=== PATIENT | male | born 1970 | race American Indian/Alaskan Native ===

== ENCOUNTER 2016-07-30 09:31 | Inpatient (IN) | payer MEDICARE ==
--- NOTE | 2016-07-30 10:05 | Emergency Department Report ---
Chief Complaint: Chest Pain Stated Complaint: CHEST PAIN Time Seen by Provider: 07/30/16 09:55 - HPI History of Present Illness: Patient is a 46-year-old male who presents to ED complaining of midsternal nonradiating radiating chest pain times this morning. Patient complains of vomiting bright red blood this morning. Patient states chest pain starts prior to the vomiting bright red blood. 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 Patient states he is on blood pressure medication. Patient describes the pain as sharp in nature, 8 out of 10 intensity. Patient states he is concerned about all he is vomiting bright red blood. Patient states last episode of vomiting blood was earlier this morning. Patient denies shortness of breath fever/chills/nausea/diarrhea/constipation - ROS Review of Systems: As noted in HPI - Exam Vital Signs: Vital Signs 07/30/16 09:36 Temperature 97.6 F Pulse Rate 104 H Respiratory 19 Rate Blood Pressure 169/102 O2 Sat by Pulse 97 Oximetry Physical Exam: GENERAL: Alert and oriented x3, no apparent distress, Normal Gait, atraumatic. HEAD: Head is normocephalic and a-traumatic. EYES: Extra ocular muscles are intact. Pupils are equal, round, and reactive to light and accommodation. LUNGS: Symetrical with respiration, No wheezing, no rales or crackles, CTAB. HEART: S1, S2 present, regular rate and rhythm without murmur, no rubs, no gallops. ABDOMEN: No organomegaly was noted,Positive bowel sounds, soft, and non- distended. . Nontender to palpation on all Quadrants, NO CVA tenderness. SKIN: Warm and dry, No lesions, No ulceration or induration present. MSE screening note: Focused history and physical exam performed. Due to findings the following was ordered: ED Medical Decision Making - Medical Decision Making 46-year-old male presents with complaints of bright red blood vomiting and chest pain. Chest pain protocol ordered. GI labs ordered. Patient awaiting to see ER physician. Patient was very adamant about being admitted to get her scoped down his throat. Discussed with patient based on labs and symptoms if admission criteria is met. ED Disposition for MSE Condition: Stable
[2016-07-30 10:23] LABS: Basophils % (Auto) 0.4 % (0.0-1.8); Eosinophils % (Auto) 2.9 % (0.0-4.3); Hematocrit 40.4 % (35.5-45.6); Hemoglobin 13.4 gm/dl (11.8-15.2); Mean Corpuscular HGB Conc 33 % (32-34); Mean Corpuscular Hemoglobin 30 pg (28-32); Mean Corpuscular Volume 91 fl (84-94); Platelet Count 288 K/mm3 (140-440); Red Blood Count 4.44 M/mm3 (3.65-5.03); Red Cell Distribution Width 13.9 % (13.2-15.2)
[2016-07-30 10:42] LABS: Alanine Aminotransferase 15 units/L (7-56); Albumin 4.3 g/dL (3.9-5); Albumin/Globulin Ratio 1.5 %; Alkaline Phosphatase 87 units/L (35-129); Amylase 117 units/L (27-131); Anion Gap 17 mmol/L; Bilirubin,Total 0.3 mg/dL (0.1-1.2); Blood Urea Nitrogen 6 mg/dL (9-20); Calcium 8.6 mg/dL (8.4-10.2); Carbon Dioxide 23 mmol/L (22-30); Chloride 100.9 mmol/L (98-107); Glucose 254 mg/dL (75-100); Lipase 186 units/L (13-60); Potassium 3.8 mmol/L (3.6-5.0); Sodium 137 mmol/L (137-145); Total Protein 7.2 g/dL (6.3-8.2)
[2016-07-30] MEDS ORDERED: DILAUDID IV ONE (16:05)
[2016-07-30] MEDS ORDERED: NACL 0.9% 1000 ML 1,000 ML IV ONE (16:05)
[2016-07-30] MEDS ORDERED: ZOFRAN IV ONE (16:05)
--- NOTE | 2016-07-30 16:20 | Emergency Department Report ---
ED Chest Pain HPI - General Chief Complaint: Chest Pain Stated Complaint: CHEST PAIN Time Seen by Provider: 07/30/16 15:56 Source: patient Mode of arrival: Ambulatory Limitations: No Limitations - History of Present Illness Initial Comments: This is a 46-year-old Afro-N[place]alese male presents the emergency department with complaint of midsternal chest pain that started just prior to presentation. It has been associated with nausea and about 4-5 episodes of vomiting. One time the patient says that there was some blood-tinged emesis. He denies any shortness of breath, fever, diaphoresis. He has a past medical history of hypertension and some psychiatric history but denies any history of OH, CVA, PE/ DVT. He is an occasional tobacco smoker. He does not have a primary care doctor. The chest pain is constant and sharp. He took 2 bare aspirin for his discomfort without any relief. No recent travel or sick contacts at home. He denies any alcohol or illicit drug use or abuse. Patient says he had a negative stress test many years ago. Severity scale (0 -10): 9 - Related Data Home Medications Medication Instructions Recorded Confirmed Last Taken Lisinopril [Zestril TAB] 40 mg PO DAILY 07/15/14 12/21/15 12/21/15 Previous Rx's Medication Instructions Recorded Last Taken Type QUEtiapine [SEROquel] 400 mg PO QHS tablet 12/23/15 Unknown Rx buPROPion [Wellbutrin] 200 mg PO DAILY tablet 12/23/15 Unknown Rx ALBUTEROL Inhaler [ProAir HFA 2 puff IH QID PRN #1 inhalation 02/04/16 Unknown Rx Inhaler] Azithromycin [Zithromax TAB] 500 mg PO QDAY #5 tablet 02/04/16 Unknown Rx Pantoprazole [Protonix] 40 mg PO QDAY #30 tablet 02/04/16 Unknown Rx glipiZIDE XL [Glucotrol Xl] 5 mg PO QAM #30 tab.er.24 02/04/16 Unknown Rx HYDROcodone/APAP 7.5-325 [Oakley 1 each PO Q8HR PRN #10 tablet 04/20/16 Unknown Rx 7.5-325 mg TAB] Omeprazole Magnesium [PriLOSEC Otc] 20 mg PO QDAY #14 04/20/16 Unknown Rx Ondansetron [Zofran TAB] 4 mg PO Q8HR PRN #14 tablet 04/20/16 Unknown Rx Allergies Allergy/AdvReac Type Severity Reaction Status Date / Time No Known Allergies Allergy Verified 07/30/16 09:42 YANIQUE score - Yanique Score Age > 65: (0) No Aspirin use within the Past 7 Days: (0) No 3 or more CAD Risk Factors: (0) No 2 or more Angina events in past 24 hrs: (1) Yes Known CAD with more than 50% Stenosis: (0) No Elevated Cardiac Markers: (0) No ST Deviation Greater than 0.5mm: (0) No YANIQUE Score: 1 ED Review of Systems ROS: Stated complaint: CHEST PAIN Other details as noted in HPI Comment: All other systems reviewed and negative Constitutional: denies: chills, fever Eyes: denies: eye pain, eye discharge, vision change ENT: denies: ear pain, throat pain Respiratory: denies: cough, shortness of breath, wheezing Cardiovascular: chest pain. denies: palpitations Gastrointestinal: nausea, vomiting, hematemesis Genitourinary: denies: urgency, dysuria Musculoskeletal: denies: back pain, joint swelling, arthralgia Skin: denies: rash, lesions Neurological: denies: headache, weakness, paresthesias ED Past Medical Hx - Past Medical History Hx Hypertension: Yes Hx Congestive Heart Failure: No Hx Diabetes: No Hx Psychiatric Treatment: Yes (depression, schizophrenia, BIPOLAR) Hx Asthma: No Hx COPD: No Hx HIV: No - Surgical History Hx Cholecystectomy: Yes (2013) - Social History Smoking Status: Current Every Day Smoker Substance Use Type: Alcohol, Marijuana - Medications Home Medications: Home Medications Medication Instructions Recorded Confirmed Last Taken Type Lisinopril [Zestril TAB] 40 mg PO DAILY 07/15/14 12/21/15 12/21/15 History QUEtiapine [SEROquel] 400 mg PO QHS tablet 12/23/15 Unknown Rx buPROPion [Wellbutrin] 200 mg PO DAILY tablet 12/23/15 Unknown Rx ALBUTEROL Inhaler [ProAir HFA 2 puff IH QID PRN #1 inhalation 02/04/16 Unknown Rx Inhaler] Azithromycin [Zithromax TAB] 500 mg PO QDAY #5 tablet 02/04/16 Unknown Rx Pantoprazole [Protonix] 40 mg PO QDAY #30 tablet 02/04/16 Unknown Rx glipiZIDE XL [Glucotrol Xl] 5 mg PO QAM #30 tab.er.24 02/04/16 Unknown Rx HYDROcodone/APAP 7.5-325 [Oakley 1 each PO Q8HR PRN #10 tablet 04/20/16 Unknown Rx 7.5-325 mg TAB] Omeprazole Magnesium [PriLOSEC Otc] 20 mg PO QDAY #14 tablet. 04/20/16 Unknown Rx Ondansetron [Zofran TAB] 4 mg PO Q8HR PRN #14 tablet 04/20/16 Unknown Rx ED Physical Exam - General Limitations: No Limitations - Other Other exam information: GENERAL: The patient is well-developed well-nourished. HEENT: Normocephalic. Atraumatic. Extraocular motions are intact. Patient has moist mucous membranes. Pupils equal reactive to light bilaterally. NECK: Supple. Trachea is midline. CHEST/LUNGS: Clear to auscultation. There is no respiratory distress noted. Chest pain is not reproducible to palpation of chest wall. HEART/CARDIOVASCULAR: Regular. There is mild tachycardia. There is no gallop rub or murmur. ABDOMEN: Abdomen is soft. Patient has some tenderness to palpation to the epigastrium. No guarding rebound tenderness. Patient has normal bowel sounds. There is no abdominal distention. SKIN: There is no rash. There is no edema. There is no diaphoresis. NEURO: The patient is awake, alert, and oriented. The patient is cooperative. The patient has no focal neurologic deficits. The patient has normal speech. MUSCULOSKELETAL: There is no tenderness or deformity. There is no limitation range of motion. There is no evidence of acute injury. ED Course Vital Signs 07/30/16 07/30/16 07/30/16 09:36 13:22 16:10 Temperature 97.6 F 98.1 F Pulse Rate 104 H 52 L 96 H Respiratory 19 20 15 Rate Blood Pressure 169/102 Blood Pressure 148/91 [Left] O2 Sat by Pulse 97 99 Oximetry 07/30/16 07/30/16 07/30/16 16:11 16:12 16:14 Temperature Pulse Rate 97 H 92 H 94 H Respiratory 14 18 25 H Rate Blood Pressure 161/104 161/104 Blood Pressure [Left] O2 Sat by Pulse 99 99 Oximetry 07/30/16 07/30/16 07/30/16 16:16 16:18 16:20 Temperature Pulse Rate 112 H 102 H 97 H Respiratory 23 21 16 Rate Blood Pressure 161/104 161/104 161/104 Blood Pressure [Left] O2 Sat by Pulse 98 81 L 99 Oximetry 07/30/16 07/30/16 07/30/16 16:54 16:56 16:58 Temperature Pulse Rate 100 H 94 H 105 H Respiratory 22 17 22 Rate Blood Pressure Blood Pressure [Left] O2 Sat by Pulse 99 99 97 Oximetry 07/30/16 07/30/16 07/30/16 16:59 17:00 17:02 Temperature Pulse Rate 101 H 93 H Respiratory 19 19 19 Rate Blood Pressure 160/107 Blood Pressure [Left] O2 Sat by Pulse 99 97 Oximetry 07/30/16 07/30/16 07/30/16 17:04 17:06 17:08 Temperature Pulse Rate 100 H 96 H 110 H Respiratory 21 24 17 Rate Blood Pressure 160/107 160/107 160/107 Blood Pressure [Left] O2 Sat by Pulse 89 100 89 Oximetry 07/30/16 07/30/16 07/30/16 17:10 17:12 17:14 Temperature Pulse Rate 108 H 131 H 117 H Respiratory 19 33 H 26 H Rate Blood Pressure 160/107 160/107 160/107 Blood Pressure [Left] O2 Sat by Pulse 100 99 100 Oximetry 07/30/16 07/30/16 07/30/16 17:16 17:18 17:20 Temperature Pulse Rate Respiratory 22 22 29 H Rate Blood Pressure 160/107 160/107 160/107 Blood Pressure [Left] O2 Sat by Pulse 100 94 100 Oximetry 07/30/16 07/30/16 07/30/16 17:22 17:24 17:26 Temperature Pulse Rate Respiratory 19 15 19 Rate Blood Pressure 160/107 160/107 160/107 Blood Pressure [Left] O2 Sat by Pulse 100 100 100 Oximetry 07/30/16 07/30/16 07/30/16 17:28 17:30 17:32 Temperature Pulse Rate Respiratory 15 18 25 H Rate Blood Pressure 160/107 162/107 162/107 Blood Pressure [Left] O2 Sat by Pulse 100 100 100 Oximetry 07/30/16 07/30/16 07/30/16 17:34 17:36 17:38 Temperature Pulse Rate Respiratory 13 17 20 Rate Blood Pressure 162/107 162/107 162/107 Blood Pressure [Left] O2 Sat by Pulse 100 100 100 Oximetry 07/30/16 07/30/16 07/30/16 17:40 17:42 17:44 Temperature Pulse Rate Respiratory 17 16 16 Rate Blood Pressure 162/107 162/107 162/107 Blood Pressure [Left] O2 Sat by Pulse 100 100 99 Oximetry 07/30/16 07/30/16 07/30/16 17:46 17:48 17:50 Temperature Pulse Rate 113 H Respiratory 22 18 Rate Blood Pressure 162/107 162/107 162/107 Blood Pressure [Left] O2 Sat by Pulse 100 100 99 Oximetry 07/30/16 07/30/16 07/30/16 17:52 17:54 17:56 Temperature Pulse Rate 100 H 111 H Respiratory 12 30 H Rate Blood Pressure 162/107 162/107 162/107 Blood Pressure [Left] O2 Sat by Pulse 99 99 99 Oximetry 07/30/16 07/30/16 07/30/16 17:58 18:00 18:02 Temperature Pulse Rate 96 H 96 H 97 H Respiratory 15 22 14 Rate Blood Pressure 162/107 159/107 159/107 Blood Pressure [Left] O2 Sat by Pulse 99 100 100 Oximetry 07/30/16 07/30/16 07/30/16 18:04 18:06 18:08 Temperature Pulse Rate 99 H 99 H 102 H Respiratory 19 18 12 Rate Blood Pressure 159/107 159/107 159/107 Blood Pressure [Left] O2 Sat by Pulse 100 100 99 Oximetry 07/30/16 07/30/16 07/30/16 18:10 18:12 18:14 Temperature Pulse Rate 95 H 94 H 90 Respiratory 17 14 19 Rate Blood Pressure 159/107 159/107 159/107 Blood Pressure [Left] O2 Sat by Pulse 100 100 100 Oximetry 07/30/16 18:58 Temperature Pulse Rate Respiratory 19 Rate Blood Pressure Blood Pressure [Left] O2 Sat by Pulse Oximetry ED Medical Decision Making - Lab Data Result diagrams: 07/30/16 10:07 07/30/16 10:14 - EKG Data -: EKG Interpreted by Tx EKG shows normal: sinus rhythm (PVCs), axis, intervals, QRS complexes, ST-T waves (flat T waves) Rate: tachycardia (110 bpm) - EKG Data When compared to previous EKG there are: previous EKG unavailable Interpretation: other (sinus rhythm with PVCs, flattened T waves, tachycardia at 110 bpm) - Radiology Data Radiology results: report reviewed, image reviewed interpreted by me: Chest x-ray did not show any acute process. Heart is normal shape and size. No effusions. No pneumothorax. No signs of pneumonia seen. CT of the abdomen and pelvis with IV contrast shows no free fluid or inflammatory changes. Normal-appearing appendix. Diverticulosis. Subcentimeter exophytic lesion is seen arising from the inferior pole of the left kidney. Fatty infiltration of liver. - Medical Decision Making 46-year-old male presents to the emergency department with complaint of some midsternal and left-sided chest pain. He also complains of some nausea and vomiting with hematemesis. Patient's EKG does not show any signs of ST elevation OH. Chest x-ray does not show any acute process. So far the patient has had negative troponins 2. A physical exam, even though the patient did not complain of abdominal pain at first, he has some tenderness to palpation of the epigastrium. With an elevated lipase level a CT of the abdomen and pelvis with IV contrast was done. No signs of pancreatitis or appendicitis. The patient has some diverticulosis and an exophytic lesion of the kidney. Patient continues to have discomfort despite 2 different doses of narcotic pain medication. He also presents with hyperglycemia but does not appear to be in DKA or HHNK. Since the patient has not had a stress test in many years and continues to have some chest discomfort he will be admitted to the hospital for further evaluation and treatment and has been accepted for admission by the hospitalist, Dr. Cody. - Differential Diagnosis OH, PE, costochondritis, pneumonia Critical Care Time: No Critical care attestation.: If time is entered above; I have spent that time in minutes in the direct care of this critically ill patient, excluding procedure time. ED Disposition Clinical Impression: Hyperglycemia Chest pain Qualifiers: Chest pain type: unspecified Qualified Code(s): R07.9 - Chest pain, unspecified Hematemesis Qualifiers: Nausea presence: with nausea Qualified Code(s): K92.0 - Hematemesis; R11.0 - Nausea Hypertension Qualifiers: Hypertension type: essential hypertension Qualified Code(s): I10 - Essential ( primary) hypertension Disposition: OP ADMITTED IP TO THIS HOSP Is pt being admited?: Yes Condition: Stable Instructions: Chest Pain (ED), Hypertension (ED) Time of Disposition: 19:53
--- NOTE | 2016-07-30 17:43 | Cat Scan Report ---
FINAL REPORT EXAM: CT ABDOMEN PELVIS W CON HISTORY: Abd pain TECHNIQUE: Serial axial images through the abdomen and pelvis during intravenous administration of contrast with coronal and sagittal reconstruction. PRIORS: CT abdomen pelvis from 12/21/2015 FINDINGS: There is atelectasis in the dependent portion of the lung bases. No pleural effusion is seen. There is fatty infiltration of the liver. No focal hepatic lesion is identified. The gallbladder is surgically absent. The pancreas, spleen and adrenal glands appear within normal limits. There is a stable exophytic lesion arising from the inferior pole of left kidney that measures approximately 9 millimeters in diameter. Hounsfield units measure 24. In the prior examination, Hounsfield units measure 42. Aorta is normal in caliber. Bladder appears normal. No free fluid. Appendix appears normal. Scattered diverticula are seen arising from the distal colon. Degenerative changes are seen in the spine. No acute osseous abnormality is identified. IMPRESSION: 1. No free fluid or inflammatory changes are seen in the abdomen or pelvis. 2. Normal-appearing appendix. 3. Diverticulosis. 4. Subcentimeter exophytic lesion is seen arising from the inferior pole of left kidney. This could represent proteinaceous cyst. Other etiology is not excluded. This can be further characterized with MRI. Alternatively, a limited follow-up study can be performed in 6 months to assure stability. 5. Fatty infiltration of the liver.
[2016-07-30] MEDS ORDERED: MORPHINE IV ONE (18:35)
--- NOTE | 2016-07-30 19:02 | Admit Criteria Form ---
Admission Criteria Documentation: CARDIOLOGY GRG Clinical Indications for Admission to Inpatient Care ( Place 'X' for any and all applicable criteria): Hospital admission is needed for appropriate care of the patient because of ANY ONE of the following (1): [ ] I. Hemodynamic instability as indicated by ALL of the following (1)(2)(3) (4)(5) [ ]a) Vital signs or other findings not as expected for chronic patient condition or baseline [ ]b) Instability indicated by ANY ONE of the following: [ ]i) Hypotension [ ]ii) Symptomatic Tachycardia unresponsive to treatment ( e.g., analgesia, fluids, sedation as indicated) [ ]iii) Inadequate perfusion indicated by ANY ONE of the following: [ ] 1) Lactic acidosis (> 2 mmol/L) [ ] 2) New abnormal capillary refill (> 3 seconds) [ ] 3) Reduced urine output [ ] 4) New altered mental status [ ]iv) Orthostatic vital sign changes unresponsive to treatment (e.g., fluids) [ ]v) IV inotropic or vasopressor medication required to maintain adequate blood pressure or perfusion [ ] II. Severe heart failure as indicated by ANY ONE of the following(17)(18) [ ]a) Respiratory distress [ ]b) Hypotension [ ]c) Anasarca (refractory to outpatient therapy) [ ]d) Cardiac arrhythmias of immediate concern [ ]e) Myocardial ischemia [ ] III. Cardiac arrhythmias or findings of immediate concern indicated by ANY ONE of the following (19)(20): [ ] a) Heart rhythms that are inherently dangerous or unstable indicated by ANY ONE of the following (21)(22)(23): [ ] i) Resuscitated ventricular fibrillation or cardiac arrest [ ] ii) Ventricular escape rhythm [ ] iii) Sustained ventricular tachycardia (30 seconds or more of ventricular rhythm at greater than 100 beats per minute) [ ] iv) Nonsustained ventricular tachycardia and ANY ONE of the following: [ ] 1) Suspected cardiac ischemia as cause or consequence of ventricular tachycardia [ ] 2) In setting of acute myocarditis [ ] b) Unstable cardiac conduction defects indicated by ANY ONE of the following(23)(24)(25) [ ] i) Type II second-degree atrioventricular block [ ]ii) Third-degree atrioventricular block [ ]iii) New-onset left bundle branch block with suspected myocardial ischemia [ ]c) Any heart rhythm and ANY ONE of the following (21)(22)(26)(27) (28) [ ] i) Continuous long-term ECG monitoring needed (e.g., initiation of drug requiring monitoring for more than 24 hours) [ ] ii) Patient has automatic implanted cardioverter defibrillator that is repeatedly firing, malfunctioning, or in need of immediate adjustment of settings beyond the scope of ambulatory or observation care [ ]d) Heart rhythms of concern due to ANY ONE of the following: [ ] i) Hypotension [ ] ii) Respiratory distress [ ] iii) Association with other significant symptoms (e.g., bradycardia with syncope or ongoing dizziness, supraventricular tachycardia with chest pain (14)(15)(17) [ ] IV. Monitoring for cardiac contusion beyond the scope of observation care needed [A](30)(31)(32) [ ] V. Surgical or device complication (e.g., valve replacement complication , pacemaker dysfunction) (35)(41)(44)(45)(46) [ ] . Inpatient palliative care needed. [B](49) Also use Inpatient Palliative Care Criteria [ ] VII. Nonbacterial thrombotic (marantic) endocarditis (36)(43)(47)(48) [X ] VIII. Cardiology condition, symptom, or finding for which emergency and observation care has failed or are not considered appropriate. [ ] IX. Acute valvular disease requiring inpatient as indicated by ANY ONE of the following (41) [ ]a) Acute valvular regurgitation (42) [ ]b) Noninfectious valvulitis (43) [ ]c) Obstructive valve thrombosis [ ]d) Paravalvular leak [ ]e) Other significant valvular disorder remaining after emergency or observation level of care (as appropriate) [ ]X. Pericardial disease requiring inpatient treatment as indicated by ANY ONE of the following (33)(34)(35)(36)(37) [ ]a) Suspected tamponade (38)(39)(40) [ ]b) Hemopericardium [ ]c) Other significant pericardial disorder remaining after emergency or observation level of care (as appropriate) [ ] XI. Cardiac ischemia beyond scope of emergency and observation care. [ ] XII. Hypertension requiring inpatient treatment as indicated by ANY ONE of the following (6)(7)(8) [ ]a) SBP greater than 220 mm Hg or DBP greater than 120 mmHg despite treatment [ ]b) SBP greater than 140 mm Hg or DBP greater than 100 mm Hg with evidence of acute end organ damage as indicated by ANY ONE of the following [ ] i) Altered mental status [ ] ii) Acute renal failure as indicated by new onset of ANY ONE of the following (9)(10)(11)(12)(13) [ ]1) 3-fold rise in serum creatinine from baseline [ ]2) Serum creatinine greater than 4 mg/dL ( 354 micromoles/L) with acute rise greater than 0.5 mg/dL (44.2 micromoles/L) [ ]3) Reduction of more than 75% in estimated glomerular filtration rate from baseline [ ]4) Estimated glomerular filtration rate less than 35 mL/min/1.73m2 (0.59 mL/sec/1.73m2) in child up to 18 years of age [ ]5) Cessation of urine output indicated by ALL of the following [ ]A. Adequate volume status [ ]B. Inadequate urine output as indicated by ANY ONE of the following [ ]a. Urine output less than 0.3 mL/kg/hr for 24 hours [ ]b. Anuria (urine output less than 0.1 mL/kg/hr) for 12 hours [ ] iii) Aortic dissection [ ] iv) Myocardial Ischemia [ ] v) Left ventricular heart failure [ ]vi) Retinal Hemorrhage [ ]vii) Other significant finding [ ]c) Hypertension in child requiring inpatient treatment as indicated by ALL of the following(14)(15)(16) [ ] i) Outpatient treatment not effective, not available, or not appropriate [ ]ii) SBP or DBP greater than 95th percentile for age [ ]iii) Evidence of acute end organ damage as indicated by ANY ONE of the following [ ]1) Altered mental status [ ]2) Acute renal failure as indicated by new onset of ANY ONE of the following(9)(10)(11)(12)(13) [ ]A. 3-fold rise in serum creatinine from baseline [ ]B. Serum creatinine greater than 4 mg/dL (354 micromoles/L) with acute rise greater than 0.5 mg/dL (44.2 micromoles/L) [ ]C. Reduction of more than 75% in estimated glomerular filtration rate from baseline [ ]D. Estimated glomerular filtration rate less than 35 mL/min/1.73m2 (0.59 mL/sec/1.73m2) in child up to 18 years of age [ ]E. Cessation of urine output indicated by ALL of the following [ ]a. Adequate volume status [ ]b. Inadequate urine output as indicated by ANY ONE of the following [ ]i) Urine output less than 0.3 mL/kg/hr for 24 hours [ ]ii) Anuria ( urine output less than 0.1 mL/kg/hr) for 12 hours [ ]3) Severe headache [ ]4) Visual disturbance [ ]5) Retinal hemorrhage [ ]6) Other significant finding [ ]XIII. Complications of transplanted heart indicated by ANY ONE of the following(61): [ ]a) Acute graft rejection requiring inpatient management (eg, intravenous immunosuppression)(62)(63) [ ]b) Acute graft heart failure indicated by ANY ONE of the following(64): [ ]i) Hemodynamic instability [ ]ii) Cardiac arrhythmias of immediate concern [ ]iii) Pulmonary edema that is very severe (eg, mechanical ventilation needed, imminent or likely, need for 100% oxygen to keep oxygen saturation above 90%) [ ]iv) Pulmonary edema that is persistent as indicated by ALL of the following: [ ]1) New need for oxygen therapy to keep oxygen saturation above 90% (or increased FiO2 need from baseline) [ ]2) Has not improved sufficiently with emergency department or observation care IV diuretics or other heart failure treatments[E] [ ]v) Altered mental status that is severe or persistent [ ]vi) Increased creatinine (new on laboratory test) with reduction of more than 50% in estimated glomerular filtration rate from baseline [ ]vii) Progressively (ongoing) rising creatinine (known from past laboratory test) with reduction of more than 25% in estimated glomerular filtration rate from baseline [ ]viii) Acute renal failure [ ]ix) Acute peripheral ischemia (eg, examination shows pulseless, cool, mottled, or cyanotic extremity) [ ]x) Pulmonary artery catheter monitoring needed [ ]xi) Other sign or symptom of heart failure requiring inpatient treatment (ie, too severe or not responsive to outpatient and observation care treatment) [ ]c) Infection requiring inpatient management (eg, Hemodynamic instability, need for intravenous antimicrobial treatment)(66)(67)(68)(69)(70) [ ]d) Cardiac allograft vasculopathy requiring inpatient management ( eg evidence of cardiac ischemia)(71) [ ]e) Other complication of transplanted heart (eg, stroke, severe pulmonary hypertension, severe valvular dysfunction) requiring inpatient management(72) The original [facility] [employer] content created by [employer] has been revised. The portions of the content which have been revised are identified through the use of italic text or in bold, and [facility] has neither reviewed nor approved the modified material. All other unmodified content is copyright [facility] [employer]. Please see references footnoted in the original [facility] [email or web address] edition 2016 Admission Criteria Met: Yes
--- NOTE | 2016-07-30 21:18 | Event Note ---
Date: 07/30/16 See H/p in reports Upper Gi bleed Melena Abdominal pain Chest pain-r/o mi protocol HTN T2DM Depression
[2016-07-30] MEDS ORDERED: PROAIR IH PRN (21:20)
[2016-07-30] MEDS ORDERED: MILK OF MAGNESIA PO PRN (21:23)
[2016-07-30] MEDS ORDERED: TYLENOL PO PRN (21:23)
[2016-07-30] MEDS ORDERED: DULCOLAX PR PRN (21:23)
[2016-07-30] MEDS ORDERED: ZOFRAN IV PRN (21:23)
[2016-07-30] MEDS ORDERED: REGLAN IV PRN (21:23)
[2016-07-30] MEDS ORDERED: PROVENTIL IH PRN (21:27)
[2016-07-30] MEDS ORDERED: NOVOLOG SUB-Q PRN (21:40)
[2016-07-30] MEDS: DILAUDID IV PRN (21:57)
[2016-07-30] MEDS ORDERED: PROTONIX 80 MG in NACL 0.9% 100 ML IV SCH (22:00)
[2016-07-30] MEDS ORDERED: D5/0.45NS 1,000 ML IV SCH (22:00)
[2016-07-31] MEDS: DILAUDID IV PRN ×5 (03:29→20:00)
--- NOTE | 2016-07-31 04:05 | History and Physical Report ---
CHIEF COMPLAINT: 1. Hematemesis. 2. Chest pain. HISTORY OF PRESENT ILLNESS: A 46-year-old -[place] male who presents with midsternal chest pain. Also, nausea and 4 episodes of vomiting. Couple of times he vomited blood. The patient is very poor historian. Cannot rely on his history. The patient also says that he has dark stools. Also, right lower quadrant pain. Chest pain is about 6 on a scale of 1-10, intermittent in nature. No diaphoresis. No palpitations. Hematemesis, 2 episodes of bright red blood per vomiting. Also, melanotic stools. Right lower quadrant pain. Epigastric pain present. Denies any alcohol or drug use. CURRENT MEDICATIONS: Lisinopril 40 mg daily. Also Seroquel 400 mg p.o. at bedtime. Bupropion 200 mg daily. Lisinopril 40 mg once a day. PAST MEDICAL HISTORY: As mentioned, history significant for hypertension, depression, and psych disorder. FAMILY HISTORY: History of hypertension present. SOCIAL HISTORY: Does not smoke. No alcohol, no recreational drugs. REVIEW OF SYSTEMS: CONSTITUTIONAL: No weight loss, no weight gain. No fever, no chills. HEENT: No sore throat. No postnasal drip. NECK: No neck stiffness. CARDIOVASCULAR AND RESPIRATORY: No shortness of breath, no chest pain, no palpitations. Chest pain present. Slight diaphoresis present. GASTROINTESTINAL: Hematemesis and melanotic stools present. GENITOURINARY: No dysuria, no flank pain. MUSCULOSKELETAL: No joint pains and no muscle pains. CENTRAL NERVOUS SYSTEM: No syncope, no seizures. SKIN: No rashes. A 14-point review of systems is done and otherwise negative. PHYSICAL EXAMINATION: GENERAL: Middle aged male, cooperative during examination. VITAL SIGNS: Blood pressure is 136/90, temperature is 97.6, pulse is 93, respirations are 31. HEENT: Unremarkable. Pupils equal and reactive. NECK: Supple, no lymphadenopathy, no thyromegaly. LUNGS: Clear to auscultation and percussion. Good air entry. CARDIOVASCULAR: S1, S2 heard. No gallop, no murmur, no rub. Apical impulse in left fifth intercostal space midclavicular line. ABDOMEN: Soft. Right lower quadrant tenderness present. No guarding, no rigidity. Hernial orifices are normal. EXTREMITIES: Good pedal pulses. No pedal edema. CENTRAL NERVOUS SYSTEM: Alert and oriented x 4, nonfocal exam. LABORATORY DATA: White count is 4000, H and H is 13.4 and 40.4, platelet count is 288,000. D-dimer is less than 135. Electrolytes are normal. BUN and creatinine are 6 and 0.5, glucose is 254. Lipase is 186. CT of the abdomen did not show any pancreatitis. ASSESSMENT AND PLAN: 1. Upper gastrointestinal bleed. The patient was started on IV Protonix, IV fluids. The patient to get upper endoscopy. GI consulted. Dr. Acosta consulted. 2. Chest pain, rule out myocardial infarction, chest pain protocol. 3. Hypertension. Continue lisinopril for the time being. I will hold the lisinopril and put him on Catapres patch. 4. Insulin-dependent diabetes. Continue insulin coverage. 5. Acute gastritis. Continue Protonix 40 mg daily. We will continue Protonix drip for the time being and discharge him on Protonix. In summary, upper GI bleed, requiring GI workup and chest pain requiring cardiac workup. JOB# [id number] VSAleksandra/NTS
[2016-07-31 05:40] LABS: Hematocrit 38.2 % (35.5-45.6); Hemoglobin 12.7 gm/dl (11.8-15.2); Mean Corpuscular HGB Conc 33 % (32-34); Mean Corpuscular Hemoglobin 30 pg (28-32); Mean Corpuscular Volume 91 fl (84-94); Platelet Count 249 K/mm3 (140-440); Red Blood Count 4.18 M/mm3 (3.65-5.03); Red Cell Distribution Width 13.6 % (13.2-15.2); White Blood Count 3.6 K/mm3 (4.5-11.0)
[2016-07-31 05:54] LABS: Alanine Aminotransferase 13 units/L (7-56); Albumin 3.5 g/dL (3.9-5); Albumin/Globulin Ratio 1.3 %; Alkaline Phosphatase 80 units/L (35-129); Bilirubin,Total 0.3 mg/dL (0.1-1.2); Blood Urea Nitrogen 6 mg/dL (9-20); Carbon Dioxide 26 mmol/L (22-30); Chloride 104.2 mmol/L (98-107); Glucose 147 mg/dL (75-100); Potassium 3.8 mmol/L (3.6-5.0); Sodium 141 mmol/L (137-145); Total Protein 6.1 g/dL (6.3-8.2)
[2016-07-31 06:03] LABS: Anion Gap 15 mmol/L
[2016-07-31 07:09] LABS: Anisocytosis 1+; Basophils % (Manual) 0 % (0.0-1.8); Blastocytes % (Manual) 0 %; Diff Status Complete; Giant Platelets Rare; Hypochromasia 1+
--- NOTE | 2016-07-31 08:15 | XRay Report ---
AP chest x-ray. Findings: There is suboptimal inspiration with crowded bronchovascular markings. The heart size is normal. There is mild central vascular prominence probably related to degree of inspiration. There is no pleural fluid. Impression: No acute findings.
--- NOTE | 2016-07-31 08:50 | Gastroenterology Consultation ---
History of Present Illness - Reason for Consult Consult date: 07/31/16 hematemesis - History of Present Illness Mr Rasmussen is a 46 yo aam who presents with chest pain and epigastric pain for the past couple days. He has had a constant/sharp pain associated with episodes of n/v. Difficult to obtain much history from patient, but reports multiple episodes of hematemesis and black stools recently. Denies prior episodes of GI bleeding. Lipase elevated on admission. Denies significant alcohol use. Takes occasional NSAIDs. Past History Past Medical History: hypertension, other (shizophrenia, bipolar disorder) Past Surgical History: cholecystectomy Social history: smoking Family history: no significant family history Medications and Allergies Allergies Allergy/AdvReac Type Severity Reaction Status Date / Time No Known Allergies Allergy Verified 07/30/16 09:42 Home Medications Medication Instructions Recorded Confirmed Last Taken Type Lisinopril [Zestril TAB] 40 mg PO DAILY 07/15/14 07/30/16 12/21/15 History QUEtiapine [SEROquel] 400 mg PO QHS tablet 12/23/15 07/30/16 Unknown Rx buPROPion [Wellbutrin] 200 mg PO DAILY tablet 12/23/15 07/30/16 Unknown Rx Active Meds: Active Medications Acetaminophen (Tylenol) 650 mg PO Q4H PRN PRN Reason: Pain MILD(1-3)/Fever >100.5/DIGGS Albuterol (Proventil) 2.5 mg IH Q4HRT PRN PRN Reason: Shortness Of Breath Bisacodyl (Dulcolax) 10 mg RI QDAY PRN PRN Reason: Constipation unrelieved by MOM Bupropion HCl (Wellbutrin) 200 mg PO DAILY ALMA Hydromorphone HCl (Dilaudid) 1 mg IV Q3H PRN PRN Reason: Pain , Severe (7-10) Last Admin: 07/31/16 03:29 Dose: 1 mg Dextrose/Sodium Chloride (D5/0.45ns) 1,000 mls @ 75 mls/hr IV DIRECT ALMA Last Admin: 07/30/16 23:55 Dose: 75 mls/hr Pantoprazole Sodium 80 mg/ (Sodium Chloride) 100 mls @ 10 mls/hr IV DIRECT ALMA PRN Reason: 8 MG/HR Last Admin: 07/30/16 22:27 Dose: 10 mls/hr Insulin Aspart (Novolog) 0 units SUB-Q Q6HR PRN; Protocol PRN Reason: Hyperglycemia Magnesium Hydroxide (Milk Of Magnesia) 30 ml PO Q4H PRN PRN Reason: Constipation Metoclopramide HCl (Reglan) 10 mg IV Q6H PRN PRN Reason: Nausea And Vomiting Ondansetron HCl (Zofran) 4 mg IV Q3H PRN PRN Reason: N/V unrelieved by Reglan Quetiapine Fumarate (Seroquel) 400 mg PO QHS [facility] Last Admin: 07/30/16 22:27 Dose: 400 mg Review of Systems - Review of Systems All systems: negative (per HPI) Exam - Constitutional Vital Signs: Temp Pulse Resp BP Pulse Ox 98.2 F 99 H 18 121/68 94 07/31/16 05:38 07/31/16 06:52 07/31/16 05:38 07/31/16 05:38 07/31/16 05:38 General appearance: no acute distress - EENT Eyes: PERRL, EOM intact ENT: hearing intact, clear oral mucosa - Neck Neck: supple - Respiratory Respiratory effort: normal Respiratory: right: CTA - Cardiovascular Rhythm: regular Heart Sounds: Present: S1 & S2 Extremities: No edema - Gastrointestinal General gastrointestinal: Present: soft, other (+ epigastric ttp, no rebound/ guarding, nd, +bs) - Integumentary Integumentary: Present: clear, dry - Musculoskeletal Musculoskeletal: normal - Psychiatric Psychiatric: agitated - Labs CBC & Chem 7: 07/31/16 15:33 07/31/16 05:13 Lab Results: Laboratory Results - last 24 hr 07/31/16 07/31/16 07/31/16 05:13 05:13 05:13 WBC 3.6 L RBC 4.18 Hgb 12.7 Hct 38.2 MCV 91 MCH 30 MCHC 33 RDW 13.6 Plt Count 249 Lymph % (Auto) Janitorial Services Supervisor Add Manual Diff Complete Total Counted 100 Seg Neutrophils % Janitorial Services Supervisor Seg Neuts % (Manual) 52.0 Band Neutrophils % 0 Lymphocytes % (Manual) 37.0 H Reactive Lymphs % (Man) 0 Monocytes % (Manual) 2.0 Eosinophils % (Manual) 9.0 H Basophils % (Manual) 0 Metamyelocytes % 0 Myelocytes % 0 Promyelocytes % 0 Blast Cells % 0 Nucleated RBC % Not Reportable Seg Neutrophils # Man 1.9 Band Neutrophils # 0.0 Lymphocytes # (Manual) 1.3 Abs React Lymphs (Man) 0.0 Monocytes # (Manual) 0.1 Eosinophils # (Manual) 0.3 Basophils # (Manual) 0.0 Metamyelocytes # 0.0 Myelocytes # 0.0 Promyelocytes # 0.0 Blast Cells # 0.0 WBC Morphology Not Reportable Hypersegmented Neuts Not Reportable Hyposegmented Neuts Not Reportable Hypogranular Neuts Not Reportable Smudge Cells Not Reportable Toxic Granulation Not Reportable Toxic Vacuolation Not Reportable Dohle Bodies Not Reportable Pelger-Huet Anomaly Not Reportable Janna Rods Not Reportable Platelet Estimate Appears normal Clumped Platelets Not Reportable Plt Clumps, EDTA Not Reportable Large Platelets Not Reportable Giant Platelets Rare Platelet Satelliting Not Reportable Plt Morphology Comment Not Reportable RBC Morphology Not Reportable Dimorphic RBCs Not Reportable Polychromasia Not Reportable Hypochromasia 1+ Poikilocytosis Not Reportable Anisocytosis 1+ Microcytosis Not Reportable Macrocytosis Not Reportable Spherocytes Not Reportable Pappenheimer Bodies Not Reportable Sickle Cells Not Reportable Target Cells Not Reportable Tear Drop Cells Not Reportable Ovalocytes Not Reportable Helmet Cells Not Reportable Elder-Timpson Bodies Not Reportable Home Rings Not Reportable Charlotte Cells Not Reportable Bite Cells Not Reportable Crenated Cell Not Reportable Elliptocytes Not Reportable Acanthocytes (Spur) Not Reportable Rouleaux Not Reportable Hemoglobin C Crystals Not Reportable Schistocytes Not Reportable Malaria parasites Not Reportable Shankar Bodies Not Reportable Hem Pathologist Commnt No Sodium 141 Potassium 3.8 Chloride 104.2 Carbon Dioxide 26 Anion Gap 15 BUN 6 L Creatinine 0.5 L Estimated GFR > 60 BUN/Creatinine Ratio 12.00 Glucose 147 H Hemoglobin A1c 6.2 H Calcium 8.0 L Total Bilirubin 0.3 AST 14 ALT 13 Alkaline Phosphatase 80 Total Protein 6.1 L Albumin 3.5 L Albumin/Globulin Ratio 1.3 - Imaging X-ray: report reviewed CT Scan: report reviewed Assessment and Plan 1. hematemesis/melena - unclear etiology, HD stable, hct normal. plan for EGD today, PPI IV 2. ?acute pancreatitis - CT w/o signs of pancreatitis although he has an elevated lipase with epigastric abdominal pain (would fit criteria for pancreatitis). etiology unclear, ?alcohol, liver enzymes normal and h/o cholecystectomy.
[2016-07-31] MEDS ORDERED: WATER FOR IRRIG STERILE IR ONE (09:36)
[2016-07-31] MEDS ORDERED: NACL 0.9% 1000 ML 1,000 ML IV SCH ×2 (10:00→18:00)
[2016-07-31] MEDS ORDERED: DIPRIVAN 10 MG/ML IV ONE ×2 (10:10)
--- NOTE | 2016-07-31 10:12 | Anesthesia Consultation ---
Anesthesia Consult and Med Hx Date of service: 07/31/16 - Airway Anesthetic Teeth Evaluation: Good ROM Head & Neck: Adequate Mental/Hyoid Distance: Adequate Mallampati Class: Class II Intubation Access Assessment: Probably Good - Pulmonary Exam CTA: Yes - Cardiac Exam Cardiac Exam: RRR - Pre-Operative Health Status ASA Pre-Surgery Classification: ASA2 Proposed Anesthetic Plan: MAC - Pulmonary Hx Smoking: Yes Hx Asthma: No COPD: No Hx Pneumonia: No Hx Sleep Apnea: No - Cardiovascular System Hx Hypertension: Yes - Central Nervous System Hx Psychiatric Problems: Yes (schizophrenia, depression) - Endocrine Hx End Stage Renal Disease: No Hx Non-Insulin Dependent Diabetes: Yes - Other Systems Hx Alcohol Use: Yes Hx Substance Use: Yes (MARIJUANA) Hx Cancer: No Hx Obesity: Yes
--- NOTE | 2016-07-31 10:13 | Anesthesia Day of Surgery ---
Anesthesia Day of Surgery - Day of Surgery Patient Examined: Yes Patient H&P Reviewed: Yes Patient is NPO: Yes
[2016-07-31] MEDS ORDERED: XYLOCAINE MPF 2% ONE (10:14)
--- NOTE | 2016-07-31 10:30 | Post Operative Note ---
Pre-op diagnosis: hematemesis, melena, abdominal pain Post-op diagnosis: other (prominent ampulla of unclear etiology. otherwise unremarkable EGD.) Findings: prominent, slightly erythematous ampulla. Biopsies obtained. Otherwise unremarkable EGD, no signs/etiologies of bleeding seen. -f/u path -obtain MRCP (pt also with pancreatitis which could cause appearance as above, but to r/o distal cbd/pancreatic lesions Procedure: EGD with biopsies Anesthesia: MAC Surgeon: ISABELLA SEYMOUR Estimated blood loss: minimal Pathology: list Specimen disposition: to lab Condition: stable Disposition: floor
--- NOTE | 2016-07-31 11:48 | Post Anesthesia Evaluation ---
- Post Anesthesia Evaluation Patient Participated: Yes Airway Patent: Yes Stable Respiratory Function: Yes Nausea/Vomiting: No Temp > 96.8F: Yes Pain Manageable: Yes Adequeate Hydration: Yes Anesthesia Complications: No Block Receding Appropriately: Not Applicable Patient on Ventilator: No
[2016-07-31] MEDS ORDERED: APRESOLINE IV PRN (13:28)
[2016-07-31 15:43] LABS: Hematocrit 40.1 % (35.5-45.6); Hemoglobin 13.6 gm/dl (11.8-15.2)
--- NOTE | 2016-07-31 16:59 | Progress Note ---
Assessment and Plan Assessment and plan: Upper GI bleed Insulin-dependent diabetes mellitus type 2 Hypertension Epigastric pain noted to rule out pancreatic pathology Plan: Continue Protonix and IV fluids No definite cause was found to upper endoscopy Plan for MRCP per GI Continue insulin coverage to control blood glucose History Interval history: Patient seen and examined. Medical records and medication list reviewed. No acute event overnight noted by the RN. Patient denies any chest pain or difficulty breathing. Had EGD today , wants to eat Discussed plan of care at bedside with patient. Hospitalist Physical - Physical exam Narrative exam: GENERAL: well-developed male lying on bed appeared to be in no discomfort. HEENT: Normocephalic. Atraumatic. No conjunctival congestion or icterus. Patient has moist mucous membranes. NECK: Supple. Trachea midline. CHEST/LUNGS: Clear to auscultated bilaterally, breathing nonlabored. No wheezes crackles or rhonchi. HEART/CARDIOVASCULAR: Regular in rate and rhythm. S1 and S2 positive. ABDOMEN: Abdomen is soft, mild epigastric tenderness. Patient has normal bowel sounds. SKIN: There is no rash. Warm and dry. NEURO: No focal motor deficit. Follows command. MUSCULOSKELETAL: No joint effusion or tenderness. EXTRIMITY: No edema, no cyanosis or clubbing. PSYCH: Cooperative. - Constitutional Vitals: Temp Pulse Resp BP Pulse Ox 98.2 F 75 18 172/106 99 07/31/16 12:41 07/31/16 12:41 07/31/16 12:41 07/31/16 12:41 07/31/16 12:41 Results - Labs CBC & Chem 7: 08/01/16 06:23 07/31/16 05:13 Labs: Laboratory Last Values WBC 3.6 K/mm3 (4.5-11.0) L 07/31/16 05:13 RBC 4.18 M/mm3 (3.65-5.03) 07/31/16 05:13 Hgb 13.6 gm/dl (11.8-15.2) 07/31/16 15:33 Hct 40.1 % (35.5-45.6) 07/31/16 15:33 MCV 91 fl (84-94) 07/31/16 05:13 MCH 30 pg (28-32) 07/31/16 05:13 MCHC 33 % (32-34) 07/31/16 05:13 RDW 13.6 % (13.2-15.2) 07/31/16 05:13 Plt Count 249 K/mm3 (140-440) 07/31/16 05:13 Lymph % (Auto) Anime Artist 07/31/16 05:13 [place] % (Auto) 8.6 % (0.0-7.3) H 07/30/16 10:07 Eos % (Auto) 2.9 % (0.0-4.3) 07/30/16 10:07 Baso % (Auto) 0.4 % (0.0-1.8) 07/30/16 10:07 Lymph # 1.8 K/mm3 (1.2-5.4) 07/30/16 10:07 [place] # 0.3 K/mm3 (0.0-0.8) 07/30/16 10:07 Eos # 0.1 K/mm3 (0.0-0.4) 07/30/16 10:07 Baso # 0.0 K/mm3 (0.0-0.1) 07/30/16 10:07 Add Manual Diff Complete 07/31/16 05:13 Total Counted 100 07/31/16 05:13 Seg Neutrophils % Anime Artist 07/31/16 05:13 Seg Neuts % (Manual) 52.0 % (40.0-70.0) 07/31/16 05:13 Band Neutrophils % 0 % 07/31/16 05:13 Lymphocytes % (Manual) 37.0 % (13.4-35.0) H 07/31/16 05:13 Reactive Lymphs % (Man) 0 % 07/31/16 05:13 Monocytes % (Manual) 2.0 % (0.0-7.3) 07/31/16 05:13 Eosinophils % (Manual) 9.0 % (0.0-4.3) H 07/31/16 05:13 Basophils % (Manual) 0 % (0.0-1.8) 07/31/16 05:13 Metamyelocytes % 0 % 07/31/16 05:13 Myelocytes % 0 % 07/31/16 05:13 Promyelocytes % 0 % 07/31/16 05:13 Blast Cells % 0 % 07/31/16 05:13 Nucleated RBC % Not Reportable 07/31/16 05:13 Seg Neutrophils # 1.7 K/mm3 (1.8-7.7) L 07/30/16 10:07 Seg Neutrophils # Man 1.9 K/mm3 (1.8-7.7) 07/31/16 05:13 Band Neutrophils # 0.0 K/mm3 07/31/16 05:13 Lymphocytes # (Manual) 1.3 K/mm3 (1.2-5.4) 07/31/16 05:13 Abs React Lymphs (Man) 0.0 K/mm3 07/31/16 05:13 Monocytes # (Manual) 0.1 K/mm3 (0.0-0.8) 07/31/16 05:13 Eosinophils # (Manual) 0.3 K/mm3 (0.0-0.4) 07/31/16 05:13 Basophils # (Manual) 0.0 K/mm3 (0.0-0.1) 07/31/16 05:13 Metamyelocytes # 0.0 K/mm3 07/31/16 05:13 Myelocytes # 0.0 K/mm3 07/31/16 05:13 Promyelocytes # 0.0 K/mm3 07/31/16 05:13 Blast Cells # 0.0 K/mm3 07/31/16 05:13 WBC Morphology Not Reportable 07/31/16 05:13 Hypersegmented Neuts Not Reportable 07/31/16 05:13 Hyposegmented Neuts Not Reportable 07/31/16 05:13 Hypogranular Neuts Not Reportable 07/31/16 05:13 Smudge Cells Not Reportable 07/31/16 05:13 Toxic Granulation Not Reportable 07/31/16 05:13 Toxic Vacuolation Not Reportable 07/31/16 05:13 Dohle Bodies Not Reportable 07/31/16 05:13 Pelger-Huet Anomaly Not Reportable 07/31/16 05:13 Janna Rods Not Reportable 07/31/16 05:13 Platelet Estimate Appears normal 07/31/16 05:13 Clumped Platelets Not Reportable 07/31/16 05:13 Plt Clumps, EDTA Not Reportable 07/31/16 05:13 Large Platelets Not Reportable 07/31/16 05:13 Giant Platelets Rare 07/31/16 05:13 Platelet Satelliting Not Reportable 07/31/16 05:13 Plt Morphology Comment Not Reportable 07/31/16 05:13 RBC Morphology Not Reportable 07/31/16 05:13 Dimorphic RBCs Not Reportable 07/31/16 05:13 Polychromasia Not Reportable 07/31/16 05:13 Hypochromasia 1+ 07/31/16 05:13 Poikilocytosis Not Reportable 07/31/16 05:13 Anisocytosis 1+ 07/31/16 05:13 Microcytosis Not Reportable 07/31/16 05:13 Macrocytosis Not Reportable 07/31/16 05:13 Spherocytes Not Reportable 07/31/16 05:13 Pappenheimer Bodies Not Reportable 07/31/16 05:13 Sickle Cells Not Reportable 07/31/16 05:13 Target Cells Not Reportable 07/31/16 05:13 Tear Drop Cells Not Reportable 07/31/16 05:13 Ovalocytes Not Reportable 07/31/16 05:13 Helmet Cells Not Reportable 07/31/16 05:13 Elder-Donnellson Bodies Not Reportable 07/31/16 05:13 [place] Rings Not Reportable 07/31/16 05:13 [place] Cells Not Reportable 07/31/16 05:13 Bite Cells Not Reportable 07/31/16 05:13 Crenated Cell Not Reportable 07/31/16 05:13 Elliptocytes Not Reportable 07/31/16 05:13 Acanthocytes (Spur) Not Reportable 07/31/16 05:13 Rouleaux Not Reportable 07/31/16 05:13 Hemoglobin C Crystals Not Reportable 07/31/16 05:13 Schistocytes Not Reportable 07/31/16 05:13 Malaria parasites Not Reportable 07/31/16 05:13 Shankar Bodies Not Reportable 07/31/16 05:13 Hem Pathologist Commnt No 07/31/16 05:13 D-Dimer < 135.00 ng/mlDDU (0-234) 07/30/16 19:51 Sodium 141 mmol/L (137-145) 07/31/16 05:13 Potassium 3.8 mmol/L (3.6-5.0) 07/31/16 05:13 Chloride 104.2 mmol/L (98-107) 07/31/16 05:13 Carbon Dioxide 26 mmol/L (22-30) 07/31/16 05:13 Anion Gap 15 mmol/L 07/31/16 05:13 BUN 6 mg/dL (9-20) L 07/31/16 05:13 Creatinine 0.5 mg/dL (0.8-1.5) L 07/31/16 05:13 Estimated GFR > 60 ml/min 07/31/16 05:13 BUN/Creatinine Ratio 12.00 % 07/31/16 05:13 Glucose 147 mg/dL (75-100) H 07/31/16 05:13 Hemoglobin A1c 6.2 % (4-6) H 07/31/16 05:13 Calcium 8.0 mg/dL (8.4-10.2) L 07/31/16 05:13 Magnesium 1.9 mg/dL (1.7-2.3) 07/30/16 10:07 Total Bilirubin 0.3 mg/dL (0.1-1.2) 07/31/16 05:13 AST 14 units/L (5-40) 07/31/16 05:13 ALT 13 units/L (7-56) 07/31/16 05:13 Alkaline Phosphatase 80 units/L (35-129) 07/31/16 05:13 Troponin T < 0.010 ng/mL (0.00-0.029) 07/30/16 17:47 Total Protein 6.1 g/dL (6.3-8.2) L 07/31/16 05:13 Albumin 3.5 g/dL (3.9-5) L 07/31/16 05:13 Albumin/Globulin Ratio 1.3 % 07/31/16 05:13 Amylase 117 units/L (27-131) 07/30/16 10:14 Lipase 186 units/L (13-60) H 07/30/16 10:14
[2016-07-31] MEDS: WELLBUTRIN PO SCH (17:05)
[2016-07-31 21:31] LABS: Hematocrit 39.7 % (35.5-45.6); Hemoglobin 13.6 gm/dl (11.8-15.2)
[2016-08-01 01:00] LABS: Hemoglobin 13.3 gm/dl (11.8-15.2)
[2016-08-01] MEDS: DILAUDID IV PRN ×2 (04:00→14:00)
[2016-08-01 06:37] LABS: Hematocrit 40.5 % (35.5-45.6); Hemoglobin 13.6 gm/dl (11.8-15.2)
[2016-08-01] MEDS ORDERED: ZESTRIL PO SCH (10:00)
--- NOTE | 2016-08-01 11:27 | Gastroenterology Progress Note ---
Assessment and Plan 1. Acute pancreatitis - etiology unclear, ?alcohol (if under-estimating reported use). prominent ampulla during EGD. MRCP pending. f/u pathology from ampulla biopsies 2. ?GI bleed - hct stable/normal. no further episodes. No source identified during EGD Subjective Date of service: 08/01/16 Principal diagnosis: abdominal pain, pancreatitis Interval history: pt still c/o abdominal pain, although slightly improved. no further reported bleeding episodes. Objective - Constitutional Vitals: Temp Pulse Resp BP Pulse Ox 101 F H 83 20 121/72 95 07/31/16 21:05 08/01/16 11:10 08/01/16 11:10 08/01/16 11:10 08/01/16 11:10 General appearance: no acute distress - Respiratory Respiratory effort: normal Respiratory: right: CTA - Cardiovascular Rhythm: regular Heart Sounds: Present: S1 & S2 - Extremities Extremities: No edema - Gastrointestinal General gastrointestinal: Present: soft, non-distended, other (+ epigastric/mid abd tenderness to mild palpation) - Labs CBC & Chem 7: 08/01/16 06:23 07/31/16 05:13 Labs: Laboratory Results - last 24 hr 07/31/16 07/31/16 08/01/16 15:33 18:00 00:46 Hgb 13.6 13.6 13.3 Hct 40.1 39.7 40.0 POC Glucose 08/01/16 08/01/16 06:11 06:23 Hgb 13.6 Hct 40.5 POC Glucose 88
[2016-08-01] MEDS: PROTONIX PO SCH (14:00)
[2016-08-01] MEDS: ZESTRIL PO SCH (14:01)
[2016-08-01] MEDS: WELLBUTRIN PO SCH (14:01)
--- NOTE | 2016-08-01 14:22 | Operative Report ---
PROCEDURE: Esophagogastroduodenoscopy. PREOPERATIVE DIAGNOSES: Hematemesis, abdominal pain, melena. POSTOPERATIVE DIAGNOSES: Prominent and slightly erythematous ampulla, otherwise unremarkable EGD. No signs or obvious etiology of bleeding seen. ANESTHESIA: Monitored anesthesia care. COMPLICATIONS: No immediate complications. DESCRIPTION OF PROCEDURE: After consent was obtained, a standard [place] upper endoscope was advanced with direct vision through the mouth and advanced to the second portion of duodenum without difficulty. The views of the mucosa were good. The patient tolerated the procedure fairly well. FINDINGS: The esophagus appeared normal. The stomach appeared normal. There was a prominent and slightly erythematous appearing ampulla of unclear significance. Multiple biopsies were obtained. Otherwise the second portion of duodenum appeared normal with bile seen throughout the duodenum. IMPRESSION: Prominent, slightly erythematous ampulla, otherwise unremarkable EGD. No obvious etiology to explain the patient's bleeding. RECOMMENDATIONS: 1. Obtain MRCP given prominent ampulla and pancreatitis on admission. 2. Continue IV fluids. 3. PPI daily. [facility]# [id number] PRASHANT/CRYSTAL KEY
[2016-08-01] MEDS ORDERED: NORCO 5/325 PO PRN (15:07)
--- NOTE | 2016-08-01 17:28 | Progress Note ---
Assessment and Plan Assessment and plan: Upper GI bleed s/p EGD Insulin-dependent diabetes mellitus type 2 Hypertension Epigastric pain likley due to pancreatitis Plan: Continue Protonix and IV fluids No definite cause was found in upper endoscopy Plan for MRCP per GI which is pending Continue insulin coverage to control blood glucose advance diet as tolerated History Interval history: Patient seen and examined. Medical records and medication list reviewed. No acute event overnight noted by the RN. tolerated clear liquid diet, c/o epigastric pain, MRCP pending Discussed plan of care at bedside with patient. Hospitalist Physical - Physical exam Narrative exam: GENERAL: well-developed male lying on bed appeared to be in no discomfort. HEENT: Normocephalic. Atraumatic. No conjunctival congestion or icterus. Patient has moist mucous membranes. NECK: Supple. Trachea midline. CHEST/LUNGS: Clear to auscultated bilaterally, breathing nonlabored. No wheezes crackles or rhonchi. HEART/CARDIOVASCULAR: Regular in rate and rhythm. S1 and S2 positive. ABDOMEN: Abdomen is soft, mild epigastric tenderness. Patient has normal bowel sounds. SKIN: There is no rash. Warm and dry. NEURO: No focal motor deficit. Follows command. MUSCULOSKELETAL: No joint effusion or tenderness. EXTRIMITY: No edema, no cyanosis or clubbing. PSYCH: Cooperative. - Constitutional Vitals: Temp Pulse Resp BP Pulse Ox 101 F H 83 20 121/72 95 07/31/16 21:05 08/01/16 11:10 08/01/16 11:10 08/01/16 11:10 08/01/16 11:10 Results - Labs CBC & Chem 7: 08/01/16 06:23 07/31/16 05:13 Labs: Laboratory Last Values WBC 3.6 K/mm3 (4.5-11.0) L 07/31/16 05:13 RBC 4.18 M/mm3 (3.65-5.03) 07/31/16 05:13 Hgb 13.6 gm/dl (11.8-15.2) 08/01/16 06:23 Hct 40.5 % (35.5-45.6) 08/01/16 06:23 MCV 91 fl (84-94) 07/31/16 05:13 MCH 30 pg (28-32) 07/31/16 05:13 MCHC 33 % (32-34) 07/31/16 05:13 RDW 13.6 % (13.2-15.2) 07/31/16 05:13 Plt Count 249 K/mm3 (140-440) 07/31/16 05:13 Lymph % (Auto) Supervisor Varnish 07/31/16 05:13 [place] % (Auto) 8.6 % (0.0-7.3) H 07/30/16 10:07 Eos % (Auto) 2.9 % (0.0-4.3) 07/30/16 10:07 Baso % (Auto) 0.4 % (0.0-1.8) 07/30/16 10:07 Lymph # 1.8 K/mm3 (1.2-5.4) 07/30/16 10:07 [place] # 0.3 K/mm3 (0.0-0.8) 07/30/16 10:07 Eos # 0.1 K/mm3 (0.0-0.4) 07/30/16 10:07 Baso # 0.0 K/mm3 (0.0-0.1) 07/30/16 10:07 Add Manual Diff Complete 07/31/16 05:13 Total Counted 100 07/31/16 05:13 Seg Neutrophils % Supervisor Varnish 07/31/16 05:13 Seg Neuts % (Manual) 52.0 % (40.0-70.0) 07/31/16 05:13 Band Neutrophils % 0 % 07/31/16 05:13 Lymphocytes % (Manual) 37.0 % (13.4-35.0) H 07/31/16 05:13 Reactive Lymphs % (Man) 0 % 07/31/16 05:13 Monocytes % (Manual) 2.0 % (0.0-7.3) 07/31/16 05:13 Eosinophils % (Manual) 9.0 % (0.0-4.3) H 07/31/16 05:13 Basophils % (Manual) 0 % (0.0-1.8) 07/31/16 05:13 Metamyelocytes % 0 % 07/31/16 05:13 Myelocytes % 0 % 07/31/16 05:13 Promyelocytes % 0 % 07/31/16 05:13 Blast Cells % 0 % 07/31/16 05:13 Nucleated RBC % Not Reportable 07/31/16 05:13 Seg Neutrophils # 1.7 K/mm3 (1.8-7.7) L 07/30/16 10:07 Seg Neutrophils # Man 1.9 K/mm3 (1.8-7.7) 07/31/16 05:13 Band Neutrophils # 0.0 K/mm3 07/31/16 05:13 Lymphocytes # (Manual) 1.3 K/mm3 (1.2-5.4) 07/31/16 05:13 Abs React Lymphs (Man) 0.0 K/mm3 07/31/16 05:13 Monocytes # (Manual) 0.1 K/mm3 (0.0-0.8) 07/31/16 05:13 Eosinophils # (Manual) 0.3 K/mm3 (0.0-0.4) 07/31/16 05:13 Basophils # (Manual) 0.0 K/mm3 (0.0-0.1) 07/31/16 05:13 Metamyelocytes # 0.0 K/mm3 07/31/16 05:13 Myelocytes # 0.0 K/mm3 07/31/16 05:13 Promyelocytes # 0.0 K/mm3 07/31/16 05:13 Blast Cells # 0.0 K/mm3 07/31/16 05:13 WBC Morphology Not Reportable 07/31/16 05:13 Hypersegmented Neuts Not Reportable 07/31/16 05:13 Hyposegmented Neuts Not Reportable 07/31/16 05:13 Hypogranular Neuts Not Reportable 07/31/16 05:13 Smudge Cells Not Reportable 07/31/16 05:13 Toxic Granulation Not Reportable 07/31/16 05:13 Toxic Vacuolation Not Reportable 07/31/16 05:13 Dohle Bodies Not Reportable 07/31/16 05:13 Pelger-Huet Anomaly Not Reportable 07/31/16 05:13 Janna Rods Not Reportable 07/31/16 05:13 Platelet Estimate Appears normal 07/31/16 05:13 Clumped Platelets Not Reportable 07/31/16 05:13 Plt Clumps, EDTA Not Reportable 07/31/16 05:13 Large Platelets Not Reportable 07/31/16 05:13 Giant Platelets Rare 07/31/16 05:13 Platelet Satelliting Not Reportable 07/31/16 05:13 Plt Morphology Comment Not Reportable 07/31/16 05:13 RBC Morphology Not Reportable 07/31/16 05:13 Dimorphic RBCs Not Reportable 07/31/16 05:13 Polychromasia Not Reportable 07/31/16 05:13 Hypochromasia 1+ 07/31/16 05:13 Poikilocytosis Not Reportable 07/31/16 05:13 Anisocytosis 1+ 07/31/16 05:13 Microcytosis Not Reportable 07/31/16 05:13 Macrocytosis Not Reportable 07/31/16 05:13 Spherocytes Not Reportable 07/31/16 05:13 Pappenheimer Bodies Not Reportable 07/31/16 05:13 Sickle Cells Not Reportable 07/31/16 05:13 Target Cells Not Reportable 07/31/16 05:13 Tear Drop Cells Not Reportable 07/31/16 05:13 Ovalocytes Not Reportable 07/31/16 05:13 Helmet Cells Not Reportable 07/31/16 05:13 Elder-Marquez Bodies Not Reportable 07/31/16 05:13 Carbon Rings Not Reportable 07/31/16 05:13 [place] Cells Not Reportable 07/31/16 05:13 Bite Cells Not Reportable 07/31/16 05:13 Crenated Cell Not Reportable 07/31/16 05:13 Elliptocytes Not Reportable 07/31/16 05:13 Acanthocytes (Spur) Not Reportable 07/31/16 05:13 Rouleaux Not Reportable 07/31/16 05:13 Hemoglobin C Crystals Not Reportable 07/31/16 05:13 Schistocytes Not Reportable 07/31/16 05:13 Malaria parasites Not Reportable 07/31/16 05:13 Shankar Bodies Not Reportable 07/31/16 05:13 Hem Pathologist Commnt No 07/31/16 05:13 D-Dimer < 135.00 ng/mlDDU (0-234) 07/30/16 19:51 Sodium 141 mmol/L (137-145) 07/31/16 05:13 Potassium 3.8 mmol/L (3.6-5.0) 07/31/16 05:13 Chloride 104.2 mmol/L (98-107) 07/31/16 05:13 Carbon Dioxide 26 mmol/L (22-30) 07/31/16 05:13 Anion Gap 15 mmol/L 07/31/16 05:13 BUN 6 mg/dL (9-20) L 07/31/16 05:13 Creatinine 0.5 mg/dL (0.8-1.5) L 07/31/16 05:13 Estimated GFR > 60 ml/min 07/31/16 05:13 BUN/Creatinine Ratio 12.00 % 07/31/16 05:13 Glucose 147 mg/dL (75-100) H 07/31/16 05:13 POC Glucose 88 (70-105) 08/01/16 06:11 Hemoglobin A1c 6.2 % (4-6) H 07/31/16 05:13 Calcium 8.0 mg/dL (8.4-10.2) L 07/31/16 05:13 Magnesium 1.9 mg/dL (1.7-2.3) 07/30/16 10:07 Total Bilirubin 0.3 mg/dL (0.1-1.2) 07/31/16 05:13 AST 14 units/L (5-40) 07/31/16 05:13 ALT 13 units/L (7-56) 07/31/16 05:13 Alkaline Phosphatase 80 units/L (35-129) 07/31/16 05:13 Troponin T < 0.010 ng/mL (0.00-0.029) 07/30/16 17:47 Total Protein 6.1 g/dL (6.3-8.2) L 07/31/16 05:13 Albumin 3.5 g/dL (3.9-5) L 07/31/16 05:13 Albumin/Globulin Ratio 1.3 % 07/31/16 05:13 Amylase 117 units/L (27-131) 07/30/16 10:14 Lipase 186 units/L (13-60) H 07/30/16 10:14
[2016-08-02] MEDS: PROTONIX PO SCH (10:13)
[2016-08-02] MEDS: ZESTRIL PO SCH (10:13)
[2016-08-02] MEDS: WELLBUTRIN PO SCH (10:13)
--- NOTE | 2016-08-02 10:56 | Discharge Summary ---
Providers - Providers Date of Admission: 07/30/16 21:24 Date of discharge: 08/02/16 Attending physician: EZIO WHITE Primary care physician: DIPPER MACHINE OPERATOR Hospitalization Condition: Stable Hospital course: HPI: Mr Rasmussen is a 46 yo aam who presents with chest pain and epigastric pain for the past couple days. He has had a constant/sharp pain associated with episodes of n/v. Difficult to obtain much history from patient, but reported multiple episodes of hematemesis and black stools recently. Denied prior episodes of GI bleeding. Lipase was elevated on admission. Denied significant alcohol use. Takes occasional NSAIDs. Hemoglobin was 13.4 on admission, HbA1c 6.2. Discharge diagnosis and management per Problem: Upper GI bleed * s/p EGD by GI * No definite cause was found in upper endoscopy * Plan for MRCP per GI, which would be done out patient Insulin-dependent diabetes mellitus type 2 * Continue insulin coverage to control blood glucose * ADA diet Hypertension * Continue lisinopril Epigastric pain likley due to pancreatitis * Initially patient was nothing by mouth and IV fluid hydration * After the EGD was placed on clear liquid diet and was advanced as tolerated History of schizophrenia and bipolar disorder * Continue current psych medications (sequel and Wellbutrin) Procedure: EGD with biopsies Pre-op diagnosis: hematemesis, melena, abdominal pain Post-op diagnosis: other (prominent ampulla of unclear etiology. otherwise unremarkable EGD.) Findings: prominent, slightly erythematous ampulla. Biopsies obtained. Otherwise unremarkable EGD, no signs/etiologies of bleeding seen. -f/u path -obtain MRCP (pt also with pancreatitis which could cause appearance as above, but to r/o distal cbd/pancreatic lesions Disposition: DISCHARGED TO HOME OR SELFCARE Time spent for discharge: 32 minutes Core Measure Documentation - Palliative Care Palliative Care/ Comfort Measures: Not Applicable - Core Measures Any of the following diagnoses?: none Exam - Physical Exam Narrative exam: GENERAL: well-developed male lying on bed appeared to be in no discomfort. HEENT: Normocephalic. Atraumatic. No conjunctival congestion or icterus. Patient has moist mucous membranes. NECK: Supple. Trachea midline. CHEST/LUNGS: Clear to auscultated bilaterally, breathing nonlabored. No wheezes crackles or rhonchi. HEART/CARDIOVASCULAR: Regular in rate and rhythm. S1 and S2 positive. ABDOMEN: Abdomen is soft, mild epigastric tenderness. Patient has normal bowel sounds. SKIN: There is no rash. Warm and dry. NEURO: No focal motor deficit. Follows command. MUSCULOSKELETAL: No joint effusion or tenderness. EXTRIMITY: No edema, no cyanosis or clubbing. PSYCH: Cooperative. - Constitutional Vitals: Temp Pulse Resp BP Pulse Ox 101 F H 78 20 126/82 99 07/31/16 21:05 08/02/16 10:00 08/02/16 10:00 08/02/16 09:28 08/02/16 10:00 Plan Activity: advance as tolerated Weight Bearing Status: Weight Bear as Tolerated Diet: low cholesterol, low salt, diabetic Follow up with: PRIMARY CARE,MD [Primary Care Provider] - 3-5 Days Prescriptions: HYDROcodone/APAP 5-325 [[place] 5-325 mg TAB] 1 each PO Q6H PRN #20 tablet PRN Reason: Pain, Moderate (4-6) Pending Studies MRCP as outpatient. F/u pending biopsy report.
[2016-08-02 14:33] VITALS: BP 134/85
== END 2016-08-02 18:47 | disposition home or self-care (01) | DRG 377 ==
LOC: ED 09:31 → 4A 21:24
PROVIDERS: ADMIT Internal Medicine; ATTEND Internal Medicine
PROC: 0DB68ZX Excision of Stomach, Via Natural or Artificial Opening Endoscopic, Diagnostic (ICD-10-PCS; principal; 2016-07-31)
DX: K92.0 Hematemesis (principal); K85.90 Acute pancreatitis without necrosis or infection, unspecified; R10.13 Epigastric pain; R07.9 Chest pain, unspecified; E11.8 Type 2 diabetes mellitus with unspecified complications; I10 Essential (primary) hypertension; F17.200 Nicotine dependence, unspecified, uncomplicated; F12.90 Cannabis use, unspecified, uncomplicated; F20.9 Schizophrenia, unspecified; F31.9 Bipolar disorder, unspecified; E66.9 Obesity, unspecified; Z82.49 Family history of ischemic heart disease and other diseases of the circulatory system; Z90.49 Acquired absence of other specified parts of digestive tract; Z79.899 Other long term (current) drug therapy; Z68.35 Body mass index [BMI] 35.0-35.9, adult
CPT/HCPCS: 36415; 71010; 74177; 80053; 82150; 82962; 83036; 83690; 83735; 84484; 85007; 85014; 85018; 85025; 85379; 88305; 93005; 93010; 96361; 96365; 96375; C9113; J0360; J1170; J2270; J2405; J2704; J7030; Q9967

== ENCOUNTER 2016-08-27 05:05 | Inpatient (IN) | payer MEDICARE ==
[2016-08-27 07:34] LABS: Urine Drugs of Abuse Note Disclamer
[2016-08-27 07:42] LABS: Bilirubin,Urine NEG (Negative); Blood,Urine SM (Negative); Ketones,Urine 80 mg/dL (Negative); Leukocyte Esterase,Urine NEG (Negative); Mucus,Urine 3+ /HPF; Nitrite,Urine NEG (Negative)
[2016-08-27 08:37] LABS: Anion Gap 22 mmol/L; BUN/Creatinine Ratio 17.14; Blood Urea Nitrogen 12 mg/dL (9-20); Carbon Dioxide 21 mmol/L (22-30); Chloride 97.7 mmol/L (98-107); Glucose 122 mg/dL (75-100); Sodium 137 mmol/L (137-145)
[2016-08-27 08:40] LABS: Basophils % (Auto) 1.1 % (0.0-1.8); Eosinophils % (Auto) 1.5 % (0.0-4.3); Hematocrit 42.5 % (35.5-45.6); Hemoglobin 14.5 gm/dl (11.8-15.2); Mean Corpuscular HGB Conc 34 % (32-34); Mean Corpuscular Hemoglobin 30 pg (28-32); Mean Corpuscular Volume 88 fl (84-94); Platelet Count 232 K/mm3 (140-440); Red Blood Count 4.85 M/mm3 (3.65-5.03); White Blood Count 3.9 K/mm3 (4.5-11.0)
[2016-08-27] MEDS ORDERED: NACL 0.9% 1000 ML 1,000 ML IV ONE (21:17)
[2016-08-27] MEDS ORDERED: PROTONIX IV ONE (21:17)
[2016-08-27] MEDS ORDERED: VITAMIN B-1 100 MG in NACL 0.9% 50 ML IV ONE (21:18)
--- NOTE | 2016-08-27 21:30 | Emergency Department Report ---
HPI - General Chief Complaint: Medical Clearance Time Seen by Provider: 08/27/16 21:09 - HPI HPI: This is a 46-year-old -[place] male who presents to the emergency department with complaint of needing a medical evaluation. The patient was supposed to go to [facility] for alcohol detox and was sent here for clearance. The patient, however, says that he has been here so long that [facility] his told him that he has to "start over." While the patient is been here he has had a few episodes of vomiting and one of them was hematemesis. He also complains of some midsternal left-sided chest discomfort. He denies any shortness of breath , fever, diaphoresis. Patient is a tobacco smoker and was found to have positive cocaine on his urine drug screen. He says that his mother very recently and was buried on Saturday and he did cocaine once to "kill the pain." He last drank alcohol late Saturday night/early Saturday morning. He denies any history of delirium tremens. No recent travel or sick contacts at home. He does have a past psychiatric history of depression, schizophrenia and bipolar disorder. ED Past Medical Hx - Past Medical History Hx Hypertension: Yes Hx Congestive Heart Failure: No Hx Diabetes: No Hx Psychiatric Treatment: Yes (depression, schizophrenia, BIPOLAR) Hx Asthma: No Hx COPD: No Hx HIV: No - Surgical History Hx Cholecystectomy: Yes (2013) - Social History Smoking Status: Current Every Day Smoker Substance Use Type: Alcohol - Medications Home Medications: Home Medications Medication Instructions Recorded Confirmed Last Taken Type Lisinopril [Zestril TAB] 40 mg PO DAILY 07/15/14 08/27/16 08/25/16 History QUEtiapine [SEROquel] 400 mg PO QHS tablet 12/23/15 08/27/16 08/25/16 Rx buPROPion [Wellbutrin] 200 mg PO DAILY tablet 12/23/15 08/27/16 08/25/16 Rx ED Review of Systems ROS: Stated complaint: MEDICAL CLEARANCE Other details as noted in HPI Comment: All other systems reviewed and negative Constitutional: denies: chills, fever Eyes: denies: eye pain, eye discharge, vision change ENT: denies: ear pain, throat pain Respiratory: denies: cough, shortness of breath, wheezing Cardiovascular: chest pain. denies: palpitations Gastrointestinal: nausea, vomiting, hematemesis Genitourinary: denies: urgency, dysuria Musculoskeletal: denies: back pain, joint swelling, arthralgia Skin: denies: rash, lesions Neurological: denies: headache, weakness, paresthesias Physical Exam - Physical Exam Vital Signs: Vital Signs 08/27/16 08/27/16 07:20 21:16 Temperature 98.3 F 98.2 F Pulse Rate 90 54 L Respiratory 16 20 Rate Blood Pressure 144/102 Blood Pressure 107/70 [Right] O2 Sat by Pulse 99 99 Oximetry Physical Exam: GENERAL: The patient is well-developed well-nourished. HEENT: Normocephalic. Atraumatic. Extraocular motions are intact. Patient has moist mucous membranes. Pupils equal reactive to light bilaterally. NECK: Supple. Trachea is midline. CHEST/LUNGS: Clear to auscultation. There is no respiratory distress noted. HEART/CARDIOVASCULAR: Regular. There is no tachycardia. There is no gallop rub or murmur. ABDOMEN: Abdomen is soft. Patient has tenderness palpation to the upper quadrants of the abdomen. Patient has normal bowel sounds. There is no abdominal distention. SKIN: There is no rash. Skin is warm and dry. NEURO: The patient is awake, alert, and oriented. The patient is cooperative. The patient has no focal neurologic deficits. The patient has normal speech and gait. Cranial nerves II through XII grossly intact. MUSCULOSKELETAL: There is no tenderness or deformity. There is no limitation range of motion. There is no evidence of acute injury. Cap refill less than 2 seconds. ED Course Vital Signs 08/27/16 08/27/16 07:20 21:16 Temperature 98.3 F 98.2 F Pulse Rate 90 54 L Respiratory 16 20 Rate Blood Pressure 144/102 Blood Pressure 107/70 [Right] O2 Sat by Pulse 99 99 Oximetry ED Medical Decision Making - Lab Data Result diagrams: 08/27/16 08:25 08/27/16 07:54 - EKG Data -: EKG Interpreted by Me EKG shows normal: sinus rhythm (with PVCs), axis, intervals, QRS complexes, ST- T waves Rate: normal - EKG Data When compared to previous EKG there are: previous EKG unavailable Interpretation: other (sinus rhythm with PVCs, nonspecific T waves) - Radiology Data Radiology results: image reviewed interpreted by me: Chest x-ray did not show any acute process. Heart is normal shape and size. No effusions. No pneumothorax. No signs of pneumonia seen. X-ray of the abdomen shows some air-fluid levels but no obvious signs of obstruction. CT of the abdomen and pelvis without contrast shows no evidence of intestinal or urinary tract obstruction. no Ileus or enteritis. The appendix normal. Mild diverticulosis of the colon. Small 9 mm cystlike mass off the inferior left kidney that has not changed since prior study. - Medical Decision Making 46-year-old male originally came in to be medically cleared for detox from drugs and alcohol but patient allegedly was in the emergency department to [facility] and lost his spot at [facility]. To me, the patient complains of chest pain, abdominal pain, hematemesis. He looks uncomfortable regarding his abdomen. Patient's labs are mostly unremarkable except for the 80 ketones in his urine showed dehydration and the cocaine in the urine drug screen. Patient received pain medication, GI cocktail, Protonix and still complains of moderate amounts of abdominal discomfort. Chest x-ray does not show any acute process. The abdominal x-ray shows some air-fluid levels and with the patient's discomfort a CT of the abdomen and pelvis was done. CT did not show any significant acute process, only some diverticulosis. However the patient continues to have discomfort and with his complaint of gross blood hematemesis and a history of ulcers, he will be admitted to hospital for further evaluation and possible GI consultation. The overnight hospitalist has been told of this case/admission but will handed off to the morning hospitalist - Differential Diagnosis RI, gastric/duodenal ulcer, pancreatitis, diverticulitis Critical Care Time: No Critical care attestation.: If time is entered above; I have spent that time in minutes in the direct care of this critically ill patient, excluding procedure time. ED Disposition Clinical Impression: Cocaine abuse, Dehydration Chest pain Qualifiers: Chest pain type: unspecified Qualified Code(s): R07.9 - Chest pain, unspecified GI bleeding Qualifiers: GI bleed type/associated pathology: unspecified gastrointestinal hemorrhage type Qualified Code(s): K92.2 - Gastrointestinal hemorrhage, unspecified Abdominal pain Qualifiers: Abdominal location: upper abdomen, unspecified Qualified Code(s): R10.10 - Upper abdominal pain, unspecified Disposition: OP ADMITTED IP TO THIS HOSP Is pt being admited?: Yes Condition: Stable Instructions: Chest Pain (ED) Referrals: PRIMARY CARE, [Primary Care Provider] - 3-5 Days Time of Disposition: 05:47
[2016-08-27] MEDS ORDERED: ZOFRAN IV ONE (22:54)
[2016-08-27] MEDS ORDERED: MORPHINE IV ONE (22:54)
[2016-08-28] MEDS ORDERED: ALUM-MAG HYDROX-SIMETH 200-200-20MG/5ML PO ONE (00:07)
[2016-08-28] MEDS ORDERED: LIDOCAINE VISCOUS 2% PO ONE (00:08)
[2016-08-28 01:27] LABS: Alanine Aminotransferase 22 units/L (7-56); Albumin 4.2 g/dL (3.9-5); Albumin/Globulin Ratio 1.6 %; Alkaline Phosphatase 69 units/L (35-129); Bilirubin,Total 0.5 mg/dL (0.1-1.2); Lipase 45 units/L (13-60); Total Protein 6.8 g/dL (6.3-8.2)
[2016-08-28 01:28] LABS: Bilirubin,Direct < 0.2 mg/dL (0-0.2); Bilirubin,Indirect 0.3 mg/dL; Creatine Kinase 78 units/L (55-170)
[2016-08-28] MEDS ORDERED: NACL 0.9% 1000 ML 1,000 ML IV ONE (01:54)
--- NOTE | 2016-08-28 02:01 | XRay Report ---
FINAL REPORT PROCEDURE: XR ABDOMEN 2V TECHNIQUE: Abdominal series, including supine and upright AP views. HISTORY: Abd pain COMPARISON: No prior studies are available for comparison. FINDINGS: Bowel gas pattern:Nonobstructive . Masses or calcifications:There has been previous cholecystectomy. Bony structures:No significant abnormality . Pneumoperitoneum:None . Other:No significant findings . IMPRESSION: No acute abnormality.
[2016-08-28] MEDS ORDERED: NACL ONE (03:09)
--- NOTE | 2016-08-28 04:48 | Cat Scan Report ---
FINAL REPORT PROCEDURE: CT ABDOMEN PELVIS WO CON TECHNIQUE: Computerized axial tomography of the abdomen and pelvis was performed without intravenous contrast. This study is performed without intravascular contrast material and its sensitivity for abdominal and pelvic pathology, including neoplasms, inflammation, abscess, free fluid, thrombosis, arterial dissection and infarction, is reduced compared with a contrast enhanced study. HISTORY: abd pain COMPARISON: 07/30/2016 FINDINGS: Visualized lower thorax: No significant abnormality. Liver: Normal size and attenuation. Spleen: Normal size and attenuation. Gallbladder and biliary system: The gallbladder is absent. No dilatation of the biliary ductal system. Pancreas: Normal. Adrenals: Normal. Kidneys: Both kidneys have normal size. No hydronephrosis. Small exophytic mass off of the inferior left kidney is again noted. This could represent a complicated cyst. Followup study may be appropriate to assure stability.. GI tract: The stomach is normal. Small bowel has a normal caliber. No obstruction, ileus or enteritis. The cecum, appendix and colon are normal. There remains mild diverticulosis of the colon.. Lymph nodes and mesentery: Normal. Vasculature: Normal. Bladder: Normal. Reproductive organs: Normal. Peritoneum: No free fluid. Musculoskeletal structures: No significant abnormality. Other: None. IMPRESSION: There is no evidence of intestinal or urinary tract obstruction. No ileus or enteritis. The appendix is normal. Mild diverticulosis of the colon. Small 9 millimeter cyst-like mass off the inferior left kidney, this has not changed since prior study. Followup evaluation in approximately 6-12 lungs would be appropriate to determine stability. Previous cholecystectomy..
--- NOTE | 2016-08-28 07:27 | Admit Criteria Form ---
Admission Criteria Documentation: GASTROINTESTINAL BLEEDING, UPPER Clinical Indications for Admission to Inpatient Care ( Place 'X' for any and all applicable criteria): Admission is indicated for ANY ONE of the following(1)(2)(3)(4)(5)(6): [ ]I. Active bleeding (eg, fresh voluminous blood in emesis or nasogastric aspirate) [ ]II. Associated conditions requiring hospitalization (eg, perforation, obstruction from ulcer) [X]III. Inpatient admission required rather than observation care (Also use Gastrointestinal Bleeding, Upper: Observation Care as appropriate) because of ANY ONE of the following: [ ]a) Hemodynamic instability that is severe or persistent [ ]b) Anemia requiring inpatient admission as indicated by ALL of the following: [ ]1) Presence of significant clinical finding indicated by ANY ONE of the following: [ ]A. Tachycardia for age [ ]B. Orthostatic vital sign changes [ ]C. Cognitive impairment [ ]D. Heart failure [ ]E. Chest pain [ ]F. Exertional dyspnea [ ]G. Other findings suggesting inadequate perfusion (eg, peripheral or myocardial ischemia, end organ dysfunction) [ ]2) Initial (eg, emergency department, observation care) treatment with transfusion or volume replacement is judged inappropriate (due to severity of the finding) or has been ineffective [X]c) Severe pain requiring acute inpatient management [ ]d) High-risk low platelet count [ ]e) IV fluid to replace significant ongoing losses (greater than 3 L/m2 per day) [ ]f) Immediate inpatient surgery [ ]g) Other condition, treatment or monitoring requiring inpatient admission [ ]IV. Severe liver disease (eg, cirrhosis) [ ]V. Significant active comorbid disease [ ]. Anticoagulation therapy [ ]VII. High-risk endoscopic features (arterial bleeding, adherent clot, nonbleeding visible vessel, varices, flat red spots, ulcer size greater than 2 cm, or portal hypertensive gastropathy) [ ]VIII. Previous aortic graft placement or known aortic aneurysm [ ]IX. Coagulopathy [ ]X. Syncope Extended stay beyond goal length of stay may be needed for(1)(2): [ ]a) Emergency surgery [ ]b) Varices [ ]c) Coagulation abnormalities [ ]d) Recurrent, obscure, or persistent bleeding or continued Hemodynamic instability [ ]e) Associated conditions requiring surgery (eg, perforated gastric ulcer, gastric outlet obstruction) [ ]f) Active comorbidities (eg, renal insufficiency, heart failure, pre- existing liver disease) The original [facility] content created by [facility] has been revised. The portions of the content which have been revised are identified through the use of italic text or in bold, and [facility] has neither reviewed nor approved the modified material. All other unmodified content is copyright [facility] [employer]. Please see references footnoted in the original [facility] [employer] edition 2016 Admission Criteria Met: Yes
--- NOTE | 2016-08-28 08:14 | XRay Report ---
ROUTINE CHEST, TWO VIEWS: PA and lateral views demonstrate the heart and mediastinal contour to be of normal size and shape. The lungs are clear and fully expanded and the soft tissues and bony structures are normal. IMPRESSION: Normal study.
[2016-08-28] MEDS ORDERED: ZOFRAN IV PRN (10:20)
[2016-08-28] MEDS ORDERED: DULCOLAX PR PRN (10:20)
[2016-08-28] MEDS ORDERED: TYLENOL PO PRN (10:20)
[2016-08-28] MEDS ORDERED: MILK OF MAGNESIA PO PRN (10:20)
[2016-08-28] MEDS ORDERED: AMBIEN PO PRN (10:20)
[2016-08-28] MEDS: PERCOCET 5/325 PO PRN (10:53)
[2016-08-28] MEDS: PROTONIX IV SCH ×2 (10:54→22:02)
--- NOTE | 2016-08-28 11:32 | History and Physical Report ---
History of Present Illness Date of examination: 08/28/16 Date of admission: 08/28/16 10:20 Chief complaint: She didn't initially presented to the emergency room to get clearance to get admitted to [facility] for alcohol problem History of present illness: Mr. Rasmussen is a 46-year-old -[place] male who presents to the emergency department with complaint of needing a medical evaluation. He is alert and oriented and cooperative and not in any acute distress .The patient was supposed to go to [place] for alcohol detox and was sent here for clearance. While the patient has been here he has had a few episodes of vomiting including vomiting blood. He also complains of some midsternal left-sided chest discomfort., and abdominal pain. He denies any shortness of breath, fever, diaphoresis. Patient is a tobacco smoker and was found to have positive cocaine on his urine drug screen. He last drank alcohol late Saturday night/ early Saturday morning. He denies any history of delirium tremens. No recent travel or sick contacts at home. He does have a past psychiatric history of depression, schizophrenia and bipolar disorder. Past History Past Medical History: hypertension, other (bipolar disorder and depression and schizophrenia) Past Surgical History: cholecystectomy Social history: smoking, alcohol abuse Family history: diabetes, hypertension Medications and Allergies Allergies Allergy/AdvReac Type Severity Reaction Status Date / Time No Known Allergies Allergy Verified 07/30/16 09:42 Home Medications Medication Instructions Recorded Confirmed Last Taken Type Lisinopril [Zestril TAB] 40 mg PO DAILY 07/15/14 08/27/16 08/25/16 History QUEtiapine [SEROquel] 400 mg PO QHS tablet 12/23/15 08/27/16 08/25/16 Rx buPROPion [Wellbutrin] 200 mg PO DAILY tablet 12/23/15 08/27/16 08/25/16 Rx Active Meds: Active Medications Acetaminophen (Tylenol) 650 mg PO Q4H PRN PRN Reason: Pain MILD(1-3)/Fever >100.5/DIGGS Bisacodyl (Dulcolax) 10 mg UT QDAY PRN PRN Reason: Constipation unrelieved by MOM Haloperidol Lactate (Haldol) 5 mg IV Q1H PRN PRN Reason: Unrespon. to mult. doses BZD's Dextrose/Sodium Chloride (D5/0.45ns) 1,000 mls @ 75 mls/hr IV DIRECT ALMA Lorazepam (Ativan) 1 mg IV Q1H PRN PRN Reason: CIWA-Ar 8-15 Magnesium Hydroxide (Milk Of Magnesia) 30 ml PO Q4H PRN PRN Reason: Constipation Ondansetron HCl (Zofran) 4 mg IV Q8H PRN PRN Reason: N/V unrelieved by Reglan Oxycodone/Acetaminophen (Percocet 5/325) 1 tab PO Q6H PRN PRN Reason: Pain, Moderate (4-6) Last Admin: 08/28/16 10:53 Dose: 1 tab Pantoprazole Sodium (Protonix) 40 mg IV Q12H ALMA Last Admin: 08/28/16 10:54 Dose: 40 mg Zolpidem Tartrate (Ambien) 5 mg PO QHS PRN PRN Reason: Insomnia Review of Systems Constitutional: no weight loss, no weight gain, no fever, no chills, no anorexia Ears, nose, mouth and throat: no ear pain, no nasal congestion, no dysphagia, no sore throat, no headache Cardiovascular: chest pain (midsternal, nonexertional and sharp), high blood pressure, no orthopnea, no palpitations, no syncope, no lightheadedness Respiratory: no cough, no shortness of breath Gastrointestinal: abdominal pain, nausea, vomiting, hematemesis, no constipation , no melena Genitourinary Male: no dysuria, no hematuria, no flank pain, no urinary frequency, no urinary hesitancy, no incontinence Rectal: no pain Musculoskeletal: no low back pain Neurological: no head injury, no seizures, no syncope Psychiatric: depression, other (bipolar schizophrenic) Endocrine: no polydipsia, no polyuria, no nocturia Exam - Constitutional Vitals: Temp Pulse Resp BP Pulse Ox 98.2 F 68 20 135/88 97 08/27/16 21:16 08/28/16 07:21 08/28/16 07:21 08/28/16 07:21 08/28/16 07:21 General appearance: Present: no acute distress, well-nourished - EENT Eyes: Present: PERRL, EOM intact ENT: hearing intact, clear oral mucosa - Neck Neck: Present: supple, normal ROM. Absent: masses or JVD - Respiratory Respiratory effort: normal Respiratory: bilateral: CTA - Cardiovascular Rhythm: regular Heart Sounds: Present: S1 & S2 - Extremities Extremities: No edema - Abdominal General gastrointestinal: Present: soft, tender (mild tenderness in the epigastrium and right upper quadrant), non-distended. Absent: hepatomegaly, splenomegaly - Rectal Rectal Exam: deferred - Integumentary Integumentary: Present: clear - Musculoskeletal Musculoskeletal: strength equal bilaterally - Psychiatric Psychiatric: intact judgment & insight - Neurologic Neurologic: CNII-XII intact, no focal deficits Results - Labs CBC & Chem 7: 08/27/16 08:25 08/27/16 07:54 Assessment and Plan - Patient Problems (1) Upper GI bleed Current Visit: Yes Status: Acute Plan to address problem: Possible bleeding peptic ulcer disease We will start the patient on intravenous PPI every 12 hours GI consult on board Monitor hemoglobin and hematocrit (2) Abdominal pain Current Visit: Yes Status: Acute Qualifiers: Abdominal location: upper abdomen, unspecified Qualified Code(s): R10.10 - Upper abdominal pain, unspecified Plan to address problem: Possible alcoholic gastritis gastritis Rule out peptic ulcer disease GI consult was requested (3) Chest pain Current Visit: Yes Status: Acute Qualifiers: Chest pain type: unspecified Qualified Code(s): R07.9 - Chest pain, unspecified Plan to address problem: Appears to be atypical chest pain and nonexertional It's possible it could be from the upper GI problem including possible bleeding peptic ulcer disease as he plaints of vomiting blood couple of times while he was in the emergency room. Serial cardiac enzymes were in the normal range (4) Cocaine abuse Current Visit: Yes Status: Acute Plan to address problem: He says he does cocaine very occasionally Await psychiatric follow-up Also place the patient on CHF protocol with Ativan for potential alcohol withdrawal (5) Dehydration Current Visit: Yes Status: Acute Plan to address problem: Start on IV fluids and monitor electrolytes (6) Hypertension Current Visit: Yes Status: Chronic Qualifiers: Hypertension type: essential hypertension Qualified Code(s): I10 - Essential (primary) hypertension Plan to address problem: Blood pressure is fair Continue Home medications (7) Schizophrenia Current Visit: Yes Status: Chronic Qualifiers: Schizophrenia type: S Plan to address problem: We will request a psych follow-up and will continue home medications He does not have any acute psychosis at this time
[2016-08-28] MEDS ORDERED: ATIVAN IV PRN (12:00)
[2016-08-28] MEDS ORDERED: HALDOL IV PRN (12:00)
[2016-08-28] MEDS ORDERED: MORPHINE ONE (12:48)
[2016-08-28] MEDS: MORPHINE IV PRN ×3 (13:16→21:53)
--- NOTE | 2016-08-28 14:17 | Consultation ---
History of Present Illness Consult date: 08/28/16 Consult reason: chest pain History of present illness: This is a 46yr old male who presents to the emergency department with complaint of needing a medical evaluation prior to [facility] admission. While in the the ED the patient has had a few episodes of vomiting. He also complained of chest discomfort. He denies any shortness of breath fever and diaphoresis. Patient is a current tobacco smoker and was found to have positive cocaine on urine drug screen. Cardiac consultation requested for evaluation of chest pain. His presenting ECG shows a sinus rhythm with occasional PVCs. No acute ischemic changes. During an admission to this hospital 7 months ago he underwent a cardiac cath that reports normal coronaries, ejection fraction 50%. Past History Past Medical History: hypertension, other (bipolar disorder and depression and schizophrenia) Past Surgical History: cholecystectomy Social history: smoking, alcohol abuse Family history: diabetes, hypertension Medications and Allergies Allergies Allergy/AdvReac Type Severity Reaction Status Date / Time No Known Allergies Allergy Verified 07/30/16 09:42 Home Medications Medication Instructions Recorded Confirmed Last Taken Type Lisinopril [Zestril TAB] 40 mg PO DAILY 07/15/14 08/27/16 08/25/16 History QUEtiapine [SEROquel] 400 mg PO QHS tablet 12/23/15 08/27/16 08/25/16 Rx buPROPion [Wellbutrin] 200 mg PO DAILY tablet 12/23/15 08/27/16 08/25/16 Rx Active Meds: Active Medications Acetaminophen (Tylenol) 650 mg PO Q4H PRN PRN Reason: Pain MILD(1-3)/Fever >100.5/DIGGS Bisacodyl (Dulcolax) 10 mg VA QDAY PRN PRN Reason: Constipation unrelieved by MOM Haloperidol Lactate (Haldol) 5 mg IV Q1H PRN PRN Reason: Unrespon. to mult. doses BZD's Dextrose/Sodium Chloride (D5/0.45ns) 1,000 mls @ 75 mls/hr IV DIRECT ALMA Lorazepam (Ativan) 1 mg IV Q1H PRN PRN Reason: CIWA-Ar 8-15 Magnesium Hydroxide (Milk Of Magnesia) 30 ml PO Q4H PRN PRN Reason: Constipation Morphine Sulfate (Morphine) 2 mg IV Q4H PRN PRN Reason: Pain, Moderate (4-6) Last Admin: 08/28/16 13:16 Dose: 2 mg Ondansetron HCl (Zofran) 4 mg IV Q8H PRN PRN Reason: N/V unrelieved by Reglan Oxycodone/Acetaminophen (Percocet 5/325) 1 tab PO Q6H PRN PRN Reason: Pain, Moderate (4-6) Last Admin: 08/28/16 10:53 Dose: 1 tab Pantoprazole Sodium (Protonix) 40 mg IV Q12H ALMA Last Admin: 08/28/16 10:54 Dose: 40 mg Zolpidem Tartrate (Ambien) 5 mg PO QHS PRN PRN Reason: Insomnia Physical Examination Vital Signs Temp Pulse Resp BP Pulse Ox 98.3 F 90 16 144/102 99 08/27/16 07:20 08/27/16 07:20 08/27/16 07:20 08/27/16 07:20 08/27/16 07:20 General appearance: no acute distress HEENT: Positive: PERRL Neck: Positive: trachea midline Cardiac: Positive: Reg Rate and Rhythm Lungs: Positive: Decreased Breath Sounds Neuro: Positive: Grossly Intact Results 08/27/16 08:25 08/27/16 07:54 EKG interpretations - Telemetry EKG Rhythm: Sinus Rhythm Assessment and Plan Nausea/vomiting Chest pain, atypical normal coronaries, EF 50% on LHC 12/2015 EF 55-60% on echo 11/2015 Hypertension Depression Schizophrenia Tobacco Cocaine abuse ECG -SR with occasional PVCs No further cardiac workup needed. Advised tobacco cessation.
[2016-08-28 14:27] LABS: Hemoglobin 12.9 gm/dl (11.8-15.2)
--- NOTE | 2016-08-28 17:07 | Gastroenterology Consultation ---
History of Present Illness - Reason for Consult Consult date: 08/28/16 hematemesis - History of Present Illness Mr Rasmussen is a 46 y/o male who presented to the ED requesting "medical clearance " for [facility]. The patient reports he has been vomiting "blood"- bright red since yesterday with associated epigastric pain. He notes that he has been drinking more over the last week as his mother has recently passed. He endorses drinking daily. H/H stable on admission. He reports his last drink was yesterday. No melena. No previous GI workup or liver disease. Past History Past Medical History: hypertension, other (bipolar disorder and depression and schizophrenia) Past Surgical History: cholecystectomy Social history: smoking, alcohol abuse Family history: diabetes, hypertension Medications and Allergies Allergies Allergy/AdvReac Type Severity Reaction Status Date / Time No Known Allergies Allergy Verified 07/30/16 09:42 Home Medications Medication Instructions Recorded Confirmed Last Taken Type Lisinopril [Zestril TAB] 40 mg PO DAILY 07/15/14 08/27/16 08/25/16 History QUEtiapine [SEROquel] 400 mg PO QHS tablet 12/23/15 08/27/16 08/25/16 Rx buPROPion [Wellbutrin] 200 mg PO DAILY tablet 12/23/15 08/27/16 08/25/16 Rx Active Meds: Active Medications Acetaminophen (Tylenol) 650 mg PO Q4H PRN PRN Reason: Pain MILD(1-3)/Fever >100.5/DIGGS Bisacodyl (Dulcolax) 10 mg NM QDAY PRN PRN Reason: Constipation unrelieved by MOM Haloperidol Lactate (Haldol) 5 mg IV Q1H PRN PRN Reason: Unrespon. to mult. doses BZD's Dextrose/Sodium Chloride (D5/0.45ns) 1,000 mls @ 75 mls/hr IV DIRECT ALMA Lorazepam (Ativan) 1 mg IV Q1H PRN PRN Reason: CIWA-Ar 8-15 Magnesium Hydroxide (Milk Of Magnesia) 30 ml PO Q4H PRN PRN Reason: Constipation Morphine Sulfate (Morphine) 2 mg IV Q4H PRN PRN Reason: Pain, Moderate (4-6) Last Admin: 08/28/16 13:16 Dose: 2 mg Ondansetron HCl (Zofran) 4 mg IV Q8H PRN PRN Reason: N/V unrelieved by Reglan Oxycodone/Acetaminophen (Percocet 5/325) 1 tab PO Q6H PRN PRN Reason: Pain, Moderate (4-6) Last Admin: 08/28/16 10:53 Dose: 1 tab Pantoprazole Sodium (Protonix) 40 mg IV Q12H ALMA Last Admin: 08/28/16 10:54 Dose: 40 mg Zolpidem Tartrate (Ambien) 5 mg PO QHS PRN PRN Reason: Insomnia Review of Systems - Review of Systems All systems: negative Constitutional: weakness Gastrointestinal: abdominal pain, vomiting, hematemesis Exam - Constitutional Vital Signs: Temp Pulse Resp BP Pulse Ox 98.2 F 99 H 15 106/62 100 08/27/16 21:16 08/28/16 14:54 08/28/16 14:54 08/28/16 14:54 08/28/16 14:54 General appearance: no acute distress - EENT Eyes: EOM intact ENT: hearing intact - Neck Neck: supple - Respiratory Respiratory: bilateral: CTA - Cardiovascular Rhythm: regular Heart Sounds: Present: S1 & S2 - Gastrointestinal General gastrointestinal: Present: soft, non-tender, normal bowel sounds - Integumentary Integumentary: Present: warm, dry - Neurologic Neurological: alert and oriented x3 - Psychiatric Psychiatric: appropriate mood/affect, cooperative - Labs CBC & Chem 7: 08/28/16 14:06 08/27/16 07:54 Lab Results: Laboratory Results - last 24 hr 08/28/16 14:06 Hgb 12.9 Hct 38.0 Assessment and Plan 1. Hematemesis with abdominal pain -Trend H/H (noted drop since admission, hemodilution?) -No blood thinning meds. -PPI Q12. -NPO after MN for EGD tomorrow.
[2016-08-28] MEDS: D5/0.45NS 1,000 ML IV SCH (17:26)
[2016-08-29] MEDS: MORPHINE IV PRN ×4 (02:07→20:33)
[2016-08-29 07:47] LABS: Hematocrit 37.5 % (35.5-45.6); Hemoglobin 12.6 gm/dl (11.8-15.2); Mean Corpuscular HGB Conc 34 % (32-34); Mean Corpuscular Hemoglobin 30 pg (28-32); Mean Corpuscular Volume 89 fl (84-94); Platelet Count 174 K/mm3 (140-440); Red Blood Count 4.22 M/mm3 (3.65-5.03); Red Cell Distribution Width 13.5 % (13.2-15.2); White Blood Count 2.8 K/mm3 (4.5-11.0)
[2016-08-29 08:01] LABS: INR 0.94 (0.87-1.13)
[2016-08-29 08:08] LABS: Anion Gap 15 mmol/L; Blood Urea Nitrogen 5 mg/dL (9-20); Calcium 8.2 mg/dL (8.4-10.2); Carbon Dioxide 26 mmol/L (22-30); Chloride 102.1 mmol/L (98-107); Glucose 128 mg/dL (75-100); Potassium 3.9 mmol/L (3.6-5.0); Sodium 139 mmol/L (137-145)
[2016-08-29 08:50] LABS: Blastocytes % (Manual) 0 %; Diff Status Complete; Eosinophils % (Manual) 0 % (0.0-4.3); RBC Morphology Normal
--- NOTE | 2016-08-29 09:20 | Progress Note ---
Assessment and Plan Abdominal pain with Nausea/vomiting Chest pain, atypical normal coronaries, EF 50% on LHC 12/2015 EF 55-60% on echo 11/2015 Hypertension Depression Schizophrenia Tobacco Positive urine drug screen for cocaine ECG -SR with occasional PVCs Conservative cardiac management. Subjective Date of service: 08/29/16 Interval history: Patient denies chest pain and shortness of breath. For planned GI workup today. Objective Vital Signs Temp Pulse Pulse Resp Resp Resp BP 08/29/16 02:07 18 08/29/16 00:00 97.4 F L 77 20 126/76 08/28/16 22:00 18 18 08/28/16 21:53 18 08/28/16 14:54 99 H 15 BP Pulse Ox 08/29/16 02:07 08/29/16 00:00 98 08/28/16 22:00 98 08/28/16 21:53 08/28/16 14:54 106/62 100 - Physical Examination General: No Apparent Distress HEENT: Positive: PERRL Neck: Positive: trachea midline Cardiac: Positive: Reg Rate and Rhythm Lungs: Positive: Decreased Breath Sounds Neuro: Positive: Grossly Intact - Labs and Meds Coagulation 08/29/16 Range/Units 06:55 PT 12.5 (12.2-14.9) Sec. INR 0.94 (0.87-1.13) CBC 08/28/16 08/29/16 Range/Units 14:06 06:55 WBC 2.8 L (4.5-11.0) K/mm3 RBC 4.22 (3.65-5.03) M/mm3 Hgb 12.9 12.6 (11.8-15.2) gm/dl Hct 38.0 37.5 (35.5-45.6) % Plt Count 174 (140-440) K/mm3 Comprehensive Metabolic Panel 08/29/16 Range/Units 06:55 Sodium 139 (137-145) mmol/L Potassium 3.9 (3.6-5.0) mmol/L Chloride 102.1 (98-107) mmol/L Carbon Dioxide 26 (22-30) mmol/L BUN 5 L (9-20) mg/dL Creatinine 0.5 L (0.8-1.5) mg/dL Glucose 128 H (75-100) mg/dL Calcium 8.2 L (8.4-10.2) mg/dL
[2016-08-29] MEDS: PROTONIX IV SCH ×2 (11:05→23:24)
--- NOTE | 2016-08-29 12:34 | Progress Note ---
Assessment and Plan - Patient Problems (1) Upper GI bleed Current Visit: Yes Status: Acute Plan to address problem: Continue proton pump inhibitor GI note reviewed For EGD tomorrow (2) Abdominal pain Current Visit: Yes Status: Acute Qualifiers: Abdominal location: upper abdomen, unspecified Qualified Code(s): R10.10 - Upper abdominal pain, unspecified Plan to address problem: Improving but not resolved Management per GI recommendations (3) Chest pain Current Visit: Yes Status: Acute Qualifiers: Chest pain type: unspecified Qualified Code(s): R07.9 - Chest pain, unspecified Plan to address problem: Medical management Cardiology note reviewed (4) Cocaine abuse Current Visit: Yes Status: Acute (5) Dehydration Current Visit: Yes Status: Acute Plan to address problem: Continue IV hydration (6) Hypertension Current Visit: Yes Status: Chronic Qualifiers: Hypertension type: essential hypertension Plan to address problem: Well-controlled (7) Schizophrenia Current Visit: Yes Status: Chronic Qualifiers: Schizophrenia type: S Plan to address problem: Continue home medications Subjective Date of service: 08/29/16 Interval history: Patient is alert awake and oriented. Feels better. Denies any nausea or vomiting GI and cardiology notes reviewed and appreciated Objective - Constitutional Vitals: Vital Signs - 12hr 08/29/16 08/29/16 02:07 08:00 Temperature 98.2 F Pulse Rate [ 78 Radial] Respiratory 18 20 Rate Blood Pressure 133/84 [Left Radial Artery] O2 Sat by Pulse 97 Oximetry General appearance: Present: no acute distress, obese - EENT Eyes: PERRL, EOM intact ENT: hearing intact, clear oral mucosa - Neck Neck: supple, normal ROM, no masses or JVD - Respiratory Respiratory effort: normal Respiratory: bilateral: CTA - Cardiovascular Rhythm: regular Heart Sounds: Present: S1 & S2 Extremities: No edema - Gastrointestinal General gastrointestinal: Present: soft, tender (mild generalized tenderness). Absent: hepatomegaly, splenomegaly Rectal Exam: deferred - Musculoskeletal Musculoskeletal: strength equal bilaterally - Neurologic Neurologic: CNII-XII intact, no focal deficits - Psychiatric Psychiatric: appropriate mood/affect - Labs CBC & Chem 7: 08/29/16 06:55 08/29/16 06:55 Labs: Abnormal lab results 08/29/16 08/29/16 Range/Units 06:55 06:55 WBC 2.8 L (4.5-11.0) K/mm3 Seg Neuts % (Manual) 28.0 L (40.0-70.0) % Lymphocytes % (Manual) 60.0 H (13.4-35.0) % Monocytes % (Manual) 10.0 H (0.0-7.3) % Basophils % (Manual) 2.0 H (0.0-1.8) % Seg Neutrophils # Man 0.8 L (1.8-7.7) K/mm3 BUN 5 L (9-20) mg/dL Creatinine 0.5 L (0.8-1.5) mg/dL Glucose 128 H (75-100) mg/dL Calcium 8.2 L (8.4-10.2) mg/dL
--- NOTE | 2016-08-29 13:53 | Anesthesia Day of Surgery ---
Anesthesia Day of Surgery - Day of Surgery Patient Examined: Yes Patient H&P Reviewed: Yes Patient is NPO: Yes Beta Blockers: No Cardiac Clearance: Yes Pulmonary Clearance: No
--- NOTE | 2016-08-29 13:53 | Anesthesia Consultation ---
Anesthesia Consult and Med Hx Date of service: 08/29/16 - Airway Anesthetic Teeth Evaluation: Good ROM Head & Neck: Adequate Mental/Hyoid Distance: Adequate Mallampati Class: Class III Intubation Access Assessment: Possibly Difficult - Pulmonary Exam CTA: Yes - Cardiac Exam Cardiac Exam: RRR - Pre-Operative Health Status ASA Pre-Surgery Classification: ASA3 Proposed Anesthetic Plan: MAC - Pulmonary Hx Smoking: Yes (current everyday smoker) Hx Asthma: No COPD: No Hx Pneumonia: No Hx Sleep Apnea: No - Cardiovascular System Hx Hypertension: Yes (EF 50%) Hx Coronary Artery Disease: Yes Hx Angina: Yes - Central Nervous System Hx Psychiatric Problems: Yes (Depression, Bipolar, Schizophrenia) - Gastrointestinal Hx Gastroesophageal Reflux Disease: Yes - Endocrine Hx End Stage Renal Disease: No - Other Systems Hx Alcohol Use: Yes Hx Substance Use: Yes (MARIJUANA; +UDS cocaine) Hx Cancer: No Hx Obesity: Yes (BMI 35)
[2016-08-29] MEDS ORDERED: WATER FOR IRRIG STERILE IR ONE (14:00)
[2016-08-29] MEDS ORDERED: NACL 0.9% 1000 ML 1,000 ML IV SCH (14:00)
[2016-08-29] MEDS ORDERED: DIPRIVAN 10 MG/ML IV ONE ×2 (14:11)
[2016-08-29] MEDS ORDERED: SUBLIMAZE ONE (14:12)
[2016-08-29] MEDS ORDERED: XYLOCAINE MPF 2% ONE (14:20)
--- NOTE | 2016-08-29 14:36 | Post Operative Note ---
Pre-op diagnosis: Hematemesis Post-op diagnosis: same Findings: EGD Esophagus: Normal Stomach: Small gastric erosion in antrum; biopsied Duodenum: Dilated lacteals with some mucosal prominence in duodenal sweep; biopsied. Rec: 1) PPI once daily 2) F/U path 3) Outpatient f/u No further inpatient GI w/u needed. Please re-call with questions. Thank you! Procedure: EGD Anesthesia: MAC Surgeon: MARVEL MORRIS Estimated blood loss: minimal Pathology: list (antrum, duodenum) Specimen disposition: to lab Condition: stable Disposition: floor
--- NOTE | 2016-08-29 15:00 | Operative Report ---
PROCEDURE PERFORMED: Upper endoscopy with biopsy. PREOPERATIVE DIAGNOSIS: Hematemesis. POSTOPERATIVE DIAGNOSES: Hematemesis, gastric erosions. ANESTHESIA: Via monitored anesthesia care. DESCRIPTION OF PROCEDURE: After informed consent was obtained, the patient was placed in left lateral decubitus position. Standard Fujinon upper endoscope was inserted into the mouth and advanced to the second portion of duodenum. Scope was then carefully withdrawn and mucosa was carefully examined. FINDINGS: Esophagus appeared normal. Stomach: There was a small gastric erosion which was not bleeding in the gastric antrum. Cold forceps biopsies were taken and sent for pathology. Duodenum: There was evidence of dilated lacteals with prominence noted in the duodenal sweep. Cold forceps biopsies were taken and sent for pathology. The exam was otherwise unremarkable. COMPLICATIONS: None. ESTIMATED BLOOD LOSS: Minimal. IMPRESSION: A 46-year-old gentleman admitted with hematemesis, possibly secondary to a small gastric erosion versus questionable epistaxis. RECOMMENDATIONS: 1. Return to floor. 2. Resume regular diet. 3. Proton pump inhibitor therapy once daily. 4. Follow up pathology. 5. Outpatient followup. At this time, no further inpatient GI workup is needed, but please do not hesitate to contact me with any further questions. Thank you for allowing me to participate in the care of your patient. [facility]# [id number] [address]TI[address]
--- NOTE | 2016-08-29 15:55 | Post Anesthesia Evaluation ---
- Post Anesthesia Evaluation Patient Participated: Yes Airway Patent: Yes Stable Respiratory Function: Yes Nausea/Vomiting: No Temp > 96.8F: Yes Pain Manageable: Yes Adequeate Hydration: Yes Anesthesia Complications: No
[2016-08-29] MEDS: PERCOCET 5/325 PO PRN (20:29)
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
[2016-08-30] MEDS: MORPHINE IV PRN ×5 (00:22→19:39)
[2016-08-30] MEDS ORDERED: PROTONIX IV ONE (10:46)
--- NOTE | 2016-08-30 10:51 | Progress Note ---
Assessment and Plan - Patient Problems (1) Upper GI bleed Current Visit: Yes Status: Acute Plan to address problem: Status post EGD [place] reviewed Protonix decrease to once daily per GI recommendations Discussed with nursing staff GI may need to address his claims of rectal bleed although the hemoglobin and hematocrit are normal Empirically treat with a rectal suppository for possible hemorrhoids (2) Abdominal pain Current Visit: Yes Status: Acute Qualifiers: Abdominal location: upper abdomen, unspecified Qualified Code(s): R10.10 - Upper abdominal pain, unspecified Plan to address problem: Continue PPI (3) Chest pain Current Visit: Yes Status: Resolved Qualifiers: Chest pain type: unspecified Qualified Code(s): R07.9 - Chest pain, unspecified Plan to address problem: Medical management per cardiology (4) Cocaine abuse Current Visit: Yes Status: Acute Plan to address problem: Psychiatric note reviewed (5) Dehydration Current Visit: Yes Status: Resolved (6) Hypertension Current Visit: Yes Status: Chronic Qualifiers: Hypertension type: essential hypertension Qualified Code(s): I10 - Essential (primary) hypertension Plan to address problem: Well-controlled (7) Schizophrenia Current Visit: Yes Status: Chronic Qualifiers: Schizophrenia type: S Plan to address problem: Continue antipsychotics Subjective Date of service: 08/30/16 Interval history: Patient is alert and oriented Was talking on the phone when I entered the room, but soon after started having mild tremors of his parents( most likely intentional) States he has rectal bleed but did description is very vague. He denies any melanotic stools. He is status post EGD was cleared for discharge He was also cleared by cardiology for discharge Objective - Constitutional Vitals: Vital Signs - 12hr 08/29/16 08/30/16 23:20 07:15 Temperature 97.6 F 98.1 F Pulse Rate [ 61 70 Radial] Respiratory 20 12 Rate Blood Pressure 154/100 152/100 [Left Radial Artery] O2 Sat by Pulse 98 99 Oximetry General appearance: Present: no acute distress - EENT Eyes: PERRL, EOM intact ENT: hearing intact, clear oral mucosa - Neck Neck: supple, normal ROM, no masses or JVD - Respiratory Respiratory effort: normal Respiratory: bilateral: CTA - Cardiovascular Rhythm: regular Heart Sounds: Present: S1 & S2 Extremities: No edema - Gastrointestinal General gastrointestinal: Present: soft, tender (the tenderness is very unconvincing, he jumps up even before I press on his abdomen). Absent: rigid, hepatomegaly, splenomegaly Rectal Exam: deferred - Integumentary Integumentary: clear - Musculoskeletal Musculoskeletal: strength equal bilaterally - Neurologic Neurologic: CNII-XII intact, no focal deficits - Labs CBC & Chem 7: 08/29/16 06:55 08/29/16 06:55
[2016-08-30] MEDS: PROTONIX IV SCH (10:53)
[2016-08-30] MEDS: D5/0.45NS 1,000 ML IV SCH (10:54)
--- NOTE | 2016-08-30 10:54 | Progress Note ---
Assessment and Plan Abdominal pain with Nausea/vomiting Chest pain, atypical normal coronaries, EF 50% on LHC 12/2015 EF 55-60% on echo 11/2015 Hypertension Depression Schizophrenia Tobacco Positive urine drug screen for cocaine ECG -SR with occasional PVCs Conservative cardiac management. Subjective Date of service: 08/30/16 Interval history: Patient denies chest pain and shortness of breath. Objective Vital Signs Temp Pulse Pulse Resp BP BP Pulse Ox 08/30/16 07:15 98.1 F 70 12 152/100 99 08/29/16 23:20 97.6 F 61 20 154/100 98 08/29/16 20:00 98.6 F 73 18 158/70 08/29/16 17:00 98.3 F 60 18 150/90 97 08/29/16 15:01 66 12 143/94 98 08/29/16 14:55 73 11 L 133/99 98 08/29/16 14:46 80 15 104/68 97 08/29/16 14:33 97.5 F L 72 13 111/61 97 08/29/16 13:44 98.2 F 67 15 168/115 98 08/29/16 13:39 98.2 F 67 15 168/115 98 - Physical Examination General: No Apparent Distress HEENT: Positive: PERRL Neck: Positive: trachea midline Cardiac: Positive: Reg Rate and Rhythm Lungs: Positive: Decreased Breath Sounds Neuro: Positive: Grossly Intact
[2016-08-30] MEDS ORDERED: PROCTOSOL-HC PR PRN (10:55)
[2016-08-30] MEDS: WELLBUTRIN PO SCH (15:47)
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
[2016-08-30] MEDS ORDERED: PROTONIX PO SCH (22:00)
[2016-08-31] MEDS: MORPHINE IV PRN ×3 (00:19→20:26)
[2016-08-31 05:41] LABS: Hematocrit 39.2 % (35.5-45.6); Hemoglobin 13.3 gm/dl (11.8-15.2); Mean Corpuscular HGB Conc 34 % (32-34); Mean Corpuscular Hemoglobin 30 pg (28-32); Mean Corpuscular Volume 90 fl (84-94); Platelet Count 191 K/mm3 (140-440); Red Blood Count 4.37 M/mm3 (3.65-5.03); White Blood Count 3.1 K/mm3 (4.5-11.0)
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
[2016-08-31] MEDS: WELLBUTRIN PO SCH (09:35)
[2016-08-31] MEDS: PROTONIX PO SCH (09:35)
--- NOTE | 2016-08-31 09:42 | Gastroenterology Progress Note ---
Assessment and Plan 1. Hematemesis with abdominal pain -S/P EGD Esophagus: Normal Stomach: Small gastric erosion in antrum; biopsied...Path pending Duodenum: Dilated lacteals with some mucosal prominence in duodenal sweep; biopsied. Path pending PPI once daily F/U path in clinic Outpatient f/u in office in 2 weeks for path follow up. - H/H stable. Rectal exam at bedside with brown stool. Chaperoned by Nurse Mckeon. - Office information provided to patient and follow up plan discussed and patient verbalizes understanding. No further inpatient GI w/u needed. Please re-call with questions. Thank you! Subjective Date of service: 08/31/16 Interval history: Recalled to evaluate for rectal bleeding per patient report. Objective - Constitutional Vitals: Temp Pulse Resp BP Pulse Ox 97.8 F 65 18 121/78 97 08/31/16 08:00 08/31/16 08:00 08/31/16 08:00 08/31/16 08:00 08/30/16 20:00 General appearance: no acute distress - EENT Eyes: EOM intact ENT: clear oral mucosa - Respiratory Respiratory: bilateral: CTA - Cardiovascular Rhythm: regular Heart Sounds: Present: S1 & S2 - Gastrointestinal General gastrointestinal: Present: soft, non-tender, normal bowel sounds - Integumentary Integumentary: Present: warm, dry - Neurologic Neurological: alert and oriented x3 - Psychiatric Psychiatric: agitated - Labs CBC & Chem 7: 08/31/16 04:49 08/29/16 06:55 Labs: Laboratory Results - last 24 hr 08/31/16 04:49 WBC 3.1 L RBC 4.37 Hgb 13.3 Hct 39.2 MCV 90 MCH 30 MCHC 34 RDW 14.0 Plt Count 191
--- NOTE | 2016-08-31 10:07 | Progress Note ---
Assessment and Plan - Patient Problems (1) Alcohol abuse Current Visit: Yes Status: Acute Plan to address problem: Patient currently was being seen for alcohol detoxification. Once patient is clinically cleared to return to the inpatient alcohol detoxification program (2) Upper GI bleed Current Visit: Yes Status: Acute Plan to address problem: Hematemesis with abdominal pain. Status post EGD with small gastric erosions in the stomach. Patient was evaluated by GI and they felt that patient needed no further inpatient GI workup. Patient will follow-up in their office in 2 weeks for pathology follow-up - (3) Hypertension Current Visit: Yes Status: Chronic Qualifiers: Hypertension type: essential hypertension Qualified Code(s): I10 - Essential (primary) hypertension Plan to address problem: Blood pressure controlled at this time. (4) Chest pain Current Visit: Yes Status: Resolved Qualifiers: Chest pain type: unspecified Qualified Code(s): R07.9 - Chest pain, unspecified Plan to address problem: When I examined patient in the room patient was complaining of chest pain. Will reconsult cardiology. Cardiology described chest pain as a typical and no further cardiac workup and to be done. Patient was adamant about being evaluated again History Interval history: Patient stated he still having chest pain Hospitalist Physical - Constitutional Vitals: Temp Pulse Resp BP Pulse Ox 97.8 F 65 18 121/78 97 08/31/16 08:00 08/31/16 08:00 08/31/16 08:00 08/31/16 08:00 08/30/16 20:00 General appearance: Present: mild distress - EENT Eyes: Present: PERRL, EOM intact ENT: hearing intact, clear oral mucosa - Neck Neck: Present: supple, normal ROM - Respiratory Respiratory effort: normal Respiratory: bilateral: CTA - Cardiovascular Rhythm: regular Heart Sounds: Present: S1 & S2 - Abdominal General gastrointestinal: soft, non-tender, non-distended, normal bowel sounds - Psychiatric Psychiatric: appropriate mood/affect, intact judgment & insight - Neurologic Neurologic: CNII-XII intact, moves all extremities Results - Labs CBC & Chem 7: 08/31/16 04:49 08/29/16 06:55 Labs: Laboratory Last Values WBC 3.1 K/mm3 (4.5-11.0) L 08/31/16 04:49 RBC 4.37 M/mm3 (3.65-5.03) 08/31/16 04:49 Hgb 13.3 gm/dl (11.8-15.2) 08/31/16 04:49 Hct 39.2 % (35.5-45.6) 08/31/16 04:49 MCV 90 fl (84-94) 08/31/16 04:49 MCH 30 pg (28-32) 08/31/16 04:49 MCHC 34 % (32-34) 08/31/16 04:49 RDW 14.0 % (13.2-15.2) 08/31/16 04:49 Plt Count 191 K/mm3 (140-440) 08/31/16 04:49 Lymph % (Auto) Complaint Inspector 08/29/16 06:55 [place] % (Auto) 11.8 % (0.0-7.3) H 08/27/16 08:25 Eos % (Auto) 1.5 % (0.0-4.3) 08/27/16 08:25 Baso % (Auto) 1.1 % (0.0-1.8) 08/27/16 08:25 Lymph # 2.0 K/mm3 (1.2-5.4) 08/27/16 08:25 [place] # 0.5 K/mm3 (0.0-0.8) 08/27/16 08:25 Eos # 0.1 K/mm3 (0.0-0.4) 08/27/16 08:25 Baso # 0.0 K/mm3 (0.0-0.1) 08/27/16 08:25 Add Manual Diff Complete 08/29/16 06:55 Total Counted 50 08/29/16 06:55 Seg Neutrophils % Complaint Inspector 08/29/16 06:55 Seg Neuts % (Manual) 28.0 % (40.0-70.0) L 08/29/16 06:55 Band Neutrophils % 0 % 08/29/16 06:55 Lymphocytes % (Manual) 60.0 % (13.4-35.0) H 08/29/16 06:55 Reactive Lymphs % (Man) 0 % 08/29/16 06:55 Monocytes % (Manual) 10.0 % (0.0-7.3) H 08/29/16 06:55 Eosinophils % (Manual) 0 % (0.0-4.3) 08/29/16 06:55 Basophils % (Manual) 2.0 % (0.0-1.8) H 08/29/16 06:55 Metamyelocytes % 0 % 08/29/16 06:55 Myelocytes % 0 % 08/29/16 06:55 Promyelocytes % 0 % 08/29/16 06:55 Blast Cells % 0 % 08/29/16 06:55 Nucleated RBC % Not Reportable 08/29/16 06:55 Seg Neutrophils # 1.4 K/mm3 (1.8-7.7) L 08/27/16 08:25 Seg Neutrophils # Man 0.8 K/mm3 (1.8-7.7) L 08/29/16 06:55 Band Neutrophils # 0.0 K/mm3 08/29/16 06:55 Lymphocytes # (Manual) 1.7 K/mm3 (1.2-5.4) 08/29/16 06:55 Abs React Lymphs (Man) 0.0 K/mm3 08/29/16 06:55 Monocytes # (Manual) 0.3 K/mm3 (0.0-0.8) 08/29/16 06:55 Eosinophils # (Manual) 0.0 K/mm3 (0.0-0.4) 08/29/16 06:55 Basophils # (Manual) 0.1 K/mm3 (0.0-0.1) 08/29/16 06:55 Metamyelocytes # 0.0 K/mm3 08/29/16 06:55 Myelocytes # 0.0 K/mm3 08/29/16 06:55 Promyelocytes # 0.0 K/mm3 08/29/16 06:55 Blast Cells # 0.0 K/mm3 08/29/16 06:55 WBC Morphology Not Reportable 08/29/16 06:55 Hypersegmented Neuts Not Reportable 08/29/16 06:55 Hyposegmented Neuts Not Reportable 08/29/16 06:55 Hypogranular Neuts Not Reportable 08/29/16 06:55 Smudge Cells Not Reportable 08/29/16 06:55 Toxic Granulation Not Reportable 08/29/16 06:55 Toxic Vacuolation Not Reportable 08/29/16 06:55 Dohle Bodies Not Reportable 08/29/16 06:55 Pelger-Huet Anomaly Not Reportable 08/29/16 06:55 Janna Rods Not Reportable 08/29/16 06:55 Platelet Estimate Appears normal 08/29/16 06:55 Clumped Platelets Not Reportable 08/29/16 06:55 Plt Clumps, EDTA Not Reportable 08/29/16 06:55 Large Platelets Not Reportable 08/29/16 06:55 Giant Platelets Not Reportable 08/29/16 06:55 Platelet Satelliting Not Reportable 08/29/16 06:55 Plt Morphology Comment Not Reportable 08/29/16 06:55 RBC Morphology Normal 08/29/16 06:55 Dimorphic RBCs Not Reportable 08/29/16 06:55 Polychromasia Not Reportable 08/29/16 06:55 Hypochromasia Not Reportable 08/29/16 06:55 Poikilocytosis Not Reportable 08/29/16 06:55 Anisocytosis Not Reportable 08/29/16 06:55 Microcytosis Not Reportable 08/29/16 06:55 Macrocytosis Not Reportable 08/29/16 06:55 Spherocytes Not Reportable 08/29/16 06:55 Pappenheimer Bodies Not Reportable 08/29/16 06:55 Sickle Cells Not Reportable 08/29/16 06:55 Target Cells Not Reportable 08/29/16 06:55 Tear Drop Cells Not Reportable 08/29/16 06:55 Ovalocytes Not Reportable 08/29/16 06:55 Helmet Cells Not Reportable 08/29/16 06:55 Elder-[place] Bodies Not Reportable 08/29/16 06:55 [place] Rings Not Reportable 08/29/16 06:55 [place] Cells Not Reportable 08/29/16 06:55 Bite Cells Not Reportable 08/29/16 06:55 Crenated Cell Not Reportable 08/29/16 06:55 Elliptocytes Not Reportable 08/29/16 06:55 Acanthocytes (Spur) Not Reportable 08/29/16 06:55 Rouleaux Not Reportable 08/29/16 06:55 Hemoglobin C Crystals Not Reportable 08/29/16 06:55 Schistocytes Not Reportable 08/29/16 06:55 Malaria parasites Not Reportable 08/29/16 06:55 Shankar Bodies Not Reportable 08/29/16 06:55 Hem Pathologist Commnt No 08/29/16 06:55 PT 12.5 Sec. (12.2-14.9) 08/29/16 06:55 INR 0.94 (0.87-1.13) 08/29/16 06:55 Sodium 139 mmol/L (137-145) 08/29/16 06:55 Potassium 3.9 mmol/L (3.6-5.0) 08/29/16 06:55 Chloride 102.1 mmol/L (98-107) 08/29/16 06:55 Carbon Dioxide 26 mmol/L (22-30) 08/29/16 06:55 Anion Gap 15 mmol/L 08/29/16 06:55 BUN 5 mg/dL (9-20) L 08/29/16 06:55 Creatinine 0.5 mg/dL (0.8-1.5) L 08/29/16 06:55 Estimated GFR > 60 ml/min 08/29/16 06:55 BUN/Creatinine Ratio 10.00 % 08/29/16 06:55 Glucose 128 mg/dL (75-100) H 08/29/16 06:55 Calcium 8.2 mg/dL (8.4-10.2) L 08/29/16 06:55 Total Bilirubin 0.5 mg/dL (0.1-1.2) 08/28/16 00:48 Direct Bilirubin < 0.2 mg/dL (0-0.2) 08/28/16 00:48 Indirect Bilirubin 0.3 mg/dL 08/28/16 00:48 AST 29 units/L (5-40) 08/28/16 00:48 ALT 22 units/L (7-56) 08/28/16 00:48 Alkaline Phosphatase 69 units/L (35-129) 08/28/16 00:48 Total Creatine Kinase 78 units/L (55-170) 08/28/16 00:48 Troponin T < 0.010 ng/mL (0.00-0.029) 08/28/16 00:48 Total Protein 6.8 g/dL (6.3-8.2) 08/28/16 00:48 Albumin 4.2 g/dL (3.9-5) 08/28/16 00:48 Albumin/Globulin Ratio 1.6 % 08/28/16 00:48 Lipase 45 units/L (13-60) 08/28/16 00:48 Urine Color Jody (Yellow) 08/27/16 07:30 Urine Turbidity Clear (Clear) 08/27/16 07:30 Urine pH 5.0 (5.0-7.0) 08/27/16 07:30 Ur Specific [place] 1.032 (1.003-1.030) H 08/27/16 07:30 Urine Protein 30 mg/dl mg/dL (Negative) 08/27/16 07:30 Urine Glucose (UA) Neg mg/dL (Negative) 08/27/16 07:30 Urine Ketones 80 mg/dL (Negative) 08/27/16 07:30 Urine Blood Sm (Negative) 08/27/16 07:30 Urine Nitrite Neg (Negative) 08/27/16 07:30 Urine Bilirubin Neg (Negative) 08/27/16 07:30 Urine Urobilinogen 2.0 mg/dL (<2.0) 08/27/16 07:30 Ur Leukocyte Esterase Neg (Negative) 08/27/16 07:30 Urine WBC (Auto) 1.0 /HPF (0.0-6.0) 08/27/16 07:30 Urine RBC (Auto) 4.0 /HPF (0.0-6.0) 08/27/16 07:30 U Epithel Cells (Auto) < 1.0 /HPF (0-13.0) 08/27/16 07:30 Urine Mucus 3+ /HPF 08/27/16 07:30 Urine Opiates Screen Presumptive negative 08/27/16 07:30 Urine Methadone Screen Presumptive negative 08/27/16 07:30 Ur Barbiturates Screen Presumptive negative 08/27/16 07:30 Ur Phencyclidine Scrn Presumptive negative 08/27/16 07:30 Ur Amphetamines Screen Presumptive negative 08/27/16 07:30 U Benzodiazepines Scrn Presumptive negative 08/27/16 07:30 Urine Cocaine Screen Presumptive positive 08/27/16 07:30 U Marijuana (THC) Screen Presumptive negative 08/27/16 07:30 Drugs of Abuse Note Disclamer 08/27/16 07:30 Plasma/Serum Alcohol < 0.01 gm% (0-0.07) 08/27/16 07:54
[2016-08-31] MEDS ORDERED: NORVASC PO SCH (23:17)
[2016-09-01] MEDS: MORPHINE IV PRN ×5 (00:25→20:10)
[2016-09-01] MEDS: PROTONIX PO SCH (10:08)
[2016-09-01] MEDS: WELLBUTRIN PO SCH (10:09)
--- NOTE | 2016-09-01 10:18 | Progress Note ---
Assessment and Plan - Patient Problems (1) Alcohol abuse Current Visit: Yes Status: Acute Plan to address problem: Patient currently was being seen for alcohol detoxification. Once patient is clinically cleared to return to the inpatient alcohol detoxification program. We will continue [facility] protocol (2) Upper GI bleed Current Visit: Yes Status: Acute Plan to address problem: Hematemesis with abdominal pain. Status post EGD with small gastric erosions in the stomach. Patient was evaluated by GI and they felt that patient needed no further inpatient GI workup. Patient will follow-up in their office in 2 weeks for pathology follow-up - (3) Hypertension Current Visit: Yes Status: Chronic Qualifiers: Hypertension type: essential hypertension Qualified Code(s): I10 - Essential (primary) hypertension Plan to address problem: Blood pressure controlled at this time. (4) Chest pain Current Visit: Yes Status: Resolved Qualifiers: Chest pain type: unspecified Qualified Code(s): R07.9 - Chest pain, unspecified Plan to address problem: When I examined patient in the room patient was complaining of chest pain. Will reconsult cardiology. Cardiology described chest pain as a typical and no further cardiac workup and to be done. Patient was adamant about being evaluated again History Interval history: Patient stated he still having chest pain. Patient also admits to his hand shaking Hospitalist Physical - Constitutional Vitals: Temp Pulse Resp BP Pulse Ox 98.2 F 69 18 109/61 100 09/01/16 08:08 09/01/16 08:08 09/01/16 08:08 09/01/16 08:08 09/01/16 08:08 General appearance: Present: mild distress - EENT Eyes: Present: PERRL, EOM intact ENT: hearing intact, clear oral mucosa - Neck Neck: Present: supple, normal ROM - Respiratory Respiratory effort: normal Respiratory: bilateral: CTA - Cardiovascular Rhythm: regular Heart Sounds: Present: S1 & S2 - Extremities Extremities: no ischemia, No edema - Abdominal General gastrointestinal: soft, non-tender, non-distended, normal bowel sounds - Psychiatric Psychiatric: appropriate mood/affect, intact judgment & insight - Neurologic Neurologic: CNII-XII intact, moves all extremities Results - Labs CBC & Chem 7: 08/31/16 04:49 08/29/16 06:55 Labs: Laboratory Last Values WBC 3.1 K/mm3 (4.5-11.0) L 08/31/16 04:49 RBC 4.37 M/mm3 (3.65-5.03) 08/31/16 04:49 Hgb 13.3 gm/dl (11.8-15.2) 08/31/16 04:49 Hct 39.2 % (35.5-45.6) 08/31/16 04:49 MCV 90 fl (84-94) 08/31/16 04:49 MCH 30 pg (28-32) 08/31/16 04:49 MCHC 34 % (32-34) 08/31/16 04:49 RDW 14.0 % (13.2-15.2) 08/31/16 04:49 Plt Count 191 K/mm3 (140-440) 08/31/16 04:49 Lymph % (Auto) Hot Tar Roofer Helper 08/29/16 06:55 [place] % (Auto) 11.8 % (0.0-7.3) H 08/27/16 08:25 Eos % (Auto) 1.5 % (0.0-4.3) 08/27/16 08:25 Baso % (Auto) 1.1 % (0.0-1.8) 08/27/16 08:25 Lymph # 2.0 K/mm3 (1.2-5.4) 08/27/16 08:25 [place] # 0.5 K/mm3 (0.0-0.8) 08/27/16 08:25 Eos # 0.1 K/mm3 (0.0-0.4) 08/27/16 08:25 Baso # 0.0 K/mm3 (0.0-0.1) 08/27/16 08:25 Add Manual Diff Complete 08/29/16 06:55 Total Counted 50 08/29/16 06:55 Seg Neutrophils % Hot [place] Roofer Helper 08/29/16 06:55 Seg Neuts % (Manual) 28.0 % (40.0-70.0) L 08/29/16 06:55 Band Neutrophils % 0 % 08/29/16 06:55 Lymphocytes % (Manual) 60.0 % (13.4-35.0) H 08/29/16 06:55 Reactive Lymphs % (Man) 0 % 08/29/16 06:55 Monocytes % (Manual) 10.0 % (0.0-7.3) H 08/29/16 06:55 Eosinophils % (Manual) 0 % (0.0-4.3) 08/29/16 06:55 Basophils % (Manual) 2.0 % (0.0-1.8) H 08/29/16 06:55 Metamyelocytes % 0 % 08/29/16 06:55 Myelocytes % 0 % 08/29/16 06:55 Promyelocytes % 0 % 08/29/16 06:55 Blast Cells % 0 % 08/29/16 06:55 Nucleated RBC % Not Reportable 08/29/16 06:55 Seg Neutrophils # 1.4 K/mm3 (1.8-7.7) L 08/27/16 08:25 Seg Neutrophils # Man 0.8 K/mm3 (1.8-7.7) L 08/29/16 06:55 Band Neutrophils # 0.0 K/mm3 08/29/16 06:55 Lymphocytes # (Manual) 1.7 K/mm3 (1.2-5.4) 08/29/16 06:55 Abs React Lymphs (Man) 0.0 K/mm3 08/29/16 06:55 Monocytes # (Manual) 0.3 K/mm3 (0.0-0.8) 08/29/16 06:55 Eosinophils # (Manual) 0.0 K/mm3 (0.0-0.4) 08/29/16 06:55 Basophils # (Manual) 0.1 K/mm3 (0.0-0.1) 08/29/16 06:55 Metamyelocytes # 0.0 K/mm3 08/29/16 06:55 Myelocytes # 0.0 K/mm3 08/29/16 06:55 Promyelocytes # 0.0 K/mm3 08/29/16 06:55 Blast Cells # 0.0 K/mm3 08/29/16 06:55 WBC Morphology Not Reportable 08/29/16 06:55 Hypersegmented Neuts Not Reportable 08/29/16 06:55 Hyposegmented Neuts Not Reportable 08/29/16 06:55 Hypogranular Neuts Not Reportable 08/29/16 06:55 Smudge Cells Not Reportable 08/29/16 06:55 Toxic Granulation Not Reportable 08/29/16 06:55 Toxic Vacuolation Not Reportable 08/29/16 06:55 Dohle Bodies Not Reportable 08/29/16 06:55 Pelger-Huet Anomaly Not Reportable 08/29/16 06:55 Janna Rods Not Reportable 08/29/16 06:55 Platelet Estimate Appears normal 08/29/16 06:55 Clumped Platelets Not Reportable 08/29/16 06:55 Plt Clumps, EDTA Not Reportable 08/29/16 06:55 Large Platelets Not Reportable 08/29/16 06:55 Giant Platelets Not Reportable 08/29/16 06:55 Platelet Satelliting Not Reportable 08/29/16 06:55 Plt Morphology Comment Not Reportable 08/29/16 06:55 RBC Morphology Normal 08/29/16 06:55 Dimorphic RBCs Not Reportable 08/29/16 06:55 Polychromasia Not Reportable 08/29/16 06:55 Hypochromasia Not Reportable 08/29/16 06:55 Poikilocytosis Not Reportable 08/29/16 06:55 Anisocytosis Not Reportable 08/29/16 06:55 Microcytosis Not Reportable 08/29/16 06:55 Macrocytosis Not Reportable 08/29/16 06:55 Spherocytes Not Reportable 08/29/16 06:55 Pappenheimer Bodies Not Reportable 08/29/16 06:55 Sickle Cells Not Reportable 08/29/16 06:55 Target Cells Not Reportable 08/29/16 06:55 Tear Drop Cells Not Reportable 08/29/16 06:55 Ovalocytes Not Reportable 08/29/16 06:55 Helmet Cells Not Reportable 08/29/16 06:55 Elder-[place] Bodies Not Reportable 08/29/16 06:55 [place] Rings Not Reportable 08/29/16 06:55 [place] Cells Not Reportable 08/29/16 06:55 Bite Cells Not Reportable 08/29/16 06:55 Crenated Cell Not Reportable 08/29/16 06:55 Elliptocytes Not Reportable 08/29/16 06:55 Acanthocytes (Spur) Not Reportable 08/29/16 06:55 Rouleaux Not Reportable 08/29/16 06:55 Hemoglobin C Crystals Not Reportable 08/29/16 06:55 Schistocytes Not Reportable 08/29/16 06:55 Malaria parasites Not Reportable 08/29/16 06:55 Shankar Bodies Not Reportable 08/29/16 06:55 Hem Pathologist Commnt No 08/29/16 06:55 PT 12.5 Sec. (12.2-14.9) 08/29/16 06:55 INR 0.94 (0.87-1.13) 08/29/16 06:55 Sodium 139 mmol/L (137-145) 08/29/16 06:55 Potassium 3.9 mmol/L (3.6-5.0) 08/29/16 06:55 Chloride 102.1 mmol/L (98-107) 08/29/16 06:55 Carbon Dioxide 26 mmol/L (22-30) 08/29/16 06:55 Anion Gap 15 mmol/L 08/29/16 06:55 BUN 5 mg/dL (9-20) L 08/29/16 06:55 Creatinine 0.5 mg/dL (0.8-1.5) L 08/29/16 06:55 Estimated GFR > 60 ml/min 08/29/16 06:55 BUN/Creatinine Ratio 10.00 % 08/29/16 06:55 Glucose 128 mg/dL (75-100) H 08/29/16 06:55 Calcium 8.2 mg/dL (8.4-10.2) L 08/29/16 06:55 Total Bilirubin 0.5 mg/dL (0.1-1.2) 08/28/16 00:48 Direct Bilirubin < 0.2 mg/dL (0-0.2) 08/28/16 00:48 Indirect Bilirubin 0.3 mg/dL 08/28/16 00:48 AST 29 units/L (5-40) 08/28/16 00:48 ALT 22 units/L (7-56) 08/28/16 00:48 Alkaline Phosphatase 69 units/L (35-129) 08/28/16 00:48 Total Creatine Kinase 78 units/L (55-170) 08/28/16 00:48 Troponin T < 0.010 ng/mL (0.00-0.029) 08/28/16 00:48 Total Protein 6.8 g/dL (6.3-8.2) 08/28/16 00:48 Albumin 4.2 g/dL (3.9-5) 08/28/16 00:48 Albumin/Globulin Ratio 1.6 % 08/28/16 00:48 Lipase 45 units/L (13-60) 08/28/16 00:48 Urine Color Jody (Yellow) 08/27/16 07:30 Urine Turbidity Clear (Clear) 08/27/16 07:30 Urine pH 5.0 (5.0-7.0) 08/27/16 07:30 Ur Specific [place] 1.032 (1.003-1.030) H 08/27/16 07:30 Urine Protein 30 mg/dl mg/dL (Negative) 08/27/16 07:30 Urine Glucose (UA) Neg mg/dL (Negative) 08/27/16 07:30 Urine Ketones 80 mg/dL (Negative) 08/27/16 07:30 Urine Blood Sm (Negative) 08/27/16 07:30 Urine Nitrite Neg (Negative) 08/27/16 07:30 Urine Bilirubin Neg (Negative) 08/27/16 07:30 Urine Urobilinogen 2.0 mg/dL (<2.0) 08/27/16 07:30 Ur Leukocyte Esterase Neg (Negative) 08/27/16 07:30 Urine WBC (Auto) 1.0 /HPF (0.0-6.0) 08/27/16 07:30 Urine RBC (Auto) 4.0 /HPF (0.0-6.0) 08/27/16 07:30 U Epithel Cells (Auto) < 1.0 /HPF (0-13.0) 08/27/16 07:30 Urine Mucus 3+ /HPF 08/27/16 07:30 Urine Opiates Screen Presumptive negative 08/27/16 07:30 Urine Methadone Screen Presumptive negative 08/27/16 07:30 Ur Barbiturates Screen Presumptive negative 08/27/16 07:30 Ur Phencyclidine Scrn Presumptive negative 08/27/16 07:30 Ur Amphetamines Screen Presumptive negative 08/27/16 07:30 U Benzodiazepines Scrn Presumptive negative 08/27/16 07:30 Urine Cocaine Screen Presumptive positive 08/27/16 07:30 U Marijuana (THC) Screen Presumptive negative 08/27/16 07:30 Drugs of Abuse Note Disclamer 08/27/16 07:30 Plasma/Serum Alcohol < 0.01 gm% (0-0.07) 08/27/16 07:54
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
[2016-09-02] MEDS: MORPHINE IV PRN ×5 (00:09→22:25)
--- NOTE | 2016-09-02 07:47 | Progress Note ---
Assessment and Plan - Patient Problems (1) Alcohol abuse Current Visit: Yes Status: Acute Plan to address problem: Patient currently was being seen for alcohol detoxification. Once patient is clinically cleared he will return to the inpatient alcohol detoxification program. We will continue [facility] protocol. Patient state that he shaking continually and craving alcohol (2) Upper GI bleed Current Visit: Yes Status: Acute Plan to address problem: Hematemesis with abdominal pain. Status post EGD with small gastric erosions in the stomach. Patient was evaluated by GI and they felt that patient needed no further inpatient GI workup. Patient will follow-up in their office in 2 weeks for pathology follow-up - (3) Hypertension Current Visit: Yes Status: Chronic Qualifiers: Hypertension type: essential hypertension Qualified Code(s): I10 - Essential (primary) hypertension Plan to address problem: Blood pressure controlled at this time. (4) Chest pain Current Visit: Yes Status: Resolved Qualifiers: Chest pain type: unspecified Qualified Code(s): R07.9 - Chest pain, unspecified Plan to address problem: Patient complained of occasional chest pain. Patient has been evaluated by cardiology and they have cleared him.. They felt that chest pain was atypical and that they will employ conservative cardiac management History Interval history: Patient stated that he is continually shaking and feels like he is craving alcohol Hospitalist Physical - Constitutional Vitals: Temp Pulse Resp BP Pulse Ox 98.2 F 83 20 133/93 100 09/02/16 01:05 09/02/16 01:05 09/02/16 01:05 09/02/16 01:05 09/01/16 08:08 General appearance: Present: mild distress - EENT Eyes: Present: PERRL, EOM intact ENT: hearing intact, clear oral mucosa - Neck Neck: Present: supple, normal ROM - Respiratory Respiratory effort: normal Respiratory: bilateral: CTA - Cardiovascular Rhythm: regular Heart Sounds: Present: S1 & S2 - Extremities Extremities: no ischemia, No edema - Abdominal General gastrointestinal: soft, non-tender, non-distended, normal bowel sounds - Psychiatric Psychiatric: appropriate mood/affect - Neurologic Neurologic: CNII-XII intact, moves all extremities Results - Labs CBC & Chem 7: 08/31/16 04:49 08/29/16 06:55 Labs: Laboratory Last Values WBC 3.1 K/mm3 (4.5-11.0) L 08/31/16 04:49 RBC 4.37 M/mm3 (3.65-5.03) 08/31/16 04:49 Hgb 13.3 gm/dl (11.8-15.2) 08/31/16 04:49 Hct 39.2 % (35.5-45.6) 08/31/16 04:49 MCV 90 fl (84-94) 08/31/16 04:49 MCH 30 pg (28-32) 08/31/16 04:49 MCHC 34 % (32-34) 08/31/16 04:49 RDW 14.0 % (13.2-15.2) 08/31/16 04:49 Plt Count 191 K/mm3 (140-440) 08/31/16 04:49 Lymph % (Auto) [employer] 08/29/16 06:55 Cobb % (Auto) 11.8 % (0.0-7.3) H 08/27/16 08:25 Eos % (Auto) 1.5 % (0.0-4.3) 08/27/16 08:25 Baso % (Auto) 1.1 % (0.0-1.8) 08/27/16 08:25 Lymph # 2.0 K/mm3 (1.2-5.4) 08/27/16 08:25 Cobb # 0.5 K/mm3 (0.0-0.8) 08/27/16 08:25 Eos # 0.1 K/mm3 (0.0-0.4) 08/27/16 08:25 Baso # 0.0 K/mm3 (0.0-0.1) 08/27/16 08:25 Add Manual Diff Complete 08/29/16 06:55 Total Counted 50 08/29/16 06:55 Seg Neutrophils % [employer] 08/29/16 06:55 Seg Neuts % (Manual) 28.0 % (40.0-70.0) L 08/29/16 06:55 Band Neutrophils % 0 % 08/29/16 06:55 Lymphocytes % (Manual) 60.0 % (13.4-35.0) H 08/29/16 06:55 Reactive Lymphs % (Man) 0 % 08/29/16 06:55 Monocytes % (Manual) 10.0 % (0.0-7.3) H 08/29/16 06:55 Eosinophils % (Manual) 0 % (0.0-4.3) 08/29/16 06:55 Basophils % (Manual) 2.0 % (0.0-1.8) H 08/29/16 06:55 Metamyelocytes % 0 % 08/29/16 06:55 Myelocytes % 0 % 08/29/16 06:55 Promyelocytes % 0 % 08/29/16 06:55 Blast Cells % 0 % 08/29/16 06:55 Nucleated RBC % Not Reportable 08/29/16 06:55 Seg Neutrophils # 1.4 K/mm3 (1.8-7.7) L 08/27/16 08:25 Seg Neutrophils # Man 0.8 K/mm3 (1.8-7.7) L 08/29/16 06:55 Band Neutrophils # 0.0 K/mm3 08/29/16 06:55 Lymphocytes # (Manual) 1.7 K/mm3 (1.2-5.4) 08/29/16 06:55 Abs React Lymphs (Man) 0.0 K/mm3 08/29/16 06:55 Monocytes # (Manual) 0.3 K/mm3 (0.0-0.8) 08/29/16 06:55 Eosinophils # (Manual) 0.0 K/mm3 (0.0-0.4) 08/29/16 06:55 Basophils # (Manual) 0.1 K/mm3 (0.0-0.1) 08/29/16 06:55 Metamyelocytes # 0.0 K/mm3 08/29/16 06:55 Myelocytes # 0.0 K/mm3 08/29/16 06:55 Promyelocytes # 0.0 K/mm3 08/29/16 06:55 Blast Cells # 0.0 K/mm3 08/29/16 06:55 WBC Morphology Not Reportable 08/29/16 06:55 Hypersegmented Neuts Not Reportable 08/29/16 06:55 Hyposegmented Neuts Not Reportable 08/29/16 06:55 Hypogranular Neuts Not Reportable 08/29/16 06:55 Smudge Cells Not Reportable 08/29/16 06:55 Toxic Granulation Not Reportable 08/29/16 06:55 Toxic Vacuolation Not Reportable 08/29/16 06:55 Dohle Bodies Not Reportable 08/29/16 06:55 Pelger-Huet Anomaly Not Reportable 08/29/16 06:55 Janna Rods Not Reportable 08/29/16 06:55 Platelet Estimate Appears normal 08/29/16 06:55 Clumped Platelets Not Reportable 08/29/16 06:55 Plt Clumps, EDTA Not Reportable 08/29/16 06:55 Large Platelets Not Reportable 08/29/16 06:55 Giant Platelets Not Reportable 08/29/16 06:55 Platelet Satelliting Not Reportable 08/29/16 06:55 Plt Morphology Comment Not Reportable 08/29/16 06:55 RBC Morphology Normal 08/29/16 06:55 Dimorphic RBCs Not Reportable 08/29/16 06:55 Polychromasia Not Reportable 08/29/16 06:55 Hypochromasia Not Reportable 08/29/16 06:55 Poikilocytosis Not Reportable 08/29/16 06:55 Anisocytosis Not Reportable 08/29/16 06:55 Microcytosis Not Reportable 08/29/16 06:55 Macrocytosis Not Reportable 08/29/16 06:55 Spherocytes Not Reportable 08/29/16 06:55 Pappenheimer Bodies Not Reportable 08/29/16 06:55 Sickle Cells Not Reportable 08/29/16 06:55 Target Cells Not Reportable 08/29/16 06:55 Tear Drop Cells Not Reportable 08/29/16 06:55 Ovalocytes Not Reportable 08/29/16 06:55 Helmet Cells Not Reportable 08/29/16 06:55 Elder-[place] Bodies Not Reportable 08/29/16 06:55 Elberfeld Rings Not Reportable 08/29/16 06:55 Felipe Cells Not Reportable 08/29/16 06:55 Bite Cells Not Reportable 08/29/16 06:55 Crenated Cell Not Reportable 08/29/16 06:55 Elliptocytes Not Reportable 08/29/16 06:55 Acanthocytes (Spur) Not Reportable 08/29/16 06:55 Rouleaux Not Reportable 08/29/16 06:55 Hemoglobin C Crystals Not Reportable 08/29/16 06:55 Schistocytes Not Reportable 08/29/16 06:55 Malaria parasites Not Reportable 08/29/16 06:55 Shankar Bodies Not Reportable 08/29/16 06:55 Hem Pathologist Commnt No 08/29/16 06:55 PT 12.5 Sec. (12.2-14.9) 08/29/16 06:55 INR 0.94 (0.87-1.13) 08/29/16 06:55 Sodium 139 mmol/L (137-145) 08/29/16 06:55 Potassium 3.9 mmol/L (3.6-5.0) 08/29/16 06:55 Chloride 102.1 mmol/L (98-107) 08/29/16 06:55 Carbon Dioxide 26 mmol/L (22-30) 08/29/16 06:55 Anion Gap 15 mmol/L 08/29/16 06:55 BUN 5 mg/dL (9-20) L 08/29/16 06:55 Creatinine 0.5 mg/dL (0.8-1.5) L 08/29/16 06:55 Estimated GFR > 60 ml/min 08/29/16 06:55 BUN/Creatinine Ratio 10.00 % 08/29/16 06:55 Glucose 128 mg/dL (75-100) H 08/29/16 06:55 Calcium 8.2 mg/dL (8.4-10.2) L 08/29/16 06:55 Total Bilirubin 0.5 mg/dL (0.1-1.2) 08/28/16 00:48 Direct Bilirubin < 0.2 mg/dL (0-0.2) 08/28/16 00:48 Indirect Bilirubin 0.3 mg/dL 08/28/16 00:48 AST 29 units/L (5-40) 08/28/16 00:48 ALT 22 units/L (7-56) 08/28/16 00:48 Alkaline Phosphatase 69 units/L (35-129) 08/28/16 00:48 Total Creatine Kinase 78 units/L (55-170) 08/28/16 00:48 Troponin T < 0.010 ng/mL (0.00-0.029) 08/28/16 00:48 Total Protein 6.8 g/dL (6.3-8.2) 08/28/16 00:48 Albumin 4.2 g/dL (3.9-5) 08/28/16 00:48 Albumin/Globulin Ratio 1.6 % 08/28/16 00:48 Lipase 45 units/L (13-60) 08/28/16 00:48 Urine Color Jody (Yellow) 08/27/16 07:30 Urine Turbidity Clear (Clear) 08/27/16 07:30 Urine pH 5.0 (5.0-7.0) 08/27/16 07:30 Ur Specific [place] 1.032 (1.003-1.030) H 08/27/16 07:30 Urine Protein 30 mg/dl mg/dL (Negative) 08/27/16 07:30 Urine Glucose (UA) Neg mg/dL (Negative) 08/27/16 07:30 Urine Ketones 80 mg/dL (Negative) 08/27/16 07:30 Urine Blood Sm (Negative) 08/27/16 07:30 Urine Nitrite Neg (Negative) 08/27/16 07:30 Urine Bilirubin Neg (Negative) 08/27/16 07:30 Urine Urobilinogen 2.0 mg/dL (<2.0) 08/27/16 07:30 Ur Leukocyte Esterase Neg (Negative) 08/27/16 07:30 Urine WBC (Auto) 1.0 /HPF (0.0-6.0) 08/27/16 07:30 Urine RBC (Auto) 4.0 /HPF (0.0-6.0) 08/27/16 07:30 U Epithel Cells (Auto) < 1.0 /HPF (0-13.0) 08/27/16 07:30 Urine Mucus 3+ /HPF 08/27/16 07:30 Urine Opiates Screen Presumptive negative 08/27/16 07:30 Urine Methadone Screen Presumptive negative 08/27/16 07:30 Ur Barbiturates Screen Presumptive negative 08/27/16 07:30 Ur Phencyclidine Scrn Presumptive negative 08/27/16 07:30 Ur Amphetamines Screen Presumptive negative 08/27/16 07:30 U Benzodiazepines Scrn Presumptive negative 08/27/16 07:30 Urine Cocaine Screen Presumptive positive 08/27/16 07:30 U Marijuana (THC) Screen Presumptive negative 08/27/16 07:30 Drugs of Abuse Note Disclamer 08/27/16 07:30 Plasma/Serum Alcohol < 0.01 gm% (0-0.07) 08/27/16 07:54
[2016-09-02 09:35] LABS: Basophils % (Auto) 0.9 % (0.0-1.8); Eosinophils % (Auto) 3.5 % (0.0-4.3); Hematocrit 41.5 % (35.5-45.6); Hemoglobin 13.6 gm/dl (11.8-15.2); Mean Corpuscular HGB Conc 33 % (32-34); Mean Corpuscular Hemoglobin 30 pg (28-32); Mean Corpuscular Volume 90 fl (84-94); Platelet Count 203 K/mm3 (140-440); Red Blood Count 4.58 M/mm3 (3.65-5.03); Red Cell Distribution Width 13.9 % (13.2-15.2); White Blood Count 3.2 K/mm3 (4.5-11.0)
[2016-09-02 09:56] LABS: Alanine Aminotransferase 18 units/L (7-56); Albumin/Globulin Ratio 1.5 %; Alkaline Phosphatase 62 units/L (35-129); Anion Gap 18 mmol/L; BUN/Creatinine Ratio 13.33; Bilirubin,Total 0.4 mg/dL (0.1-1.2); Blood Urea Nitrogen 8 mg/dL (9-20); Calcium 8.7 mg/dL (8.4-10.2); Carbon Dioxide 24 mmol/L (22-30); Chloride 101.8 mmol/L (98-107); Glucose 135 mg/dL (75-100); Potassium 3.9 mmol/L (3.6-5.0); Sodium 140 mmol/L (137-145); Total Protein 6.6 g/dL (6.3-8.2)
[2016-09-02] MEDS: WELLBUTRIN PO SCH (10:59)
[2016-09-02] MEDS: PROTONIX PO SCH (10:59)
[2016-09-03] MEDS: MORPHINE IV PRN (05:53)
[2016-09-03 06:10] LABS: Hemoglobin 13.7 gm/dl (11.8-15.2); Mean Corpuscular HGB Conc 33 % (32-34); Mean Corpuscular Hemoglobin 30 pg (28-32); Mean Corpuscular Volume 90 fl (84-94); Platelet Count 209 K/mm3 (140-440); Red Blood Count 4.57 M/mm3 (3.65-5.03); Red Cell Distribution Width 13.7 % (13.2-15.2); White Blood Count 3.4 K/mm3 (4.5-11.0)
[2016-09-03 06:25] LABS: Alanine Aminotransferase 17 units/L (7-56); Albumin 3.9 g/dL (3.9-5); Albumin/Globulin Ratio 1.5 %; Alkaline Phosphatase 63 units/L (35-129); Anion Gap 19 mmol/L; Bilirubin,Total 0.3 mg/dL (0.1-1.2); Blood Urea Nitrogen 8 mg/dL (9-20); Calcium 8.8 mg/dL (8.4-10.2); Carbon Dioxide 23 mmol/L (22-30); Chloride 103.5 mmol/L (98-107); Glucose 132 mg/dL (75-100); Sodium 141 mmol/L (137-145); Total Protein 6.5 g/dL (6.3-8.2)
[2016-09-03 07:22] LABS: Anisocytosis 1+; Basophils % (Manual) 0 % (0.0-1.8); Blastocytes % (Manual) 0 %; Diff Status Complete
[2016-09-03 08:28] VITALS: BP 128/86
--- NOTE | 2016-09-03 10:29 | Discharge Summary ---
Providers - Providers Date of Admission: 08/28/16 10:20 Date of discharge: 09/03/16 Attending physician: ASIF CAMARILLO MD 08/28/16 10:31 Consult to Physician [CONS] Routine Consulting Provider: ADAM MARQUEZ Reason For Exam: abdominal pain/ hemetemesis Notified:: please call 08/28/16 12:11 psychiatry consult [Consult to Mental Health] [CONS] Routine Reason For Exam: alchol and cocaine dependence Place consult to:: jurgen Notified:: PRABHA Phone number called:: [phone] Was contact made?: Yes If yes, spoke with:: PRABHA Time called:: 16:14 Comment:: NOTIFIED Primary care physician: [employer] Hospitalization Reason for admission: Alcohol withdrawal Condition: Stable Hospital course: Mr. Rasmussen is a 46-year-old -[place] male who presents to the emergency department with complaint of needing a medical evaluation. He is alert and oriented and cooperative and not in any acute distress .The patient was supposed to go to [place] for alcohol detox and was sent here for clearance. While the patient has been here he has had a few episodes of vomiting including vomiting blood. He also complains of some midsternal left-sided chest discomfort., and abdominal pain. He denies any shortness of breath, fever, diaphoresis. Patient is a tobacco smoker and was found to have positive cocaine on his urine drug screen. He last drank alcohol late Saturday night/ early Saturday morning. He denies any history of delirium tremens. No recent travel or sick contacts at home. He does have a past psychiatric history of depression, schizophrenia and bipolar disorder. On admission patient was started on treatment for alcohol withdrawal symptoms as he went into some moderate withdrawal. He was seen by GI and an EGD was done and noted small gastric erosions in the stomach and recommended outpatient follow-up in 2 weeks pathology. Patient was continued on Nexium and discharge. This was discussed with him. He was also seen by psychiatrist recommendation to follow up at [facility] for rehabilitation. Patient today is doing well symptoms are significantly improved. He is clinically stable for discharge. Initially when I walked into the room he was without any tremor while I was in the room he began to exhibit some tremor which progressively got worse. On discussion with nursing staff and also with my colleague last saw him earlier it appears as been doing this throughout the weekend. Again I cannot to reevaluate him and stroma was gone but on seen me he began to shake his bilateral upper extremities. He is able to ablate without difficulty. Patient did have evaluation by cardiology and was cleared. Because of cardiology management was recommended. Discharge diagnoses (1) Alcohol abuse (2) Depressive disorder (3) Upper GI bleed (4) Hypertension (5) Chest pain Disposition: DISCHARGED TO HOME OR SELFCARE Time spent for discharge: 35 MINS Core Measure Documentation - Palliative Care Palliative Care/ Comfort Measures: Not Applicable - Core Measures Any of the following diagnoses?: none - VTE Discharge Requirements Deep Vein Thrombosis/Pulmonary Embolism Present on Admission: No Exam - Physical Exam Narrative exam: VITAL SIGNS: Reviewed. GENERAL: The patient appeared well nourished and normally developed. Vital signs as documented. HEAD: No signs of head trauma. EYES: Pupils are equal. Extraocular motions intact. EARS: Hearing grossly intact. MOUTH: Oropharynx is normal. NECK: No adenopathy, no JVD. CHEST: Chest with clear breath sounds bilaterally. No wheezes, rales, or rhonchi. CARDIAC: Regular rate and rhythm. S1 and S2, without murmurs, gallops, or rubs. VASCULAR: No Edema. Peripheral pulses normal and equal in all extremities. ABDOMEN: Soft, without detectable tenderness. No sign of distention. No rebound or guarding, and no masses palpated. Bowel Sounds normal. MUSCULOSKELETAL: Good range of motion of all major joints. Extremities without clubbing, cyanosis or edema. NEUROLOGIC EXAM: Alert and oriented x 3. No focal sensory or strength deficits. Speech normal. Follows commands. PSYCHIATRIC: Mood normal. SKIN: No rash or lesions. - Constitutional Vitals: Temp Pulse Resp BP Pulse Ox 98.4 F 88 20 128/86 97 09/03/16 08:00 09/03/16 08:00 09/03/16 08:00 09/03/16 08:00 09/03/16 08:00 Plan Activity: advance as tolerated, fall precautions Diet: low fat Special Instructions: record daily BP diary, record blood sugar diary Follow up with: RHINA PAVON MD [Primary Care Provider] - 3-5 Days MARVEL MORRIS MD [Staff Physician] - 7 Days MIKIE CARRANZA MD [Staff Physician] - 7 Days Prescriptions: chlordiazePOXIDE [Librium] 5 mg PO Q12H #6 capsule Pantoprazole [Protonix TAB] 40 mg PO QDAY #30 tablet
[2016-09-03] MEDS: PROTONIX PO SCH (11:33)
[2016-09-03] MEDS: WELLBUTRIN PO SCH (11:33)
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
== END 2016-09-03 14:00 | disposition home or self-care (01) | DRG 378 ==
LOC: ED 05:05 → 3A 08-28 10:20
PROVIDERS: ADMIT Internal Medicine; ATTEND Internal Medicine
PROC: 0DB68ZX Excision of Stomach, Via Natural or Artificial Opening Endoscopic, Diagnostic (ICD-10-PCS; principal; 2016-08-29)
PROC: 0DB98ZX Excision of Duodenum, Via Natural or Artificial Opening Endoscopic, Diagnostic (ICD-10-PCS; 2016-08-29)
DX: K92.2 Gastrointestinal hemorrhage, unspecified (principal); F10.239 Alcohol dependence with withdrawal, unspecified; F20.9 Schizophrenia, unspecified; E86.0 Dehydration; F14.10 Cocaine abuse, uncomplicated; I10 Essential (primary) hypertension; F31.9 Bipolar disorder, unspecified; F17.200 Nicotine dependence, unspecified, uncomplicated; I25.10 Atherosclerotic heart disease of native coronary artery without angina pectoris; K21.9 Gastro-esophageal reflux disease without esophagitis; E66.9 Obesity, unspecified; F12.90 Cannabis use, unspecified, uncomplicated; Z68.35 Body mass index [BMI] 35.0-35.9, adult; Z90.49 Acquired absence of other specified parts of digestive tract; Z83.3 Family history of diabetes mellitus; Z82.49 Family history of ischemic heart disease and other diseases of the circulatory system
CPT/HCPCS: 36415; 71020; 74020; 74176; 80048; 80053; 80074; 80307; 80320; 81001; 82550; 83690; 84484; 85007; 85014; 85018; 85025; 85027; 85610; 88305; 88342; 93005; 93010; 96361; 96365; 96375; C9113; G0480; J2270; J2405; J2704; J3010; J3411; J7030

== ENCOUNTER 2016-10-10 22:13 | Emergency (ER) | payer MEDICARE ==
--- NOTE | 2016-10-10 23:39 | Emergency Department Report ---
ED Psych HPI - General Chief Complaint: Psych Stated Complaint: MEDICAL CLEARANCE/DETOX Time Seen by Provider: 10/10/16 23:28 Source: patient Mode of arrival: Ambulatory - History of Present Illness Initial Comments: This is a 46-year-old gentleman who presents to the ED requesting detox from alcohol. He states he has a long-standing history of alcoholism. He reports some drinking as of even 3 hours ago. He states that he started to detox before with some moderate success. He states he feels very motivated now to be successful with that. He is having marital problems as well as other life problems that are leading him to really want to get off alcohol permanently. He denies problems with any other drugs of abuse. He does report some psychiatric issues. These include depression and bipolar disease. He is on Seroquel and Wellbutrin he has been compliant with these medications. Patient denies any auditory or visual hallucinations. He denies any suicidal or homicidal ideations. He does report mild chronic upper abdominal pains. He denies any other specific complaints. Denies cough. Denies chest pain. Does report occasional hematemesis small amount. He was actually seen in the hospital the end of August for hematemesis. He did have endoscopy performed demonstrating small gastric lesion. No varices noted though no significant gastritis noted. - Related Data Home Medications Medication Instructions Recorded Confirmed Last Taken Lisinopril [Zestril TAB] 40 mg PO DAILY 07/15/14 08/27/16 08/25/16 Previous Rx's Medication Instructions Recorded Last Taken Type QUEtiapine [SEROquel] 400 mg PO QHS tablet 12/23/15 08/25/16 Rx buPROPion [Wellbutrin] 200 mg PO DAILY tablet 12/23/15 08/25/16 Rx Pantoprazole [Protonix TAB] 40 mg PO QDAY #30 tablet 09/03/16 Unknown Rx chlordiazePOXIDE [Librium] 5 mg PO Q12H #6 capsule 09/03/16 Unknown Rx Allergies Allergy/AdvReac Type Severity Reaction Status Date / Time No Known Allergies Allergy Verified 07/30/16 09:42 ED Review of Systems ROS: Stated complaint: MEDICAL CLEARANCE/DETOX Other details as noted in HPI Comment: All other systems reviewed and negative Constitutional: denies: chills, fever Eyes: denies: eye pain, eye discharge, vision change ENT: denies: ear pain, throat pain Respiratory: denies: cough, shortness of breath, wheezing Cardiovascular: denies: chest pain, palpitations Endocrine: no symptoms reported Gastrointestinal: abdominal pain, hematemesis. denies: nausea, diarrhea Genitourinary: denies: urgency, dysuria Musculoskeletal: denies: back pain, joint swelling, arthralgia Skin: denies: rash, lesions Neurological: denies: headache, weakness, paresthesias Psychiatric: depression. denies: anxiety, auditory hallucinations, visual hallucinations, homicidal thoughts, suicidal thoughts Hematological/Lymphatic: denies: easy bleeding, easy bruising ED Past Medical Hx - Past Medical History Previous Medical History?: Yes Hx Hypertension: Yes (EF 50%) Hx Congestive Heart Failure: No Hx Diabetes: No Hx Psychiatric Treatment: Yes (depression, schizophrenia, BIPOLAR) Hx Asthma: No Hx COPD: No Hx HIV: No - Surgical History Past Surgical History?: Yes Hx Cholecystectomy: Yes (2013) - Social History Smoking Status: Never Smoker Substance Use Type: Alcohol - Medications Home Medications: Home Medications Medication Instructions Recorded Confirmed Last Taken Type Lisinopril [Zestril TAB] 40 mg PO DAILY 07/15/14 08/27/16 08/25/16 History QUEtiapine [SEROquel] 400 mg PO QHS tablet 12/23/15 08/27/16 08/25/16 Rx buPROPion [Wellbutrin] 200 mg PO DAILY tablet 12/23/15 08/27/16 08/25/16 Rx Pantoprazole [Protonix TAB] 40 mg PO QDAY #30 tablet 09/03/16 Unknown Rx chlordiazePOXIDE [Librium] 5 mg PO Q12H #6 capsule 09/03/16 Unknown Rx ED Physical Exam - General Limitations: No Limitations General appearance: alert, in no apparent distress, obese, other (smells of etoh ) - Head Head exam: Present: atraumatic, normocephalic - Eye Eye exam: Present: normal appearance, EOMI. Absent: scleral icterus - ENT ENT exam: Present: normal exam, normal orophraynx, mucous membranes moist - Neck Neck exam: Present: normal inspection - Respiratory Respiratory exam: Present: normal lung sounds bilaterally. Absent: respiratory distress, wheezes, rales - Cardiovascular Cardiovascular Exam: Present: regular rate, normal rhythm. Absent: systolic murmur, diastolic murmur, rubs, gallop - GI/Abdominal GI/Abdominal exam: Present: soft, tenderness (right upper quadrant and left lower quadrant.), normal bowel sounds. Absent: guarding, rebound, organomegaly - Rectal Rectal exam: Present: deferred - Extremities Exam Extremities exam: Present: normal inspection. Absent: tenderness, pedal edema, calf tenderness - Back Exam Back exam: Present: normal inspection. Absent: tenderness, CVA tenderness (R), CVA tenderness (L) - Neurological Exam Neurological exam: Present: alert, oriented X3 - Psychiatric Psychiatric exam: Present: normal affect, agitated - Skin Skin exam: Present: warm, dry, intact, normal color. Absent: rash ED Course Vital Signs 10/10/16 10/11/16 10/11/16 22:34 03:04 03:05 Temperature 98.8 F 97.6 F Pulse Rate 100 H 103 H 103 H Respiratory 20 20 Rate Blood Pressure 152/108 Blood Pressure 152/108 152/108 [Right] O2 Sat by Pulse 98 97 Oximetry - Reevaluation(s) Reevaluation #1: 10/10/16 23:44 The patient's conversation with me here demonstrates sincere commitment to getting clear of alcohol. I do have my concerns that this may just be a phase. He has gone through the program before. I hope uses has sincere desires to be clean this time. Clearly there are some secondary gains be had with this with family issues and other life issues. Reevaluation #2: 10/10/16 23:50 I am fairly frustrated to see the patient just eloped. My conversation with him was on a positive note. He seemed very committed. Obviously there are some other issues going on as well. Reevaluation #3: 10/11/16 04:47 I did discover that this patient did not elope but went to the waiting room. He was seen by the crisis sales representative printing supplies in the waiting room. There have been arrangements made to get him into a detox program for at least a day program at a minimum. His labs are noted. The treatment program did request that we give him medication to help with his blood pressure. He was given clonidine here. He continues to be appropriate for me here. We'll discharge at this time with planned follow-up with the detox program for continued care. ED Medical Decision Making - Lab Data Result diagrams: 10/10/16 23:39 10/10/16 23:39 Critical care attestation.: If time is entered above; I have spent that time in minutes in the direct care of this critically ill patient, excluding procedure time. ED Disposition Clinical Impression: Alcoholism Disposition: DC/TX PSY HOSP/PSY UNIT Is pt being admited?: No Does the pt Need Aspirin: No Condition: Stable Additional Instructions: Follow with treatment program. Referrals: PRIMARY CARE, [Primary Care Provider] - 3-5 Days Time of Disposition: 04:49
[2016-10-10 23:59] LABS: Basophils % (Auto) 0.6 % (0.0-1.8); Eosinophils % (Auto) 1.6 % (0.0-4.3); Hematocrit 39.9 % (35.5-45.6); Hemoglobin 13.4 gm/dl (11.8-15.2); Mean Corpuscular HGB Conc 34 % (32-34); Mean Corpuscular Hemoglobin 30 pg (28-32); Mean Corpuscular Volume 89 fl (84-94); Platelet Count 262 K/mm3 (140-440); Red Blood Count 4.48 M/mm3 (3.65-5.03); Red Cell Distribution Width 13.7 % (13.2-15.2); White Blood Count 5.2 K/mm3 (4.5-11.0)
[2016-10-11 00:07] LABS: Urine Drugs of Abuse Note Disclamer
[2016-10-11 00:19] LABS: Blood Urea Nitrogen 7 mg/dL (9-20); Calcium 8.8 mg/dL (8.4-10.2); Carbon Dioxide 23 mmol/L (22-30); Glucose 239 mg/dL (75-100); Potassium 3.4 mmol/L (3.6-5.0); Sodium 139 mmol/L (137-145)
[2016-10-11 00:22] LABS: Bilirubin,Urine NEG (Negative); Blood,Urine SM (Negative); Ketones,Urine NEG (Negative); Leukocyte Esterase,Urine NEG (Negative); Nitrite,Urine NEG (Negative); Protein,Urine <15 mg/dL mg/dL (Negative); RBC,Urine < 1.0 /HPF (0.0-6.0); Urobilinogen,Urine < 2.0 mg/dL (<2.0)
[2016-10-11 00:26] LABS: WBC,Urine < 1.0 /HPF (0.0-6.0)
[2016-10-11 00:29] LABS: Anion Gap 19 mmol/L
[2016-10-11] MEDS ORDERED: CATAPRES PO ONE (02:47)
[2016-10-11 05:15] VITALS: BP 126/87
== END 2016-10-11 07:06 ==
LOC: ED 22:13 → EEVIPCON 22:13 → ED 10-11 07:06
DX: F10.129 Alcohol abuse with intoxication, unspecified (principal); I10 Essential (primary) hypertension; F31.9 Bipolar disorder, unspecified; Z90.49 Acquired absence of other specified parts of digestive tract
CPT/HCPCS: 36415; 80048; 80307; 81001; 85025; 99285; G0480; 80320

== ENCOUNTER 2016-11-16 02:42 | Emergency (ER) | payer MEDICARE ==
[2016-11-16 03:40] LABS: Hematocrit 39.6 % (35.5-45.6); Hemoglobin 13.6 gm/dl (11.8-15.2); Mean Corpuscular HGB Conc 34 % (32-34); Mean Corpuscular Hemoglobin 31 pg (28-32); Mean Corpuscular Volume 89 fl (84-94); Platelet Count 237 K/mm3 (140-440); Red Blood Count 4.46 M/mm3 (3.65-5.03); Red Cell Distribution Width 13.5 % (13.2-15.2); White Blood Count 4.1 K/mm3 (4.5-11.0)
[2016-11-16 03:51] LABS: Anion Gap 20 mmol/L; BUN/Creatinine Ratio 8.57; Blood Urea Nitrogen 6 mg/dL (9-20); Calcium 8.6 mg/dL (8.4-10.2); Carbon Dioxide 22 mmol/L (22-30); Chloride 104.3 mmol/L (98-107); Glucose 173 mg/dL (75-100); Sodium 142 mmol/L (137-145)
[2016-11-16 04:32] LABS: Urine Drugs of Abuse Note Disclamer
[2016-11-16 04:51] LABS: Bilirubin,Urine NEG (Negative); Blood,Urine SM (Negative); Ketones,Urine TR mg/dL (Negative); Leukocyte Esterase,Urine NEG (Negative); Mucus,Urine 3+ /HPF; Nitrite,Urine NEG (Negative)
[2016-11-16 06:33] LABS: Blastocytes % (Manual) 0 %
[2016-11-16 06:34] LABS: Anisocytosis 1+; Diff Status Complete; Platelet Estimate Consistent w Auto
[2016-11-16] MEDS ORDERED: CATAPRES PO ONE (22:17)
[2016-11-16] MEDS ORDERED: ATIVAN PO PRN ×2 (23:06)
--- NOTE | 2016-11-17 00:15 | Emergency Department Report ---
ED Psych HPI - General Chief Complaint: Psych Stated Complaint: DETOX Time Seen by Provider: 11/16/16 22:05 Source: patient Mode of arrival: Ambulatory - History of Present Illness Initial Comments: 46 old male with a past medical history of hypertension, schizophrenia, previous cholecystectomy, and alcohol abuse presents to the hospital requesting alcohol detox. Patient has been drinking excessively for the past 4 days. Patient states he drinks 2-3 24 ounce beers daily. Patient denies having tremors or alcohol withdrawal seizures but was noted to be tremulous and initial triage. Patient went to [facility] prior to arrival states he was sent here for medical clearance. Patient has not taken his blood pressure medication today and states all his medications are as anchor. Last drink was yesterday. No physical complaints reported. - Related Data Previous Rx's Medication Instructions Recorded Last Taken Type Pantoprazole [Protonix TAB] 40 mg PO QDAY #30 tablet 11/02/16 Unknown Rx QUEtiapine [SEROquel] 200 mg PO QHS #30 tablet 11/02/16 Unknown Rx Thiamine [Vitamin B-1] 100 mg PO QDAY #30 tablet 11/02/16 Unknown Rx buPROPion [Wellbutrin] 150 mg PO DAILY #60 tablet 11/02/16 Unknown Rx Allergies Allergy/AdvReac Type Severity Reaction Status Date / Time No Known Allergies Allergy Verified 07/30/16 09:42 ED Review of Systems ROS: Stated complaint: DETOX Other details as noted in HPI Comment: All other systems reviewed and negative Other: Constitutional: No fevers chills Eyes: No eye pain visual changes ENT: No ear pain or throat pain Neck: Denies pain Respiratory: Denies cough wheezing shortness of breath Cardiovascular: Denies chest pain, palpitations, syncope GI: Denies abdominal pain, nausea, vomiting, diarrhea : Denies dysuria, urinary frequency, or urgency Musculoskeletal: Denies back pain Skin: Denies rash, lesions, erythema Neurologic: Denies headache, numbness, weakness Psychiatric: Denies suicidal ideation, hallucinations ED Past Medical Hx - Past Medical History Previous Medical History?: Yes Hx Hypertension: Yes (EF 50%) Hx Congestive Heart Failure: No Hx Diabetes: No Hx Psychiatric Treatment: Yes (depression, schizophrenia, BIPOLAR) Hx Asthma: No Hx COPD: No Hx HIV: No Additional medical history: Obesity. Gastritis, - Surgical History Hx Cholecystectomy: Yes (2013) - Social History Smoking Status: Current Every Day Smoker Substance Use Type: Alcohol - Medications Home Medications: Home Medications Medication Instructions Recorded Confirmed Last Taken Type Pantoprazole [Protonix TAB] 40 mg PO QDAY #30 tablet 11/02/16 Unknown Rx QUEtiapine [SEROquel] 200 mg PO QHS #30 tablet 11/02/16 Unknown Rx Thiamine [Vitamin B-1] 100 mg PO QDAY #30 tablet 11/02/16 Unknown Rx buPROPion [Wellbutrin] 150 mg PO DAILY #60 tablet 11/02/16 Unknown Rx ED Physical Exam - General Limitations: No Limitations - Other Other exam information: General: No limitations, patient is alert in no acute distress Head exam: Atraumatic, normocephalic Eyes exam: Normal appearance, pupils equal reactive to light, extraocular movements intact ENT: Moist mucous membrane, normal oropharynx Neck exam: Normal inspection, full range of motion, no meningismus nontender Respiratory exam: Clear to auscultation bilateral, no wheezes, rales, crackles Cardiovascular: Normal rate and rhythm, normal heart sounds Abdomen: Soft, nondistended, and nontender, with normal bowel sounds, no rebound, or guarding Extremity: Full range of motion normal inspection no deformity Back: Normal Inspection, full range of motion, no tenderness Neurologic: Alert, oriented x3, cranial nerves intact, no motor or sensory deficit Psychiatric: normal affect, normal mood Skin: Warm, dry, intact ED Course Vital Signs 11/16/16 11/16/16 11/16/16 02:55 08:03 22:16 Temperature 98.2 F 98.7 F Pulse Rate 55 L 103 H 99 H Respiratory 20 22 16 Rate Blood Pressure Blood Pressure 155/115 151/123 163/109 [Right] O2 Sat by Pulse 98 97 99 Oximetry 11/16/16 11/16/16 22:26 23:20 Temperature Pulse Rate 105 H 94 H Respiratory 16 Rate Blood Pressure 161/108 Blood Pressure 165/105 [Right] O2 Sat by Pulse 97 Oximetry - Reevaluation(s) Reevaluation #1: 11/17/16 00:18 clonidine was given for bp, repeat pending Reevaluation #2: 11/17/16 00:22 Currently BP is 143/93 after clonidine ED Medical Decision Making - Lab Data Result diagrams: 11/16/16 03:09 11/16/16 03:09 Lab Results 11/16/16 11/16/16 11/16/16 Range/Units 03:09 03:09 03:09 WBC 4.1 L (4.5-11.0) K/mm3 RBC 4.46 (3.65-5.03) M/mm3 Hgb 13.6 (11.8-15.2) gm/dl Hct 39.6 (35.5-45.6) % MCV 89 (84-94) fl MCH 31 (28-32) pg MCHC 34 (32-34) % RDW 13.5 (13.2-15.2) % Plt Count 237 (140-440) K/mm3 Lymph % (Auto) Senior Contracts Administrator Add Manual Diff Complete Total Counted 100 Seg Neutrophils % Senior Contracts Administrator Seg Neuts % (Manual) 30.0 L (40.0-70.0) % Band Neutrophils % 0 % Reactive Lymphs % (Man) 0 % Monocytes % (Manual) 9.0 H (0.0-7.3) % Eosinophils % (Manual) 2.0 (0.0-4.3) % Metamyelocytes % 0 % Myelocytes % 0 % Promyelocytes % 0 % Blast Cells % 0 % Nucleated RBC % Not Reportable Seg Neutrophils # Man 1.2 L (1.8-7.7) K/mm3 Band Neutrophils # 0.0 K/mm3 Lymphocytes # (Manual) 2.4 (1.2-5.4) K/mm3 Abs React Lymphs (Man) 0.0 K/mm3 Monocytes # (Manual) 0.4 (0.0-0.8) K/mm3 Eosinophils # (Manual) 0.1 (0.0-0.4) K/mm3 Basophils # (Manual) 0.0 (0.0-0.1) K/mm3 Metamyelocytes # 0.0 K/mm3 Myelocytes # 0.0 K/mm3 Promyelocytes # 0.0 K/mm3 Blast Cells # 0.0 K/mm3 WBC Morphology Not Reportable Hypersegmented Neuts Not Reportable Hyposegmented Neuts Not Reportable Hypogranular Neuts Not Reportable Smudge Cells Not Reportable Toxic Granulation Not Reportable Toxic Vacuolation Not Reportable Dohle Bodies Not Reportable Pelger-Huet Anomaly Not Reportable Janna Rods Not Reportable Platelet Estimate Consistent w auto Clumped Platelets Not Reportable Plt Clumps, EDTA Not Reportable Large Platelets Not Reportable Giant Platelets Not Reportable Platelet Satelliting Not Reportable Plt Morphology Comment Not Reportable RBC Morphology Not Reportable Dimorphic RBCs Not Reportable Polychromasia Not Reportable Hypochromasia Not Reportable Poikilocytosis Not Reportable Anisocytosis 1+ Microcytosis Not Reportable Macrocytosis Not Reportable Spherocytes Not Reportable Pappenheimer Bodies Not Reportable Sickle Cells Not Reportable Target Cells Not Reportable Tear Drop Cells Not Reportable Ovalocytes Not Reportable Helmet Cells Not Reportable Elder-Cowen Bodies Not Reportable [place] Rings Not Reportable [place] Cells Not Reportable Bite Cells Not Reportable Crenated Cell Not Reportable Elliptocytes Not Reportable Acanthocytes (Spur) Not Reportable Rouleaux Not Reportable Hemoglobin C Crystals Not Reportable Schistocytes Not Reportable Malaria parasites Not Reportable Shankar Bodies Not Reportable Hem Pathologist Commnt No Sodium 142 (137-145) mmol/L Potassium 4.0 (3.6-5.0) mmol/L Chloride 104.3 (98-107) mmol/L Carbon Dioxide 22 (22-30) mmol/L Anion Gap 20 mmol/L BUN 6 L (9-20) mg/dL Creatinine 0.7 L (0.8-1.5) mg/dL Estimated GFR > 60 ml/min BUN/Creatinine Ratio 8.57 % Glucose 173 H (75-100) mg/dL Calcium 8.6 (8.4-10.2) mg/dL Magnesium (1.7-2.3) mg/dL Urine Color (Yellow) Urine Turbidity (Clear) Urine pH (5.0-7.0) Ur Specific [place] (1.003-1.030) Urine Protein (Negative) mg/dL Urine Glucose (UA) (Negative) mg/dL Urine Ketones (Negative) mg/dL Urine Blood (Negative) Urine Nitrite (Negative) Urine Bilirubin (Negative) Urine Urobilinogen (<2.0) mg/dL Ur Leukocyte Esterase (Negative) Urine WBC (Auto) (0.0-6.0) /HPF Urine RBC (Auto) (0.0-6.0) /HPF U Epithel Cells (Auto) (0-13.0) /HPF Urine Mucus /HPF Urine Opiates Screen Urine Methadone Screen Ur Barbiturates Screen Ur Phencyclidine Scrn Ur Amphetamines Screen U Benzodiazepines Scrn Urine Cocaine Screen U Marijuana (THC) Screen Drugs of Abuse Note Plasma/Serum Alcohol 0.04 (0-0.07) gm% 11/16/16 11/16/16 11/16/16 Range/Units 04:23 04:23 22:44 WBC (4.5-11.0) K/mm3 RBC (3.65-5.03) M/mm3 Hgb (11.8-15.2) gm/dl Hct (35.5-45.6) % MCV (84-94) fl MCH (28-32) pg MCHC (32-34) % RDW (13.2-15.2) % Plt Count (140-440) K/mm3 Lymph % (Auto) Add Manual Diff Total Counted Seg Neutrophils % Seg Neuts % (Manual) (40.0-70.0) % Band Neutrophils % % Reactive Lymphs % (Man) % Monocytes % (Manual) (0.0-7.3) % Eosinophils % (Manual) (0.0-4.3) % Metamyelocytes % % Myelocytes % % Promyelocytes % % Blast Cells % % Nucleated RBC % Seg Neutrophils # Man (1.8-7.7) K/mm3 Band Neutrophils # K/mm3 Lymphocytes # (Manual) (1.2-5.4) K/mm3 Abs React Lymphs (Man) K/mm3 Monocytes # (Manual) (0.0-0.8) K/mm3 Eosinophils # (Manual) (0.0-0.4) K/mm3 Basophils # (Manual) (0.0-0.1) K/mm3 Metamyelocytes # K/mm3 Myelocytes # K/mm3 Promyelocytes # K/mm3 Blast Cells # K/mm3 WBC Morphology Hypersegmented Neuts Hyposegmented Neuts Hypogranular Neuts Smudge Cells Toxic Granulation Toxic Vacuolation Dohle Bodies Pelger-Huet Anomaly Janna Rods Platelet Estimate Clumped Platelets Plt Clumps, EDTA Large Platelets Giant Platelets Platelet Satelliting Plt Morphology Comment RBC Morphology Dimorphic RBCs Polychromasia Hypochromasia Poikilocytosis Anisocytosis Microcytosis Macrocytosis Spherocytes Pappenheimer Bodies Sickle Cells Target Cells Tear Drop Cells Ovalocytes Helmet Cells Elder-Cowen Bodies [place] Rings Hatch Cells Bite Cells Crenated Cell Elliptocytes Acanthocytes (Spur) Rouleaux Hemoglobin C Crystals Schistocytes Malaria parasites Shankar Bodies Hem Pathologist Commnt Sodium (137-145) mmol/L Potassium (3.6-5.0) mmol/L Chloride (98-107) mmol/L Carbon Dioxide (22-30) mmol/L Anion Gap mmol/L BUN (9-20) mg/dL Creatinine (0.8-1.5) mg/dL Estimated GFR ml/min BUN/Creatinine Ratio % Glucose (75-100) mg/dL Calcium (8.4-10.2) mg/dL Magnesium (1.7-2.3) mg/dL Urine Color Jody (Yellow) Urine Turbidity Clear (Clear) Urine pH 5.0 (5.0-7.0) Ur Specific [place] 1.028 (1.003-1.030) Urine Protein 100 mg/dl (Negative) mg/dL Urine Glucose (UA) 50 (Negative) mg/dL Urine Ketones Tr (Negative) mg/dL Urine Blood Sm (Negative) Urine Nitrite Neg (Negative) Urine Bilirubin Neg (Negative) Urine Urobilinogen 4.0 (<2.0) mg/dL Ur Leukocyte Esterase Neg (Negative) Urine WBC (Auto) 2.0 (0.0-6.0) /HPF Urine RBC (Auto) 6.0 (0.0-6.0) /HPF U Epithel Cells (Auto) < 1.0 (0-13.0) /HPF Urine Mucus 3+ /HPF Urine Opiates Screen Presumptive negative Urine Methadone Screen Presumptive negative Ur Barbiturates Screen Presumptive positive Ur Phencyclidine Scrn Presumptive negative Ur Amphetamines Screen Presumptive negative U Benzodiazepines Scrn Presumptive positive Urine Cocaine Screen Presumptive negative U Marijuana (THC) Screen Presumptive negative Drugs of Abuse Note Disclamer Plasma/Serum Alcohol 0.01 (0-0.07) gm% 11/16/16 Range/Units 22:44 WBC (4.5-11.0) K/mm3 RBC (3.65-5.03) M/mm3 Hgb (11.8-15.2) gm/dl Hct (35.5-45.6) % MCV (84-94) fl MCH (28-32) pg MCHC (32-34) % RDW (13.2-15.2) % Plt Count (140-440) K/mm3 Lymph % (Auto) Add Manual Diff Total Counted Seg Neutrophils % Seg Neuts % (Manual) (40.0-70.0) % Band Neutrophils % % Reactive Lymphs % (Man) % Monocytes % (Manual) (0.0-7.3) % Eosinophils % (Manual) (0.0-4.3) % Metamyelocytes % % Myelocytes % % Promyelocytes % % Blast Cells % % Nucleated RBC % Seg Neutrophils # Man (1.8-7.7) K/mm3 Band Neutrophils # K/mm3 Lymphocytes # (Manual) (1.2-5.4) K/mm3 Abs React Lymphs (Man) K/mm3 Monocytes # (Manual) (0.0-0.8) K/mm3 Eosinophils # (Manual) (0.0-0.4) K/mm3 Basophils # (Manual) (0.0-0.1) K/mm3 Metamyelocytes # K/mm3 Myelocytes # K/mm3 Promyelocytes # K/mm3 Blast Cells # K/mm3 WBC Morphology Hypersegmented Neuts Hyposegmented Neuts Hypogranular Neuts Smudge Cells Toxic Granulation Toxic Vacuolation Dohle Bodies Pelger-Huet Anomaly Janna Rods Platelet Estimate Clumped Platelets Plt Clumps, EDTA Large Platelets Giant Platelets Platelet Satelliting Plt Morphology Comment RBC Morphology Dimorphic RBCs Polychromasia Hypochromasia Poikilocytosis Anisocytosis Microcytosis Macrocytosis Spherocytes Pappenheimer Bodies Sickle Cells Target Cells Tear Drop Cells Ovalocytes Helmet Cells Elder-Cowen Bodies [place] Rings [place] Cells Bite Cells Crenated Cell Elliptocytes Acanthocytes (Spur) Rouleaux Hemoglobin C Crystals Schistocytes Malaria parasites Shankar Bodies Hem Pathologist Commnt Sodium (137-145) mmol/L Potassium (3.6-5.0) mmol/L Chloride (98-107) mmol/L Carbon Dioxide (22-30) mmol/L Anion Gap mmol/L BUN (9-20) mg/dL Creatinine (0.8-1.5) mg/dL Estimated GFR ml/min BUN/Creatinine Ratio % Glucose (75-100) mg/dL Calcium (8.4-10.2) mg/dL Magnesium 1.80 (1.7-2.3) mg/dL Urine Color (Yellow) Urine Turbidity (Clear) Urine pH (5.0-7.0) Ur Specific Flas[place] (1.003-1.030) Urine Protein (Negative) mg/dL Urine Glucose (UA) (Negative) mg/dL Urine Ketones (Negative) mg/dL Urine Blood (Negative) Urine Nitrite (Negative) Urine Bilirubin (Negative) Urine Urobilinogen (<2.0) mg/dL Ur Leukocyte Esterase (Negative) Urine WBC (Auto) (0.0-6.0) /HPF Urine RBC (Auto) (0.0-6.0) /HPF U Epithel Cells (Auto) (0-13.0) /HPF Urine Mucus /HPF Urine Opiates Screen Urine Methadone Screen Ur Barbiturates Screen Ur Phencyclidine Scrn Ur Amphetamines Screen U Benzodiazepines Scrn Urine Cocaine Screen U Marijuana (THC) Screen Drugs of Abuse Note Plasma/Serum Alcohol (0-0.07) gm% - Medical Decision Making Patient is medically cleared for transfer to inpatient alcohol detox. - Differential Diagnosis drug dependence, etoh dependence, htn emergency Critical Care Time: No Critical care attestation.: If time is entered above; I have spent that time in minutes in the direct care of this critically ill patient, excluding procedure time. ED Disposition Clinical Impression: Alcohol abuse, Hypertension, Schizophrenia, Medical clearance for psychiatric admission Disposition: DC/TX PSY HOSP/PSY UNIT Is pt being admited?: No Condition: Stable Time of Disposition: 00:23 (transfer to psych)
[2016-11-17 00:24] VITALS: BP 143/93
[2016-11-17] MEDS ORDERED: PEPCID PO ONE (00:43)
[2016-11-17] MEDS ORDERED: PROTONIX PO ONE (00:43)
== END 2016-11-17 00:57 | disposition home or self-care (01) ==
LOC: ED 02:42
DX: F10.129 Alcohol abuse with intoxication, unspecified (principal); I10 Essential (primary) hypertension; F20.9 Schizophrenia, unspecified; F31.9 Bipolar disorder, unspecified; F17.200 Nicotine dependence, unspecified, uncomplicated
CPT/HCPCS: 36415; 80048; 80307; 81001; 83735; 85007; 85025; 99285; G0480; 80320

== ENCOUNTER 2016-12-21 20:57 | Emergency (ER) | payer MEDICARE ==
[2016-12-21 23:17] LABS: Hematocrit 42.6 % (35.5-45.6); Hemoglobin 14.4 gm/dl (11.8-15.2); Mean Corpuscular HGB Conc 34 % (32-34); Mean Corpuscular Hemoglobin 30 pg (28-32); Mean Corpuscular Volume 89 fl (84-94); Platelet Count 229 K/mm3 (140-440); Red Cell Distribution Width 13.6 % (13.2-15.2); White Blood Count 5.5 K/mm3 (4.5-11.0)
[2016-12-21 23:31] LABS: Anion Gap 22 mmol/L; Blood Urea Nitrogen 10 mg/dL (9-20); Calcium 8.9 mg/dL (8.4-10.2); Carbon Dioxide 21 mmol/L (22-30); Glucose 171 mg/dL (75-100); Potassium 3.9 mmol/L (3.6-5.0); Sodium 138 mmol/L (137-145)
[2016-12-22 01:50] LABS: Urine Drugs of Abuse Note Disclamer
[2016-12-22 02:09] LABS: Bacteria,Urine 1+ /HPF (Negative); Bilirubin,Urine NEG (Negative); Blood,Urine SM (Negative); Ketones,Urine TR mg/dL (Negative); Leukocyte Esterase,Urine NEG (Negative); Mucus,Urine 1+ /HPF; Nitrite,Urine NEG (Negative)
[2016-12-22 02:35] LABS: Magnesium 1.9 mg/dL (1.7-2.3)
[2016-12-22 08:11] VITALS: BP 169/108
--- NOTE | 2016-12-22 08:11 | Emergency Department Report ---
ED Psych HPI - General Chief Complaint: Medical Clearance Stated Complaint: GROIN PAIN, DETOX Time Seen by Provider: 12/22/16 08:09 Source: patient Mode of arrival: Ambulatory - History of Present Illness Initial Comments: Patient has been in multiple detox programs this year. He states now he wants to go to [facility] and then be transferred into a long-term program. He states that he has been drinking heavily since his last detox. He is staying with his cousin now. He offers no acute complaints. He denies acute hallucinations, violent ideation or suicidal thoughts. Oddly, he told the nurse that he drank "a lot of liquor" last night. However his alcohol level is 0.03. Patient does admit to having previously been on medicine for type 2 diabetes. He is not taking this now. MD Complaint: other (requesting detox) -: year(s) Associated Psychiatric Symptoms: none Improves With: none Worsens With: none Context: recent alcohol abuse Associated Symptoms: denies other symptoms Treatments Prior to Arrival: none - Related Data Previous Rx's Medication Instructions Recorded Last Taken Type Pantoprazole [Protonix TAB] 40 mg PO QDAY #30 tablet 11/02/16 Unknown Rx QUEtiapine [SEROquel] 200 mg PO QHS #30 tablet 11/02/16 Unknown Rx Thiamine [Vitamin B-1] 100 mg PO QDAY #30 tablet 11/02/16 Unknown Rx buPROPion [Wellbutrin] 150 mg PO DAILY #60 tablet 11/02/16 Unknown Rx metFORMIN [Glucophage] 500 mg PO BID #60 tablet 12/22/16 Unknown Rx Allergies Allergy/AdvReac Type Severity Reaction Status Date / Time No Known Allergies Allergy Verified 07/30/16 09:42 ED Review of Systems ROS: Stated complaint: GROIN PAIN, DETOX Other details as noted in HPI Constitutional: denies: chills, fever Eyes: denies: eye pain, eye discharge, vision change ENT: denies: ear pain, throat pain Respiratory: denies: cough, shortness of breath, wheezing Cardiovascular: denies: chest pain, palpitations Endocrine: no symptoms reported Gastrointestinal: denies: abdominal pain, nausea, diarrhea Genitourinary: denies: urgency, dysuria Musculoskeletal: denies: back pain, joint swelling, arthralgia Skin: denies: rash, lesions Neurological: denies: headache, weakness, paresthesias Psychiatric: denies: anxiety, depression Hematological/Lymphatic: denies: easy bleeding, easy bruising ED Past Medical Hx - Past Medical History Hx Hypertension: Yes (EF 50%) Hx Congestive Heart Failure: No Hx Diabetes: No Hx Psychiatric Treatment: Yes (depression, schizophrenia, BIPOLAR) Hx Asthma: No Hx COPD: No Hx HIV: No Additional medical history: Obesity. Gastritis, - Surgical History Hx Cholecystectomy: Yes (2013) - Social History Smoking Status: Current Every Day Smoker Substance Use Type: Alcohol - Medications Home Medications: Home Medications Medication Instructions Recorded Confirmed Last Taken Type Pantoprazole [Protonix TAB] 40 mg PO QDAY #30 tablet 11/02/16 Unknown Rx QUEtiapine [SEROquel] 200 mg PO QHS #30 tablet 11/02/16 Unknown Rx Thiamine [Vitamin B-1] 100 mg PO QDAY #30 tablet 11/02/16 Unknown Rx buPROPion [Wellbutrin] 150 mg PO DAILY #60 tablet 11/02/16 Unknown Rx metFORMIN [Glucophage] 500 mg PO BID #60 tablet 12/22/16 Unknown Rx ED Physical Exam - General Limitations: No Limitations General appearance: alert, in no apparent distress - Head Head exam: Present: atraumatic, normocephalic - Eye Eye exam: Present: normal appearance. Absent: scleral icterus - ENT ENT exam: Present: mucous membranes moist - Neck Neck exam: Present: normal inspection. Absent: tenderness, meningismus - Respiratory Respiratory exam: Present: normal lung sounds bilaterally. Absent: respiratory distress - Cardiovascular Cardiovascular Exam: Present: regular rate, normal rhythm. Absent: systolic murmur, diastolic murmur, rubs, gallop - GI/Abdominal GI/Abdominal exam: Present: soft, normal bowel sounds. Absent: distended, tenderness, guarding, rebound, rigid - Rectal Rectal exam: Present: deferred - Extremities Exam Extremities exam: Present: normal inspection - Back Exam Back exam: Present: normal inspection - Neurological Exam Neurological exam: Present: alert, oriented X3, CN II-XII intact. Absent: motor sensory deficit - Psychiatric Psychiatric exam: Present: normal mood, flat affect - Skin Skin exam: Present: warm, dry, intact, normal color. Absent: rash ED Course Vital Signs 12/21/16 12/22/16 22:48 08:09 Temperature 98.5 F 97.8 F Pulse Rate 55 L 94 H Respiratory 18 18 Rate Blood Pressure 150/81 Blood Pressure 169/108 [Left] O2 Sat by Pulse 100 97 Oximetry - Reevaluation(s) Reevaluation #1: She has no medical contraindication to detox program. 12/22/16 08:25 Reevaluation #2: Discussed with psychiatrist. Patient is not actively withdrawing. Psychiatry tells me he may be eligible for the [facility]. 12/22/16 09:49 ED Medical Decision Making - Lab Data Result diagrams: 12/21/16 23:00 12/21/16 23:00 Laboratory Results - last 24 hr 12/21/16 12/21/16 12/21/16 23:00 23:00 Unknown WBC 5.5 RBC 4.80 Hgb 14.4 Hct 42.6 MCV 89 MCH 30 MCHC 34 RDW 13.6 Plt Count 229 Sodium 138 Potassium 3.9 Chloride 99.0 Carbon Dioxide 21 L Anion Gap 22 BUN 10 Creatinine 0.5 L Estimated GFR > 60 BUN/Creatinine Ratio 20.00 Glucose 171 H Calcium 8.9 Magnesium Total Creatine Kinase Urine Color Yellow Urine Turbidity Clear Urine pH 5.0 Ur Specific [place] 1.027 Urine Protein 100 mg/dl Urine Glucose (UA) 50 Urine Ketones Tr Urine Blood Sm Urine Nitrite Neg Urine Bilirubin Neg Urine Urobilinogen 2.0 Ur Leukocyte Esterase Neg Urine WBC (Auto) 1.0 Urine RBC (Auto) 1.0 U Epithel Cells (Auto) < 1.0 Urine Bacteria (Auto) 1+ Urine Mucus 1+ Salicylates Urine Opiates Screen Urine Methadone Screen Acetaminophen Ur Barbiturates Screen Ur Phencyclidine Scrn Ur Amphetamines Screen U Benzodiazepines Scrn Urine Cocaine Screen U Marijuana (THC) Screen Drugs of Abuse Note Plasma/Serum Alcohol 12/22/16 12/22/16 12/22/16 01:43 01:43 01:43 WBC RBC Hgb Hct MCV MCH MCHC RDW Plt Count Sodium Potassium Chloride Carbon Dioxide Anion Gap BUN Creatinine Estimated GFR BUN/Creatinine Ratio Glucose Calcium Magnesium 1.90 Total Creatine Kinase 160 Urine Color Urine Turbidity Urine pH Ur Specific [place] Urine Protein Urine Glucose (UA) Urine Ketones Urine Blood Urine Nitrite Urine Bilirubin Urine Urobilinogen Ur Leukocyte Esterase Urine WBC (Auto) Urine RBC (Auto) U Epithel Cells (Auto) Urine Bacteria (Auto) Urine Mucus Salicylates < 0.3 L Urine Opiates Screen Urine Methadone Screen Acetaminophen < 15.0 Ur Barbiturates Screen Ur Phencyclidine Scrn Ur Amphetamines Screen U Benzodiazepines Scrn Urine Cocaine Screen U Marijuana (THC) Screen Drugs of Abuse Note Plasma/Serum Alcohol 12/22/16 12/22/16 01:43 Unknown WBC RBC Hgb Hct MCV MCH MCHC RDW Plt Count Sodium Potassium Chloride Carbon Dioxide Anion Gap BUN Creatinine Estimated GFR BUN/Creatinine Ratio Glucose Calcium Magnesium Total Creatine Kinase Urine Color Urine Turbidity Urine pH Ur Specific [place] Urine Protein Urine Glucose (UA) Urine Ketones Urine Blood Urine Nitrite Urine Bilirubin Urine Urobilinogen Ur Leukocyte Esterase Urine WBC (Auto) Urine RBC (Auto) U Epithel Cells (Auto) Urine Bacteria (Auto) Urine Mucus Salicylates Urine Opiates Screen Presumptive negative Urine Methadone Screen Presumptive negative Acetaminophen Ur Barbiturates Screen Presumptive negative Ur Phencyclidine Scrn Presumptive negative Ur Amphetamines Screen Presumptive negative U Benzodiazepines Scrn Presumptive negative Urine Cocaine Screen Presumptive negative U Marijuana (THC) Screen Presumptive negative Drugs of Abuse Note Disclamer Plasma/Serum Alcohol 0.03 Critical care attestation.: If time is entered above; I have spent that time in minutes in the direct care of this critically ill patient, excluding procedure time. ED Disposition Clinical Impression: Alcohol abuse, Type 2 diabetes mellitus Disposition: DC-01 TO HOME OR SELFCARE Is pt being admited?: No Does the pt Need Aspirin: No Condition: Stable Instructions: Abuse of Alcohol (ED), Diabetes Mellitus Type 2 in Adults (ED) Additional Instructions: Primary care follow-up. Psychiatric disposition as per Dr. Bailon. Prescriptions: metFORMIN [Glucophage] 500 mg PO BID #60 tablet Referrals: PRIMARY CARE, [Primary Care Provider] - 3-5 Days Time of Disposition: 09:50
--- NOTE | 2016-12-22 11:36 | Consultation ---
History of Present Illness - Reason for Consult Consult date: 12/22/16 Reason for consult: etoh abuse Medications and Allergies Allergies Allergy/AdvReac Type Severity Reaction Status Date / Time No Known Allergies Allergy Verified 07/30/16 09:42 Home Medications Medication Instructions Recorded Confirmed Last Taken Type Pantoprazole [Protonix TAB] 40 mg PO QDAY #30 tablet 11/02/16 Unknown Rx QUEtiapine [SEROquel] 200 mg PO QHS #30 tablet 11/02/16 Unknown Rx Thiamine [Vitamin B-1] 100 mg PO QDAY #30 tablet 11/02/16 Unknown Rx buPROPion [Wellbutrin] 150 mg PO DAILY #60 tablet 11/02/16 Unknown Rx metFORMIN [Glucophage] 500 mg PO BID #60 tablet 12/22/16 Unknown Rx Mental Status Exam - Vital signs Last Vital Signs Temp 97.8 F 12/22/16 08:09 Pulse 94 H 12/22/16 08:09 Resp 18 12/22/16 08:09 BP 169/108 12/22/16 08:09 Pulse Ox 97 12/22/16 08:09 Results Result Diagrams: 12/21/16 23:00 12/21/16 23:00 Abnormal lab results 12/21/16 12/22/16 Range/Units 23:00 01:43 Carbon Dioxide 21 L (22-30) mmol/L Creatinine 0.5 L (0.8-1.5) mg/dL Glucose 171 H (75-100) mg/dL Salicylates < 0.3 L (2.8-20.0) mg/dL All other labs normal. Assessment and Plan Assessment and plan: CHIEF COMPLAINT IN PATIENTS WORDS: HISTORY OF PRESENT ILLNESS REQUIRING ADMISSION TO INPATIENT LEVEL OF CARE: (Describe the onset of Illness, Intensity of Symptoms, and Circumstances Leading to Admission) This is a 46 year-old domiciled male who reports a formal PPH alcohol abuse now presenting due to her recent relapse. Patient notes that he was recently in a substance abuse treatment program called [facility] and he got into a dispute with another patient; therefore, he was either let go the program or decided to voluntarily leave. After that, patient relapsed and has been using alcohol. The patient reports last use was either yesterday or today. Blood alcohol level was 0.03 and patient is not currently reporting any withdrawal symptoms. Per review of vitals patient's vitals are stable and not consistent with a withdrawal syndrome. PSYCHIATRIC REVIEW OF SYSTEMS: Substance: The alcohol use Depression: Low sad mood Milagros: denies labile moods, no flight of ideas, not impulsive Psychosis: no AVH. No paranoia/grandiosity/erotomania Anxiety/ OCD/ PTSD: denies somatic symptoms, flashbacks, nightmares, avoidance, panic attacks Suicidality: denies SI Other Self-Injurious Behavior: none currently, no SIB noted recently Violent/ Aggressive Behavior: none noted CURRENT MEDICATIONS: ( Psychiatric and Non-psychiatric ) None ALLERGIES: NKDA PAST PSYCHIATRIC HISTORY: ( Prior Treatment, Precipitating Factors, Diagnosis, and Course of Treatment ) Inpatient: [facility] Outpatient: [facility] Prior Suicide Attempts: denies Prior Self-Injurious Behaviors: denies PAST PSYCHIATRIC MEDICATION TRIALS: Denies MEDICAL HISTORY: (Chronic and Acute Illnesses, Current Medical Treatment, Recent Hospitalizations) Denies HISTORY OF TRAUMA/ABUSE: Patient denies on clinical examination DRUG / ALCOHOL ABUSE HISTORY: As above Detoxification / Withdrawal: none noted SOCIAL HISTORY: (Educational Level, Employment, Support System, Interpersonal Relationships) Poor social supports, chronic alcohol use, disrupted interpersonal relationships FAMILY HISTORY: Psychiatric/Substance Abuse MENTAL STATUS EXAM: General Appearance: casually dressed, in acute distress Sensorium/Consciousness: alert and responding to external stimuli Eye Contact: limited Attitude / Behavior: cooperative, but guarded Psychomotor & Musculoskeletal Activity: WNL Mood: Sad Affect: constricted Speech / Language: normal Thought Processes: organized, logical, linear Thought Content: no SI, no HI Perception: no AVH Orientation: person, place, time and situation Judgment What would you do if you smelled smoke in a crowded movie theater?: poor/impulsive Insight: poor Intelligence Vocabulary, general fund of knowledge, educational level : Average Capacity of ADLs: Independent STRENGTHS: Motivated for treatment PSYCHOSOCIAL AND ENVIRONMENTAL STRESSORS: Chronic alcohol use, poor social supports ADMITTING DIAGNOSES Psychiatric: Alcohol abuse versus dependence Evidence for the following: Medical: n/a INITIAL PLAN OF CARE AND TREATMENT GOALS: Refer patient to rehabilitation program Start naltrexone 50 mg daily Start Antabuse 250 mg daily Patient was informed about the risks and benefits of treatment
== END 2016-12-22 13:32 | disposition home or self-care (01) ==
LOC: ED 20:57
DX: F10.10 Alcohol abuse, uncomplicated (principal); E11.9 Type 2 diabetes mellitus without complications; I10 Essential (primary) hypertension; F17.210 Nicotine dependence, cigarettes, uncomplicated; F31.9 Bipolar disorder, unspecified; F20.9 Schizophrenia, unspecified; Z90.49 Acquired absence of other specified parts of digestive tract
CPT/HCPCS: 36415; 80048; 80307; 81001; 82550; 83735; 85027; 99284; G0480; 80320

== ENCOUNTER 2016-12-22 18:45 | Emergency (ER) | payer MEDICARE ==
[2016-12-22 20:13] LABS: Basophils % (Auto) 1.7 % (0.0-1.8); Eosinophils % (Auto) 0.6 % (0.0-4.3); Hematocrit 43.9 % (35.5-45.6); Hemoglobin 15.2 gm/dl (11.8-15.2); Mean Corpuscular HGB Conc 35 % (32-34); Mean Corpuscular Hemoglobin 31 pg (28-32); Mean Corpuscular Volume 89 fl (84-94); Platelet Count 250 K/mm3 (140-440); Red Blood Count 4.96 M/mm3 (3.65-5.03); Red Cell Distribution Width 13.6 % (13.2-15.2); White Blood Count 5.6 K/mm3 (4.5-11.0)
[2016-12-22 20:20] LABS: Anion Gap 23 mmol/L; Blood Urea Nitrogen 12 mg/dL (9-20); Calcium 9.2 mg/dL (8.4-10.2); Carbon Dioxide 20 mmol/L (22-30); Chloride 96.7 mmol/L (98-107); Glucose 185 mg/dL (75-100); Potassium 3.6 mmol/L (3.6-5.0); Sodium 136 mmol/L (137-145)
[2016-12-22 21:11] LABS: Urine Drugs of Abuse Note Disclamer
[2016-12-22 21:33] LABS: Bacteria,Urine 1+ /HPF (Negative); Bilirubin,Urine NEG (Negative); Blood,Urine NEG (Negative); Granular Casts,Urine 22 /LPF; Ketones,Urine TR mg/dL (Negative); Leukocyte Esterase,Urine NEG (Negative); Mucus,Urine 1+ /HPF; Nitrite,Urine NEG (Negative)
[2016-12-22 21:35] LABS: Albumin 4.6 g/dL (3.9-5); Albumin/Globulin Ratio 1.4 %; Bilirubin,Direct 0.2 mg/dL (0-0.2); Bilirubin,Indirect 0.6 mg/dL; Bilirubin,Total 0.8 mg/dL (0.1-1.2); Total Protein 7.8 g/dL (6.3-8.2)
[2016-12-23] MEDS ORDERED: ZOFRAN ODT PO ONE (14:47)
--- NOTE | 2016-12-23 14:54 | Emergency Department Report ---
ED Alcohol HPI - General Chief Complaint: Alcohol Stated Complaint: MH/DETOX Time Seen by Provider: 12/23/16 14:38 Source: patient Mode of arrival: Ambulatory Limitations: No Limitations - History of Present Illness Initial Comments: 46-year-old male presents to the emergency department requesting detox from alcohol. Patient states he has been drinking for a long time and he is ready to get off of alcohol. He was seen in this emergency department yesterday and referred for outpatient therapy. Patient states he was not given any prescriptions. He states he did go drink more alcohol. There are no other complaints. Patient states he is trying to get into the partial hospitalization program at [facility]. MD Complaint: desires rehab Last Drink: just RN CCU Chronic Alcohol Use: Yes Previous Visits for Alcohol Intoxication?: Yes Recent Trauma: No Associated Symptoms: nausea, vomiting Treatments Prior to Arrival: none - Related Data Previous Rx's Medication Instructions Recorded Last Taken Type QUEtiapine [SEROquel] 200 mg PO QHS #30 tablet 11/02/16 Unknown Rx buPROPion [Wellbutrin] 150 mg PO DAILY #60 tablet 11/02/16 Unknown Rx metFORMIN [Glucophage] 500 mg PO BID #60 tablet 12/22/16 Unknown Rx Allergies Allergy/AdvReac Type Severity Reaction Status Date / Time No Known Allergies Allergy Verified 12/23/16 15:00 ED Review of Systems ROS: Stated complaint: MH/DETOX Other details as noted in HPI Comment: All other systems reviewed and negative Gastrointestinal: nausea, vomiting Psychiatric: as per HPI. denies: auditory hallucinations, visual hallucinations , homicidal thoughts, suicidal thoughts ED Past Medical Hx - Past Medical History Previous Medical History?: Yes Hx Hypertension: Yes (EF 50%) Hx Congestive Heart Failure: No Hx Diabetes: No Hx Psychiatric Treatment: Yes (depression, schizophrenia, BIPOLAR) Hx Asthma: No Hx COPD: No Hx HIV: No Additional medical history: Obesity. Gastritis, - Surgical History Past Surgical History?: Yes Hx Cholecystectomy: Yes (2013) - Family History Family history: no significant - Social History Smoking Status: Current Every Day Smoker Substance Use Type: Alcohol - Medications Home Medications: Home Medications Medication Instructions Recorded Confirmed Last Taken Type QUEtiapine [SEROquel] 200 mg PO QHS #30 tablet 11/02/16 12/23/16 Unknown Rx buPROPion [Wellbutrin] 150 mg PO DAILY #60 tablet 11/02/16 12/23/16 Unknown Rx metFORMIN [Glucophage] 500 mg PO BID #60 tablet 12/22/16 12/23/16 Unknown Rx ED Physical Exam - General Limitations: No Limitations General appearance: alert, in no apparent distress - Head Head exam: Present: atraumatic, normocephalic - Eye Eye exam: Present: normal appearance, PERRL, EOMI - ENT ENT exam: Present: normal exam, normal orophraynx, mucous membranes moist - Neck Neck exam: Present: normal inspection, full ROM. Absent: tenderness - Respiratory Respiratory exam: Present: normal lung sounds bilaterally. Absent: respiratory distress - Cardiovascular Cardiovascular Exam: Present: regular rate, normal rhythm, normal heart sounds - GI/Abdominal GI/Abdominal exam: Present: soft, normal bowel sounds. Absent: distended, tenderness - Extremities Exam Extremities exam: Present: normal inspection, full ROM. Absent: tenderness - Back Exam Back exam: Present: normal inspection, full ROM. Absent: tenderness - Neurological Exam Neurological exam: Present: alert, oriented X3. Absent: motor sensory deficit - Psychiatric Psychiatric exam: Present: normal affect, normal mood - Skin Skin exam: Present: warm, dry, intact ED Course Vital Signs 12/22/16 12/23/16 12/23/16 19:33 14:24 14:31 Temperature 98.5 F Pulse Rate 60 Respiratory 18 Rate Blood Pressure 131/87 141/101 141/101 Blood Pressure 131/87 [Left] O2 Sat by Pulse 97 98 Oximetry 12/23/16 12/23/16 12/23/16 14:40 14:50 15:02 Temperature Pulse Rate Respiratory Rate Blood Pressure 141/101 141/101 141/101 Blood Pressure [Left] O2 Sat by Pulse 96 97 98 Oximetry 12/23/16 12/23/16 12/23/16 15:10 15:20 15:30 Temperature Pulse Rate Respiratory Rate Blood Pressure 141/101 141/101 141/101 Blood Pressure [Left] O2 Sat by Pulse 96 97 96 Oximetry 12/23/16 12/23/16 12/23/16 15:40 15:50 16:00 Temperature Pulse Rate Respiratory Rate Blood Pressure 141/101 141/101 141/101 Blood Pressure [Left] O2 Sat by Pulse 96 95 97 Oximetry 12/23/16 12/23/16 12/23/16 16:10 16:20 16:30 Temperature Pulse Rate Respiratory Rate Blood Pressure 141/101 141/101 141/101 Blood Pressure [Left] O2 Sat by Pulse 98 98 96 Oximetry 12/23/16 12/23/16 12/23/16 16:42 16:50 17:00 Temperature Pulse Rate Respiratory Rate Blood Pressure 141/101 141/101 141/101 Blood Pressure [Left] O2 Sat by Pulse 99 96 97 Oximetry 12/23/16 12/23/16 12/23/16 17:06 17:10 17:20 Temperature Pulse Rate Respiratory 16 Rate Blood Pressure 141/101 141/101 Blood Pressure [Left] O2 Sat by Pulse 98 96 99 Oximetry 12/23/16 12/23/16 12/23/16 17:30 17:40 17:50 Temperature Pulse Rate Respiratory Rate Blood Pressure 141/101 141/101 141/101 Blood Pressure [Left] O2 Sat by Pulse 99 97 96 Oximetry 12/23/16 12/23/16 12/23/16 18:00 18:10 18:20 Temperature Pulse Rate Respiratory Rate Blood Pressure 141/101 141/101 141/101 Blood Pressure [Left] O2 Sat by Pulse 98 97 97 Oximetry 12/23/16 18:30 Temperature Pulse Rate Respiratory Rate Blood Pressure 141/101 Blood Pressure [Left] O2 Sat by Pulse 97 Oximetry ED Medical Decision Making - Lab Data Result diagrams: 12/22/16 19:51 12/22/16 19:51 - Medical Decision Making Lab results reviewed and are unremarkable. Patient has been medically cleared. At this time, the patient is voluntary. Patient is awaiting mental health evaluation. - Differential Diagnosis alcohol intoxication, alcohol dependence Critical care attestation.: If time is entered above; I have spent that time in minutes in the direct care of this critically ill patient, excluding procedure time. ED Disposition Clinical Impression: Alcohol abuse Disposition: DC/TX-65 PSY HOSP/PSY UNIT Is pt being admited?: No Condition: Stable Instructions: Abuse of Alcohol (ED) Referrals: PRIMARY CARE, [Primary Care Provider] - 3-5 Days Time of Disposition: 19:47
[2016-12-24 15:07] VITALS: BP 142/87
== END 2016-12-24 15:08 ==
LOC: EEVIPCON 18:45 → ED 18:45
DX: F10.10 Alcohol abuse, uncomplicated (principal); I50.9 Heart failure, unspecified; F20.9 Schizophrenia, unspecified; F32.9 Major depressive disorder, single episode, unspecified; F17.200 Nicotine dependence, unspecified, uncomplicated
CPT/HCPCS: 36415; 80048; 80074; 80307; 81001; 85025; 99285; G0480; 80320; Q0162

== ENCOUNTER 2017-01-14 11:47 | Emergency (ER) | payer MEDICARE ==
[2017-01-14 13:34] LABS: Basophils % (Auto) 0.6 % (0.0-1.8); Hemoglobin 14.1 gm/dl (11.8-15.2); Mean Corpuscular HGB Conc 34 % (32-34); Mean Corpuscular Hemoglobin 30 pg (28-32); Mean Corpuscular Volume 90 fl (84-94); Platelet Count 245 K/mm3 (140-440); Red Blood Count 4.69 M/mm3 (3.65-5.03); Red Cell Distribution Width 13.1 % (13.2-15.2); White Blood Count 4.7 K/mm3 (4.5-11.0)
[2017-01-14 13:34] LABS: Urine Drugs of Abuse Note Disclamer
[2017-01-14 13:52] LABS: Anion Gap 23 mmol/L; BUN/Creatinine Ratio 8.33; Blood Urea Nitrogen 5 mg/dL (9-20); Calcium 8.6 mg/dL (8.4-10.2); Carbon Dioxide 21 mmol/L (22-30); Chloride 97.5 mmol/L (98-107); Glucose 267 mg/dL (75-100); Potassium 3.5 mmol/L (3.6-5.0); Sodium 138 mmol/L (137-145)
[2017-01-14 14:19] LABS: Mucus,Urine FEW /HPF
[2017-01-14 14:42] LABS: Bilirubin,Urine NEG (Negative); Ketones,Urine TR mg/dL (Negative); Leukocyte Esterase,Urine NEG (Negative); Nitrite,Urine NEG (Negative); Protein,Urine <15 mg/dL mg/dL (Negative)
[2017-01-14 14:46] LABS: Blood,Urine SM (Negative)
[2017-01-14] MEDS ORDERED: K-DUR PO ONE (21:13)
[2017-01-14] MEDS ORDERED: VITAMIN B-1 100 MG, FOLVITE 1 MG, INFUVITE 10 ML in NACL 0.9% 1000 ML 1,000 ML IV ONE (22:00)
[2017-01-14] MEDS ORDERED: NACL 0.9% 1000 ML 1,000 ML IV ONE (22:00)
[2017-01-14] MEDS ORDERED: ATIVAN PO PRN ×2 (22:00)
--- NOTE | 2017-01-14 22:09 | Emergency Department Report ---
ED Psych HPI - General Chief Complaint: Medical Clearance Stated Complaint: CYN EDGAR Time Seen by Provider: 01/14/17 21:08 Source: patient, old records reviewed Mode of arrival: Ambulatory - History of Present Illness Initial Comments: 46 yo male with the past medical history hypertension and alcohol abuse, bipolar , schizophrenia presents to the hospital complaining of depression. Patient states he recently buried his brother and has had several other family members . He is having problems with his domestic relationship and other areas of his life. He denies suicidal thoughts or plan. Patient has a history of heavy alcohol use but states she's been drinking less than usual. Last drink was yesterday. He does have a history of alcohol withdrawal tremors and shakes and "getting angry". Denies history of seizures. He denies any physical complaints at this time. Patient seems agitated stating that no one seems to understand it was understand what he is going through. Patient was apparently discharged from [facility] 1.5 months ago and has history of previous visits for alcohol detox - Related Data Previous Rx's Medication Instructions Recorded Last Taken Type QUEtiapine [SEROquel] 200 mg PO QHS #30 tablet 11/02/16 Unknown Rx buPROPion [Wellbutrin] 150 mg PO DAILY #60 tablet 11/02/16 Unknown Rx metFORMIN [Glucophage] 500 mg PO BID #60 tablet 12/22/16 Unknown Rx Allergies Allergy/AdvReac Type Severity Reaction Status Date / Time No Known Allergies Allergy Verified 12/23/16 15:00 ED Review of Systems ROS: Stated complaint: CYN EDGAR Other details as noted in HPI Comment: All other systems reviewed and negative Other: Constitutional: No fevers chills Eyes: No eye pain visual changes ENT: No ear pain or throat pain Neck: Denies pain Respiratory: Denies cough wheezing shortness of breath Cardiovascular: Denies chest pain, palpitations, syncope GI: Denies abdominal pain, nausea, vomiting, diarrhea : Denies dysuria Musculoskeletal: Denies back pain Skin: Denies rash, lesions, erythema Neurologic: Denies headache, numbness, weakness Psychiatric: Denies suicidal ideation, hallucinations ED Past Medical Hx - Past Medical History Hx Hypertension: Yes (EF 50%) Hx Congestive Heart Failure: No Hx Diabetes: No Hx Psychiatric Treatment: Yes (depression, schizophrenia, BIPOLAR) Hx Asthma: No Hx COPD: No Hx HIV: No Additional medical history: Obesity. Gastritis,. Alcohol abuse - Surgical History Hx Cholecystectomy: Yes (2013) - Social History Smoking Status: Never Smoker Substance Use Type: Alcohol - Medications Home Medications: Home Medications Medication Instructions Recorded Confirmed Last Taken Type QUEtiapine [SEROquel] 200 mg PO QHS #30 tablet 11/02/16 12/23/16 Unknown Rx buPROPion [Wellbutrin] 150 mg PO DAILY #60 tablet 11/02/16 12/23/16 Unknown Rx metFORMIN [Glucophage] 500 mg PO BID #60 tablet 12/22/16 12/23/16 Unknown Rx ED Physical Exam - General Limitations: No Limitations - Other Other exam information: General: No limitations, patient is alert in no acute distress Head exam: Atraumatic, normocephalic Eyes exam: Normal appearance ENT: Moist mucous membrane, normal oropharynx Neck exam: Normal inspection, full range of motion, no meningismus nontender Respiratory exam: Clear to auscultation bilateral, no wheezes, rales, crackles Cardiovascular: Normal rate and rhythm, normal heart sounds Abdomen: Soft, nondistended, and nontender, with normal bowel sounds, no rebound, or guarding Extremity: Full range of motion normal inspection no deformity Back: Normal Inspection, full range of motion, no tenderness Neurologic: Alert, oriented x3, cranial nerves intact, no motor or sensory deficit Psychiatric: normal affect, normal mood Skin: Warm, dry, intact ED Course Vital Signs 01/14/17 01/14/17 01/14/17 12:09 21:15 21:32 Temperature 99.1 F Pulse Rate 110 H 114 H Respiratory 18 Rate Blood Pressure 124/93 123/78 123/78 Blood Pressure 124/73 [Right] O2 Sat by Pulse 95 96 Oximetry 01/14/17 01/14/17 01/14/17 22:00 22:30 23:00 Temperature Pulse Rate Respiratory Rate Blood Pressure 123/78 123/78 123/78 Blood Pressure [Right] O2 Sat by Pulse 95 91 94 Oximetry 01/14/17 01/15/17 01/15/17 23:30 00:00 00:30 Temperature Pulse Rate Respiratory Rate Blood Pressure 123/78 123/78 123/78 Blood Pressure [Right] O2 Sat by Pulse 92 90 94 Oximetry 01/15/17 01/15/17 01/15/17 01:04 01:29 01:30 Temperature 98.7 F Pulse Rate 94 H 95 H 90 Respiratory 18 19 19 Rate Blood Pressure 123/78 123/78 Blood Pressure 127/71 [Right] O2 Sat by Pulse 98 92 95 Oximetry 01/15/17 01/15/17 01/15/17 02:00 02:30 02:59 Temperature Pulse Rate 92 H 94 H Respiratory 19 22 18 Rate Blood Pressure 123/78 123/78 Blood Pressure [Right] O2 Sat by Pulse 96 93 98 Oximetry 01/15/17 01/15/17 01/15/17 03:00 03:30 03:52 Temperature Pulse Rate 92 H 99 H 91 H Respiratory 23 24 20 Rate Blood Pressure 123/78 123/78 Blood Pressure 114/71 [Right] O2 Sat by Pulse 94 83 L 98 Oximetry 01/15/17 01/15/17 01/15/17 04:00 04:30 04:52 Temperature Pulse Rate 100 H 101 H 102 H Respiratory 26 H 24 20 Rate Blood Pressure 123/78 123/78 Blood Pressure 114/73 [Right] O2 Sat by Pulse 90 88 Oximetry - Reevaluation(s) Reevaluation #1: 01/15/17 04:56 Patient received Ativan 1 mg IV, IV insulin, normal saline, banana bag, and by mouth potassium. CIWA protocol was initiated. During ED stay patient develop worsening tremors and required Ativan 4 mg by mouth as per protocol in additional 1 mg IV of Ativan. BP, heart rate, and tremors have improved at this time ED Medical Decision Making - Lab Data Result diagrams: 01/14/17 12:45 01/14/17 12:44 Lab Results 01/14/17 01/14/17 01/14/17 Range/Units 12:44 12:45 12:45 WBC 4.7 (4.5-11.0) K/mm3 RBC 4.69 (3.65-5.03) M/mm3 Hgb 14.1 (11.8-15.2) gm/dl Hct 42.0 (35.5-45.6) % MCV 90 (84-94) fl MCH 30 (28-32) pg MCHC 34 (32-34) % RDW 13.1 L (13.2-15.2) % Plt Count 245 (140-440) K/mm3 Lymph % (Auto) 47.8 H (13.4-35.0) % [place] % (Auto) 7.1 (0.0-7.3) % Eos % (Auto) 1.0 (0.0-4.3) % Baso % (Auto) 0.6 (0.0-1.8) % Lymph # 2.3 (1.2-5.4) K/mm3 [place] # 0.3 (0.0-0.8) K/mm3 Eos # 0.0 (0.0-0.4) K/mm3 Baso # 0.0 (0.0-0.1) K/mm3 Seg Neutrophils % 43.5 (40.0-70.0) % Seg Neutrophils # 2.1 (1.8-7.7) K/mm3 Sodium 138 (137-145) mmol/L Potassium 3.5 L (3.6-5.0) mmol/L Chloride 97.5 L (98-107) mmol/L Carbon Dioxide 21 L (22-30) mmol/L Anion Gap 23 mmol/L BUN 5 L (9-20) mg/dL Creatinine 0.6 L (0.8-1.5) mg/dL Estimated GFR > 60 ml/min BUN/Creatinine Ratio 8.33 % Glucose 267 H (75-100) mg/dL POC Glucose (70-105) Calcium 8.6 (8.4-10.2) mg/dL Urine Color (Yellow) Urine Turbidity (Clear) Urine pH (5.0-7.0) Ur Specific [place] (1.003-1.030) Urine Protein (Negative) mg/dL Urine Glucose (UA) (Negative) mg/dL Urine Ketones (Negative) mg/dL Urine Blood (Negative) Urine Nitrite (Negative) Ur Reducing Substances Urine Bilirubin (Negative) Urine Ictotest Urine Urobilinogen (<2.0) mg/dL Ur Leukocyte Esterase (Negative) Urine WBC (Auto) (0.0-6.0) /HPF Urine RBC (Auto) (0.0-6.0) /HPF Urine Mucus /HPF Urine Opiates Screen Urine Methadone Screen Ur Barbiturates Screen Ur Phencyclidine Scrn Ur Amphetamines Screen U Benzodiazepines Scrn Urine Cocaine Screen U Marijuana (THC) Screen Drugs of Abuse Note Plasma/Serum Alcohol 0.03 (0-0.07) gm% 01/14/17 01/14/17 01/14/17 Range/Units 13:20 13:20 21:19 WBC (4.5-11.0) K/mm3 RBC (3.65-5.03) M/mm3 Hgb (11.8-15.2) gm/dl Hct (35.5-45.6) % MCV (84-94) fl MCH (28-32) pg MCHC (32-34) % RDW (13.2-15.2) % Plt Count (140-440) K/mm3 Lymph % (Auto) (13.4-35.0) % [place] % (Auto) (0.0-7.3) % Eos % (Auto) (0.0-4.3) % Baso % (Auto) (0.0-1.8) % Lymph # (1.2-5.4) K/mm3 [place] # (0.0-0.8) K/mm3 Eos # (0.0-0.4) K/mm3 Baso # (0.0-0.1) K/mm3 Seg Neutrophils % (40.0-70.0) % Seg Neutrophils # (1.8-7.7) K/mm3 Sodium (137-145) mmol/L Potassium (3.6-5.0) mmol/L Chloride (98-107) mmol/L Carbon Dioxide (22-30) mmol/L Anion Gap mmol/L BUN (9-20) mg/dL Creatinine (0.8-1.5) mg/dL Estimated GFR ml/min BUN/Creatinine Ratio % Glucose (75-100) mg/dL POC Glucose 313 H (70-105) Calcium (8.4-10.2) mg/dL Urine Color Yellow (Yellow) Urine Turbidity Clear (Clear) Urine pH 5.0 (5.0-7.0) Ur Specific [place] 1.027 (1.003-1.030) Urine Protein <15 mg/dl (Negative) mg/dL Urine Glucose (UA) >=500 (Negative) mg/dL Urine Ketones Tr (Negative) mg/dL Urine Blood Sm (Negative) Urine Nitrite Neg (Negative) Ur Reducing Substances Not Reportable Urine Bilirubin Neg (Negative) Urine Ictotest Not Reportable Urine Urobilinogen 2.0 (<2.0) mg/dL Ur Leukocyte Esterase Neg (Negative) Urine WBC (Auto) 1.0 (0.0-6.0) /HPF Urine RBC (Auto) 3.0 (0.0-6.0) /HPF Urine Mucus Few /HPF Urine Opiates Screen Presumptive negative Urine Methadone Screen Presumptive negative Ur Barbiturates Screen Presumptive negative Ur Phencyclidine Scrn Presumptive negative Ur Amphetamines Screen Presumptive negative U Benzodiazepines Scrn Presumptive negative Urine Cocaine Screen Presumptive negative U Marijuana (THC) Screen Presumptive negative Drugs of Abuse Note Disclamer Plasma/Serum Alcohol (0-0.07) gm% 01/14/17 Range/Units 23:19 WBC (4.5-11.0) K/mm3 RBC (3.65-5.03) M/mm3 Hgb (11.8-15.2) gm/dl Hct (35.5-45.6) % MCV (84-94) fl MCH (28-32) pg MCHC (32-34) % RDW (13.2-15.2) % Plt Count (140-440) K/mm3 Lymph % (Auto) (13.4-35.0) % [place] % (Auto) (0.0-7.3) % Eos % (Auto) (0.0-4.3) % Baso % (Auto) (0.0-1.8) % Lymph # (1.2-5.4) K/mm3 [place] # (0.0-0.8) K/mm3 Eos # (0.0-0.4) K/mm3 Baso # (0.0-0.1) K/mm3 Seg Neutrophils % (40.0-70.0) % Seg Neutrophils # (1.8-7.7) K/mm3 Sodium (137-145) mmol/L Potassium (3.6-5.0) mmol/L Chloride (98-107) mmol/L Carbon Dioxide (22-30) mmol/L Anion Gap mmol/L BUN (9-20) mg/dL Creatinine (0.8-1.5) mg/dL Estimated GFR ml/min BUN/Creatinine Ratio % Glucose (75-100) mg/dL POC Glucose 191 H (70-105) Calcium (8.4-10.2) mg/dL Urine Color (Yellow) Urine Turbidity (Clear) Urine pH (5.0-7.0) Ur Specific [place] (1.003-1.030) Urine Protein (Negative) mg/dL Urine Glucose (UA) (Negative) mg/dL Urine Ketones (Negative) mg/dL Urine Blood (Negative) Urine Nitrite (Negative) Ur Reducing Substances Urine Bilirubin (Negative) Urine Ictotest Urine Urobilinogen (<2.0) mg/dL Ur Leukocyte Esterase (Negative) Urine WBC (Auto) (0.0-6.0) /HPF Urine RBC (Auto) (0.0-6.0) /HPF Urine Mucus /HPF Urine Opiates Screen Urine Methadone Screen Ur Barbiturates Screen Ur Phencyclidine Scrn Ur Amphetamines Screen U Benzodiazepines Scrn Urine Cocaine Screen U Marijuana (THC) Screen Drugs of Abuse Note Plasma/Serum Alcohol (0-0.07) gm% - Medical Decision Making Patient is voluntary therefore 1013 has not been signed since he does not express any suicidal or homicidal ideation. Patient is experiencing active alcohol withdrawals and alcohol dependence which has improved with Ativan in the ED. We will attempt to place patient to inpatient psychiatric center as well as alcohol detox. Transfer form has been signed. Most recent medications on record will be continued - Differential Diagnosis alcohol withdrawal, dehydration, depression Critical Care Time: No Critical care attestation.: If time is entered above; I have spent that time in minutes in the direct care of this critically ill patient, excluding procedure time. ED Disposition Clinical Impression: Alcohol withdrawal, Hypertension, Diabetes, Depression, Bipolar disorder, Medical clearance for psychiatric admission Disposition: DC/TX-65 PSY HOSP/PSY UNIT Is pt being admited?: No Condition: Stable Time of Disposition: 04:59 (awaiting acceptance)
[2017-01-14] MEDS ORDERED: ATIVAN IV ONE (22:21)
[2017-01-15] MEDS ORDERED: ATIVAN ONE (01:12)
[2017-01-15] MEDS: ATIVAN IV PRN ×3 (01:23→12:35)
[2017-01-15] MEDS ORDERED: MILK OF MAGNESIA PO PRN (05:18)
[2017-01-15] MEDS ORDERED: TYLENOL PO PRN (05:18)
[2017-01-15] MEDS ORDERED: ALUM-MAG HYDROX-SIMETH 200-200-20MG/5ML PO PRN (05:18)
[2017-01-15] MEDS ORDERED: ULTRAM ONE (07:58)
[2017-01-15] MEDS ORDERED: GLUCOPHAGE PO SCH (08:00)
[2017-01-15] MEDS ORDERED: ULTRAM PO ONE (08:23)
[2017-01-15] MEDS ORDERED: WELLBUTRIN PO SCH (10:00)
[2017-01-15 13:25] VITALS: BP 118/67
--- NOTE | 2017-01-15 13:51 | Event Note ---
Date: 01/15/17 Patient is requesting detox from alcohol. The patient is alert and oriented 3. He is clinically sober at this time, and he is neither homicidal nor suicidal. The patient walks with a steady gait. He does not require 1013. He is seen and evaluated by the crisis team. He will be discharged with nausea medication, Librium, and he is given instructions on where to follow up for local alcohol detox. Vital Signs 01/14/17 01/14/17 01/14/17 12:09 21:15 21:32 Temperature 99.1 F Pulse Rate 110 H 114 H Respiratory 18 Rate Blood Pressure 124/93 123/78 123/78 Blood Pressure 124/73 [Right] O2 Sat by Pulse 95 96 Oximetry 01/14/17 01/14/17 01/14/17 22:00 22:30 23:00 Temperature Pulse Rate Respiratory Rate Blood Pressure 123/78 123/78 123/78 Blood Pressure [Right] O2 Sat by Pulse 95 91 94 Oximetry 01/14/17 01/15/17 01/15/17 23:30 00:00 00:30 Temperature Pulse Rate Respiratory Rate Blood Pressure 123/78 123/78 123/78 Blood Pressure [Right] O2 Sat by Pulse 92 90 94 Oximetry 01/15/17 01/15/17 01/15/17 01:04 01:29 01:30 Temperature 98.7 F Pulse Rate 94 H 95 H 90 Respiratory 18 19 19 Rate Blood Pressure 123/78 123/78 Blood Pressure 127/71 [Right] O2 Sat by Pulse 98 92 95 Oximetry 01/15/17 01/15/17 01/15/17 02:00 02:30 02:59 Temperature Pulse Rate 92 H 94 H Respiratory 19 22 18 Rate Blood Pressure 123/78 123/78 Blood Pressure [Right] O2 Sat by Pulse 96 93 98 Oximetry 01/15/17 01/15/17 01/15/17 03:00 03:30 03:52 Temperature Pulse Rate 92 H 99 H 91 H Respiratory 23 24 20 Rate Blood Pressure 123/78 123/78 Blood Pressure 114/71 [Right] O2 Sat by Pulse 94 83 L 98 Oximetry 01/15/17 01/15/17 01/15/17 04:00 04:30 04:46 Temperature Pulse Rate 100 H 101 H 102 H Respiratory 26 H 24 22 Rate Blood Pressure 123/78 123/78 123/78 Blood Pressure [Right] O2 Sat by Pulse 90 88 87 Oximetry 01/15/17 01/15/17 01/15/17 04:50 04:52 04:56 Temperature Pulse Rate 102 H 102 H 101 H Respiratory 22 20 23 Rate Blood Pressure 123/78 123/78 Blood Pressure 114/73 [Right] O2 Sat by Pulse 74 L 94 Oximetry 01/15/17 01/15/17 01/15/17 05:00 05:06 05:10 Temperature Pulse Rate 98 H 97 H 97 H Respiratory 19 20 20 Rate Blood Pressure 123/78 123/78 123/78 Blood Pressure [Right] O2 Sat by Pulse 96 98 98 Oximetry 01/15/17 01/15/17 01/15/17 05:16 05:20 05:26 Temperature Pulse Rate 96 H 97 H 95 H Respiratory 22 22 21 Rate Blood Pressure 123/78 123/78 123/78 Blood Pressure [Right] O2 Sat by Pulse 99 99 Oximetry 01/15/17 01/15/17 01/15/17 05:30 05:36 05:40 Temperature Pulse Rate 96 H 92 H 89 Respiratory 20 21 19 Rate Blood Pressure 123/78 123/78 123/78 Blood Pressure [Right] O2 Sat by Pulse 97 99 99 Oximetry 01/15/17 01/15/17 01/15/17 05:46 05:50 05:56 Temperature Pulse Rate 88 88 89 Respiratory 19 18 19 Rate Blood Pressure 123/78 123/78 123/78 Blood Pressure [Right] O2 Sat by Pulse 99 100 99 Oximetry 01/15/17 01/15/17 01/15/17 06:00 07:29 08:30 Temperature 98.2 F 97.9 F Pulse Rate 89 99 H 90 Respiratory 19 14 16 Rate Blood Pressure 123/78 Blood Pressure 118/77 120/80 [Right] O2 Sat by Pulse 100 98 99 Oximetry 01/15/17 01/15/17 01/15/17 09:30 10:30 12:30 Temperature 98.7 F 98.7 F Pulse Rate 92 H 66 86 Respiratory 18 18 16 Rate Blood Pressure Blood Pressure 122/76 122/80 118/67 [Right] O2 Sat by Pulse 100 100 100 Oximetry Labs 01/14/17 01/14/17 01/14/17 12:44 12:45 12:45 WBC 4.7 RBC 4.69 Hgb 14.1 Hct 42.0 MCV 90 MCH 30 MCHC 34 RDW 13.1 L Plt Count 245 Lymph % (Auto) 47.8 H [place] % (Auto) 7.1 Eos % (Auto) 1.0 Baso % (Auto) 0.6 Lymph # 2.3 [place] # 0.3 Eos # 0.0 Baso # 0.0 Seg Neutrophils % 43.5 Seg Neutrophils # 2.1 Sodium 138 Potassium 3.5 L Chloride 97.5 L Carbon Dioxide 21 L Anion Gap 23 BUN 5 L Creatinine 0.6 L Estimated GFR > 60 BUN/Creatinine Ratio 8.33 Glucose 267 H POC Glucose Calcium 8.6 Urine Color Urine Turbidity Urine pH Ur Specific [place] Urine Protein Urine Glucose (UA) Urine Ketones Urine Blood Urine Nitrite Ur Reducing Substances Urine Bilirubin Urine Ictotest Urine Urobilinogen Ur Leukocyte Esterase Urine WBC (Auto) Urine RBC (Auto) Urine Mucus Urine Opiates Screen Urine Methadone Screen Ur Barbiturates Screen Ur Phencyclidine Scrn Ur Amphetamines Screen U Benzodiazepines Scrn Urine Cocaine Screen U Marijuana (THC) Screen Drugs of Abuse Note Plasma/Serum Alcohol 0.03 01/14/17 01/14/17 01/14/17 13:20 13:20 21:19 WBC RBC Hgb Hct MCV MCH MCHC RDW Plt Count Lymph % (Auto) [place] % (Auto) Eos % (Auto) Baso % (Auto) Lymph # [place] # Eos # Baso # Seg Neutrophils % Seg Neutrophils # Sodium Potassium Chloride Carbon Dioxide Anion Gap BUN Creatinine Estimated GFR BUN/Creatinine Ratio Glucose POC Glucose 313 H Calcium Urine Color Yellow Urine Turbidity Clear Urine pH 5.0 Ur Specific [place] 1.027 Urine Protein <15 mg/dl Urine Glucose (UA) >=500 Urine Ketones Tr Urine Blood Sm Urine Nitrite Neg Ur Reducing Substances Not Reportable Urine Bilirubin Neg Urine Ictotest Not Reportable Urine Urobilinogen 2.0 Ur Leukocyte Esterase Neg Urine WBC (Auto) 1.0 Urine RBC (Auto) 3.0 Urine Mucus Few Urine Opiates Screen Presumptive negative Urine Methadone Screen Presumptive negative Ur Barbiturates Screen Presumptive negative Ur Phencyclidine Scrn Presumptive negative Ur Amphetamines Screen Presumptive negative U Benzodiazepines Scrn Presumptive negative Urine Cocaine Screen Presumptive negative U Marijuana (THC) Screen Presumptive negative Drugs of Abuse Note Disclamer Plasma/Serum Alcohol 01/14/17 23:19 WBC RBC Hgb Hct MCV MCH MCHC RDW Plt Count Lymph % (Auto) [place] % (Auto) Eos % (Auto) Baso % (Auto) Lymph # [place] # Eos # Baso # Seg Neutrophils % Seg Neutrophils # Sodium Potassium Chloride Carbon Dioxide Anion Gap BUN Creatinine Estimated GFR BUN/Creatinine Ratio Glucose POC Glucose 191 H Calcium Urine Color Urine Turbidity Urine pH Ur Specific [place] Urine Protein Urine Glucose (UA) Urine Ketones Urine Blood Urine Nitrite Ur Reducing Substances Urine Bilirubin Urine Ictotest Urine Urobilinogen Ur Leukocyte Esterase Urine WBC (Auto) Urine RBC (Auto) Urine Mucus Urine Opiates Screen Urine Methadone Screen Ur Barbiturates Screen Ur Phencyclidine Scrn Ur Amphetamines Screen U Benzodiazepines Scrn Urine Cocaine Screen U Marijuana (THC) Screen Drugs of Abuse Note Plasma/Serum Alcohol
== END 2017-01-15 14:15 | disposition home or self-care (01) ==
LOC: EEVIPCON 11:47 → ED 11:47
DX: F31.9 Bipolar disorder, unspecified (principal); F10.239 Alcohol dependence with withdrawal, unspecified; I10 Essential (primary) hypertension; E11.9 Type 2 diabetes mellitus without complications; F20.9 Schizophrenia, unspecified
CPT/HCPCS: 36415; 80048; 80307; 81001; 82962; 85025; 96365; 96372; 96375; 96376; 99284; G0480; J2060; J3411; J7030; 80320; J1815

== ENCOUNTER 2017-02-22 23:28 | Emergency (ER) | payer MEDICARE ==
[2017-02-22] MEDS ORDERED: NACL 0.9% 1000 ML 1,000 ML IV ONE (23:49)
[2017-02-23 00:59] LABS: INR 0.91 (0.87-1.13)
[2017-02-23 01:00] LABS: Partial Thromboplastin Time 28.9 Sec. (24.2-36.6)
[2017-02-23 01:35] LABS: Basophils % (Auto) 1.2 % (0.0-1.8); Eosinophils % (Auto) 0.8 % (0.0-4.3); Hematocrit 46.7 % (35.5-45.6); Hemoglobin 15.9 gm/dl (11.8-15.2); Mean Corpuscular HGB Conc 34 % (32-34); Mean Corpuscular Hemoglobin 30 pg (28-32); Mean Corpuscular Volume 89 fl (84-94); Platelet Count 218 K/mm3 (140-440); Red Blood Count 5.25 M/mm3 (3.65-5.03); Red Cell Distribution Width 13.4 % (13.2-15.2); White Blood Count 5.8 K/mm3 (4.5-11.0)
[2017-02-23 01:44] LABS: Alanine Aminotransferase 19 units/L (7-56); Albumin 4.1 g/dL (3.9-5); Albumin/Globulin Ratio 1.1 %; Alkaline Phosphatase 102 units/L (35-129); Anion Gap 22 mmol/L; Blood Urea Nitrogen 9 mg/dL (9-20); Calcium 8.8 mg/dL (8.4-10.2); Carbon Dioxide 20 mmol/L (22-30); Chloride 92.6 mmol/L (98-107); Glucose 318 mg/dL (75-100); Lipase 40 units/L (13-60); Potassium 4.2 mmol/L (3.6-5.0); Sodium 130 mmol/L (137-145); Total Protein 7.7 g/dL (6.3-8.2)
[2017-02-23 02:39] LABS: Urine Drugs of Abuse Note Disclamer
[2017-02-23 03:02] LABS: Bilirubin,Urine NEG (Negative); Blood,Urine NEG (Negative); Ketones,Urine 20 mg/dL (Negative); Leukocyte Esterase,Urine NEG (Negative); Mucus,Urine 1+ /HPF; Nitrite,Urine NEG (Negative); Urobilinogen,Urine < 2.0 mg/dL (<2.0)
[2017-02-23] MEDS ORDERED: VITAMIN B-1 100 MG, FOLVITE 1 MG, INFUVITE 10 ML, MAGNESIUM SULFATE 2 GM in NACL 0.9% 1... IV ONE (08:01)
--- NOTE | 2017-02-23 08:08 | Emergency Department Report ---
HPI - General Chief Complaint: GI Bleed Time Seen by Provider: 02/23/17 07:40 - HPI HPI: Room 9 Patient is a 47-year-old male presenting with a chief complaint of alcohol abuse. Patient states he came to the hospital because he is "trying to kick this habit" of alcohol abuse. Patient states he doesn't feel well when he drinks and is tired of drinking alcohol. Patient states he last consumed alcohol at approximately midnight. The patient states she usually goes to approximately a sixpack of beer daily. Patient states she had epigastric abdominal pain earlier this morning the last approximately one orbit then resolved. Patient denied ever having chest pain. Patient denies suicidal or homicidal ideation. Patient denies auditory or visual hallucinations. Patient denies any other complaints Location: Mental state Duration: [see above] Quality: [see above] Severity: Moderate Modifying factors: [see above] Context: [see above] Mode of transportation: Unknown ED Past Medical Hx - Past Medical History Previous Medical History?: Yes Hx Hypertension: Yes (EF 50%) Hx Psychiatric Treatment: Yes (depression, schizophrenia, BIPOLAR) Additional medical history: Obesity. Gastritis,. Alcohol abuse - Surgical History Past Surgical History?: Yes Hx Cholecystectomy: Yes (2013) - Family History Family history: no significant - Social History Smoking Status: Current Every Day Smoker (1 pack per day) Substance Use Type: None (denies illicit drug use), Alcohol (sixpack of beer daily) - Medications Home Medications: Home Medications Medication Instructions Recorded Confirmed Last Taken Type QUEtiapine [SEROquel] 200 mg PO QHS #30 tablet 11/02/16 02/23/17 02/22/17 Rx buPROPion [Wellbutrin] 150 mg PO DAILY #60 tablet 11/02/16 02/23/17 02/22/17 Rx ED Review of Systems ROS: Stated complaint: CHEST PAIN Other details as noted in HPI Comment: All other systems reviewed and negative Constitutional: denies: chills, fever Eyes: denies: eye pain, eye discharge, vision change ENT: denies: ear pain, throat pain Respiratory: denies: cough, shortness of breath, wheezing Cardiovascular: denies: chest pain, palpitations Endocrine: no symptoms reported Gastrointestinal: abdominal pain, nausea, vomiting Genitourinary: denies: urgency, dysuria Musculoskeletal: denies: back pain, joint swelling, arthralgia Skin: denies: rash, lesions Neurological: denies: headache, weakness, paresthesias Psychiatric: denies: anxiety, depression Hematological/Lymphatic: denies: easy bleeding, easy bruising Physical Exam - Physical Exam Vital Signs: Vital Signs 02/22/17 02/23/17 02/23/17 23:42 05:14 06:40 Temperature 98.5 F 98.5 F 98 F Pulse Rate 104 H 42 L 70 Respiratory 20 18 18 Rate Blood Pressure 156/118 128/82 Blood Pressure 124/72 [Left] O2 Sat by Pulse 98 96 Oximetry Physical Exam: GENERAL: The patient is well-developed well-nourished male lying on stretcher not appearing to be in acute distress. [] HEENT: Normocephalic. Atraumatic. Extraocular motions are intact. Patient has moist mucous membranes. NECK: Supple. Trachea midline CHEST/LUNGS: Clear to auscultation. There is no respiratory distress noted. HEART/CARDIOVASCULAR: Regular. There is no tachycardia. There is no gallop rub or murmur. ABDOMEN: Abdomen is soft, with tenderness to palpation in the RLQ. Patient has normal bowel sounds. There is no abdominal distention. SKIN: There is no rash. There is no edema. There is no diaphoresis. NEURO: The patient is awake, alert, and oriented. The patient is cooperative. The patient has normal speech MUSCULOSKELETAL: There is no evidence of acute injury. ED Course Vital Signs 02/22/17 02/23/17 02/23/17 23:42 05:14 06:40 Temperature 98.5 F 98.5 F 98 F Pulse Rate 104 H 42 L 70 Respiratory 20 18 18 Rate Blood Pressure 156/118 128/82 Blood Pressure 124/72 [Left] O2 Sat by Pulse 98 96 Oximetry ED Medical Decision Making - Lab Data Result diagrams: 02/23/17 00:30 02/23/17 01:16 - EKG Data -: EKG Interpreted by Me EKG shows normal: sinus rhythm Rate: normal - EKG Data When compared to previous EKG there are: no significant change - Differential Diagnosis alcohol abuse Critical care attestation.: If time is entered above; I have spent that time in minutes in the direct care of this critically ill patient, excluding procedure time. ED Disposition Clinical Impression: Alcohol abuse Disposition: DC-01 TO HOME OR SELFCARE Is pt being admited?: No Does the pt Need Aspirin: No Condition: Stable Referrals: PRIMARY CARE, [Primary Care Provider] - 3-5 Days Forms: Accompanied Note
[2017-02-23] MEDS ORDERED: NACL ONE (08:20)
--- NOTE | 2017-02-23 09:45 | Cat Scan Report ---
CT ABDOMEN AND PELVIS WITHOUT CONTRAST: 02/23/17 CLINICAL:Right lower quadrant abdominal pain. TECHNIQUE: Volumetric acquisition and 1.25 millimeter axial scan reconstructions from the lung bases through the pelvis. The study was performed without oral contrast. FINDINGS: Abdomen: No urinary calculus identified. The renal collecting systems and ureters are nondilated. The appendix is well imaged and normal. The small bowel and colon are normal. The kidneys are normal size normal contours. Bilateral nonspecific perinephric stranding. The adrenal glands are normal. Normal aorta and inferior vena cava. Normal liver and bile ducts status post cholecystectomy. Normal stomach, duodenum, and spleen. Mild fatty infiltration of the pancreas in otherwise normal pancreas. No ascites and no lymphadenopathy. No pneumoperitoneum. Pelvis: Normal urinary bladder, prostate and rectum.Normal sigmoid colon. No pelvic fluid, mass or lymphadenopathy. Bone windows demonstrate no suspicious bone lesion. IMPRESSION: 1. Negative study with no urinary calculus or explanation for right lower quadrant abdominal pain. 2. Status post cholecystectomy. 3. Mild bilateral nonspecific perinephric stranding.
--- NOTE | 2017-02-23 15:46 | Consultation ---
History of Present Illness - Reason for Consult Consult date: 02/23/17 Reason for consult: psychiatric evaluation Medications and Allergies Allergies Allergy/AdvReac Type Severity Reaction Status Date / Time Fish Containing Products Allergy Rash Verified 02/22/17 23:42 Home Medications Medication Instructions Recorded Confirmed Last Taken Type QUEtiapine [SEROquel] 200 mg PO QHS #30 tablet 11/02/16 02/23/17 02/22/17 Rx buPROPion [Wellbutrin] 150 mg PO DAILY #60 tablet 11/02/16 02/23/17 02/22/17 Rx Active Meds: Active Medications Glyburide (Diabeta) 5 mg PO QAMDIAB [facility] Mental Status Exam - Vital signs Last Vital Signs Temp 98 F 02/23/17 06:40 Pulse 53 L 02/23/17 09:10 Resp 18 02/23/17 06:40 BP 148/99 02/23/17 09:10 Pulse Ox 96 02/23/17 06:40 Results Result Diagrams: 02/23/17 00:30 02/23/17 01:16 Abnormal lab results 02/23/17 02/23/17 02/23/17 Range/Units 00:30 01:16 02:05 RBC 5.25 H (3.65-5.03) M/mm3 Hgb 15.9 H (11.8-15.2) gm/dl Hct 46.7 H (35.5-45.6) % Lymph % (Auto) 44.9 H (13.4-35.0) % Sodium 130 L (137-145) mmol/L Chloride 92.6 L (98-107) mmol/L Carbon Dioxide 20 L (22-30) mmol/L Creatinine 0.5 L (0.8-1.5) mg/dL Glucose 318 H (75-100) mg/dL Ur Specific [place] 1.041 H (1.003-1.030) All other labs normal. Assessment and Plan Assessment and plan: 47 year old WM with past psych history of bipolar d/o and etoh abuse. He presented for care to the ER for help with alcohol detox. Patient has been drinking 3/5th daily x 2 weeks. After drinking too much he notes that he decided to come into the hospital to seek help with the drinking. His last drink was last night. His trigger to drink was thinking about his brother who recently. He states he is having minimal symptoms of withdrawal. While depressed from his relapse, he notes no euphoria. No SI/HI/AH or VH. No other illicit drug use. - past Psychiatric treatment and history psychiatric treatment history: inpt: dx with bipolar 5 years ago, 2-3 times hospitalized- last time unknown outpt: none no suicide attempts no abuse history no known family history substance use- etoh fist began age 17, no DUI no DT's cocaine use- "long time ago" [facility] 2 x in 2017 [facility] rehab - Social History Social history: other (lives with friend, +dating, fiance in [place] with one child, no work , +[employer], 12 grade education) Mental Status Exam - Exam Orientation: time, place, person Affect: agitated Mood: anxious, other (depressed) Thought Process: Intact Perceptions: none Speech: normal rate and pattern Concentration: distractible Motor activity: restless Level of consciousness: alert Memory: Intact Interaction: cooperative Assessment and plan: Patient is a 46 year old BM who presented to [facility] after relapsing on etoh. No significant withdrawal symptoms/signs. denies any SI/HI/AH/VH. alcohol use disorder Bipolar I d/o Plan: etoh use- detox as indicated. Once medically cleared will likely go to rehab on an outpatient basis Will continue with his current psych meds of Seroquel and Wellbutrin for mood.
[2017-02-23 16:14] VITALS: BP 143/95
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
[2017-02-24] MEDS ORDERED: DIABETA PO SCH (08:00)
== END 2017-02-23 23:22 | disposition home or self-care (01) ==
LOC: ED 23:28 → EEVIPCON 23:28 → ED 02-23 23:22
DX: R10.13 Epigastric pain (principal); F10.129 Alcohol abuse with intoxication, unspecified; I10 Essential (primary) hypertension; F20.9 Schizophrenia, unspecified; F31.9 Bipolar disorder, unspecified; F17.200 Nicotine dependence, unspecified, uncomplicated; Z90.49 Acquired absence of other specified parts of digestive tract
CPT/HCPCS: 36415; 74176; 80053; 80307; 81001; 82962; 83690; 84484; 85025; 85610; 85730; 86850; 86900; 86901; 93005; 93010; 99285; G0480; 80320; J3411; J3475; J7030

== ENCOUNTER 2017-03-03 19:22 | Emergency (ER) | payer MEDICARE ==
[2017-03-03 20:02] VITALS: BP 143/103
== END 2017-03-04 07:00 | disposition left against medical advice (07) ==
LOC: ED 19:22
DX: R10.9 Unspecified abdominal pain (principal); Z53.21 Procedure and treatment not carried out due to patient leaving prior to being seen by health care provider

== ENCOUNTER 2017-03-04 11:25 | Emergency (ER) | payer MEDICARE ==
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
[2017-03-04 13:01] LABS: Bilirubin,Urine NEG (Negative); Blood,Urine SM (Negative); Ketones,Urine NEG (Negative); Leukocyte Esterase,Urine NEG (Negative); Mucus,Urine 1+ /HPF; Nitrite,Urine NEG (Negative)
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
[2017-03-04] MEDS ORDERED: NORCO 10/325 PO ONE (15:43)
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
[2017-03-04 17:20] VITALS: BP 130/98
== END 2017-03-04 17:20 | disposition home or self-care (01) ==
LOC: ED 11:25
DX: N50.819 Testicular pain, unspecified (principal); I10 Essential (primary) hypertension; F31.9 Bipolar disorder, unspecified; F20.9 Schizophrenia, unspecified; E66.9 Obesity, unspecified; F17.200 Nicotine dependence, unspecified, uncomplicated; Z91.013 Allergy to seafood; Y04.2XXA Assault by strike against or bumped into by another person, initial encounter; Y93.89 Activity, other specified; Y99.9 Unspecified external cause status; Y92.89 Other specified places as the place of occurrence of the external cause
CPT/HCPCS: 81001; 93975

== ENCOUNTER 2017-03-04 21:16 | Emergency (ER) | payer MEDICARE ==
[2017-03-04 21:53] VITALS: BP 130/89
[2017-03-04 23:26] LABS: Hematocrit 42.6 % (35.5-45.6); Hemoglobin 14.2 gm/dl (11.8-15.2); Mean Corpuscular HGB Conc 33 % (32-34); Mean Corpuscular Hemoglobin 30 pg (28-32); Mean Corpuscular Volume 91 fl (84-94); Platelet Count 250 K/mm3 (140-440); Red Cell Distribution Width 13.5 % (13.2-15.2); White Blood Count 4.6 K/mm3 (4.5-11.0)
[2017-03-04 23:36] LABS: Blood Urea Nitrogen 6 mg/dL (9-20); Calcium 8.8 mg/dL (8.4-10.2); Carbon Dioxide 19 mmol/L (22-30); Glucose 258 mg/dL (75-100)
[2017-03-04 23:37] LABS: Anion Gap 21 mmol/L; Potassium 3.7 mmol/L (3.6-5.0); Sodium 136 mmol/L (137-145)
[2017-03-05 00:16] LABS: Basophils % (Manual) 0 % (0.0-1.8); Blastocytes % (Manual) 0 %
[2017-03-05 00:17] LABS: Anisocytosis 1+; Hypochromasia 1+
[2017-03-05 00:19] LABS: Diff Status Complete; Platelet Estimate Consistent w Auto
== END 2017-03-04 23:00 | disposition left against medical advice (07) ==
LOC: ED 21:16
DX: R07.9 Chest pain, unspecified (principal); I10 Essential (primary) hypertension; F31.9 Bipolar disorder, unspecified; F20.9 Schizophrenia, unspecified; Z91.013 Allergy to seafood; Z53.21 Procedure and treatment not carried out due to patient leaving prior to being seen by health care provider
CPT/HCPCS: 36415; 80048; 84484; 85007; 85025; 93005; 93010

== ENCOUNTER 2017-03-15 17:49 | Emergency (ER) | payer MEDICARE ==
[2017-03-15 17:56] VITALS: BP 127/83
[2017-03-15 18:39] LABS: Basophils % (Auto) 1.2 % (0.0-1.8); Eosinophils % (Auto) 1.1 % (0.0-4.3); Hematocrit 40.3 % (35.5-45.6); Hemoglobin 13.7 gm/dl (11.8-15.2); Mean Corpuscular HGB Conc 34 % (32-34); Mean Corpuscular Hemoglobin 31 pg (28-32); Mean Corpuscular Volume 91 fl (84-94); Red Blood Count 4.44 M/mm3 (3.65-5.03); Red Cell Distribution Width 14.2 % (13.2-15.2); White Blood Count 7.2 K/mm3 (4.5-11.0)
[2017-03-15 19:02] LABS: Albumin 4.1 g/dL (3.9-5); Albumin/Globulin Ratio 1.4 %; Alkaline Phosphatase 75 units/L (35-129); Blood Urea Nitrogen 9 mg/dL (9-20); Calcium 9.3 mg/dL (8.4-10.2); Carbon Dioxide 20 mmol/L (22-30); Chloride 98.8 mmol/L (98-107); Glucose 345 mg/dL (75-100); Lipase 65 units/L (13-60); Sodium 137 mmol/L (137-145); Total Protein 7.1 g/dL (6.3-8.2)
[2017-03-15 19:36] LABS: Alanine Aminotransferase 24 units/L (7-56); Anion Gap 24 mmol/L; Potassium 5.2 mmol/L (3.6-5.0)
[2017-03-15 20:36] LABS: Platelet Count 196 K/mm3 (140-440)
== END 2017-03-15 20:02 | disposition left against medical advice (07) ==
LOC: ED 17:49
DX: R10.9 Unspecified abdominal pain (principal); Z53.21 Procedure and treatment not carried out due to patient leaving prior to being seen by health care provider
CPT/HCPCS: 36415; 80053; 83690; 85025

== ENCOUNTER 2017-03-16 05:57 | Inpatient (IN) | payer MEDICARE ==
[2017-03-16 06:41] LABS: Hematocrit 43.1 % (35.5-45.6); Hemoglobin 14.8 gm/dl (11.8-15.2); Mean Corpuscular HGB Conc 34 % (32-34); Mean Corpuscular Hemoglobin 31 pg (28-32); Mean Corpuscular Volume 91 fl (84-94); Red Blood Count 4.75 M/mm3 (3.65-5.03); Red Cell Distribution Width 14.2 % (13.2-15.2); White Blood Count 5.3 K/mm3 (4.5-11.0)
[2017-03-16 06:56] LABS: Anion Gap 23 mmol/L; Blood Urea Nitrogen 11 mg/dL (9-20); Calcium 9.1 mg/dL (8.4-10.2); Carbon Dioxide 20 mmol/L (22-30); Chloride 102.4 mmol/L (98-107); Glucose 223 mg/dL (75-100); Potassium 4.4 mmol/L (3.6-5.0); Sodium 141 mmol/L (137-145)
[2017-03-16 07:31] LABS: Bilirubin,Urine NEG (Negative); Blood,Urine NEG (Negative); Ketones,Urine NEG (Negative); Leukocyte Esterase,Urine NEG (Negative); Mucus,Urine FEW /HPF; Nitrite,Urine NEG (Negative); Protein,Urine <15 mg/dL mg/dL (Negative); RBC,Urine < 1.0 /HPF (0.0-6.0); Urobilinogen,Urine < 2.0 mg/dL (<2.0)
[2017-03-16 08:14] LABS: Anisocytosis 1+; Basophils % (Manual) 0 % (0.0-1.8); Blastocytes % (Manual) 0 %; Hypochromasia 1+
[2017-03-16 08:15] LABS: Diff Status Complete
[2017-03-16 08:16] LABS: Platelet Clumps Few; Platelet Count 230 K/mm3 (140-440)
[2017-03-16 18:28] LABS: Albumin 4.5 g/dL (3.9-5); Albumin/Globulin Ratio 1.4 %; Bilirubin,Direct 0.2 mg/dL (0-0.2); Bilirubin,Indirect 0.6 mg/dL; Bilirubin,Total 0.8 mg/dL (0.1-1.2); Total Protein 7.8 g/dL (6.3-8.2)
--- NOTE | 2017-03-16 20:22 | Emergency Department Report ---
HPI - General Chief Complaint: Nausea/Vomiting/Diarrhea Time Seen by Provider: 03/16/17 20:08 - HPI HPI: Room 5 The patient is a 47-year-old male presented with a chief complaint of hematemesis. The patient states since yesterday he has had gross hematemesis. Patient states she vomited approximately 6-7 times. The patient states he develop melena approximately 2 hours ago. Patient complains of occasional abdominal pain but denies bright red blood per rectum. Location: Gastrointestinal system Duration: Onset yesterday, see above Quality: Hematemesis Severity: Moderate Modifying factors: [see above] Context: [see above] Mode of transportation: Unknown ED Past Medical Hx - Past Medical History Previous Medical History?: Yes Hx Hypertension: Yes (EF 50% on echo 2015, stress test 2017 is neg, shows EF37) Hx Diabetes: Yes Hx Psychiatric Treatment: Yes (depression, schizophrenia, BIPOLAR) Additional medical history: Obesity. Gastritis,. Alcohol abuse - Surgical History Past Surgical History?: Yes Hx Cholecystectomy: Yes - Family History Family history: no significant - Social History Smoking Status: Current Every Day Smoker (1/7 per day) Substance Use Type: None (denies illicit drug use), Alcohol (occasional) - Medications Home Medications: Home Medications Medication Instructions Recorded Confirmed Last Taken Type QUEtiapine [SEROquel] 200 mg PO QHS #30 tablet 11/02/16 03/06/17 02/22/17 Rx buPROPion [Wellbutrin] 150 mg PO DAILY #60 tablet 11/02/16 03/06/17 02/22/17 Rx Acetaminophen [Acetaminophen TAB] 325 mg PO Q4H PRN #30 tablet 03/07/17 Unknown Rx Atenolol [Tenormin] 25 mg PO DAILY #30 tab 03/07/17 Unknown Rx Fluconazole [Diflucan TAB] 100 mg PO QDAY #14 day 03/07/17 Unknown Rx Pantoprazole [Protonix] 40 mg PO QDAY #14 day 03/07/17 Unknown Rx Thiamine [Vitamin B-1] 100 mg PO QDAY #30 tablet 03/07/17 Unknown Rx ED Review of Systems ROS: Stated complaint: VOMITING BLOOD Other details as noted in HPI Comment: All other systems reviewed and negative Constitutional: denies: chills, fever Eyes: denies: eye pain, eye discharge, vision change ENT: denies: ear pain, throat pain Respiratory: denies: cough, shortness of breath, wheezing Cardiovascular: chest pain. denies: palpitations Endocrine: no symptoms reported Gastrointestinal: nausea, vomiting, hematemesis, melena Genitourinary: denies: urgency, dysuria Musculoskeletal: denies: back pain, joint swelling, arthralgia Skin: denies: rash, lesions Neurological: denies: headache, weakness, paresthesias Psychiatric: denies: anxiety, depression Hematological/Lymphatic: denies: easy bleeding, easy bruising Physical Exam - Physical Exam Vital Signs: Vital Signs 03/16/17 06:07 Temperature 98.4 F Pulse Rate 87 Respiratory 18 Rate Blood Pressure 147/87 O2 Sat by Pulse 98 Oximetry Physical Exam: GENERAL: The patient is well-developed well-nourished male sitting on stretcher not appearing to be in acute distress. [] HEENT: Normocephalic. Atraumatic. Extraocular motions are intact. Patient has moist mucous membranes. NECK: Supple. No meningitic signs are noted. There is no adenopathy noted. CHEST/LUNGS: Clear to auscultation. There is no respiratory distress noted. HEART/CARDIOVASCULAR: Regular. There is no tachycardia. There is no gallop rub or murmur. ABDOMEN: Abdomen is soft, nontender. Patient has normal bowel sounds. There is no abdominal distention. SKIN: There is no rash. There is no edema. There is no diaphoresis. NEURO: The patient is awake, alert, and oriented. The patient is cooperative. The patient has no focal neurologic deficits. The patient has normal speech and gait. MUSCULOSKELETAL: There is no evidence of acute injury. RECTAL: FAINT GUAIAC POSITIVE BROWN STOOL ED Course Vital Signs 03/16/17 06:07 Temperature 98.4 F Pulse Rate 87 Respiratory 18 Rate Blood Pressure 147/87 O2 Sat by Pulse 98 Oximetry ED Medical Decision Making - Lab Data Result diagrams: 03/16/17 06:17 03/16/17 06:17 - EKG Data -: EKG Interpreted by Me EKG shows normal: sinus rhythm Rate: normal - EKG Data When compared to previous EKG there are: previous EKG unavailable Interpretation: other (frequent PVCs) - Differential Diagnosis GI bleed, ACS, gastritis Critical care attestation.: If time is entered above; I have spent that time in minutes in the direct care of this critically ill patient, excluding procedure time. ED Disposition Clinical Impression: GI bleeding, Chest pain Disposition: 09 OP ADMIT IP TO THIS HOSP Is pt being admited?: Yes Does the pt Need Aspirin: No Condition: Fair Instructions: Chest Pain (ED) Referrals: PRIMARY CARE,MD [Primary Care Provider] - 3-5 Days Time of Disposition: 21:09 (hospitalist paged)
[2017-03-16] MEDS ORDERED: PROTONIX IV ONE (20:43)
[2017-03-16 21:31] LABS: INR 0.96 (0.87-1.13)
[2017-03-16 21:32] LABS: Partial Thromboplastin Time 28.2 Sec. (24.2-36.6)
[2017-03-16 21:43] LABS: Creatine Kinase 85 units/L (55-170)
[2017-03-16 21:58] LABS: Creatine Kinase MB < 1.0 ng/mL (0.0-4.0)
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
[2017-03-16] MEDS ORDERED: SODIUM CHLORIDE FLUSH SYRINGE 10 ML IV PRN (22:30)
[2017-03-16] MEDS ORDERED: NITROSTAT SL PRN (22:30)
[2017-03-16] MEDS ORDERED: TYLENOL PO PRN (22:36)
[2017-03-16] MEDS: PROTONIX IV SCH (23:10)
[2017-03-16 23:18] LABS: Basophils % (Auto) 0.9 % (0.0-1.8); Eosinophils % (Auto) 1.4 % (0.0-4.3); Hematocrit 40.5 % (35.5-45.6); Hemoglobin 13.9 gm/dl (11.8-15.2); Mean Corpuscular HGB Conc 34 % (32-34); Mean Corpuscular Hemoglobin 31 pg (28-32); Mean Corpuscular Volume 91 fl (84-94); Platelet Count 234 K/mm3 (140-440); Red Blood Count 4.44 M/mm3 (3.65-5.03); Red Cell Distribution Width 14.4 % (13.2-15.2); White Blood Count 6.1 K/mm3 (4.5-11.0)
[2017-03-16 23:32] LABS: Anion Gap 22 mmol/L; Blood Urea Nitrogen 9 mg/dL (9-20); Calcium 8.9 mg/dL (8.4-10.2); Carbon Dioxide 23 mmol/L (22-30); Glucose 144 mg/dL (75-100); Potassium 3.6 mmol/L (3.6-5.0); Sodium 140 mmol/L (137-145)
[2017-03-16 23:33] LABS: INR 0.95 (0.87-1.13)
[2017-03-16 23:34] LABS: Partial Thromboplastin Time 29.8 Sec. (24.2-36.6)
[2017-03-16] MEDS: MORPHINE IV PRN (23:40)
[2017-03-16 23:45] LABS: Cholesterol 191 mg/dL (50-199); HDL Cholesterol 50 mg/dL (40-59); LDL Cholesterol,Direct 98 mg/dL (50-130); Triglycerides 219 mg/dL (2-149)
[2017-03-17] MEDS: MORPHINE IV PRN ×3 (00:48→09:23)
[2017-03-17 06:24] LABS: Basophils % (Auto) 0.6 % (0.0-1.8); Eosinophils % (Auto) 2.6 % (0.0-4.3); Hematocrit 39.8 % (35.5-45.6); Hemoglobin 13.1 gm/dl (11.8-15.2); Mean Corpuscular HGB Conc 33 % (32-34); Mean Corpuscular Hemoglobin 30 pg (28-32); Mean Corpuscular Volume 92 fl (84-94); Platelet Count 211 K/mm3 (140-440); Red Blood Count 4.32 M/mm3 (3.65-5.03); Red Cell Distribution Width 13.8 % (13.2-15.2); White Blood Count 4.8 K/mm3 (4.5-11.0)
[2017-03-17 07:06] LABS: Anion Gap 21 mmol/L; Blood Urea Nitrogen 12 mg/dL (9-20); Calcium 8.2 mg/dL (8.4-10.2); Carbon Dioxide 21 mmol/L (22-30); Chloride 96.5 mmol/L (98-107); Glucose 259 mg/dL (75-100); Potassium 3.5 mmol/L (3.6-5.0); Sodium 135 mmol/L (137-145)
--- NOTE | 2017-03-17 07:52 | Admit Criteria Form ---
Admission Criteria Documentation: GASTROINTESTINAL BLEEDING Clinical Indications for Inpatient Care (Place 'X' for any and all applicable criteria): Ongoing inpatient care may be indicated for gastrointestinal bleeding with ANY ONE of the following (4)(20)(21)(22)(23)(24): [X]I. Active bleeding (eg, fresh voluminous blood in emesis or nasogastric aspirate, or per rectum) [ ]II. Hemodynamic instability [ ]III. Anticoagulation therapy or coagulopathy ((eg, advanced liver disease, irreversible anticoagulation) [ ]IV. Ischemic colitis (22) [ ]V. Endoscopy showing arterial bleeding, adherent clot, nonbleeding visible vessel, varices, flat red spots, ulcer size greater than 2 cm, or portal hypertensive gastropathy [ ]. High-risk low platelet count [ ]VII. Anemia requiring inpatient care as indicated by ANY ONE of the following a)[ ] Cognitive impairment b)[ ] Syncope c)[ ] Heart failure d)[ ] Chest pain e)[ ] Dyspnea f)[ ] Other findings suggesting inadequate perfusion (eg, peripheral or myocardial ischemia, end organ dysfunction) [ ]VIII. High-risk low platelet count [ ]IX. Suspected variceal cause of bleeding as indicated by ANY ONE of the following(27)(28): a)[ ] Known varices b)[ ] Hepatomegaly or splenomegaly c)[ ] Ascites d)[ ] Jaundice or scleral icterus e)[ ] History of liver disease (eg, cirrhosis) f)[ ] Physical findings of portal hypertension (eg, caput [place]usa) g)[ ] Comorbid disorder indicating risk for portal vein thrombosis (eg , abdominal surgery, sepsis, shock, exchange transfusion, prior umbilical vein catheterization) Extended stay may be needed until ALL of the following are present(20)(38)(47): [ ]a) Hemodynamic stability [ ]b) No evidence of active bleeding (eg, stable Hematocrit) [ ]c) Platelet count, prothrombin time, and partial thromboplastin time acceptable for next level of care [ ]d) Surgical or other acute intervention not needed [ ]e) Oral hydration and diet tolerated The original [facility] content created by Vlad [facility] has been revised. The portions of the content which have been revised are identified through the use of italic text or in bold, and [facility] has neither reviewed nor approved the modified material. All other unmodified content is copyright [facility]. Please see references footnoted in the original [facility] edition 2016 Admission Criteria Met: Yes
[2017-03-17] MEDS ORDERED: NACL ONE (09:16)
[2017-03-17] MEDS: PROTONIX IV SCH (09:22)
[2017-03-17] MEDS: VITAMIN B-1 PO SCH (09:22)
[2017-03-17] MEDS: TENORMIN PO SCH (09:22)
[2017-03-17] MEDS: WELLBUTRIN PO SCH (09:25)
--- NOTE | 2017-03-17 10:14 | Cat Scan Report ---
CC and pelvis with IV contrast: History: Right lower quadrant pain. Findings: Normal lung bases. No pleural pericardial effusion. Normal liver, spleen and pancreas. Patient status post cholecystectomy. Minimal antral wall thickening. Normal adrenals and kidney parenchyma. No calculi or evidence of hydronephrosis. Inadequately distended thickwalled urinary bladder. No free intraperitoneal fluid or air. No evidence of adenopathy. Normal aorta. Normal appendix. No evidence of diverticulitis. Gaseous colon with stool in colon. Impression: Antral wall thickening may be related to peptic disease. Thickwalled urinary bladder probably due to an adequate distention and less likely cystitis.
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
[2017-03-17] MEDS ORDERED: PERCOCET 5/325 PO PRN (12:13)
--- NOTE | 2017-03-17 14:29 | Progress Note ---
Assessment and Plan Assessment and plan: The patient is a 47-year-old -[place] male with past medical history significant for hypertension, depression, bipolar disorder presented to the emergency department for the c/o hematemesis. Patient said he has vomiting of bright red blood 6 times over the last 24 hours. Patient said after he presented to the emergency department he had an episode of melena. Patient also complains right lower abdominal pain. He denied any taking NSAIDs before. He drinks alcohol occasionally 1-2 beers. Patient is also complaining of chest pain that started after he presents to emergency department. Mediastinal chest pain, squeezing, 9 out of 10 in intensity, with radiation to the left shoulder, no aggravating or alleviating factor, no associated shortness of breath or palpitation. Multiple Family members of heart attack. Some parotid lobe and the patient was here 2 weeks ago with similar complaints at the same time also had chest pain. Stress test was not a time with no evidence of active ischemic cardiac disease. Patient had EGD 81 which showed peptic gastritis. He states has been compliant with his home medication. His hemoglobin has been stable since admission. Today he is upset that he has IV pain medication was discontinued. I did spent time explaining the reason why and the patient was agreeable but that he will call back the nurse if the pain continues on the oral medication. Hematemesis with nausea Right lower quadrant pain Atypical chest pain secondary to peptic ulcer disease Hypertension Bipolar disorder Depression Active tobacco use Obesity Plan * Continue to monitor his H&H. * GI input appreciated no role for EGD or colonoscopy at this time. * Continue Protonix * Although GI states okay to give aspirin considering not active ischemic disease and patient appears with possible maligning. We'll hold off on aspirin at this time so as not to complicate his presentation. * Although patient denies malaise or EtOH a cocaine of advised to continue to avoid. Will also minimize narcotics and no dizziness at this time. * Psychiatric follow-up outpatient. * Advance diet. * Anticipate discharge in a.m. * Patient has had multiple admits for somatic complaints in the last 2 years, with essentially negative workup. * Continue appropriate home medications * Counseling for cessation of smoking and weight loss DVT prophylaxis -Heparin Disposition Discharge in AM History Interval history: Patient is seen and examined in no acute distress but upset about pain medication being discontinued Hospitalist Physical - Physical exam Narrative exam: VITAL SIGNS: Reviewed. GENERAL: The patient appeared well nourished and normally developed. Vital signs as documented. HEAD: No signs of head trauma. EYES: Pupils are equal. Extraocular motions intact. EARS: Hearing grossly intact. MOUTH: Oropharynx is normal. NECK: No adenopathy, no JVD. CHEST: Chest with clear breath sounds bilaterally. No wheezes, rales, or rhonchi. CARDIAC: Regular rate and rhythm. S1 and S2, without murmurs, gallops, or rubs. VASCULAR: No Edema. Peripheral pulses normal and equal in all extremities. ABDOMEN: Soft, tender right lower quadrant. No sign of distention. No rebound or guarding, and no masses palpated. Bowel Sounds normal. MUSCULOSKELETAL: Good range of motion of all major joints. Extremities without clubbing, cyanosis or edema. NEUROLOGIC EXAM: Alert and oriented x 3. No focal sensory or strength deficits. Speech normal. Follows commands. PSYCHIATRIC: Mood normal. SKIN: No rash or lesions. L - Constitutional Vitals: Temp Pulse Resp BP Pulse Ox 97.8 F 84 20 100/67 99 03/17/17 08:05 03/17/17 10:00 03/17/17 12:50 03/17/17 08:05 03/17/17 10:00 Results - Labs CBC & Chem 7: 03/17/17 05:01 03/17/17 05:00 Labs: Laboratory Last Values WBC 4.8 K/mm3 (4.5-11.0) 03/17/17 05:01 RBC 4.32 M/mm3 (3.65-5.03) 03/17/17 05:01 Hgb 13.1 gm/dl (11.8-15.2) 03/17/17 05:01 Hct 39.8 % (35.5-45.6) 03/17/17 05:01 MCV 92 fl (84-94) 03/17/17 05:01 MCH 30 pg (28-32) 03/17/17 05:01 MCHC 33 % (32-34) 03/17/17 05:01 RDW 13.8 % (13.2-15.2) 03/17/17 05:01 Plt Count 211 K/mm3 (140-440) 03/17/17 05:01 Lymph % (Auto) 52.4 % (13.4-35.0) H 03/17/17 05:01 [place] % (Auto) 8.9 % (0.0-7.3) H 03/17/17 05:01 Eos % (Auto) 2.6 % (0.0-4.3) 03/17/17 05:01 Baso % (Auto) 0.6 % (0.0-1.8) 03/17/17 05:01 Lymph # 2.5 K/mm3 (1.2-5.4) 03/17/17 05:01 [place] # 0.4 K/mm3 (0.0-0.8) 03/17/17 05:01 Eos # 0.1 K/mm3 (0.0-0.4) 03/17/17 05:01 Baso # 0.0 K/mm3 (0.0-0.1) 03/17/17 05:01 Add Manual Diff Complete 03/16/17 06:17 Total Counted 100 03/16/17 06:17 Seg Neutrophils % 35.5 % (40.0-70.0) L 03/17/17 05:01 Seg Neuts % (Manual) 40.0 % (40.0-70.0) 03/16/17 06:17 Band Neutrophils % 6.0 % 03/16/17 06:17 Lymphocytes % (Manual) 35.0 % (13.4-35.0) 03/16/17 06:17 Reactive Lymphs % (Man) 0 % 03/16/17 06:17 Monocytes % (Manual) 10.0 % (0.0-7.3) H 03/16/17 06:17 Eosinophils % (Manual) 5.0 % (0.0-4.3) H 03/16/17 06:17 Basophils % (Manual) 0 % (0.0-1.8) 03/16/17 06:17 Metamyelocytes % 4.0 % 03/16/17 06:17 Myelocytes % 0 % 03/16/17 06:17 Promyelocytes % 0 % 03/16/17 06:17 Blast Cells % 0 % 03/16/17 06:17 Nucleated RBC % Not Reportable 03/16/17 06:17 Seg Neutrophils # 1.7 K/mm3 (1.8-7.7) L 03/17/17 05:01 Seg Neutrophils # Man 2.1 K/mm3 (1.8-7.7) 03/16/17 06:17 Band Neutrophils # 0.3 K/mm3 03/16/17 06:17 Lymphocytes # (Manual) 1.9 K/mm3 (1.2-5.4) 03/16/17 06:17 Abs React Lymphs (Man) 0.0 K/mm3 03/16/17 06:17 Monocytes # (Manual) 0.5 K/mm3 (0.0-0.8) 03/16/17 06:17 Eosinophils # (Manual) 0.3 K/mm3 (0.0-0.4) 03/16/17 06:17 Basophils # (Manual) 0.0 K/mm3 (0.0-0.1) 03/16/17 06:17 Metamyelocytes # 0.2 K/mm3 03/16/17 06:17 Myelocytes # 0.0 K/mm3 03/16/17 06:17 Promyelocytes # 0.0 K/mm3 03/16/17 06:17 Blast Cells # 0.0 K/mm3 03/16/17 06:17 WBC Morphology Not Reportable 03/16/17 06:17 Hypersegmented Neuts Not Reportable 03/16/17 06:17 Hyposegmented Neuts Not Reportable 03/16/17 06:17 Hypogranular Neuts Not Reportable 03/16/17 06:17 Smudge Cells Not Reportable 03/16/17 06:17 Toxic Granulation Not Reportable 03/16/17 06:17 Toxic Vacuolation Not Reportable 03/16/17 06:17 Dohle Bodies Not Reportable 03/16/17 06:17 Pelger-Huet Anomaly Not Reportable 03/16/17 06:17 Janna Rods Not Reportable 03/16/17 06:17 Platelet Estimate Appears normal 03/16/17 06:17 Clumped Platelets Few 03/16/17 06:17 Plt Clumps, EDTA Not Reportable 03/16/17 06:17 Large Platelets Not Reportable 03/16/17 06:17 Giant Platelets Not Reportable 03/16/17 06:17 Platelet Satelliting Not Reportable 03/16/17 06:17 Plt Morphology Comment Not Reportable 03/16/17 06:17 RBC Morphology Not Reportable 03/16/17 06:17 Dimorphic RBCs Not Reportable 03/16/17 06:17 Polychromasia Not Reportable 03/16/17 06:17 Hypochromasia 1+ 03/16/17 06:17 Poikilocytosis Not Reportable 03/16/17 06:17 Anisocytosis 1+ 03/16/17 06:17 Microcytosis Not Reportable 03/16/17 06:17 Macrocytosis Not Reportable 03/16/17 06:17 Spherocytes Not Reportable 03/16/17 06:17 Pappenheimer Bodies Not Reportable 03/16/17 06:17 Sickle Cells Not Reportable 03/16/17 06:17 Target Cells Not Reportable 03/16/17 06:17 Tear Drop Cells Not Reportable 03/16/17 06:17 Ovalocytes Not Reportable 03/16/17 06:17 Helmet Cells Not Reportable 03/16/17 06:17 [place] Bodies Not Reportable 03/16/17 06:17 [place] Rings Not Reportable 03/16/17 06:17 Felipe Cells Not Reportable 03/16/17 06:17 Bite Cells Not Reportable 03/16/17 06:17 Crenated Cell Not Reportable 03/16/17 06:17 Elliptocytes Not Reportable 03/16/17 06:17 Acanthocytes (Spur) Not Reportable 03/16/17 06:17 Rouleaux Not Reportable 03/16/17 06:17 Hemoglobin C Crystals Not Reportable 03/16/17 06:17 Schistocytes Not Reportable 03/16/17 06:17 Malaria parasites Not Reportable 03/16/17 06:17 Shankar Bodies Not Reportable 03/16/17 06:17 Hem Pathologist Commnt No 03/16/17 06:17 PT 12.6 Sec. (12.2-14.9) 03/16/17 22:40 INR 0.95 (0.87-1.13) 03/16/17 22:40 APTT 29.8 Sec. (24.2-36.6) 03/16/17 22:40 Sodium 135 mmol/L (137-145) L 03/17/17 05:00 Potassium 3.5 mmol/L (3.6-5.0) L 03/17/17 05:00 Chloride 96.5 mmol/L (98-107) L 03/17/17 05:00 Carbon Dioxide 21 mmol/L (22-30) L 03/17/17 05:00 Anion Gap 21 mmol/L 03/17/17 05:00 BUN 12 mg/dL (9-20) 03/17/17 05:00 Creatinine 0.4 mg/dL (0.8-1.5) L 03/17/17 05:00 Estimated GFR > 60 ml/min 03/17/17 05:00 BUN/Creatinine Ratio 30.00 % 03/17/17 05:00 Glucose 259 mg/dL (75-100) H 03/17/17 05:00 POC Glucose 205 (70-105) H 03/17/17 08:43 Hemoglobin A1c 8.4 % (4-6) H 03/16/17 22:40 Calcium 8.2 mg/dL (8.4-10.2) L 03/17/17 05:00 Total Bilirubin 0.80 mg/dL (0.1-1.2) 03/16/17 06:17 Direct Bilirubin 0.2 mg/dL (0-0.2) 03/16/17 06:17 Indirect Bilirubin 0.6 mg/dL 03/16/17 06:17 AST 32 units/L (5-40) 03/16/17 06:17 ALT 27 units/L (7-56) 03/16/17 06:17 Alkaline Phosphatase 75 units/L (35-129) 03/16/17 06:17 Total Creatine Kinase 85 units/L (55-170) 03/16/17 21:04 CK-MB (CK-2) < 1.0 ng/mL (0.0-4.0) 03/16/17 21:04 CK-MB (CK-2) Rel Index 1.1 (0-4) 03/16/17 21:04 Troponin T < 0.010 ng/mL (0.00-0.029) 03/16/17 21:04 Total Protein 7.8 g/dL (6.3-8.2) 03/16/17 06:17 Albumin 4.5 g/dL (3.9-5) 03/16/17 06:17 Albumin/Globulin Ratio 1.4 % 03/16/17 06:17 Triglycerides 219 mg/dL (2-149) H 03/16/17 22:40 Cholesterol 191 mg/dL (50-199) 03/16/17 22:40 LDL Cholesterol Direct 98 mg/dL (50-130) 03/16/17 22:40 HDL Cholesterol 50 mg/dL (40-59) 03/16/17 22:40 Cholesterol/HDL Ratio 3.82 % 03/16/17 22:40 Urine Color Yellow (Yellow) 03/16/17 06:57 Urine Turbidity Clear (Clear) 03/16/17 06:57 Urine pH 5.0 (5.0-7.0) 03/16/17 06:57 Ur Specific [place] 1.024 (1.003-1.030) 03/16/17 06:57 Urine Protein <15 mg/dl mg/dL (Negative) 03/16/17 06:57 Urine Glucose (UA) >=500 mg/dL (Negative) 03/16/17 06:57 Urine Ketones Neg mg/dL (Negative) 03/16/17 06:57 Urine Blood Neg (Negative) 03/16/17 06:57 Urine Nitrite Neg (Negative) 03/16/17 06:57 Urine Bilirubin Neg (Negative) 03/16/17 06:57 Urine Urobilinogen < 2.0 mg/dL (<2.0) 03/16/17 06:57 Ur Leukocyte Esterase Neg (Negative) 03/16/17 06:57 Urine WBC (Auto) 1.0 /HPF (0.0-6.0) 03/16/17 06:57 Urine RBC (Auto) < 1.0 /HPF (0.0-6.0) 03/16/17 06:57 U Epithel Cells (Auto) < 1.0 /HPF (0-13.0) 03/16/17 06:57 Urine Mucus Few /HPF 03/16/17 06:57 Blood Type O POSITIVE 03/16/17 21:09 Antibody Screen Negative 03/16/17 21:09 - Imaging and Cardiology CT scan - abdomen: image reviewed (peptic disease)
[2017-03-17] MEDS ORDERED: D50W (25GM) Syringe IV PRN (14:46)
[2017-03-17] MEDS: NOVOLOG SUB-Q SCH ×2 (16:44→21:55)
[2017-03-17] MEDS ORDERED: AMBIEN PO PRN (20:56)
[2017-03-17] MEDS ORDERED: MORPHINE IV ONE (21:30)
[2017-03-18] MEDS ORDERED: PERCOCET 5/325 PO PRN (00:41)
--- NOTE | 2017-03-18 08:54 | Discharge Summary ---
Providers - Providers Date of Admission: 03/16/17 22:29 Attending physician: ASIF CAMARILLO MD 03/16/17 Consult to Cardiac Rehabilitation [CONS] Routine Reason For Exam: Phase I 03/16/17 22:32 Consult to Physician [CONS] Routine Consulting Provider: SOUMYA MEDINA Reason For Exam: hematemesis, melena Place consult to:: GI Notified:: Kameron ESQUIVEL Phone number called:: Was contact made?: Yes If yes, spoke with:: [facility] Time called:: 09:29 Primary care physician: SAND BLASTER Hospitalization Condition: Fair Hospital course: The patient is a 47-year-old -[place] male with past medical history significant for hypertension, depression, bipolar disorder presented to the emergency department for the c/o hematemesis. Patient said he has vomiting of bright red blood 6 times over the last 24 hours. Patient said after he presented to the emergency department he had an episode of melena. Patient also complains right lower abdominal pain. He denied any taking NSAIDs before. He drinks alcohol occasionally 1-2 beers. Patient is also complaining of chest pain that started after he presents to emergency department. Mediastinal chest pain, squeezing, 9 out of 10 in intensity, with radiation to the left shoulder, no aggravating or alleviating factor, no associated shortness of breath or palpitation. Multiple Family members of heart attack. Some parotid lobe and the patient was here 2 weeks ago with similar complaints at the same time also had chest pain. Stress test was not a time with no evidence of active ischemic cardiac disease. Patient had EGD 81 which showed peptic gastritis. He states has been compliant with his home medication. His hemoglobin has been stable since admission. Today he is upset that he has IV pain medication was discontinued. I did spent time explaining the reason why and the patient was agreeable but that he will call back the nurse if the pain continues on the oral medication. Hematemesis with nausea Right lower quadrant pain Atypical chest pain secondary to peptic ulcer disease Hypertension Bipolar disorder Depression Active tobacco use Obesity Plan * Continue to monitor his H&H. * GI input appreciated no role for EGD or colonoscopy at this time. * Continue Protonix * Although GI states okay to give aspirin considering not active ischemic disease and patient appears with possible maligning. We'll hold off on aspirin at this time so as not to complicate his presentation. * Although patient denies malaise or EtOH a cocaine of advised to continue to avoid. Will also minimize narcotics and no dizziness at this time. * Psychiatric follow-up outpatient. * Advance diet. * Anticipate discharge in a.m. * Patient has had multiple admits for somatic complaints in the last 2 years, with essentially negative workup. * Continue appropriate home medications * Counseling for cessation of smoking and weight loss DVT prophylaxis Disposition: DC-01 TO HOME OR SELFCARE Time spent for discharge: 35 mins Core Measure Documentation - Palliative Care Palliative Care/ Comfort Measures: Not Applicable Exam - Physical Exam Narrative exam: VITAL SIGNS: Reviewed. GENERAL: The patient appeared well nourished and normally developed. Vital signs as documented. HEAD: No signs of head trauma. EYES: Pupils are equal. Extraocular motions intact. EARS: Hearing grossly intact. MOUTH: Oropharynx is normal. NECK: No adenopathy, no JVD. CHEST: Chest with clear breath sounds bilaterally. No wheezes, rales, or rhonchi. CARDIAC: Regular rate and rhythm. S1 and S2, without murmurs, gallops, or rubs. VASCULAR: No Edema. Peripheral pulses normal and equal in all extremities. ABDOMEN: Soft, tender right lower quadrant. No sign of distention. No rebound or guarding, and no masses palpated. Bowel Sounds normal. MUSCULOSKELETAL: Good range of motion of all major joints. Extremities without clubbing, cyanosis or edema. NEUROLOGIC EXAM: Alert and oriented x 3. No focal sensory or strength deficits. Speech normal. Follows commands. PSYCHIATRIC: Mood normal. SKIN: No rash or lesions. L - Constitutional Vitals: Temp Pulse Resp BP Pulse Ox 98.1 F 65 18 119/66 96 03/18/17 04:55 03/18/17 04:55 03/18/17 04:55 03/18/17 04:55 03/18/17 04:55 Plan Activity: advance as tolerated, fall precautions Diet: low fat Special Instructions: smoking cessation Durable Medical Equipment Needed Upon Discharge: other (must quit tobacco and etoh) Follow up with: PRIMARY CAREMD [Primary Care Provider] - 3-5 Days SOUMYA MEDINA MD [Staff Physician] - 7 Days Prescriptions: metFORMIN [Glucophage] 500 mg PO BIDDIAB #60 tablet Pantoprazole [Protonix TAB] 40 mg PO QDAY #30 day
[2017-03-18] MEDS: WELLBUTRIN PO SCH (09:58)
[2017-03-18] MEDS: VITAMIN B-1 PO SCH (09:58)
[2017-03-18] MEDS: TENORMIN PO SCH (09:58)
[2017-03-18] MEDS ORDERED: GLUCOPHAGE PO SCH (10:00)
[2017-03-18 13:44] VITALS: BP 160/108
== END 2017-03-18 15:17 | disposition home or self-care (01) | DRG 379 ==
LOC: ED 05:57 → 4A 22:29
PROVIDERS: ADMIT Internal Medicine; ATTEND Internal Medicine
DX: K27.4 Chronic or unspecified peptic ulcer, site unspecified, with hemorrhage (principal); I10 Essential (primary) hypertension; Z91.018 Allergy to other foods; E11.9 Type 2 diabetes mellitus without complications; F20.9 Schizophrenia, unspecified; F31.9 Bipolar disorder, unspecified; Z90.49 Acquired absence of other specified parts of digestive tract; F17.200 Nicotine dependence, unspecified, uncomplicated; E66.9 Obesity, unspecified; Z68.36 Body mass index [BMI] 36.0-36.9, adult; Z82.49 Family history of ischemic heart disease and other diseases of the circulatory system; Z71.3 Dietary counseling and surveillance; Z71.6 Tobacco abuse counseling
CPT/HCPCS: 36415; 74177; 80048; 80061; 80074; 81001; 82271; 82550; 82553; 82962; 83036; 84484; 85007; 85025; 85610; 85730; 86850; 86900; 86901; 93005; 93010; 99406; A9270-GY; C9113; J1815; J2270; Q9967

== ENCOUNTER 2017-06-12 10:47 | Emergency (ER) | payer MEDICARE ==
[2017-06-12 10:54] VITALS: BP 100/79
== END 2017-06-12 10:52 | disposition left against medical advice (07) ==
LOC: ED 10:47
DX: M54.9 Dorsalgia, unspecified (principal); Z53.21 Procedure and treatment not carried out due to patient leaving prior to being seen by health care provider

== ENCOUNTER 2017-06-12 17:26 | Emergency (ER) | payer MEDICARE ==
[2017-06-12 17:36] VITALS: BP 100/79
[2017-06-12 18:25] LABS: Basophils % (Auto) 0.6 % (0.0-1.8); Eosinophils % (Auto) 1.6 % (0.0-4.3); Hematocrit 44.2 % (35.5-45.6); Mean Corpuscular HGB Conc 34 % (32-34); Mean Corpuscular Hemoglobin 31 pg (28-32); Mean Corpuscular Volume 91 fl (84-94); Platelet Count 220 K/mm3 (140-440); Red Blood Count 4.86 M/mm3 (3.65-5.03); Red Cell Distribution Width 12.7 % (13.2-15.2); White Blood Count 5.2 K/mm3 (4.5-11.0)
[2017-06-12 18:41] LABS: Anion Gap 20 mmol/L; BUN/Creatinine Ratio 18; Blood Urea Nitrogen 9 mg/dL (9-20); Calcium 8.5 mg/dL (8.4-10.2); Carbon Dioxide 24 mmol/L (22-30); Chloride 97.9 mmol/L (98-107); Glucose 286 mg/dL (75-100); Potassium 3.5 mmol/L (3.6-5.0); Sodium 138 mmol/L (137-145)
== END 2017-06-12 20:55 | disposition left against medical advice (07) ==
LOC: ED 17:26
DX: Z53.21 Procedure and treatment not carried out due to patient leaving prior to being seen by health care provider (principal)
CPT/HCPCS: 36415; 80048; 85025; G0480; 80320

== ENCOUNTER 2017-06-12 23:14 | Emergency (ER) | payer MEDICARE ==
[2017-06-12 23:48] VITALS: BP 143/99
[2017-06-13 00:06] LABS: Basophils % (Auto) 0.8 % (0.0-1.8); Eosinophils % (Auto) 1.8 % (0.0-4.3); Hematocrit 40.9 % (35.5-45.6); Hemoglobin 13.8 gm/dl (11.8-15.2); Mean Corpuscular HGB Conc 34 % (32-34); Mean Corpuscular Hemoglobin 30 pg (28-32); Mean Corpuscular Volume 90 fl (84-94); Platelet Count 215 K/mm3 (140-440); Red Blood Count 4.53 M/mm3 (3.65-5.03); White Blood Count 4.7 K/mm3 (4.5-11.0)
[2017-06-13 00:33] LABS: Anion Gap 22 mmol/L; BUN/Creatinine Ratio 18; Blood Urea Nitrogen 9 mg/dL (9-20); Calcium 8.8 mg/dL (8.4-10.2); Carbon Dioxide 23 mmol/L (22-30); Chloride 98.4 mmol/L (98-107); Glucose 324 mg/dL (75-100); Potassium 4.2 mmol/L (3.6-5.0); Sodium 139 mmol/L (137-145)
--- NOTE | 2017-06-13 01:55 | Emergency Department Report ---
ED Psych HPI - General Chief Complaint: Psych Stated Complaint: MH CLEARENCE Time Seen by Provider: 06/13/17 01:51 Source: patient, family Mode of arrival: Ambulatory - History of Present Illness Initial Comments: Patient is a 47-year-old male presents to the emergency room for medical clearance to be admitted into outpatient psychiatric therapy. He denies homicidal and suicidal ideations. Patient denies other complaints. MD Complaint: feels depressed -: Gradual, month(s) Associated Psychiatric Symptoms: depression (no suicidal ideation or homicidal ideations) History of same: Yes Quality: constant Improves With: medication, therapy Worsens With: none Context: significant life stressor Associated Symptoms: denies other symptoms Treatments Prior to Arrival: none - Related Data Previous Rx's Medication Instructions Recorded Last Taken Type QUEtiapine [SEROquel] 200 mg PO QHS #30 tablet 11/02/16 2 Days Ago Rx ~03/16/17 buPROPion [Wellbutrin] 150 mg PO DAILY #60 tablet 11/02/16 2 Days Ago Rx ~03/16/17 Acetaminophen [Acetaminophen TAB] 325 mg PO Q4H PRN #30 tablet 03/07/17 2 Days Ago Rx ~03/16/17 Atenolol [Tenormin] 25 mg PO DAILY #30 tab 03/07/17 2 Days Ago Rx ~03/16/17 Fluconazole [Diflucan TAB] 100 mg PO QDAY #14 day 03/07/17 2 Days Ago Rx ~03/16/17 Thiamine [Vitamin B-1] 100 mg PO QDAY #30 tablet 03/07/17 2 Days Ago Rx ~03/16/17 Pantoprazole [Protonix TAB] 40 mg PO QDAY #30 day 03/18/17 Unknown Rx metFORMIN [Glucophage] 500 mg PO BIDDIAB #60 tablet 03/18/17 Unknown Rx Allergies Allergy/AdvReac Type Severity Reaction Status Date / Time Fish Containing Products Allergy Rash Verified 06/12/17 17:33 ED Review of Systems ROS: Stated complaint: MH CLEARENCE Other details as noted in HPI Comment: All other systems reviewed and negative ED Past Medical Hx - Past Medical History Previous Medical History?: Yes Hx Hypertension: Yes (EF 50% on echo 2015, stress test 2017 is neg, shows EF37) Hx Congestive Heart Failure: No Hx Diabetes: Yes Hx Psychiatric Treatment: Yes (depression, schizophrenia, BIPOLAR) Hx Asthma: No Hx COPD: No Hx HIV: No Additional medical history: Obesity. Gastritis,. Alcohol abuse - Surgical History Hx Cholecystectomy: Yes - Family History Family history: hypertension - Social History Smoking Status: Current Every Day Smoker Substance Use Type: None - Medications Home Medications: Home Medications Medication Instructions Recorded Confirmed Last Taken Type QUEtiapine [SEROquel] 200 mg PO QHS #30 tablet 11/02/16 03/18/17 2 Days Ago Rx ~03/16/17 buPROPion [Wellbutrin] 150 mg PO DAILY #60 tablet 11/02/16 03/18/17 2 Days Ago Rx ~03/16/17 Acetaminophen [Acetaminophen TAB] 325 mg PO Q4H PRN #30 tablet 03/07/17 2 Days Ago Rx ~03/16/17 Atenolol [Tenormin] 25 mg PO DAILY #30 tab 03/07/17 03/18/17 2 Days Ago Rx ~03/16/17 Fluconazole [Diflucan TAB] 100 mg PO QDAY #14 day 03/07/17 03/18/17 2 Days Ago Rx ~03/16/17 Thiamine [Vitamin B-1] 100 mg PO QDAY #30 tablet 03/07/17 03/18/17 2 Days Ago Rx ~03/16/17 Pantoprazole [Protonix TAB] 40 mg PO QDAY #30 day 03/18/17 Unknown Rx metFORMIN [Glucophage] 500 mg PO BIDDIAB #60 tablet 03/18/17 Unknown Rx ED Physical Exam - General Limitations: No Limitations General appearance: alert, in no apparent distress - Head Head exam: Present: atraumatic, normocephalic - Eye Eye exam: Present: normal appearance - ENT ENT exam: Present: mucous membranes moist - Neck Neck exam: Present: normal inspection - Respiratory Respiratory exam: Present: normal lung sounds bilaterally. Absent: respiratory distress - Cardiovascular Cardiovascular Exam: Present: regular rate, normal rhythm. Absent: systolic murmur, diastolic murmur, rubs, gallop - GI/Abdominal GI/Abdominal exam: Present: soft, normal bowel sounds - Rectal Rectal exam: Present: deferred - Extremities Exam Extremities exam: Present: normal inspection - Back Exam Back exam: Present: normal inspection - Neurological Exam Neurological exam: Present: alert, oriented X3 - Psychiatric Psychiatric exam: Present: normal affect, normal mood - Skin Skin exam: Present: warm, dry, intact, normal color. Absent: rash ED Course Vital Signs 06/12/17 23:42 Temperature 98.1 F Pulse Rate 107 H Respiratory 18 Rate Blood Pressure 143/99 O2 Sat by Pulse 98 Oximetry ED Medical Decision Making - Lab Data Result diagrams: 06/12/17 23:53 06/12/17 23:53 - Medical Decision Making Psychiatrist outpatient and patient cleared for outpatient admission at the [place]. Patient to be discharged and sent for outpatient therapy. Patient medically cleared and stable for discharge - Differential Diagnosis dep. anx. [facility] Critical care attestation.: If time is entered above; I have spent that time in minutes in the direct care of this critically ill patient, excluding procedure time. ED Disposition Clinical Impression: Depression, Hyperglycemia Disposition: DC-01 TO HOME OR SELFCARE Is pt being admited?: No Does the pt Need Aspirin: No Condition: Stable Instructions: Depression (ED) Additional Instructions: Patient follow up primary care in 3-5 days. Patient to follow up with psychiatry. Patient to return to ER condition worsens. Referrals: PRIMARY CARE, [Primary Care Provider] - 3-5 Days Time of Disposition: 01:55
[2017-06-13 02:53] LABS: Urine Drugs of Abuse Note Disclamer
[2017-06-13 03:17] LABS: Bilirubin,Urine NEG (Negative); Blood,Urine NEG (Negative); Ketones,Urine NEG (Negative); Leukocyte Esterase,Urine NEG (Negative); Nitrite,Urine NEG (Negative); Protein,Urine <15 mg/dL mg/dL (Negative); Urobilinogen,Urine < 2.0 mg/dL (<2.0); WBC,Urine < 1.0 /HPF (0.0-6.0)
--- NOTE | 2017-06-13 15:09 | Consultation ---
History of Present Illness - Reason for Consult Consult date: 06/13/17 Reason for consult: Mental Health Evaluation Requesting physician: KASSIDY YEBOAH III - Chief Complaint Chief complaint: "I want help" - History of Present Psychiatric Illness Patient is a 47-year-old male presents to the emergency room for medical clearance to be admitted into outpatient psychiatric therapy. Today patient is calm and cooperative during the assessment. He stated that he want to "completely" stop drinking (etoh). He stated that he relapsed yesterday after several months of sobriety. He stated having an hx of Bipolar DO, but is compliant with his medications. He denies SI/HI's and AVH's. He denies being depressed, but is upset with his decision to start drinking again. He denies recreational drug use, but positive for marijuana. Medications and Allergies Allergies Allergy/AdvReac Type Severity Reaction Status Date / Time Fish Containing Products Allergy Rash Verified 06/12/17 17:33 Home Medications Medication Instructions Recorded Confirmed Last Taken Type QUEtiapine [SEROquel] 200 mg PO QHS #30 tablet 11/02/16 03/18/17 2 Days Ago Rx ~03/16/17 buPROPion [Wellbutrin] 150 mg PO DAILY #60 tablet 11/02/16 03/18/17 2 Days Ago Rx ~03/16/17 Acetaminophen [Acetaminophen TAB] 325 mg PO Q4H PRN #30 tablet 03/07/17 2 Days Ago Rx ~03/16/17 Atenolol [Tenormin] 25 mg PO DAILY #30 tab 03/07/17 03/18/17 2 Days Ago Rx ~03/16/17 Fluconazole [Diflucan TAB] 100 mg PO QDAY #14 day 03/07/17 03/18/17 2 Days Ago Rx ~03/16/17 Thiamine [Vitamin B-1] 100 mg PO QDAY #30 tablet 03/07/17 03/18/17 2 Days Ago Rx ~03/16/17 Pantoprazole [Protonix TAB] 40 mg PO QDAY #30 day 03/18/17 Unknown Rx metFORMIN [Glucophage] 500 mg PO BIDDIAB #60 tablet 03/18/17 Unknown Rx Past psychiatric history - Past Medical History Past Medical History: hypertension Past Surgical History: No surgical history - past Psychiatric treatment and history Psych: Bipolar, Depression psychiatric treatment history: Seen outpatient for Bipolar DO. Denies a fam psy hx. - Social History Social history: lives with family Mental Status Exam - Vital signs Last Vital Signs Temp 98.1 F 06/12/17 23:42 Pulse 107 H 06/12/17 23:42 Resp 18 06/12/17 23:42 BP 143/99 06/12/17 23:42 Pulse Ox 98 06/12/17 23:42 - Exam Narrative exam: MSE: Appearance: calm, cooperative Behavior: regular eye contact Speech: regular rate and tone Mood: "okay" Affect: congruent to mood Thought Process: circumstantial Thought Content: denies SI/HI's and AVH's Motor Activity: sitting up in bed Cognition: A/Ox3 Insight: fair Judgment: fair Results Result Diagrams: 06/12/17 23:53 06/12/17 23:53 Abnormal lab results 06/12/17 06/12/17 06/13/17 Range/Units 23:53 23:53 02:39 RDW 13.0 L (13.2-15.2) % Lymph % (Auto) 46.6 H (13.4-35.0) % Drew % (Auto) 10.0 H (0.0-7.3) % Creatinine 0.5 L (0.8-1.5) mg/dL Glucose 324 H (75-100) mg/dL Ur Specific [place] 1.035 H (1.003-1.030) All other labs normal. Assessment and Plan Assessment and plan: Impression: Hx of Bipolar DO. Substance Use DO (cocaine). Today patient is calm and cooperative during the assessment. Alcohol serum WNL. DDx: Alcohol Use DO Recommendation/Plan: Recommended [facility] to patient and he agreed. Discussed the importance to abstain from recreational drug use and alcohol consumption with patient.
== END 2017-06-13 08:40 | disposition home or self-care (01) ==
LOC: ED 23:14
DX: F31.9 Bipolar disorder, unspecified (principal); F20.9 Schizophrenia, unspecified; E11.65 Type 2 diabetes mellitus with hyperglycemia; I10 Essential (primary) hypertension; F17.200 Nicotine dependence, unspecified, uncomplicated; Z91.013 Allergy to seafood; Z79.899 Other long term (current) drug therapy
CPT/HCPCS: 36415; 80048; 80307; 81001; 85025; 99284; G0480; 80320

== ENCOUNTER 2017-06-14 04:50 | Emergency (ER) | payer MEDICARE ==
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
[2017-06-14] MEDS ORDERED: BENADRYL IM ONE (11:45)
[2017-06-14] MEDS ORDERED: DELTASONE PO ONE (11:45)
[2017-06-14] MEDS ORDERED: PEPCID PO ONE (11:45)
[2017-06-14] MEDS ORDERED: TRIPLE ANTIBIOTIC TP ONE (11:45)
[2017-06-14 13:19] VITALS: BP 136/86
== END 2017-06-14 13:18 | disposition home or self-care (01) ==
LOC: ED 04:50
DX: T78.40XA Allergy, unspecified, initial encounter (principal); L85.3 Xerosis cutis; R23.8 Other skin changes; I10 Essential (primary) hypertension; E11.9 Type 2 diabetes mellitus without complications; F20.9 Schizophrenia, unspecified; F31.9 Bipolar disorder, unspecified; F17.200 Nicotine dependence, unspecified, uncomplicated; Z90.49 Acquired absence of other specified parts of digestive tract; Z91.013 Allergy to seafood; X58.XXXA Exposure to other specified factors, initial encounter; Y93.89 Activity, other specified; Y99.8 Other external cause status; Y92.89 Other specified places as the place of occurrence of the external cause
CPT/HCPCS: 96372; 99282; J1200; J7512; A6250

== ENCOUNTER 2017-08-22 17:14 | Emergency (ER) | payer MEDICARE ==
[2017-08-22 21:05] VITALS: BP 102/61
[2017-08-22 21:41] LABS: Basophils % (Auto) 0.5 % (0.0-1.8); Eosinophils # (Auto) 0.1 K/mm3 (0.0-0.4); Eosinophils % (Auto) 1.9 % (0.0-4.3); Hematocrit 38.2 % (35.5-45.6); Lymphocytes # (Auto) 2.5 K/mm3 (1.2-5.4); Mean Corpuscular HGB Conc 34 % (32-34); Mean Corpuscular Hemoglobin 31 pg (28-32); Mean Corpuscular Volume 92 fl (84-94); Monocytes # (Auto) 0.6 K/mm3 (0.0-0.8); Monocytes % (Auto) 8.9 % (0.0-7.3); Platelet Count 226 K/mm3 (140-440); Red Blood Count 4.17 M/mm3 (3.65-5.03); Red Cell Distribution Width 13.5 % (13.2-15.2)
[2017-08-22 21:45] LABS: BUN/Creatinine Ratio 12; Blood Urea Nitrogen 7 mg/dL (9-20); Calcium 8.8 mg/dL (8.4-10.2); Hemolysis Index 19
[2017-08-22 21:56] LABS: Bilirubin,Urine NEG (Negative); Blood,Urine NEG (Negative); Color,Urine Straw (Yellow); Mucus,Urine FEW /HPF; Nitrite,Urine NEG (Negative); Protein,Urine <15 mg/dL mg/dL (Negative); Urobilinogen,Urine < 2.0 mg/dL (<2.0)
[2017-08-22 22:11] LABS: Amphetamine Screen,Urine PRESUMPTIVE NEGATIVE; Benzodiazepines Screen,Urine PRESUMPTIVE NEGATIVE; Cannabinoid Screen,Urine PRESUMPTIVE NEGATIVE; Cocaine Screen,Urine PRESUMPTIVE NEGATIVE; Methadone Screen,Urine PRESUMPTIVE NEGATIVE; Opiate Screen,Urine PRESUMPTIVE NEGATIVE
[2017-08-22 22:21] LABS: RBC,Urine < 1.0 /HPF (0.0-6.0)
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
[2017-08-22] MEDS ORDERED: NACL 0.9% 1000 ML 1,000 ML IV ONE (22:46)
== END 2017-08-23 03:11 | disposition home or self-care (01) ==
LOC: ED 17:14
DX: F31.9 Bipolar disorder, unspecified (principal); E11.65 Type 2 diabetes mellitus with hyperglycemia; I10 Essential (primary) hypertension; F20.9 Schizophrenia, unspecified; Z90.49 Acquired absence of other specified parts of digestive tract; Z79.4 Long term (current) use of insulin; Z79.84 Long term (current) use of oral hypoglycemic drugs; Z91.013 Allergy to seafood; Z79.899 Other long term (current) drug therapy
CPT/HCPCS: 36415; 80048; 80307; 81001; 82805; 82962; 85025; 96361; 96374; 99284; G0480; J7030; 80320; J1815

== ENCOUNTER 2017-08-24 03:37 | Emergency (ER) | payer MEDICARE | END 2017-08-24 05:05 | disposition left against medical advice (07) | LOC: ED 03:37 | DX: R10.9 Unspecified abdominal pain (principal); Z53.21 Procedure and treatment not carried out due to patient leaving prior to being seen by health care provider ==

== ENCOUNTER 2017-10-23 12:00 | Inpatient (IN) | payer MEDICARE ==
[2017-10-23] MEDS ORDERED: ASPIRIN PO ONE (12:20)
[2017-10-23 13:03] LABS: Basophils # (Auto) 0.1 K/mm3 (0.0-0.1); Basophils % (Auto) 1.3 % (0.0-1.8); Eosinophils # (Auto) 0.1 K/mm3 (0.0-0.4); Hemoglobin 14.8 gm/dl (11.8-15.2); Lymphocytes % (Auto) 37.5 % (13.4-35.0); Mean Corpuscular HGB Conc 34 % (32-34); Mean Corpuscular Hemoglobin 30 pg (28-32); Mean Corpuscular Volume 88 fl (84-94); Monocytes # (Auto) 0.3 K/mm3 (0.0-0.8); Monocytes % (Auto) 5.6 % (0.0-7.3); Platelet Count 264 K/mm3 (140-440); Red Blood Count 4.89 M/mm3 (3.65-5.03); Red Cell Distribution Width 13.5 % (13.2-15.2)
[2017-10-23 13:14] LABS: BUN/Creatinine Ratio 22; Blood Urea Nitrogen 11 mg/dL (9-20); Calcium 8.8 mg/dL (8.4-10.2); Hemolysis Index 35
[2017-10-23] MEDS ORDERED: HumuLIN R IV ONE (13:29)
[2017-10-23 13:51] LABS: Creatine Kinase MB < 1.0 ng/mL (0.0-4.0)
--- NOTE | 2017-10-23 14:04 | Ultrasound Report ---
FINAL REPORT EXAM: US TESTICULAR DOPPLER COMP HISTORY: testicular swelling and pain for 2 days TECHNIQUE: Ultrasound evaluation of the scrotum and testicles PRIORS: AP CT 08/28/2016 FINDINGS: Bilateral testicular parenchymal echotexture is homogenous without solid or cystic mass. Testicular size is within normal limits and symmetric bilaterally. Right testicle size: 4.6 x 2.2 x 2.9 cm Left testicle size: 4.6 x 2.1 x 3.3 cm Color Doppler evaluation manifests bilateral testicular parenchymal blood flow suggesting against torsion. Epididymis: No hyperemia or enlargement. Varicocele:Small to moderate on the right noted with Valsalva Hydrocele: Slight bilateral fluid may be physiologic. Differential includes very small bilateral hydroceles IMPRESSION: No sonographic evidence of testicular pathology Small to moderate varicocele on the right noted with Valsalva Slight bilateral fluid may be physiologic. Differential includes very small bilateral hydroceles
[2017-10-23 14:09] LABS: INR 0.85 (0.87-1.13)
[2017-10-23] MEDS ORDERED: NACL 0.9% 500 ML 500 ML IV ONE (14:09)
[2017-10-23 14:10] LABS: Partial Thromboplastin Time 29.9 Sec. (24.2-36.6)
[2017-10-23] MEDS ORDERED: D50W (25GM) Syringe IV PRN ×2 (14:35→17:37)
[2017-10-23] MEDS ORDERED: LIDOCAINE VISCOUS 2% PO ONE (14:47)
[2017-10-23] MEDS ORDERED: ALUM-MAG HYDROX-SIMETH 200-200-20MG/5ML PO ONE (14:47)
[2017-10-23] MEDS ORDERED: HumuLIN R 100 UNITS in NACL 0.9% 99 ML IV SCH (15:00)
[2017-10-23] MEDS ORDERED: NACL 0.9% 1000 ML 1,000 ML IV SCH (15:00)
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
[2017-10-23 16:04] LABS: BUN/Creatinine Ratio 20; Blood Urea Nitrogen 10 mg/dL (9-20); Calcium 8.3 mg/dL (8.4-10.2); Hemolysis Index 457
[2017-10-23] MEDS ORDERED: ULTRAM PO ONE (17:06)
[2017-10-23 17:24] LABS: Bilirubin,Urine NEG (Negative); Blood,Urine NEG (Negative); Color,Urine Straw (Yellow); Protein,Urine <15 mg/dL mg/dL (Negative); Urobilinogen,Urine < 2.0 mg/dL (<2.0); WBC,Urine < 1.0 /HPF (0.0-6.0)
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
[2017-10-23 17:34] LABS: Amphetamine Screen,Urine PRESUMPTIVE NEGATIVE; Benzodiazepines Screen,Urine PRESUMPTIVE NEGATIVE; Cannabinoid Screen,Urine PRESUMPTIVE NEGATIVE; Cocaine Screen,Urine PRESUMPTIVE NEGATIVE; Methadone Screen,Urine PRESUMPTIVE NEGATIVE; Opiate Screen,Urine PRESUMPTIVE NEGATIVE
[2017-10-23] MEDS ORDERED: ZOFRAN IV PRN (17:34)
[2017-10-23] MEDS ORDERED: PROVENTIL IH PRN (17:34)
[2017-10-23] MEDS ORDERED: BABY ASPIRIN PO STA (17:34)
[2017-10-23] MEDS ORDERED: TYLENOL PO PRN (17:34)
[2017-10-23] MEDS ORDERED: NITROSTAT SL PRN (17:34)
[2017-10-23] MEDS ORDERED: SODIUM CHLORIDE FLUSH SYRINGE 10 ML IV PRN ×2 (17:34)
[2017-10-23 21:27] LABS: BUN/Creatinine Ratio 20; Blood Urea Nitrogen 10 mg/dL (9-20); Calcium 8.3 mg/dL (8.4-10.2); Hemolysis Index 4
[2017-10-23 21:32] LABS: Chol/HDL Ratio 5.87 %
[2017-10-23] MEDS: HumaLOG SUB-Q SCH (22:19)
[2017-10-23] MEDS: SODIUM CHLORIDE FLUSH SYRINGE 10 ML IV SCH (22:19)
[2017-10-24] MEDS: HumaLOG SUB-Q SCH ×4 (06:29→23:22)
[2017-10-24] MEDS ORDERED: HumaLOG SUB-Q STA (09:15)
[2017-10-24] MEDS: MORPHINE IV PRN ×3 (09:51→23:21)
[2017-10-24] MEDS: ZESTRIL PO SCH (09:53)
[2017-10-24] MEDS: ABILIFY PO SCH (09:53)
[2017-10-24] MEDS: PROTONIX PO SCH (09:53)
[2017-10-24] MEDS ORDERED: ARIPIPRAZOLE 10 MG PO SCH (10:00)
[2017-10-24] MEDS: SODIUM CHLORIDE FLUSH SYRINGE 10 ML IV SCH ×2 (10:00→23:23)
[2017-10-24] MEDS ORDERED: NALTREXONE HCL 50 MG PO SCH (10:00)
[2017-10-24] MEDS ORDERED: NON-FORMULARY (Quetiapine Fumarate [Quetiapine Fumarate] 300 MG) PO SCH (10:00)
--- NOTE | 2017-10-24 12:13 | Discharge Summary ---
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 Rasmussen is a 48 yo man with a history of dm type 2, bipolar d/o and hypertension who presented with cp. He denies current cp and demands to go home. -CP, atypical unlikely acs, Cardiology to evaluate -No acute exacerabation of chf -Poorly controlled DM type 2, a1c 11.2, normal anion gap today but suspected HONK on admission discharge once cleared by cardiology Disposition: DC-01 TO HOME OR SELFCARE Time spent for discharge: 31 min Core Measure Documentation - Palliative Care Palliative Care/ Comfort Measures: Not Applicable - Core Measures Any of the following diagnoses?: none - VTE Discharge Requirements Deep Vein Thrombosis/Pulmonary Embolism Present on Admission: No Has pt received <5 days of overlap therapy or INR<2.0: No Anticoagulant overlap therapy prescribed at discharge: No Contraindication No Overlap Therapy order at DC: Not Indicated Exam - Physical Exam Narrative exam: GEN: WDWN, NAD, Awake, Alert, Orientated HEENT: NCAT, EOMI, PERRL, OP Clear NECK: supple, no adenopathy, no thyromegaly, no JVD CVS/HEART: RRR, normal S1S2, pulses present bilaterally CHEST/LUNGS: CTA B, Symmetrical chest expansion, good air entry bilaterally GI/Abdomen: soft, NTND, good bowel sounds, no guarding or rebound /Bladder: no suprapubic tenderness, no CVA or paraspinal tenderness EXT/Skin: no c/c/e, no obvious rash MSK: FROM x 4 Neuro: CN 2-12 grossly intact, no new focal deficits Psych: calm - Constitutional Vitals: Temp Pulse Resp BP Pulse Ox 97.9 F 95 H 20 146/82 94 10/24/17 07:49 10/24/17 09:53 10/24/17 09:51 10/24/17 09:53 10/24/17 09:47 Plan Activity: other (no strenous activity until cleared by Cardiology) Diet: low salt, diabetic Special Instructions: record blood sugar diary (with meals and at bedtime) Follow up with: PRIMARY CAREMD [Primary Care Provider] - 3-5 Days MIKIE CARRANZA MD [Staff Physician] - 7 Days
--- NOTE | 2017-10-24 12:43 | Progress Note ---
Assessment and Plan Assessment and plan: Mr. Rasmussen is a 48 yo man with a history of dm type 2, bipolar d/o and hypertension who presented with cp. He denies current cp and demands to go home. -CP, atypical unlikely acs, Cardiology to evaluate -No acute exacerabation of chf -Poorly controlled DM type 2, a1c 11.2, normal anion gap today but suspected HONK on admission He refuses to stay pass today. Counseling done. History Interval history: Follow up Chest pains which he denies Hospitalist Physical - Physical exam Narrative exam: GEN: WDWN, NAD, Awake, Alert, Orientated HEENT: NCAT, EOMI, PERRL, OP Clear NECK: supple, no adenopathy, no thyromegaly, no JVD CVS/HEART: RRR, normal S1S2, pulses present bilaterally CHEST/LUNGS: CTA B, Symmetrical chest expansion, good air entry bilaterally GI/Abdomen: soft, NTND, good bowel sounds, no guarding or rebound /Bladder: no suprapubic tenderness, no CVA or paraspinal tenderness EXT/Skin: no c/c/e, no obvious rash MSK: FROM x 4 Neuro: CN 2-12 grossly intact, no new focal deficits Psych: calm - Constitutional Vitals: Temp Pulse Resp BP Pulse Ox 97.9 F 95 H 20 146/82 94 10/24/17 07:49 10/24/17 09:53 10/24/17 10:00 10/24/17 09:53 10/24/17 09:47 General appearance: Present: obese Results - Labs CBC & Chem 7: 10/23/17 12:37 10/23/17 20:49 Labs: Laboratory Last Values WBC 5.4 K/mm3 (4.5-11.0) 10/23/17 12:37 RBC 4.89 M/mm3 (3.65-5.03) 10/23/17 12:37 Hgb 14.8 gm/dl (11.8-15.2) 10/23/17 12:37 Hct 43.0 % (35.5-45.6) 10/23/17 12:37 MCV 88 fl (84-94) 10/23/17 12:37 MCH 30 pg (28-32) 10/23/17 12:37 MCHC 34 % (32-34) 10/23/17 12:37 RDW 13.5 % (13.2-15.2) 10/23/17 12:37 Plt Count 264 K/mm3 (140-440) 10/23/17 12:37 Lymph % (Auto) 37.5 % (13.4-35.0) H 10/23/17 12:37 [place] % (Auto) 5.6 % (0.0-7.3) 10/23/17 12:37 Eos % (Auto) 1.0 % (0.0-4.3) 10/23/17 12:37 Baso % (Auto) 1.3 % (0.0-1.8) 10/23/17 12:37 Lymph # 2.0 K/mm3 (1.2-5.4) 10/23/17 12:37 [place] # 0.3 K/mm3 (0.0-0.8) 10/23/17 12:37 Eos # 0.1 K/mm3 (0.0-0.4) 10/23/17 12:37 Baso # 0.1 K/mm3 (0.0-0.1) 10/23/17 12:37 Seg Neutrophils % 54.6 % (40.0-70.0) 10/23/17 12:37 Seg Neutrophils # 2.9 K/mm3 (1.8-7.7) 10/23/17 12:37 PT 12.0 Sec. (12.2-14.9) L 10/23/17 13:37 INR 0.85 (0.87-1.13) L 10/23/17 13:37 APTT 29.9 Sec. (24.2-36.6) 10/23/17 13:37 D-Dimer < 135.00 ng/mlDDU (0-234) 10/23/17 20:38 VBG pH 7.381 (7.320-7.420) 10/23/17 13:37 Sodium 135 mmol/L (137-145) L 10/23/17 20:49 Potassium 4.1 mmol/L (3.6-5.0) D 10/23/17 20:49 Chloride 98.0 mmol/L (98-107) 10/23/17 20:49 Carbon Dioxide 25 mmol/L (22-30) 10/23/17 20:49 Anion Gap 16 mmol/L 10/23/17 20:49 BUN 10 mg/dL (9-20) 10/23/17 20:49 Creatinine 0.5 mg/dL (0.8-1.5) L 10/23/17 20:49 Estimated GFR > 60 ml/min 10/23/17 20:49 BUN/Creatinine Ratio 20 % 10/23/17 20:49 Glucose 423 mg/dL (75-100) H 10/23/17 20:49 POC Glucose 308 (70-105) H 10/24/17 08:38 Hemoglobin A1c 11.2 % (4-6) H 10/23/17 20:38 Calcium 8.3 mg/dL (8.4-10.2) L 10/23/17 20:49 Phosphorus 2.80 mg/dL (2.5-4.5) 10/23/17 15:27 Magnesium 1.70 mg/dL (1.7-2.3) 10/23/17 15:27 Total Creatine Kinase 73 units/L (55-170) 10/23/17 12:47 CK-MB (CK-2) < 1.0 ng/mL (0.0-4.0) 10/23/17 12:47 CK-MB (CK-2) Rel Index 1.3 (0-4) 10/23/17 12:47 Troponin T < 0.010 ng/mL (0.00-0.029) 10/23/17 22:57 Triglycerides 240 mg/dL (2-149) H 10/23/17 20:50 Cholesterol 182 mg/dL (50-199) 10/23/17 20:50 LDL Cholesterol Direct 124 mg/dL (50-130) 10/23/17 20:50 HDL Cholesterol 31 mg/dL (40-59) L 10/23/17 20:50 Cholesterol/HDL Ratio 5.87 % 10/23/17 20:50 Urine Color Straw (Yellow) 10/23/17 17:00 Urine Turbidity Clear (Clear) 10/23/17 17:00 Urine pH 6.0 (5.0-7.0) 10/23/17 17:00 Ur Specific [place] 1.033 (1.003-1.030) H 10/23/17 17:00 Urine Protein <15 mg/dl mg/dL (Negative) 10/23/17 17:00 Urine Glucose (UA) >=500 mg/dL (Negative) 10/23/17 17:00 Urine Ketones Tr mg/dL (Negative) 10/23/17 17:00 Urine Blood Neg (Negative) 10/23/17 17:00 Urine Nitrite Neg (Negative) 10/23/17 17:00 Urine Bilirubin Neg (Negative) 10/23/17 17:00 Urine Urobilinogen < 2.0 mg/dL (<2.0) 10/23/17 17:00 Ur Leukocyte Esterase Neg (Negative) 10/23/17 17:00 Urine WBC (Auto) < 1.0 /HPF (0.0-6.0) 10/23/17 17:00 Urine RBC (Auto) 1.0 /HPF (0.0-6.0) 10/23/17 17:00 Urine Opiates Screen Presumptive negative 10/23/17 17:02 Urine Methadone Screen Presumptive negative 10/23/17 17:02 Ur Barbiturates Screen Presumptive negative 10/23/17 17:02 Ur Phencyclidine Scrn Presumptive negative 10/23/17 17:02 Ur Amphetamines Screen Presumptive negative 10/23/17 17:02 U Benzodiazepines Scrn Presumptive negative 10/23/17 17:02 Urine Cocaine Screen Presumptive negative 10/23/17 17:02 U Marijuana (THC) Screen Presumptive negative 10/23/17 17:02 Drugs of Abuse Note Disclamer 10/23/17 17:02 Plasma/Serum Alcohol 0.07 % (0-0.07) 10/23/17 13:37
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
[2017-10-25] MEDS: MORPHINE IV PRN (06:53)
[2017-10-25] MEDS: HumaLOG SUB-Q SCH ×2 (07:30→12:30)
[2017-10-25] MEDS: ZESTRIL PO SCH (10:57)
[2017-10-25] MEDS: PROTONIX PO SCH (10:57)
[2017-10-25] MEDS: ABILIFY PO SCH (10:58)
--- NOTE | 2017-10-25 16:39 | Discharge Summary ---
Providers - Providers Date of Admission: 10/23/17 17:34 Date of discharge: 10/25/17 Attending physician: RONDA ELLIS MD 10/23/17 Consult to Cardiac Rehabilitation [CONS] Routine Reason For Exam: Phase I Primary care physician: [facility] Hospitalization Condition: Stable Hospital course: Patient is a 47-year-old -[place] man who presented to the emergency room with complaints of chest pain Patient underwent cardiac workup which began with serial troponins that were negative. Cardiology services was consulted and determined that no further cardiac workup is indicated at this time. Extensive noninvasive and invasive cardiac evaluation within the past year and a half demonstrates no significant coronary artery disease, per cardiology. Aggressive risk factor modification including smoking cessation and better control of his diabetes have been recommended to patient. Patient is clinically stable for discharge home from cardiac standpoint and will resume home medications. As patient's glucose levels were elevated, patient was initiated on insulin therapy and will continue his outpatient metformin. Patient is advised to follow-up with a primary care provider within 1 week of discharge. Discharge diagnoses Atypical chest pain Hypertension Diabetes type 2 with hyperglycemia Diastolic congestive heart failure Bipolar 1 disorder Disposition: DC-01 TO HOME OR SELFCARE Time spent for discharge: 32 minutes Core Measure Documentation - Palliative Care Palliative Care/ Comfort Measures: Not Applicable - Core Measures Any of the following diagnoses?: none Exam - Constitutional Vitals: Temp Pulse Resp BP Pulse Ox 97.9 F 49 L 18 149/100 95 10/25/17 12:02 10/25/17 12:02 10/25/17 12:02 10/25/17 12:02 10/25/17 12:02 General appearance: Present: no acute distress, well-nourished, obese - EENT Eyes: Present: PERRL ENT: hearing intact, clear oral mucosa - Neck Neck: Present: supple, normal ROM - Respiratory Respiratory effort: normal Respiratory: bilateral: CTA - Cardiovascular Heart Sounds: Present: S1 & S2. Absent: rub, click - Extremities Extremities: pulses symmetrical, No edema Peripheral Pulses: within normal limits - Abdominal General gastrointestinal: Present: soft, non-tender, non-distended, normal bowel sounds - Integumentary Integumentary: Present: clear, warm, dry - Musculoskeletal Musculoskeletal: gait normal, strength equal bilaterally - Psychiatric Psychiatric: appropriate mood/affect, intact judgment & insight - Neurologic Neurologic: CNII-XII intact, moves all extremities Plan Activity: no restrictions, advance as tolerated Weight Bearing Status: Weight Bear as Tolerated Diet: low fat, low cholesterol, low salt, diabetic Follow up with: MIKIE CARRANZA MD [Staff Physician] - 7 Days RAVI DOS SANTOS MD [Staff Physician] - 7 Days PRIMARY CARE, [Primary Care Provider] - 3-5 Days Forms: Work/School Release Form Prescriptions: Insulin Glargine,Hum.rec.anlog [Lantus] 25 units SQ HS #1 vial metFORMIN [Glucophage] 500 mg PO BID #60 tablet Other Discharge Orders: Glucometer supplies[Amb] Location: None Selected
[2017-10-25 16:50] VITALS: BP 135/74
== END 2017-10-25 16:45 | disposition home or self-care (01) | DRG 638 ==
LOC: ED 12:00 → 4A 17:34
PROVIDERS: ADMIT Internal Medicine; ATTEND Internal Medicine
DX: E11.10 Type 2 diabetes mellitus with ketoacidosis without coma (principal); I24.9 Acute ischemic heart disease, unspecified; F31.30 Bipolar disorder, current episode depressed, mild or moderate severity, unspecified; I50.30 Unspecified diastolic (congestive) heart failure; F10.10 Alcohol abuse, uncomplicated; R07.89 Other chest pain; Y90.9 Presence of alcohol in blood, level not specified; F17.200 Nicotine dependence, unspecified, uncomplicated; E66.9 Obesity, unspecified; I11.0 Hypertensive heart disease with heart failure; E11.65 Type 2 diabetes mellitus with hyperglycemia; Z68.35 Body mass index [BMI] 35.0-35.9, adult; Z79.899 Other long term (current) drug therapy; Z79.4 Long term (current) use of insulin; Z91.013 Allergy to seafood; Z90.49 Acquired absence of other specified parts of digestive tract; Z83.3 Family history of diabetes mellitus; Z82.49 Family history of ischemic heart disease and other diseases of the circulatory system
CPT/HCPCS: 36415; 80048; 80061; 80307; 80320; 81001; 82550; 82553; 82805; 82962; 83036; 83735; 84100; 84484; 85025; 85379; 85610; 85730; 87591; 93005; 93010; 93975; 94760; 96365; 96366; 96376; G0480; J1815; J2270; J7030; J7040

== ENCOUNTER 2017-12-21 21:29 | Emergency (ER) | payer MEDICARE ==
[2017-12-21 21:56] VITALS: BP 110/77
[2017-12-21] MEDS ORDERED: NACL 0.9% 1000 ML 1,000 ML IV ONE (21:56)
[2017-12-21 23:17] LABS: Hematocrit 42.8 % (35.5-45.6); Hemoglobin 14.7 gm/dl (11.8-15.2); Mean Corpuscular HGB Conc 34 % (32-34); Mean Corpuscular Hemoglobin 31 pg (28-32); Mean Corpuscular Volume 89 fl (84-94); Platelet Count 279 K/mm3 (140-440); Red Blood Count 4.82 M/mm3 (3.65-5.03); Red Cell Distribution Width 13.9 % (13.2-15.2)
[2017-12-21 23:27] LABS: INR 0.98 (0.87-1.13)
[2017-12-21 23:28] LABS: Partial Thromboplastin Time 32.4 Sec. (24.2-36.6)
[2017-12-21 23:38] LABS: Alanine Aminotransferase 13 units/L (7-56); Albumin 4.2 g/dL (3.9-5); BUN/Creatinine Ratio 14; Blood Urea Nitrogen 7 mg/dL (9-20); Calcium 8.8 mg/dL (8.4-10.2); Hemolysis Index 10; Lipase 53 units/L (13-60)
[2017-12-22 00:04] LABS: Band Neutrophils # (Manual) 0.1 K/mm3; Large Platelets Rare; RBC Morphology Normal; Total Cells Counted 100
== END 2017-12-21 22:52 | disposition left against medical advice (07) ==
LOC: ED 21:29
DX: R07.9 Chest pain, unspecified (principal); E11.9 Type 2 diabetes mellitus without complications; F31.9 Bipolar disorder, unspecified; F20.9 Schizophrenia, unspecified; E66.9 Obesity, unspecified; I10 Essential (primary) hypertension; F17.200 Nicotine dependence, unspecified, uncomplicated; Z90.49 Acquired absence of other specified parts of digestive tract; Z91.013 Allergy to seafood; Z53.21 Procedure and treatment not carried out due to patient leaving prior to being seen by health care provider
CPT/HCPCS: 36415; 80053; 83690; 84484; 85007; 85025; 85610; 85730; 86850; 86900; 86901; 93005; 93010

== ENCOUNTER 2018-03-23 16:50 | Emergency (ER) | payer MEDICARE ==
[2018-03-23] MEDS ORDERED: ASPIRIN PO ONE (17:02)
[2018-03-23 17:08] VITALS: BP 162/113
[2018-03-23] MEDS ORDERED: ZOFRAN IV ONE (17:30)
[2018-03-23] MEDS ORDERED: NACL 0.9% 1000 ML 1,000 ML IV ONE (17:30)
[2018-03-23] MEDS ORDERED: PEPCID IV ONE (17:30)
--- NOTE | 2018-03-23 17:32 | Emergency Department Report ---
Blank Doc - Documentation Documentation: Patient is a 48-year-old male with a past history of hypertension and diabetes who states he is no longer taking his diabetic medications and it was taken off his complaining of chest pain. Patient states his midsternal he also has nausea vomiting shortness of breath. Patient states that he's been vomiting copious amounts of blood. Brief physical exam patient has epigastric discomfort on palpation. Patient does appear to be in moderate distress secondary to pain. Lungs are clear heart tones were within normal limits. Patient will be moved to the main ED for further management.
[2018-03-23 17:33] LABS: Basophils % (Auto) 0.8 % (0.0-1.8); Eosinophils # (Auto) 0.1 K/mm3 (0.0-0.4); Eosinophils % (Auto) 1.5 % (0.0-4.3); Hematocrit 40.4 % (35.5-45.6); Hemoglobin 13.9 gm/dl (11.8-15.2); Lymphocytes # (Auto) 2.4 K/mm3 (1.2-5.4); Lymphocytes % (Auto) 48.3 % (13.4-35.0); Mean Corpuscular HGB Conc 35 % (32-34); Mean Corpuscular Hemoglobin 31 pg (28-32); Mean Corpuscular Volume 91 fl (84-94); Monocytes # (Auto) 0.5 K/mm3 (0.0-0.8); Monocytes % (Auto) 9.7 % (0.0-7.3); Platelet Count 224 K/mm3 (140-440); Red Blood Count 4.44 M/mm3 (3.65-5.03); Red Cell Distribution Width 12.4 % (13.2-15.2)
[2018-03-23 17:45] LABS: BUN/Creatinine Ratio 11; Blood Urea Nitrogen 8 mg/dL (9-20); Calcium 10.9 mg/dL (8.4-10.2); Hemolysis Index 5
[2018-03-23 18:14] LABS: Alanine Aminotransferase 24 units/L (7-56); Albumin 4.3 g/dL (3.9-5); Lipase 35 units/L (13-60)
[2018-03-23 18:27] LABS: Bilirubin,Direct < 0.2 mg/dL (0-0.2)
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
== END 2018-03-23 19:02 | disposition home or self-care (01) ==
LOC: ED 16:50
DX: K29.70 Gastritis, unspecified, without bleeding (principal); K20.9 Esophagitis, unspecified; K92.0 Hematemesis; I10 Essential (primary) hypertension; E11.9 Type 2 diabetes mellitus without complications; F20.9 Schizophrenia, unspecified; F31.9 Bipolar disorder, unspecified; Z91.013 Allergy to seafood; Z79.4 Long term (current) use of insulin; Z90.49 Acquired absence of other specified parts of digestive tract
CPT/HCPCS: 36415; 80048; 80074; 83690; 84484; 85025; 93005; 93010; 99284

== ENCOUNTER 2018-09-11 20:35 | Inpatient (IN) | payer MEDICARE ==
--- NOTE | 2018-09-11 20:44 | Emergency Department Report ---
Blank Doc - Documentation Documentation: This is a 48-year-old male that presents with chest pain and shortness of augustine the. This initial assessment/diagnostic orders/clinical plan/treatment(s) is/are subject to change based on patient's health status, clinical progression and re- assessment by fellow clinical providers in the ED. Further treatment and workup at subsequent clinical providers discretion. Patient/guardians urged not to elope from the ED as their condition may be serious if not clinically assessed a nd managed. Initial orders include: 1- Patient sent to MAIN ED for further evaluation and treatment 2- Labs 3- EKG 4- CXR
[2018-09-11 21:09] LABS: Basophils # (Auto) 0.1 K/mm3 (0.0-0.1); Basophils % (Auto) 0.8 % (0.0-1.8); Eosinophils % (Auto) 0.1 % (0.0-4.3); Hematocrit 42.2 % (35.5-45.6); Hemoglobin 14.7 gm/dl (11.8-15.2); Lymphocytes # (Auto) 2.7 K/mm3 (1.2-5.4); Lymphocytes % (Auto) 36.4 % (13.4-35.0); Mean Corpuscular HGB Conc 35 % (32-34); Mean Corpuscular Volume 88 fl (84-94); Monocytes # (Auto) 0.2 K/mm3 (0.0-0.8); Monocytes % (Auto) 3.2 % (0.0-7.3); Platelet Count 232 K/mm3 (140-440); Red Blood Count 4.78 M/mm3 (3.65-5.03); Red Cell Distribution Width 13.3 % (13.2-15.2)
[2018-09-11 21:18] LABS: INR 0.96 (0.87-1.13)
[2018-09-11 21:19] LABS: Partial Thromboplastin Time 27.2 Sec. (24.2-36.6)
--- NOTE | 2018-09-11 21:38 | XRay Report ---
PROCEDURE: XR CHEST ROUTINE 2V TECHNIQUE: Chest 2 views HISTORY: Chest Pain COMPARISONS: Images from prior exams are not available for comparison at this time FINDINGS: Cardiac and mediastinal contours are unremarkable. No focal pulmonary infiltrate identified. No pleur al fluid collections seen. Pulmonary vasculature is unremarkable. IMPRESSION: Negative two-view chest. This document is electronically signed by Mayur Mcgraw MD., September 11 2018 09:36:36 PM ET
[2018-09-11 21:58] LABS: Alanine Aminotransferase 24 units/L (7-56); Albumin 4.4 g/dL (3.9-5); BUN/Creatinine Ratio 18; Blood Urea Nitrogen 11 mg/dL (9-20); Calcium 8.4 mg/dL (8.4-10.2); Hemolysis Index 7
[2018-09-11] MEDS ORDERED: ASPIRIN PO ONE (22:01)
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
[2018-09-11] MEDS ORDERED: MORPHINE IV ONE (22:27)
[2018-09-11 22:59] LABS: Amphetamine Screen,Urine PRESUMPTIVE NEGATIVE; Benzodiazepines Screen,Urine PRESUMPTIVE NEGATIVE; Cocaine Screen,Urine PRESUMPTIVE NEGATIVE; Methadone Screen,Urine PRESUMPTIVE NEGATIVE; Opiate Screen,Urine PRESUMPTIVE NEGATIVE
[2018-09-11 23:22] LABS: Cannabinoid Screen,Urine PRESUMPTIVE POSITIVE
[2018-09-11] MEDS ORDERED: NACL 0.9% 1000 ML 1,000 ML IV ONE (23:36)
[2018-09-12] LABS: Bilirubin,Urine NEG (Negative); Blood,Urine NEG (Negative); Color,Urine Straw (Yellow); Urobilinogen,Urine < 2.0 mg/dL (<2.0)
[2018-09-12] MEDS ORDERED: MORPHINE IV PRN (00:06)
[2018-09-12] MEDS ORDERED: MORPHINE IV ONE (00:09)
[2018-09-12] MEDS ORDERED: D50W (25GM) Syringe IV PRN ×2 (01:31→02:02)
[2018-09-12] MEDS ORDERED: NACL 0.9% 1000 ML 1,000 ML IV ONE (01:31)
[2018-09-12] MEDS ORDERED: KCL 10MEQ/100ML 10 MEQ/100 ML BAG IV PRN (02:00)
[2018-09-12] MEDS ORDERED: HumuLIN R 100 UNITS in NACL 0.9% 99 ML IV SCH (02:00)
[2018-09-12] MEDS ORDERED: SODIUM CHLORIDE FLUSH SYRINGE 10 ML IV PRN (02:02)
[2018-09-12] MEDS ORDERED: ZOFRAN IV PRN (02:02)
[2018-09-12] MEDS ORDERED: TYLENOL PO PRN (02:02)
[2018-09-12] MEDS ORDERED: D5W/0.45% NACL/KCL 20 MEQ 20 MEQ/1,000 ML BAG IV ONE (02:24)
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
[2018-09-12] MEDS ORDERED: NACL 0.9% 1000 ML 1,000 ML IV SCH (03:00)
[2018-09-12] MEDS ORDERED: D5W/0.45% NACL/KCL 20 MEQ 20 MEQ/1,000 ML BAG IV SCH ×2 (03:00)
[2018-09-12 03:59] LABS: BUN/Creatinine Ratio 15; Blood Urea Nitrogen 9 mg/dL (9-20); Calcium 8.2 mg/dL (8.4-10.2); Chol/HDL Ratio 4.34 %; HDL Cholesterol 41 mg/dL (40-59); Hemolysis Index 22; LDL Cholesterol,Direct 120 mg/dL (50-130)
[2018-09-12] MEDS ORDERED: VISTARIL PO PRN (04:20)
[2018-09-12] MEDS ORDERED: COLACE PO PRN (04:20)
[2018-09-12 04:30] LABS: BUN/Creatinine Ratio 18; Blood Urea Nitrogen 9 mg/dL (9-20); Calcium 8.1 mg/dL (8.4-10.2); Hemolysis Index 16
[2018-09-12 05:46] LABS: BUN/Creatinine Ratio 20; Blood Urea Nitrogen 10 mg/dL (9-20); Calcium 8.3 mg/dL (8.4-10.2); Hemolysis Index 12
[2018-09-12 06:26] LABS: BUN/Creatinine Ratio 18; Blood Urea Nitrogen 9 mg/dL (9-20); Calcium 8.2 mg/dL (8.4-10.2); Hemolysis Index 46
[2018-09-12 07:45] LABS: BUN/Creatinine Ratio 16; Blood Urea Nitrogen 8 mg/dL (9-20); Calcium 8.2 mg/dL (8.4-10.2); Hemolysis Index 7
[2018-09-12 07:57] LABS: BUN/Creatinine Ratio 23; Blood Urea Nitrogen 9 mg/dL (9-20); Calcium 8.4 mg/dL (8.4-10.2); Hemolysis Index 12
[2018-09-12 08:52] LABS: BUN/Creatinine Ratio 20; Blood Urea Nitrogen 8 mg/dL (9-20); Calcium 8.3 mg/dL (8.4-10.2); Hemolysis Index 8
[2018-09-12] MEDS ORDERED: NACL 0.9% 1000 ML 1,000 ML ONE (09:10)
[2018-09-12] MEDS: SODIUM CHLORIDE FLUSH SYRINGE 10 ML IV SCH ×2 (09:36→21:27)
[2018-09-12] MEDS ORDERED: MAGNESIUM SULFATE 2GM/50ML 2 GM/50 ML BAG IV ONE ×2 (09:37→10:00)
[2018-09-12] MEDS ORDERED: MORPHINE ONE (09:59)
[2018-09-12] MEDS ORDERED: KPHOS 40 MMOL in NACL 0.9% 500 ML 500 ML IV ONE (10:00)
[2018-09-12] MEDS: MORPHINE IV PRN ×3 (10:11→18:14)
[2018-09-12] MEDS: GLUCOTROL PO SCH ×2 (10:37→17:52)
[2018-09-12] MEDS: PROTONIX PO SCH (10:37)
[2018-09-12] MEDS: TENORMIN PO SCH (10:37)
[2018-09-12] MEDS: PROzac PO SCH (10:37)
[2018-09-12] MEDS: THALITONE PO SCH (10:38)
[2018-09-12] MEDS: WELLBUTRIN XL PO SCH (10:38)
[2018-09-12] MEDS: TRICOR PO SCH (10:38)
[2018-09-12] MEDS: ZESTRIL PO SCH (10:38)
[2018-09-12] MEDS: TRILEPTAL PO SCH ×2 (10:38→21:24)
[2018-09-12 12:41] LABS: Creatine Kinase MB 1.7 ng/mL (0.0-4.0)
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
[2018-09-12] MEDS: HumaLOG SUB-Q SCH ×3 (14:16→21:25)
--- NOTE | 2018-09-12 17:41 | Event Note ---
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 Patient is seen and evaluated, medical records reviewed Anion gap closed, acidosis improved, blood sugars reasonable level DC insulin drip, change IV fluids to normal saline, Accu-Cheks every before meals and at bedtime, SSC Low-dose long-acting insulin, check a hemoglobin A1c, downgraded to m edical/telemetry Closely monitor the patient and adjust her management as needed Patient also has chest pain, significantly improved The patient was extensively evaluated in the past Heart cath ;December/2015, normal coronaries, EF50% Stress test ; no myocardial ischemia, EF mild systolic dysfunction at 37% However echocardiogram done on 04/24/2018; 55-60%, mild concentric LVH, normal diastolic filling Plan of care is reviewed with the patient's nurse and the patient Possible discharge in 1-2 days if stable. If patient continues to have chest pain we will consult cardiology for further evaluation and management
[2018-09-12] MEDS: LOVENOX SUB-Q SCH (21:24)
[2018-09-12] MEDS ORDERED: NON-FORMULARY (Quetiapine Fumarate [Seroquel] 400 MG) PO SCH (22:00)
[2018-09-12] MEDS ORDERED: MINIPRESS PO SCH (22:00)
[2018-09-13] MEDS ORDERED: GLUCOPHAGE PO SCH ×2 (08:00→10:33)
[2018-09-13] MEDS: TRICOR PO SCH (09:22)
[2018-09-13] MEDS: PROTONIX PO SCH (09:22)
[2018-09-13] MEDS: HumaLOG SUB-Q SCH ×4 (09:22→21:58)
[2018-09-13] MEDS: GLUCOTROL PO SCH ×2 (09:23→17:48)
[2018-09-13] MEDS: ZESTRIL PO SCH ×2 (09:23→18:06)
[2018-09-13] MEDS: TENORMIN PO SCH (09:23)
[2018-09-13] MEDS: PROzac PO SCH (09:24)
[2018-09-13] MEDS: TRILEPTAL PO SCH ×2 (09:24→21:57)
--- NOTE | 2018-09-13 10:44 | Progress Note ---
Assessment and Plan Assessment and plan: --Intermittent chest pain; rule out acute coronary syndrome Surgical cardiac enzymes negative, however patient has multiple risk factors Continue aspirin and beta blockers his inhibitors nitrates and statins Echocardiogram for LV function ejection fraction, cardiology consult Possible stress test versus heart cath if needed --Abnormal EKG; ventricular bigeminy, cardiology evaluation Supportive care --Uncontrolled blood sugars/DKA; Improved, Accu-Chek sliding scale coverage and ADA diet Insulin and oral hypoglycemics, check A1c Diabetic education, nutrition education. --Hypertension; moderate control Continue current antihypertensives and when necessary medications --Morbid obesity; BMI 38.4 Advised weight reduction when medically stable --DVT prophylaxis; Lovenox Closely monitor the patient and adjust management as needed History Interval history: Patient seen and examined medical records reviewed No new events reported by the nursing Patient complains of intermittent chest pain Alert awake oriented 3 Vital signs noted Hospitalist Physical - Constitutional Vitals: Temp Pulse Resp BP Pulse Ox 98.1 F 91 H 18 118/79 94 09/13/18 08:20 09/13/18 09:23 09/13/18 08:20 09/13/18 09:23 09/13/18 08:20 General appearance: Present: no acute distress, well-nourished, obese - EENT Eyes: Present: PERRL, EOM intact - Neck Neck: Present: supple, normal ROM - Respiratory Respiratory effort: normal Respiratory: bilateral: diminished, negative: rales, rhonchi, wheezing - Cardiovascular Rhythm: regular Heart Sounds: Present: S1 & S2 - Extremities Extremities: no ischemia, No edema - Abdominal General gastrointestinal: soft, non-tender, non-distended, normal bowel sounds - Integumentary Integumentary: Present: clear, warm - Psychiatric Psychiatric: appropriate mood/affect, cooperative - Neurologic Neurologic: CNII-XII intact, moves all extremities Results - Labs CBC & Chem 7: 09/11/18 20:52 09/12/18 08:30 Labs: Laboratory Last Values WBC 7.5 K/mm3 (4.5-11.0) 09/11/18 20:52 RBC 4.78 M/mm3 (3.65-5.03) 09/11/18 20:52 Hgb 14.7 gm/dl (11.8-15.2) 09/11/18 20:52 Hct 42.2 % (35.5-45.6) 09/11/18 20:52 MCV 88 fl (84-94) 09/11/18 20:52 MCH 31 pg (28-32) 09/11/18 20:52 MCHC 35 % (32-34) H 09/11/18 20:52 RDW 13.3 % (13.2-15.2) 09/11/18 20:52 Plt Count 232 K/mm3 (140-440) 09/11/18 20:52 Lymph % (Auto) 36.4 % (13.4-35.0) H 09/11/18 20:52 [place] % (Auto) 3.2 % (0.0-7.3) 09/11/18 20:52 Eos % (Auto) 0.1 % (0.0-4.3) 09/11/18 20:52 Baso % (Auto) 0.8 % (0.0-1.8) 09/11/18 20:52 Lymph # 2.7 K/mm3 (1.2-5.4) 09/11/18 20:52 [place] # 0.2 K/mm3 (0.0-0.8) 09/11/18 20:52 Eos # 0.0 K/mm3 (0.0-0.4) 09/11/18 20:52 Baso # 0.1 K/mm3 (0.0-0.1) 09/11/18 20:52 Seg Neutrophils % 59.5 % (40.0-70.0) 09/11/18 20:52 Seg Neutrophils # 4.5 K/mm3 (1.8-7.7) 09/11/18 20:52 PT 13.4 Sec. (12.2-14.9) 09/11/18 20:52 INR 0.96 (0.87-1.13) 09/11/18 20:52 APTT 27.2 Sec. (24.2-36.6) 09/11/18 20:52 VBG pH 7.447 (7.320-7.420) H 09/11/18 23:54 Sodium 140 mmol/L (137-145) 09/12/18 08:30 Potassium 3.8 mmol/L (3.6-5.0) 09/12/18 08:30 Chloride 104.3 mmol/L (98-107) 09/12/18 08:30 Carbon Dioxide 23 mmol/L (22-30) 09/12/18 08:30 Anion Gap 17 mmol/L 09/12/18 08:30 BUN 8 mg/dL (9-20) L 09/12/18 08:30 Creatinine 0.4 mg/dL (0.8-1.5) L 09/12/18 08:30 Estimated GFR > 60 ml/min 09/12/18 08:30 BUN/Creatinine Ratio 20 % 09/12/18 08:30 Glucose 166 mg/dL (75-100) H 09/12/18 08:30 POC Glucose 256 (70-105) H 09/13/18 07:48 Hemoglobin A1c 9.4 % (4-6) H 09/12/18 02:46 Calcium 8.3 mg/dL (8.4-10.2) L 09/12/18 08:30 Phosphorus 1.80 mg/dL (2.5-4.5) L 09/12/18 02:46 Magnesium 1.60 mg/dL (1.7-2.3) L 09/12/18 02:46 Total Bilirubin 0.30 mg/dL (0.1-1.2) 09/11/18 20:52 AST 29 units/L (5-40) 09/11/18 20:52 ALT 24 units/L (7-56) 09/11/18 20:52 Alkaline Phosphatase 90 units/L (35-129) 09/11/18 20:52 Total Creatine Kinase 232 units/L (55-170) H 09/12/18 08:30 CK-MB (CK-2) 1.7 ng/mL (0.0-4.0) 09/12/18 08:30 CK-MB (CK-2) Rel Index 0.7 (0-4) 09/12/18 08:30 Troponin T < 0.010 ng/mL (0.00-0.029) 09/12/18 08:30 Total Protein 7.4 g/dL (6.3-8.2) 09/11/18 20:52 Albumin 4.4 g/dL (3.9-5) 09/11/18 20:52 Albumin/Globulin Ratio 1.5 % 09/11/18 20:52 Triglycerides 237 mg/dL (2-149) H 09/12/18 02:46 Cholesterol 178 mg/dL (50-199) 09/12/18 02:46 LDL Cholesterol Direct 120 mg/dL (50-130) 09/12/18 02:46 HDL Cholesterol 41 mg/dL (40-59) 09/12/18 02:46 Cholesterol/HDL Ratio 4.34 % 09/12/18 02:46 Urine Color Straw (Yellow) 09/11/18 22:40 Urine Turbidity Clear (Clear) 09/11/18 22:40 Urine pH 5.0 (5.0-7.0) 09/11/18 22:40 Ur Specific [place] 1.029 (1.003-1.030) 09/11/18 22:40 Urine Protein 30 mg/dl mg/dL (Negative) 09/11/18 22:40 Urine Glucose (UA) >=500 mg/dL (Negative) 09/11/18 22:40 Urine Ketones Tr mg/dL (Negative) 09/11/18 22:40 Urine Blood Neg (Negative) 09/11/18 22:40 Urine Nitrite Neg (Negative) 09/11/18 22:40 Urine Bilirubin Neg (Negative) 09/11/18 22:40 Urine Urobilinogen < 2.0 mg/dL (<2.0) 09/11/18 22:40 Ur Leukocyte Esterase Neg (Negative) 09/11/18 22:40 Urine WBC (Auto) 1.0 /HPF (0.0-6.0) 09/11/18 22:40 Urine RBC (Auto) 2.0 /HPF (0.0-6.0) 09/11/18 22:40 Urine Opiates Screen Presumptive negative 09/11/18 22:40 Urine Methadone Screen Presumptive negative 09/11/18 22:40 Ur Barbiturates Screen Presumptive negative 09/11/18 22:40 Ur Phencyclidine Scrn Presumptive negative 09/11/18 22:40 Ur Amphetamines Screen Presumptive negative 09/11/18 22:40 U Benzodiazepines Scrn Presumptive negative 09/11/18 22:40 Urine Cocaine Screen Presumptive negative 09/11/18 22:40 U Marijuana (THC) Screen Presumptive positive 09/11/18 22:40 Drugs of Abuse Note Disclamer 09/11/18 22:40
[2018-09-13] MEDS ORDERED: NITROSTAT SL PRN (11:04)
[2018-09-13] MEDS: MORPHINE IV PRN ×3 (11:53→22:03)
[2018-09-13] MEDS: THALITONE PO SCH (12:38)
[2018-09-13] MEDS: WELLBUTRIN XL PO SCH (12:38)
[2018-09-13] MEDS: SODIUM CHLORIDE FLUSH SYRINGE 10 ML IV SCH ×2 (12:39→21:57)
--- NOTE | 2018-09-13 12:58 | Consultation ---
History of Present Illness Consult date: 09/13/18 Requesting physician: YOLETTE TELLES Consult reason: chest pain History of present illness: The patient presented with substernal chest tightness which started yesterday. Notably, he underwent coronary angiography in December 2015 which revealed normal coronary arteries. Echocardiogram of April 2018 revealed an ejection fraction of 55-60%. Past History Past Medical History: diabetes, hypertension, other (normal coronary arteries in December 2015) Social history: smoking (1/2 ppd). denies: alcohol abuse Family history: CAD Medications and Allergies Allergies Allergy/AdvReac Type Severity Reaction Status Date / Time Fish Containing Products Allergy Rash Verified 06/12/17 17:33 Home Medications Medication Instructions Recorded Confirmed Last Taken Type Atenolol [Tenormin] 25 mg PO DAILY 06/03/18 06/03/18 Unknown History Chlorthalidone [Thalitone] 12.5 mg PO QDAY 06/03/18 06/03/18 Unknown History Docusate Sodium [Colace CAP] 100 mg PO QDAY PRN 06/03/18 06/03/18 Unknown History FLUoxetine [PROzac] 20 mg PO QDAY 06/03/18 06/03/18 Unknown History Fenofibrate [Tricor] 145 mg PO QDAY 06/03/18 06/03/18 Unknown History Lisinopril [Zestril] 20 mg PO QDAY 06/03/18 06/03/18 Unknown History Metformin HCl [Glucophage] 1,000 mg PO BID 06/03/18 06/03/18 Unknown History OXcarbazepine [Trileptal] 300 mg PO BID 06/03/18 06/03/18 Unknown History Omeprazole 40 mg PO QDAY 06/03/18 06/03/18 Unknown History Prazosin HCl 2 mg PO HS 06/03/18 06/03/18 Unknown History Propranolol HCl 10 mg PO TID 06/03/18 06/03/18 Unknown History Quetiapine Fumarate [Seroquel] 400 mg PO HS 06/03/18 06/03/18 Unknown History buPROPion XL [Wellbutrin XL] 150 mg PO QDAY 06/03/18 06/03/18 Unknown History glipiZIDE [Glipizide] 5 mg PO BID 06/03/18 06/03/18 Unknown History hydrOXYzine PAMOATE [Vistaril] 25 mg PO TID PRN 06/03/18 06/03/18 Unknown History Active Meds: Active Medications Acetaminophen (Tylenol) 650 mg PO Q4H PRN PRN Reason: Pain MILD(1-3)/Fever >100.5/DIGGS Aspirin (Aspirin) 325 mg PO QDAY [facility] Bupropion HCl (Wellbutrin Xl) 150 mg PO QDAY [facility] Last Admin: 09/13/18 12:38 Dose: 150 mg Documented by: Carvedilol (Coreg) 12.5 mg PO BID [facility] Chlorthalidone (Thalitone) 12.5 mg PO QDAY [facility] Last Admin: 09/13/18 12:38 Dose: 12.5 mg Documented by: Dextrose (D50w (25gm) Syringe) 0 ml IV PRN PRN PRN Reason: Hypoglycemia Docusate Sodium (Colace) 100 mg PO QDAY PRN PRN Reason: Constipation Enoxaparin Sodium (Lovenox) 40 mg SUB-Q QDAY@2200 [facility] Last Admin: 09/12/18 21:24 Dose: Not Given Documented by: Fenofibrate (Tricor) 145 mg PO QDAY [facility] Last Admin: 09/13/18 09:22 Dose: 145 mg Documented by: Fluoxetine HCl (Prozac) 20 mg PO QDAY [facility] Last Admin: 09/13/18 09:24 Dose: 20 mg Documented by: Glipizide (Glucotrol) 10 mg PO BIDDIAB [facility] Hydroxyzine Pamoate (Vistaril) 25 mg PO TID PRN PRN Reason: Anxiety Sodium Chloride (Nacl 0.9% 1000 Ml) 1,000 mls @ 150 mls/hr IV DIRECT [facility] Last Admin: 09/12/18 09:16 Dose: 150 mls/hr Documented by: Insulin Human Isoph/Insulin Regular (Humulin 70/30) 15 unit SUB-Q BIDDIAB [facility] Insulin Human Lispro (Humalog) [facility] Protocol Last Admin: 09/13/18 09:22 Dose: 4 unit Documented by: Lisinopril (Zestril) 20 mg PO QDAY [facility] Last Admin: 09/13/18 09:23 Dose: 20 mg Documented by: Morphine Sulfate (Morphine) 2 mg IV Q4H PRN PRN Reason: Pain, Moderate (4-6) Last Admin: 09/13/18 11:53 Dose: 2 mg Documented by: Nitroglycerin (Nitrostat) 0.4 mg SL .Q5MIN PRN PRN Reason: Chest Pain Ondansetron HCl (Zofran) 4 mg IV Q8H PRN PRN Reason: Nausea And Vomiting Oxcarbazepine (Trileptal) 300 mg PO BID [facility] Last Admin: 09/13/18 09:24 Dose: 300 mg Documented by: Pantoprazole Sodium (Protonix) 40 mg PO QDAY [facility] Last Admin: 09/13/18 09:22 Dose: 40 mg Documented by: Quetiapine Fumarate (Seroquel) 400 mg PO QHS [facility] Last Admin: 09/12/18 22:01 Dose: 400 mg Documented by: Sodium Chloride (Sodium Chloride Flush Syringe 10 Ml) 10 ml IV BID [facility] Last Admin: 09/13/18 12:39 Dose: 10 ml Documented by: Sodium Chloride (Sodium Chloride Flush Syringe 10 Ml) 10 ml IV PRN PRN PRN Reason: LINE FLUSH Last Admin: 09/12/18 02:40 Dose: 10 ml Documented by: Review of Systems Constitutional: no fever, no chills Ears, nose, mouth and throat: no ear pain, no ear discharge, no sore throat Cardiovascular: chest pain, no orthopnea, no palpitations, no shortness of breath Respiratory: no cough, no hemoptysis, no shortness of breath Gastrointestinal: no abdominal pain, no nausea, no vomiting, no diarrhea, no constipation Genitourinary Male: no dysuria, no urinary frequency Rectal: no pain, no bleeding Musculoskeletal: no neck stiffness, no neck pain, no myalgias Integumentary: no rash, no pruritis Neurological: no weakness, no parathesias, no headaches Endocrine: no cold intolerance, no heat intolerance Hematologic/Lymphatic: no easy bruising, no easy bleeding Allergic/Immunologic: no urticaria, no wheezing Physical Examination Vital Signs Last Vital Signs Temp 98.1 F 09/13/18 08:20 Pulse 91 H 09/13/18 09:23 Resp 20 09/13/18 11:53 BP 118/79 09/13/18 09:23 Pulse Ox 94 09/13/18 08:20 General appearance: no acute distress HEENT: Positive: EOMI, Normocephaly, Mucus Membranes Moist Neck: Positive: neck supple, trachea midline Cardiac: Positive: Reg Rate and Rhythm, S1/S2 Lungs: Positive: clear to auscultation Neuro: Positive: Grossly Intact Abdomen: Positive: Soft, Active Bowel Sounds. Negative: Tender Skin: Positive: Clear. Negative: Rash Musculoskeletal: Normal Range of Motion Extremities: Present: normal. Absent: edema Results 09/11/18 20:52 09/12/18 08:30 Cardiac Enzymes 09/11/18 09/11/18 09/11/18 Range/Units 20:52 20:52 20:52 WBC 7.5 (4.5-11.0) K/mm3 RBC 4.78 (3.65-5.03) M/mm3 Hgb 14.7 (11.8-15.2) gm/dl Hct 42.2 (35.5-45.6) % MCV 88 (84-94) fl MCH 31 (28-32) pg MCHC 35 H (32-34) % RDW 13.3 (13.2-15.2) % Plt Count 232 (140-440) K/mm3 Lymph % (Auto) 36.4 H (13.4-35.0) % [place] % (Auto) 3.2 (0.0-7.3) % Eos % (Auto) 0.1 (0.0-4.3) % Baso % (Auto) 0.8 (0.0-1.8) % Lymph # 2.7 (1.2-5.4) K/mm3 [place] # 0.2 (0.0-0.8) K/mm3 Eos # 0.0 (0.0-0.4) K/mm3 Baso # 0.1 (0.0-0.1) K/mm3 Seg Neutrophils % 59.5 (40.0-70.0) % Seg Neutrophils # 4.5 (1.8-7.7) K/mm3 PT 13.4 (12.2-14.9) Sec. INR 0.96 (0.87-1.13) APTT 27.2 (24.2-36.6) Sec. VBG pH (7.320-7.420) Sodium 138 (137-145) mmol/L Potassium 4.0 (3.6-5.0) mmol/L Chloride 98.0 (98-107) mmol/L Carbon Dioxide 18 L (22-30) mmol/L Anion Gap 26 mmol/L BUN 11 (9-20) mg/dL Creatinine 0.6 L (0.8-1.5) mg/dL Estimated GFR > 60 ml/min BUN/Creatinine Ratio 18 % Glucose 350 H (75-100) mg/dL POC Glucose (70-105) Hemoglobin A1c (4-6) % Calcium 8.4 (8.4-10.2) mg/dL Phosphorus (2.5-4.5) mg/dL Magnesium (1.7-2.3) mg/dL Total Bilirubin 0.30 (0.1-1.2) mg/dL ALT 24 (7-56) units/L Alkaline Phosphatase 90 (35-129) units/L Total Creatine Kinase (55-170) units/L CK-MB (CK-2) Rel Index (0-4) Troponin T < 0.010 (0.00-0.029) ng/mL Total Protein 7.4 (6.3-8.2) g/dL Albumin 4.4 (3.9-5) g/dL Albumin/Globulin Ratio 1.5 % Triglycerides (2-149) mg/dL Cholesterol (50-199) mg/dL LDL Cholesterol Direct (50-130) mg/dL HDL Cholesterol (40-59) mg/dL Cholesterol/HDL Ratio % Urine Color (Yellow) Urine Turbidity (Clear) Urine pH (5.0-7.0) Ur Specific [place] (1.003-1.030) Urine Protein (Negative) mg/dL Urine Glucose (UA) (Negative) mg/dL Urine Ketones (Negative) mg/dL Urine Blood (Negative) Urine Nitrite (Negative) Urine Bilirubin (Negative) Urine Urobilinogen (<2.0) mg/dL Ur Leukocyte Esterase (Negative) Urine WBC (Auto) (0.0-6.0) /HPF Urine RBC (Auto) (0.0-6.0) /HPF Urine Opiates Screen Urine Methadone Screen Ur Barbiturates Screen Ur Phencyclidine Scrn Ur Amphetamines Screen U Benzodiazepines Scrn Urine Cocaine Screen U Marijuana (THC) Screen Drugs of Abuse Note 09/11/18 09/11/18 09/11/18 Range/Units 22:40 22:40 23:54 WBC (4.5-11.0) K/mm3 RBC (3.65-5.03) M/mm3 Hgb (11.8-15.2) gm/dl Hct (35.5-45.6) % MCV (84-94) fl MCH (28-32) pg MCHC (32-34) % RDW (13.2-15.2) % Plt Count (140-440) K/mm3 Lymph % (Auto) (13.4-35.0) % [place] % (Auto) (0.0-7.3) % Eos % (Auto) (0.0-4.3) % Baso % (Auto) (0.0-1.8) % Lymph # (1.2-5.4) K/mm3 [place] # (0.0-0.8) K/mm3 Eos # (0.0-0.4) K/mm3 Baso # (0.0-0.1) K/mm3 Seg Neutrophils % (40.0-70.0) % Seg Neutrophils # (1.8-7.7) K/mm3 PT (12.2-14.9) Sec. INR (0.87-1.13) APTT (24.2-36.6) Sec. VBG pH (7.320-7.420) Sodium (137-145) mmol/L Potassium (3.6-5.0) mmol/L Chloride (98-107) mmol/L Carbon Dioxide (22-30) mmol/L Anion Gap mmol/L BUN (9-20) mg/dL Creatinine (0.8-1.5) mg/dL Estimated GFR ml/min BUN/Creatinine Ratio % Glucose (75-100) mg/dL POC Glucose (70-105) Hemoglobin A1c (4-6) % Calcium (8.4-10.2) mg/dL Phosphorus (2.5-4.5) mg/dL Magnesium (1.7-2.3) mg/dL Total Bilirubin (0.1-1.2) mg/dL ALT (7-56) units/L Alkaline Phosphatase (35-129) units/L Total Creatine Kinase (55-170) units/L CK-MB (CK-2) Rel Index (0-4) Troponin T < 0.010 (0.00-0.029) ng/mL Total Protein (6.3-8.2) g/dL Albumin (3.9-5) g/dL Albumin/Globulin Ratio % Triglycerides (2-149) mg/dL Cholesterol (50-199) mg/dL LDL Cholesterol Direct (50-130) mg/dL HDL Cholesterol (40-59) mg/dL Cholesterol/HDL Ratio % Urine Color Straw (Yellow) Urine Turbidity Clear (Clear) Urine pH 5.0 (5.0-7.0) Ur Specific [place] 1.029 (1.003-1.030) Urine Protein 30 mg/dl (Negative) mg/dL Urine Glucose (UA) >=500 (Negative) mg/dL Urine Ketones Tr (Negative) mg/dL Urine Blood Neg (Negative) Urine Nitrite Neg (Negative) Urine Bilirubin Neg (Negative) Urine Urobilinogen < 2.0 (<2.0) mg/dL Ur Leukocyte Esterase Neg (Negative) Urine WBC (Auto) 1.0 (0.0-6.0) /HPF Urine RBC (Auto) 2.0 (0.0-6.0) /HPF Urine Opiates Screen Presumptive negative Urine Methadone Screen Presumptive negative Ur Barbiturates Screen Presumptive negative Ur Phencyclidine Scrn Presumptive negative Ur Amphetamines Screen Presumptive negative U Benzodiazepines Scrn Presumptive negative Urine Cocaine Screen Presumptive negative U Marijuana (THC) Screen Presumptive positive Drugs of Abuse Note Disclamer 09/11/18 09/12/18 09/12/18 Range/Units 23:54 02:09 02:10 WBC (4.5-11.0) K/mm3 RBC (3.65-5.03) M/mm3 Hgb (11.8-15.2) gm/dl Hct (35.5-45.6) % MCV (84-94) fl MCH (28-32) pg MCHC (32-34) % RDW (13.2-15.2) % Plt Count (140-440) K/mm3 Lymph % (Auto) (13.4-35.0) % [place] % (Auto) (0.0-7.3) % Eos % (Auto) (0.0-4.3) % Baso % (Auto) (0.0-1.8) % Lymph # (1.2-5.4) K/mm3 [place] # (0.0-0.8) K/mm3 Eos # (0.0-0.4) K/mm3 Baso # (0.0-0.1) K/mm3 Seg Neutrophils % (40.0-70.0) % Seg Neutrophils # (1.8-7.7) K/mm3 PT (12.2-14.9) Sec. INR (0.87-1.13) APTT (24.2-36.6) Sec. VBG pH 7.447 H (7.320-7.420) Sodium (137-145) mmol/L Potassium (3.6-5.0) mmol/L Chloride (98-107) mmol/L Carbon Dioxide (22-30) mmol/L Anion Gap mmol/L BUN (9-20) mg/dL Creatinine (0.8-1.5) mg/dL Estimated GFR ml/min BUN/Creatinine Ratio % Glucose (75-100) mg/dL POC Glucose 254 H (70-105) Hemoglobin A1c (4-6) % Calcium (8.4-10.2) mg/dL Phosphorus 2.00 L (2.5-4.5) mg/dL Magnesium 1.60 L (1.7-2.3) mg/dL Total Bilirubin (0.1-1.2) mg/dL ALT (7-56) units/L Alkaline Phosphatase (35-129) units/L Total Creatine Kinase (55-170) units/L CK-MB (CK-2) Rel Index (0-4) Troponin T (0.00-0.029) ng/mL Total Protein (6.3-8.2) g/dL Albumin (3.9-5) g/dL Albumin/Globulin Ratio % Triglycerides (2-149) mg/dL Cholesterol (50-199) mg/dL LDL Cholesterol Direct (50-130) mg/dL HDL Cholesterol (40-59) mg/dL Cholesterol/HDL Ratio % Urine Color (Yellow) Urine Turbidity (Clear) Urine pH (5.0-7.0) Ur Specific [place] (1.003-1.030) Urine Protein (Negative) mg/dL Urine Glucose (UA) (Negative) mg/dL Urine Ketones (Negative) mg/dL Urine Blood (Negative) Urine Nitrite (Negative) Urine Bilirubin (Negative) Urine Urobilinogen (<2.0) mg/dL Ur Leukocyte Esterase (Negative) Urine WBC (Auto) (0.0-6.0) /HPF Urine RBC (Auto) (0.0-6.0) /HPF Urine Opiates Screen Urine Methadone Screen Ur Barbiturates Screen Ur Phencyclidine Scrn Ur Amphetamines Screen U Benzodiazepines Scrn Urine Cocaine Screen U Marijuana (THC) Screen Drugs of Abuse Note 09/12/18 09/12/18 09/12/18 Range/Units 02:46 02:46 02:46 WBC (4.5-11.0) K/mm3 RBC (3.65-5.03) M/mm3 Hgb (11.8-15.2) gm/dl Hct (35.5-45.6) % MCV (84-94) fl MCH (28-32) pg MCHC (32-34) % RDW (13.2-15.2) % Plt Count (140-440) K/mm3 Lymph % (Auto) (13.4-35.0) % [place] % (Auto) (0.0-7.3) % Eos % (Auto) (0.0-4.3) % Baso % (Auto) (0.0-1.8) % Lymph # (1.2-5.4) K/mm3 [place] # (0.0-0.8) K/mm3 Eos # (0.0-0.4) K/mm3 Baso # (0.0-0.1) K/mm3 Seg Neutrophils % (40.0-70.0) % Seg Neutrophils # (1.8-7.7) K/mm3 PT (12.2-14.9) Sec. INR (0.87-1.13) APTT (24.2-36.6) Sec. VBG pH (7.320-7.420) Sodium 138 (137-145) mmol/L Potassium 3.9 (3.6-5.0) mmol/L Chloride 101.4 (98-107) mmol/L Carbon Dioxide 21 L (22-30) mmol/L Anion Gap 20 mmol/L BUN 9 (9-20) mg/dL Creatinine 0.6 L (0.8-1.5) mg/dL Estimated GFR > 60 ml/min BUN/Creatinine Ratio 15 % Glucose 292 H (75-100) mg/dL POC Glucose (70-105) Hemoglobin A1c 9.4 H (4-6) % Calcium 8.2 L (8.4-10.2) mg/dL Phosphorus 1.80 L (2.5-4.5) mg/dL Magnesium 1.60 L (1.7-2.3) mg/dL Total Bilirubin (0.1-1.2) mg/dL ALT (7-56) units/L Alkaline Phosphatase (35-129) units/L Total Creatine Kinase (55-170) units/L CK-MB (CK-2) Rel Index (0-4) Troponin T (0.00-0.029) ng/mL Total Protein (6.3-8.2) g/dL Albumin (3.9-5) g/dL Albumin/Globulin Ratio % Triglycerides 237 H (2-149) mg/dL Cholesterol 178 (50-199) mg/dL LDL Cholesterol Direct 120 (50-130) mg/dL HDL Cholesterol 41 (40-59) mg/dL Cholesterol/HDL Ratio 4.34 % Urine Color (Yellow) Urine Turbidity (Clear) Urine pH (5.0-7.0) Ur Specific [place] (1.003-1.030) Urine Protein (Negative) mg/dL Urine Glucose (UA) (Negative) mg/dL Urine Ketones (Negative) mg/dL Urine Blood (Negative) Urine Nitrite (Negative) Urine Bilirubin (Negative) Urine Urobilinogen (<2.0) mg/dL Ur Leukocyte Esterase (Negative) Urine WBC (Auto) (0.0-6.0) /HPF Urine RBC (Auto) (0.0-6.0) /HPF Urine Opiates Screen Urine Methadone Screen Ur Barbiturates Screen Ur Phencyclidine Scrn Ur Amphetamines Screen U Benzodiazepines Scrn Urine Cocaine Screen U Marijuana (THC) Screen Drugs of Abuse Note 09/12/18 09/12/18 09/12/18 Range/Units 03:36 03:42 04:33 WBC (4.5-11.0) K/mm3 RBC (3.65-5.03) M/mm3 Hgb (11.8-15.2) gm/dl Hct (35.5-45.6) % MCV (84-94) fl MCH (28-32) pg MCHC (32-34) % RDW (13.2-15.2) % Plt Count (140-440) K/mm3 Lymph % (Auto) (13.4-35.0) % [place] % (Auto) (0.0-7.3) % Eos % (Auto) (0.0-4.3) % Baso % (Auto) (0.0-1.8) % Lymph # (1.2-5.4) K/mm3 [place] # (0.0-0.8) K/mm3 Eos # (0.0-0.4) K/mm3 Baso # (0.0-0.1) K/mm3 Seg Neutrophils % (40.0-70.0) % Seg Neutrophils # (1.8-7.7) K/mm3 PT (12.2-14.9) Sec. INR (0.87-1.13) APTT (24.2-36.6) Sec. VBG pH (7.320-7.420) Sodium 137 (137-145) mmol/L Potassium 3.6 (3.6-5.0) mmol/L Chloride 103.2 (98-107) mmol/L Carbon Dioxide 23 (22-30) mmol/L Anion Gap 14 mmol/L BUN 9 (9-20) mg/dL Creatinine 0.5 L (0.8-1.5) mg/dL Estimated GFR > 60 ml/min BUN/Creatinine Ratio 18 % Glucose 271 H (75-100) mg/dL POC Glucose 285 H 252 H (70-105) Hemoglobin A1c (4-6) % Calcium 8.1 L (8.4-10.2) mg/dL Phosphorus (2.5-4.5) mg/dL Magnesium (1.7-2.3) mg/dL Total Bilirubin (0.1-1.2) mg/dL ALT (7-56) units/L Alkaline Phosphatase (35-129) units/L Total Creatine Kinase (55-170) units/L CK-MB (CK-2) Rel Index (0-4) Troponin T (0.00-0.029) ng/mL Total Protein (6.3-8.2) g/dL Albumin (3.9-5) g/dL Albumin/Globulin Ratio % Triglycerides (2-149) mg/dL Cholesterol (50-199) mg/dL LDL Cholesterol Direct (50-130) mg/dL HDL Cholesterol (40-59) mg/dL Cholesterol/HDL Ratio % Urine Color (Yellow) Urine Turbidity (Clear) Urine pH (5.0-7.0) Ur Specific [place] (1.003-1.030) Urine Protein (Negative) mg/dL Urine Glucose (UA) (Negative) mg/dL Urine Ketones (Negative) mg/dL Urine Blood (Negative) Urine Nitrite (Negative) Urine Bilirubin (Negative) Urine Urobilinogen (<2.0) mg/dL Ur Leukocyte Esterase (Negative) Urine WBC (Auto) (0.0-6.0) /HPF Urine RBC (Auto) (0.0-6.0) /HPF Urine Opiates Screen Urine Methadone Screen Ur Barbiturates Screen Ur Phencyclidine Scrn Ur Amphetamines Screen U Benzodiazepines Scrn Urine Cocaine Screen U Marijuana (THC) Screen Drugs of Abuse Note 09/12/18 09/12/18 09/12/18 Range/Units 05:14 05:41 05:55 WBC (4.5-11.0) K/mm3 RBC (3.65-5.03) M/mm3 Hgb (11.8-15.2) gm/dl Hct (35.5-45.6) % MCV (84-94) fl MCH (28-32) pg MCHC (32-34) % RDW (13.2-15.2) % Plt Count (140-440) K/mm3 Lymph % (Auto) (13.4-35.0) % [place] % (Auto) (0.0-7.3) % Eos % (Auto) (0.0-4.3) % Baso % (Auto) (0.0-1.8) % Lymph # (1.2-5.4) K/mm3 [place] # (0.0-0.8) K/mm3 Eos # (0.0-0.4) K/mm3 Baso # (0.0-0.1) K/mm3 Seg Neutrophils % (40.0-70.0) % Seg Neutrophils # (1.8-7.7) K/mm3 PT (12.2-14.9) Sec. INR (0.87-1.13) APTT (24.2-36.6) Sec. VBG pH (7.320-7.420) Sodium 142 140 (137-145) mmol/L Potassium 3.7 3.9 (3.6-5.0) mmol/L Chloride 107.3 H 106.7 (98-107) mmol/L Carbon Dioxide 23 23 (22-30) mmol/L Anion Gap 15 14 mmol/L BUN 10 9 (9-20) mg/dL Creatinine 0.5 L 0.5 L (0.8-1.5) mg/dL Estimated GFR > 60 > 60 ml/min BUN/Creatinine Ratio 20 18 % Glucose 199 H 147 H (75-100) mg/dL POC Glucose 145 H (70-105) Hemoglobin A1c (4-6) % Calcium 8.3 L 8.2 L (8.4-10.2) mg/dL Phosphorus (2.5-4.5) mg/dL Magnesium (1.7-2.3) mg/dL Total Bilirubin (0.1-1.2) mg/dL ALT (7-56) units/L Alkaline Phosphatase (35-129) units/L Total Creatine Kinase (55-170) units/L CK-MB (CK-2) Rel Index (0-4) Troponin T (0.00-0.029) ng/mL Total Protein (6.3-8.2) g/dL Albumin (3.9-5) g/dL Albumin/Globulin Ratio % Triglycerides (2-149) mg/dL Cholesterol (50-199) mg/dL LDL Cholesterol Direct (50-130) mg/dL HDL Cholesterol (40-59) mg/dL Cholesterol/HDL Ratio % Urine Color (Yellow) Urine Turbidity (Clear) Urine pH (5.0-7.0) Ur Specific [place] (1.003-1.030) Urine Protein (Negative) mg/dL Urine Glucose (UA) (Negative) mg/dL Urine Ketones (Negative) mg/dL Urine Blood (Negative) Urine Nitrite (Negative) Urine Bilirubin (Negative) Urine Urobilinogen (<2.0) mg/dL Ur Leukocyte Esterase (Negative) Urine WBC (Auto) (0.0-6.0) /HPF Urine RBC (Auto) (0.0-6.0) /HPF Urine Opiates Screen Urine Methadone Screen Ur Barbiturates Screen Ur Phencyclidine Scrn Ur Amphetamines Screen U Benzodiazepines Scrn Urine Cocaine Screen U Marijuana (THC) Screen Drugs of Abuse Note 09/12/18 09/12/18 09/12/18 Range/Units 06:42 07:09 07:31 WBC (4.5-11.0) K/mm3 RBC (3.65-5.03) M/mm3 Hgb (11.8-15.2) gm/dl Hct (35.5-45.6) % MCV (84-94) fl MCH (28-32) pg MCHC (32-34) % RDW (13.2-15.2) % Plt Count (140-440) K/mm3 Lymph % (Auto) (13.4-35.0) % [place] % (Auto) (0.0-7.3) % Eos % (Auto) (0.0-4.3) % Baso % (Auto) (0.0-1.8) % Lymph # (1.2-5.4) K/mm3 [place] # (0.0-0.8) K/mm3 Eos # (0.0-0.4) K/mm3 Baso # (0.0-0.1) K/mm3 Seg Neutrophils % (40.0-70.0) % Seg Neutrophils # (1.8-7.7) K/mm3 PT (12.2-14.9) Sec. INR (0.87-1.13) APTT (24.2-36.6) Sec. VBG pH (7.320-7.420) Sodium 141 141 (137-145) mmol/L Potassium 3.7 3.8 (3.6-5.0) mmol/L Chloride 104.5 104.8 (98-107) mmol/L Carbon Dioxide 23 23 (22-30) mmol/L Anion Gap 17 17 mmol/L BUN 8 L 9 (9-20) mg/dL Creatinine 0.5 L 0.4 L (0.8-1.5) mg/dL Estimated GFR > 60 > 60 ml/min BUN/Creatinine Ratio 16 23 % Glucose 153 H 151 H (75-100) mg/dL POC Glucose 145 H (70-105) Hemoglobin A1c (4-6) % Calcium 8.2 L 8.4 (8.4-10.2) mg/dL Phosphorus (2.5-4.5) mg/dL Magnesium (1.7-2.3) mg/dL Total Bilirubin (0.1-1.2) mg/dL ALT (7-56) units/L Alkaline Phosphatase (35-129) units/L Total Creatine Kinase (55-170) units/L CK-MB (CK-2) Rel Index (0-4) Troponin T (0.00-0.029) ng/mL Total Protein (6.3-8.2) g/dL Albumin (3.9-5) g/dL Albumin/Globulin Ratio % Triglycerides (2-149) mg/dL Cholesterol (50-199) mg/dL LDL Cholesterol Direct (50-130) mg/dL HDL Cholesterol (40-59) mg/dL Cholesterol/HDL Ratio % Urine Color (Yellow) Urine Turbidity (Clear) Urine pH (5.0-7.0) Ur Specific [place] (1.003-1.030) Urine Protein (Negative) mg/dL Urine Glucose (UA) (Negative) mg/dL Urine Ketones (Negative) mg/dL Urine Blood (Negative) Urine Nitrite (Negative) Urine Bilirubin (Negative) Urine Urobilinogen (<2.0) mg/dL Ur Leukocyte Esterase (Negative) Urine WBC (Auto) (0.0-6.0) /HPF Urine RBC (Auto) (0.0-6.0) /HPF Urine Opiates Screen Urine Methadone Screen Ur Barbiturates Screen Ur Phencyclidine Scrn Ur Amphetamines Screen U Benzodiazepines Scrn Urine Cocaine Screen U Marijuana (THC) Screen Drugs of Abuse Note 09/12/18 09/12/18 09/12/18 Range/Units 07:37 08:30 08:30 WBC (4.5-11.0) K/mm3 RBC (3.65-5.03) M/mm3 Hgb (11.8-15.2) gm/dl Hct (35.5-45.6) % MCV (84-94) fl MCH (28-32) pg MCHC (32-34) % RDW (13.2-15.2) % Plt Count (140-440) K/mm3 Lymph % (Auto) (13.4-35.0) % [place] % (Auto) (0.0-7.3) % Eos % (Auto) (0.0-4.3) % Baso % (Auto) (0.0-1.8) % Lymph # (1.2-5.4) K/mm3 [place] # (0.0-0.8) K/mm3 Eos # (0.0-0.4) K/mm3 Baso # (0.0-0.1) K/mm3 Seg Neutrophils % (40.0-70.0) % Seg Neutrophils # (1.8-7.7) K/mm3 PT (12.2-14.9) Sec. INR (0.87-1.13) APTT (24.2-36.6) Sec. VBG pH (7.320-7.420) Sodium 140 (137-145) mmol/L Potassium 3.8 (3.6-5.0) mmol/L Chloride 104.3 (98-107) mmol/L Carbon Dioxide 23 (22-30) mmol/L Anion Gap 17 mmol/L BUN 8 L (9-20) mg/dL Creatinine 0.4 L (0.8-1.5) mg/dL Estimated GFR > 60 ml/min BUN/Creatinine Ratio 20 % Glucose 166 H (75-100) mg/dL POC Glucose 129 H (70-105) Hemoglobin A1c (4-6) % Calcium 8.3 L (8.4-10.2) mg/dL Phosphorus (2.5-4.5) mg/dL Magnesium (1.7-2.3) mg/dL Total Bilirubin (0.1-1.2) mg/dL ALT (7-56) units/L Alkaline Phosphatase (35-129) units/L Total Creatine Kinase 232 H (55-170) units/L CK-MB (CK-2) Rel Index 0.7 (0-4) Troponin T < 0.010 (0.00-0.029) ng/mL Total Protein (6.3-8.2) g/dL Albumin (3.9-5) g/dL Albumin/Globulin Ratio % Triglycerides (2-149) mg/dL Cholesterol (50-199) mg/dL LDL Cholesterol Direct (50-130) mg/dL HDL Cholesterol (40-59) mg/dL Cholesterol/HDL Ratio % Urine Color (Yellow) Urine Turbidity (Clear) Urine pH (5.0-7.0) Ur Specific [place] (1.003-1.030) Urine Protein (Negative) mg/dL Urine Glucose (UA) (Negative) mg/dL Urine Ketones (Negative) mg/dL Urine Blood (Negative) Urine Nitrite (Negative) Urine Bilirubin (Negative) Urine Urobilinogen (<2.0) mg/dL Ur Leukocyte Esterase (Negative) Urine WBC (Auto) (0.0-6.0) /HPF Urine RBC (Auto) (0.0-6.0) /HPF Urine Opiates Screen Urine Methadone Screen Ur Barbiturates Screen Ur Phencyclidine Scrn Ur Amphetamines Screen U Benzodiazepines Scrn Urine Cocaine Screen U Marijuana (THC) Screen Drugs of Abuse Note 09/12/18 09/12/18 09/13/18 Range/Units 17:03 21:18 07:48 WBC (4.5-11.0) K/mm3 RBC (3.65-5.03) M/mm3 Hgb (11.8-15.2) gm/dl Hct (35.5-45.6) % MCV (84-94) fl MCH (28-32) pg MCHC (32-34) % RDW (13.2-15.2) % Plt Count (140-440) K/mm3 Lymph % (Auto) (13.4-35.0) % [place] % (Auto) (0.0-7.3) % Eos % (Auto) (0.0-4.3) % Baso % (Auto) (0.0-1.8) % Lymph # (1.2-5.4) K/mm3 [place] # (0.0-0.8) K/mm3 Eos # (0.0-0.4) K/mm3 Baso # (0.0-0.1) K/mm3 Seg Neutrophils % (40.0-70.0) % Seg Neutrophils # (1.8-7.7) K/mm3 PT (12.2-14.9) Sec. INR (0.87-1.13) APTT (24.2-36.6) Sec. VBG pH (7.320-7.420) Sodium (137-145) mmol/L Potassium (3.6-5.0) mmol/L Chloride (98-107) mmol/L Carbon Dioxide (22-30) mmol/L Anion Gap mmol/L BUN (9-20) mg/dL Creatinine (0.8-1.5) mg/dL Estimated GFR ml/min BUN/Creatinine Ratio % Glucose (75-100) mg/dL POC Glucose 177 H 227 H 256 H (70-105) Hemoglobin A1c (4-6) % Calcium (8.4-10.2) mg/dL Phosphorus (2.5-4.5) mg/dL Magnesium (1.7-2.3) mg/dL Total Bilirubin (0.1-1.2) mg/dL ALT (7-56) units/L Alkaline Phosphatase (35-129) units/L Total Creatine Kinase (55-170) units/L CK-MB (CK-2) Rel Index (0-4) Troponin T (0.00-0.029) ng/mL Total Protein (6.3-8.2) g/dL Albumin (3.9-5) g/dL Albumin/Globulin Ratio % Triglycerides (2-149) mg/dL Cholesterol (50-199) mg/dL LDL Cholesterol Direct (50-130) mg/dL HDL Cholesterol (40-59) mg/dL Cholesterol/HDL Ratio % Urine Color (Yellow) Urine Turbidity (Clear) Urine pH (5.0-7.0) Ur Specific [place] (1.003-1.030) Urine Protein (Negative) mg/dL Urine Glucose (UA) (Negative) mg/dL Urine Ketones (Negative) mg/dL Urine Blood (Negative) Urine Nitrite (Negative) Urine Bilirubin (Negative) Urine Urobilinogen (<2.0) mg/dL Ur Leukocyte Esterase (Negative) Urine WBC (Auto) (0.0-6.0) /HPF Urine RBC (Auto) (0.0-6.0) /HPF Urine Opiates Screen Urine Methadone Screen Ur Barbiturates Screen Ur Phencyclidine Scrn Ur Amphetamines Screen U Benzodiazepines Scrn Urine Cocaine Screen U Marijuana (THC) Screen Drugs of Abuse Note - Imaging and Cardiology Echo: report reviewed Cardiac cath: report reviewed EKG: image reviewed EKG interpretations - Telemetry EKG Rhythm: Sinus Rhythm - EKG Sinus rhythms and dysrhythmias: sinus rhythm Ventricular dysrhythmias: ventricular premature com Assessment and Plan Trial of topical nitrates to see if it helps with his chest pain. Proton pump inhibitor. Magnesium supplementation. - Patient Problems (1) Atypical chest pain Current Visit: Yes Status: Acute (2) Frequent PVCs Current Visit: Yes Status: Acute (3) Normal coronary arteries Current Visit: Yes Status: Chronic (4) HTN (hypertension) Current Visit: Yes Status: Chronic Qualifiers: Hypertension type: essential hypertension Qualified Code(s): I10 - Essential (primary) hypertension (5) T2DM (type 2 diabetes mellitus) Current Visit: Yes Status: Chronic Qualifiers: Diabetes mellitus half-way insulin use: without rat exterminator use
--- NOTE | 2018-09-13 15:07 | Progress Note ---
Assessment and Plan Chest pain, atypical. Possible costochondritis. Morbid obesity. Poorly controlled diabetes. Anxiety disorder. Depression. History of schizophrenia. Cardiomyopathy. Tobacco use disorder. Alcohol abuse. Medical noncompliance - will hold on further VTE work-up - prn analgesia for pain - continue DVT prophylaxis dooses of lovenos - ACS w/up per cardiology - weight loss counseled - continue glycemic control with accuchecks qac & qhs + SSI for target BG < 180 mg/dl - resume psych meds per attending - PT/OT - continue current antihypertensives and other chronic disease med's per attending - strongly advised to comply with medications - continue other care per attending / other consultants ... re-evaluate in am & prn Subjective Date of service: 09/13/18 Principal diagnosis: Chest pain; Poss. Costochondritis; Morbid obesity; DM II; Anxiety/Depressio Interval history: Patient is seen today for: Chest pain, atypical; Possible costochondritis; Morbid obesity; Poorly controlled diabetes; Anxiety disorder; Depression. Seen and examined at bedside; 24hour events reviewed; nursing and respiratory care staff consulted; no adverse overnight events reported to me; still complains of chest pain but better; ACS work-up ongoing; D-Dimers WNL; no hemoptysis; denies palpitations Objective Vital Signs - 12hr 09/13/18 09/13/18 09/13/18 04:07 08:20 09:23 Temperature 97.5 F L 98.1 F Pulse Rate 92 H 91 H 91 H Respiratory 12 18 Rate Respiratory Rate [Left Shoulder] Blood Pressure 104/68 118/79 118/79 Blood Pressure [Right] O2 Sat by Pulse 94 94 Oximetry 09/13/18 09/13/18 09/13/18 10:00 11:53 13:14 Temperature 98.3 F Pulse Rate 95 H Respiratory 20 18 Rate Respiratory 20 Rate [Left Shoulder] Blood Pressure Blood Pressure 132/88 [Right] O2 Sat by Pulse 94 Oximetry Constitutional: no acute distress, alert, other (Young Obese AAM, normocephalic and atraumatic with mildly increased respiratory effort at rest) Eyes: non-icteric ENT: oropharynx moist Neck: supple, no lymphadenopathy, no JVD, other (large neck circumference) Effort: mildly labored Ascultation: Bilateral: rhonchi Percussion: Bilateral: not dull Cardiovascular: regular rate and rhythm Gastrointestinal: normoactive bowel sounds, soft, non-tender, non-distended Integumentary: normal Extremities: no cyanosis, no edema, pulses normal, no ischemia or petechiae Neurologic: normal mental status, non-focal exam, pupils equal and round, motor strength normal and Psychiatric: anxious CBC and BMP: 09/15/18 10:27 09/15/18 10:27 ABG, PT/INR, D-dimer: PT/INR, D-dimer PT 13.4 Sec. (12.2-14.9) 09/11/18 20:52 INR 0.96 (0.87-1.13) 09/11/18 20:52 Abnormal lab findings: Abnormal Labs 09/11/18 09/11/18 09/11/18 20:52 20:52 23:54 MCHC 35 H Lymph % (Auto) 36.4 H VBG pH 7.447 H Chloride Carbon Dioxide 18 L BUN Creatinine 0.6 L Glucose 350 H POC Glucose Hemoglobin A1c Calcium Phosphorus Magnesium Total Creatine Kinase Triglycerides 09/12/18 09/12/18 09/12/18 02:09 02:10 02:46 MCHC Lymph % (Auto) VBG pH Chloride Carbon Dioxide BUN Creatinine Glucose POC Glucose 254 H Hemoglobin A1c Calcium Phosphorus 2.00 L 1.80 L Magnesium 1.60 L 1.60 L Total Creatine Kinase Triglycerides 09/12/18 09/12/18 09/12/18 02:46 02:46 03:36 MCHC Lymph % (Auto) VBG pH Chloride Carbon Dioxide 21 L BUN Creatinine 0.6 L Glucose 292 H POC Glucose 285 H Hemoglobin A1c 9.4 H Calcium 8.2 L Phosphorus Magnesium Total Creatine Kinase Triglycerides 237 H 09/12/18 09/12/18 09/12/18 03:42 04:33 05:14 MCHC Lymph % (Auto) VBG pH Chloride 107.3 H Carbon Dioxide BUN Creatinine 0.5 L 0.5 L Glucose 271 H 199 H POC Glucose 252 H Hemoglobin A1c Calcium 8.1 L 8.3 L Phosphorus Magnesium Total Creatine Kinase Triglycerides 09/12/18 09/12/18 09/12/18 05:41 05:55 06:42 MCHC Lymph % (Auto) VBG pH Chloride Carbon Dioxide BUN Creatinine 0.5 L Glucose 147 H POC Glucose 145 H 145 H Hemoglobin A1c Calcium 8.2 L Phosphorus Magnesium Total Creatine Kinase Triglycerides 09/12/18 09/12/18 09/12/18 07:09 07:31 07:37 MCHC Lymph % (Auto) VBG pH Chloride Carbon Dioxide BUN 8 L Creatinine 0.5 L 0.4 L Glucose 153 H 151 H POC Glucose 129 H Hemoglobin A1c Calcium 8.2 L Phosphorus Magnesium Total Creatine Kinase Triglycerides 09/12/18 09/12/18 09/12/18 08:30 08:30 17:03 MCHC Lymph % (Auto) VBG pH Chloride Carbon Dioxide BUN 8 L Creatinine 0.4 L Glucose 166 H POC Glucose 177 H Hemoglobin A1c Calcium 8.3 L Phosphorus Magnesium Total Creatine Kinase 232 H Triglycerides 09/12/18 09/13/18 09/13/18 21:18 07:48 13:13 MCHC Lymph % (Auto) VBG pH Chloride Carbon Dioxide BUN Creatinine Glucose POC Glucose 227 H 256 H 270 H Hemoglobin A1c Calcium Phosphorus Magnesium Total Creatine Kinase Triglycerides Chest x-ray: image reviewed Allied health notes reviewed: nursing
[2018-09-13] MEDS: NITRO-BID 2% TP SCH (18:07)
[2018-09-13] MEDS: COREG PO SCH (21:57)
[2018-09-13] MEDS: LOVENOX SUB-Q SCH (21:57)
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
[2018-09-14] MEDS: NITRO-BID 2% TP SCH ×2 (05:03→14:46)
[2018-09-14] MEDS: GLUCOTROL PO SCH ×2 (08:49→17:55)
[2018-09-14] MEDS: MORPHINE IV PRN ×4 (08:49→22:05)
[2018-09-14] MEDS: HumaLOG SUB-Q SCH ×4 (08:50→22:07)
[2018-09-14] MEDS: PROTONIX PO SCH (11:43)
[2018-09-14] MEDS: TRILEPTAL PO SCH ×2 (11:43→22:08)
[2018-09-14] MEDS: THALITONE PO SCH (11:43)
[2018-09-14] MEDS: PROzac PO SCH (11:43)
[2018-09-14] MEDS: COREG PO SCH ×2 (11:43→22:06)
[2018-09-14] MEDS: SODIUM CHLORIDE FLUSH SYRINGE 10 ML IV SCH ×2 (11:44→22:09)
[2018-09-14] MEDS: TRICOR PO SCH (11:44)
[2018-09-14] MEDS: WELLBUTRIN XL PO SCH (11:44)
[2018-09-14] MEDS: ASPIRIN PO SCH (11:44)
[2018-09-14] MEDS: ZESTRIL PO SCH (11:44)
--- NOTE | 2018-09-14 13:03 | Progress Note ---
Assessment and Plan Hold antihypertensive medications for now. Obtain additional set of troponin. If chest pain continues, we will consider Lexiscan stress MPI in the a.m., although I doubt that he would have developed significant CAD since 2016. 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 There is no pleuritic component and there is no reproducible tenderness on examination. His BP is normal to borderline this morning. Objective Vital Signs Temp Pulse Resp BP BP Pulse Ox 09/14/18 11:48 98.1 F 09/14/18 11:47 56 L 18 103/67 96 09/14/18 08:46 98.0 F 09/14/18 08:45 79 18 118/77 91 09/14/18 05:41 18 97/62 09/14/18 03:46 98.2 F 75 16 87/46 86 09/13/18 23:39 98.2 F 87 12 119/82 95 09/13/18 22:00 91 H 18 09/13/18 20:00 98.5 F 86 12 124/82 97 09/13/18 18:07 90 139/86 09/13/18 18:06 90 139/86 09/13/18 17:49 20 09/13/18 17:33 98.1 F 09/13/18 17:32 90 18 139/86 95 09/13/18 13:14 98.3 F 95 H 18 132/88 94 09/13/18 12:23 20 - Physical Examination General: No Apparent Distress HEENT: Positive: EOMI, Normocephaly, Mucus Membranes Moist Neck: Positive: neck supple, trachea midline Cardiac: Positive: Reg Rate and Rhythm, S1/S2 Lungs: Positive: clear to auscultation Neuro: Positive: Grossly Intact Abdomen: Positive: Soft, Active Bowel Sounds. Negative: Tender Skin: Positive: Clear. Negative: Rash Musculoskeletal: Normal Range of Motion Extremities: Present: normal. Absent: edema - Imaging and Cardiology EKG: image reviewed Echo: report reviewed Cardiac cath: report reviewed - Telemetry EKG Rhythm: Sinus Rhythm - EKG Sinus rhythms and dysrhythmias: sinus rhythm Ventricular dysrhythmias: ventricular premature com
--- NOTE | 2018-09-14 13:18 | Progress Note ---
Assessment and Plan Patient still complaining chest pain. No complaint of shortness of breath or cough.O2 saturation 96% on room air. Cardiology consulted for chest pain. - Patient Problems (1) Acute chest pain Current Visit: Yes Status: Acute Plan to address problem: Cardiology consulted. (2) Arrhythmia Current Visit: Yes Status: Acute Qualifiers: Arrhythmia type: unspecified cardiac arrhythmia Qualified Code(s): I49.9 - Cardiac arrhythmia, unspecified Plan to address problem: Cardiology consulted. (3) DKA (diabetic ketoacidoses) Current Visit: Yes Status: Acute Qualifiers: Diabetes mellitus type: type 2 Diabetes mellitus complication detail: without coma Qualified Code(s): E11.10 - Type 2 diabetes mellitus with ketoacidosis without coma Plan to address problem: Improved.Last PH 7.44. (4) Bipolar 1 disorder Current Visit: No Status: Chronic Plan to address problem: Management as per primary care. If needed consult Psychiatry. (5) EtOH dependence Current Visit: No Status: Chronic Qualifiers: Substance use status: uncomplicated Qualified Code(s): F10.20 - Alcohol dependence, uncomplicated Plan to address problem: Management as per primary care. (6) GERD (gastroesophageal reflux disease) Current Visit: No Status: Chronic Qualifiers: Esophagitis presence: with esophagitis Qualified Code(s): K21.0 - Gastro- esophageal reflux disease with esophagitis Plan to address problem: Patient is on Protonix. (7) HTN (hypertension) Current Visit: No Status: Chronic Qualifiers: Hypertension type: essential hypertension Qualified Code(s): I10 - Essential (primary) hypertension Plan to address problem: Management as per primary care. (8) T2DM (type 2 diabetes mellitus) Current Visit: No Status: Chronic Qualifiers: Diabetes mellitus complication status: without complication Plan to address problem: Management as per primary care. Subjective Date of service: 09/14/18 Principal diagnosis: Atypical CP, Freq PVCs, NL coronaries, HTN, DM Interval history: Patient still complaining chest pain. No complaint of shortness of breath or cough.O2 saturation 96% on room air. Cardiology consulted for chest pain. Objective Vital Signs - 12hr 09/14/18 09/14/18 09/14/18 03:46 05:41 08:45 Temperature 98.2 F Pulse Rate 75 79 Respiratory 16 18 18 Rate Blood Pressure 87/46 97/62 118/77 O2 Sat by Pulse 86 91 Oximetry 09/14/18 09/14/18 09/14/18 08:46 11:47 11:48 Temperature 98.0 F 98.1 F Pulse Rate 56 L Respiratory 18 Rate Blood Pressure 103/67 O2 Sat by Pulse 96 Oximetry Constitutional: no acute distress, alert Eyes: non-icteric ENT: oropharynx moist Neck: supple, no lymphadenopathy Ascultation: Bilateral: diminished breath sounds Cardiovascular: regular rate and rhythm Gastrointestinal: normoactive bowel sounds, soft, non-tender Integumentary: normal Extremities: no cyanosis, no edema Neurologic: normal mental status, non-focal exam, pupils equal and round, CN II- XII normal Psychiatric: mood appropriate CBC and BMP: 09/11/18 20:52 09/12/18 08:30 ABG, PT/INR, D-dimer: PT/INR, D-dimer PT 13.4 Sec. (12.2-14.9) 09/11/18 20:52 INR 0.96 (0.87-1.13) 09/11/18 20:52 Abnormal lab findings: Abnormal Labs 09/11/18 09/11/18 09/11/18 20:52 20:52 23:54 MCHC 35 H Lymph % (Auto) 36.4 H VBG pH 7.447 H Chloride Carbon Dioxide 18 L BUN Creatinine 0.6 L Glucose 350 H POC Glucose Hemoglobin A1c Calcium Phosphorus Magnesium Total Creatine Kinase Triglycerides 09/12/18 09/12/18 09/12/18 02:09 02:10 02:46 MCHC Lymph % (Auto) VBG pH Chloride Carbon Dioxide BUN Creatinine Glucose POC Glucose 254 H Hemoglobin A1c Calcium Phosphorus 2.00 L 1.80 L Magnesium 1.60 L 1.60 L Total Creatine Kinase Triglycerides 09/12/18 09/12/18 09/12/18 02:46 02:46 03:36 MCHC Lymph % (Auto) VBG pH Chloride Carbon Dioxide 21 L BUN Creatinine 0.6 L Glucose 292 H POC Glucose 285 H Hemoglobin A1c 9.4 H Calcium 8.2 L Phosphorus Magnesium Total Creatine Kinase Triglycerides 237 H 09/12/18 09/12/18 09/12/18 03:42 04:33 05:14 MCHC Lymph % (Auto) VBG pH Chloride 107.3 H Carbon Dioxide BUN Creatinine 0.5 L 0.5 L Glucose 271 H 199 H POC Glucose 252 H Hemoglobin A1c Calcium 8.1 L 8.3 L Phosphorus Magnesium Total Creatine Kinase Triglycerides 09/12/18 09/12/18 09/12/18 05:41 05:55 06:42 MCHC Lymph % (Auto) VBG pH Chloride Carbon Dioxide BUN Creatinine 0.5 L Glucose 147 H POC Glucose 145 H 145 H Hemoglobin A1c Calcium 8.2 L Phosphorus Magnesium Total Creatine Kinase Triglycerides 09/12/18 09/12/18 09/12/18 07:09 07:31 07:37 MCHC Lymph % (Auto) VBG pH Chloride Carbon Dioxide BUN 8 L Creatinine 0.5 L 0.4 L Glucose 153 H 151 H POC Glucose 129 H Hemoglobin A1c Calcium 8.2 L Phosphorus Magnesium Total Creatine Kinase Triglycerides 09/12/18 09/12/18 09/12/18 08:30 08:30 17:03 MCHC Lymph % (Auto) VBG pH Chloride Carbon Dioxide BUN 8 L Creatinine 0.4 L Glucose 166 H POC Glucose 177 H Hemoglobin A1c Calcium 8.3 L Phosphorus Magnesium Total Creatine Kinase 232 H Triglycerides 09/12/18 09/13/18 09/13/18 21:18 07:48 13:13 MCHC Lymph % (Auto) VBG pH Chloride Carbon Dioxide BUN Creatinine Glucose POC Glucose 227 H 256 H 270 H Hemoglobin A1c Calcium Phosphorus Magnesium Total Creatine Kinase Triglycerides 09/13/18 09/13/18 09/14/18 17:34 20:47 08:20 MCHC Lymph % (Auto) VBG pH Chloride Carbon Dioxide BUN Creatinine Glucose POC Glucose 308 H 270 H 286 H Hemoglobin A1c Calcium Phosphorus Magnesium Total Creatine Kinase Triglycerides 09/14/18 11:48 MCHC Lymph % (Auto) VBG pH Chloride Carbon Dioxide BUN Creatinine Glucose POC Glucose 274 H Hemoglobin A1c Calcium Phosphorus Magnesium Total Creatine Kinase Triglycerides Chest x-ray: report reviewed (Reported negative two view chest.), image reviewed
--- NOTE | 2018-09-14 17:30 | Progress Note ---
Assessment and Plan Assessment and plan: --Intermittent chest pain; rule out acute coronary syndrome cardiac enzymes negative, however patient has multiple risk factors EKG ventricular bigeminy, cardiology evaluated the patient Continue current management, if no improvement possible stress test tomorrow Patient had negative heart cath 2016, negative stress test 2017 --Abnormal EKG; ventricular bigeminy, cardiology following --Uncontrolled blood sugars/DKA; secondary to noncompliance with diet Patient is eating candy in history Accu-Chek sliding scale coverage and ADA diet Insulin and oral hypoglycemics, check A1c 9.4 Diabetic education, nutrition education. --Hypertension; moderate control Continue current antihypertensives and when necessary medications --Morbid obesity; BMI 38.4 Advised weight reduction when medically stable --Medical noncompliance; strongly advised to comply with medications and diet follow-up visits and exercise --DVT prophylaxis; Lovenox Closely monitor the patient and adjust management as needed Possible discharge in 1-2 days if stable History Interval history: Patient seen and examined medical records reviewed The patient continues to have chest pain intermittent asking for more pain medications Cardiology pulmonary following Alert awake oriented 3, Vital signs reviewed Osteoporosis patient is getting kind in his room And blood sugars are uncontrolled Hospitalist Physical - Constitutional Vitals: Temp Pulse Resp BP Pulse Ox 98.2 F 76 18 125/75 95 09/14/18 16:28 09/14/18 16:28 09/14/18 16:28 09/14/18 16:28 09/14/18 16:28 General appearance: Present: no acute distress, well-nourished, obese - EENT Eyes: Present: PERRL, EOM intact - Neck Neck: Present: supple, normal ROM - Respiratory Respiratory effort: normal Respiratory: bilateral: diminished, negative: rales, rhonchi, wheezing - Cardiovascular Rhythm: regular Heart Sounds: Present: S1 & S2 - Extremities Extremities: no ischemia, No edema - Abdominal General gastrointestinal: soft, non-tender, non-distended, normal bowel sounds - Integumentary Integumentary: Present: clear, warm - Psychiatric Psychiatric: appropriate mood/affect, cooperative - Neurologic Neurologic: CNII-XII intact, moves all extremities Results - Labs CBC & Chem 7: 09/11/18 20:52 09/12/18 08:30 Labs: Laboratory Last Values WBC 7.5 K/mm3 (4.5-11.0) 09/11/18 20:52 RBC 4.78 M/mm3 (3.65-5.03) 09/11/18 20:52 Hgb 14.7 gm/dl (11.8-15.2) 09/11/18 20:52 Hct 42.2 % (35.5-45.6) 09/11/18 20:52 MCV 88 fl (84-94) 09/11/18 20:52 MCH 31 pg (28-32) 09/11/18 20:52 MCHC 35 % (32-34) H 09/11/18 20:52 RDW 13.3 % (13.2-15.2) 09/11/18 20:52 Plt Count 232 K/mm3 (140-440) 09/11/18 20:52 Lymph % (Auto) 36.4 % (13.4-35.0) H 09/11/18 20:52 [place] % (Auto) 3.2 % (0.0-7.3) 09/11/18 20:52 Eos % (Auto) 0.1 % (0.0-4.3) 09/11/18 20:52 Baso % (Auto) 0.8 % (0.0-1.8) 09/11/18 20:52 Lymph # 2.7 K/mm3 (1.2-5.4) 09/11/18 20:52 [place] # 0.2 K/mm3 (0.0-0.8) 09/11/18 20:52 Eos # 0.0 K/mm3 (0.0-0.4) 09/11/18 20:52 Baso # 0.1 K/mm3 (0.0-0.1) 09/11/18 20:52 Seg Neutrophils % 59.5 % (40.0-70.0) 09/11/18 20:52 Seg Neutrophils # 4.5 K/mm3 (1.8-7.7) 09/11/18 20:52 PT 13.4 Sec. (12.2-14.9) 09/11/18 20:52 INR 0.96 (0.87-1.13) 09/11/18 20:52 APTT 27.2 Sec. (24.2-36.6) 09/11/18 20:52 VBG pH 7.447 (7.320-7.420) H 09/11/18 23:54 Sodium 140 mmol/L (137-145) 09/12/18 08:30 Potassium 3.8 mmol/L (3.6-5.0) 09/12/18 08:30 Chloride 104.3 mmol/L (98-107) 09/12/18 08:30 Carbon Dioxide 23 mmol/L (22-30) 09/12/18 08:30 Anion Gap 17 mmol/L 09/12/18 08:30 BUN 8 mg/dL (9-20) L 09/12/18 08:30 Creatinine 0.4 mg/dL (0.8-1.5) L 09/12/18 08:30 Estimated GFR > 60 ml/min 09/12/18 08:30 BUN/Creatinine Ratio 20 % 09/12/18 08:30 Glucose 166 mg/dL (75-100) H 09/12/18 08:30 POC Glucose 274 (70-105) H 09/14/18 11:48 Hemoglobin A1c 9.4 % (4-6) H 09/12/18 02:46 Calcium 8.3 mg/dL (8.4-10.2) L 09/12/18 08:30 Phosphorus 1.80 mg/dL (2.5-4.5) L 09/12/18 02:46 Magnesium 1.60 mg/dL (1.7-2.3) L 09/12/18 02:46 Total Bilirubin 0.30 mg/dL (0.1-1.2) 09/11/18 20:52 AST 29 units/L (5-40) 09/11/18 20:52 ALT 24 units/L (7-56) 09/11/18 20:52 Alkaline Phosphatase 90 units/L (35-129) 09/11/18 20:52 Total Creatine Kinase 232 units/L (55-170) H 09/12/18 08:30 CK-MB (CK-2) 1.7 ng/mL (0.0-4.0) 09/12/18 08:30 CK-MB (CK-2) Rel Index 0.7 (0-4) 09/12/18 08:30 Troponin T < 0.010 ng/mL (0.00-0.029) 09/12/18 08:30 Total Protein 7.4 g/dL (6.3-8.2) 09/11/18 20:52 Albumin 4.4 g/dL (3.9-5) 09/11/18 20:52 Albumin/Globulin Ratio 1.5 % 09/11/18 20:52 Triglycerides 237 mg/dL (2-149) H 09/12/18 02:46 Cholesterol 178 mg/dL (50-199) 09/12/18 02:46 LDL Cholesterol Direct 120 mg/dL (50-130) 09/12/18 02:46 HDL Cholesterol 41 mg/dL (40-59) 09/12/18 02:46 Cholesterol/HDL Ratio 4.34 % 09/12/18 02:46 Urine Color Straw (Yellow) 09/11/18 22:40 Urine Turbidity Clear (Clear) 09/11/18 22:40 Urine pH 5.0 (5.0-7.0) 09/11/18 22:40 Ur Specific [place] 1.029 (1.003-1.030) 09/11/18 22:40 Urine Protein 30 mg/dl mg/dL (Negative) 09/11/18 22:40 Urine Glucose (UA) >=500 mg/dL (Negative) 09/11/18 22:40 Urine Ketones Tr mg/dL (Negative) 09/11/18 22:40 Urine Blood Neg (Negative) 09/11/18 22:40 Urine Nitrite Neg (Negative) 09/11/18 22:40 Urine Bilirubin Neg (Negative) 09/11/18 22:40 Urine Urobilinogen < 2.0 mg/dL (<2.0) 09/11/18 22:40 Ur Leukocyte Esterase Neg (Negative) 09/11/18 22:40 Urine WBC (Auto) 1.0 /HPF (0.0-6.0) 09/11/18 22:40 Urine RBC (Auto) 2.0 /HPF (0.0-6.0) 09/11/18 22:40 Urine Opiates Screen Presumptive negative 09/11/18 22:40 Urine Methadone Screen Presumptive negative 09/11/18 22:40 Ur Barbiturates Screen Presumptive negative 09/11/18 22:40 Ur Phencyclidine Scrn Presumptive negative 09/11/18 22:40 Ur Amphetamines Screen Presumptive negative 09/11/18 22:40 U Benzodiazepines Scrn Presumptive negative 09/11/18 22:40 Urine Cocaine Screen Presumptive negative 09/11/18 22:40 U Marijuana (THC) Screen Presumptive positive 09/11/18 22:40 Drugs of Abuse Note Disclamer 09/11/18 22:40 Nutrition/Malnutrition Assess - Dietary Evaluation Nutrition/Malnutrition Findings: Nutrition Notes Start: 09/13/18 14:40 Freq: Status: Active Protocol: Document 09/13/18 14:40 BARRERA (Rec: 09/13/18 14:42 BARRERA [id number] [email or web address]) Nutrition Notes Need for Assessment generated from: MD Order,Education Initial or Follow up Brief Note Current Diagnosis Diabetes,Hypertension Other Pertinent Diagnosis Unstable angina, DKA Current Diet Consistent CHO Labs/Tests A1C 9.4 Subjective/Other Information RD consulted for diet education. Pt does not want to be bothered today; seems upset. Nutrition Intervention Follow-Up By: 09/17/18 Additional Comments F/U: DM diet education needs
[2018-09-14] MEDS: LOVENOX SUB-Q SCH (22:06)
[2018-09-15] MEDS: NITRO-BID 2% TP SCH ×2 (05:23→13:36)
[2018-09-15] MEDS ORDERED: PERCOCET 5/325 PO PRN (09:00)
[2018-09-15] MEDS: THALITONE PO SCH (10:38)
[2018-09-15] MEDS: WELLBUTRIN XL PO SCH (10:38)
[2018-09-15] MEDS: COREG PO SCH ×2 (10:39→21:31)
[2018-09-15] MEDS: PROTONIX PO SCH (10:39)
[2018-09-15] MEDS: ASPIRIN PO SCH (10:40)
[2018-09-15] MEDS: TRILEPTAL PO SCH ×2 (10:40→21:30)
[2018-09-15] MEDS: TRICOR PO SCH (10:40)
[2018-09-15] MEDS: ZESTRIL PO SCH (10:40)
[2018-09-15] MEDS: PROzac PO SCH (10:40)
[2018-09-15] MEDS: SODIUM CHLORIDE FLUSH SYRINGE 10 ML IV SCH ×2 (10:43→21:32)
[2018-09-15] MEDS: GLUCOTROL PO SCH ×2 (10:43→17:44)
--- NOTE | 2018-09-15 10:46 | Progress Note ---
Assessment and Plan Pt has been refusing lab draws and medications, d/w pt. He now states that he will take medications and allow lab draws. Pending DDimer is WNL, plan to proceed with lexiscan MPI stress test in AM. NPO after MN. The patient has been seen in conjunction with Dr. Carrasquillo who agrees with the assessment and plan of care. - Patient Problems (1) Atypical chest pain Current Visit: Yes Status: Acute (2) Frequent PVCs Current Visit: Yes Status: Acute (3) Normal coronary arteries Current Visit: Yes Status: Chronic (4) HTN (hypertension) Current Visit: Yes Status: Chronic Qualifiers: Hypertension type: essential hypertension Qualified Code(s): I10 - Essential (primary) hypertension (5) T2DM (type 2 diabetes mellitus) Current Visit: Yes Status: Chronic Qualifiers: Diabetes mellitus [facility] insulin use: without [facility] use Subjective Date of service: 09/15/18 Principal diagnosis: Atypical CP, Freq PVCs, NL coronaries, HTN, DM Interval history: pt resting in bed, just returned from off the floor, states he went to get a snack. refusing AM meds, refusing lab draws. still c/o cp. Objective Last Vital Signs Temp 97.9 F 09/15/18 07:19 Pulse 38 L 09/15/18 07:19 Resp 20 09/15/18 07:19 BP 95/54 09/15/18 07:19 Pulse Ox 95 09/15/18 07:19 - Physical Examination General: No Apparent Distress HEENT: Positive: EOMI, Normocephaly, Mucus Membranes Moist Neck: Positive: neck supple, trachea midline Cardiac: Positive: Reg Rate and Rhythm, S1/S2 Lungs: Positive: Decreased Breath Sounds Neuro: Positive: Grossly Intact Abdomen: Positive: Soft, Active Bowel Sounds. Negative: Tender Skin: Positive: Clear. Negative: Rash Musculoskeletal: Normal Range of Motion Extremities: Present: normal. Absent: edema - Imaging and Cardiology EKG: image reviewed Echo: report reviewed Cardiac cath: report reviewed - EKG Sinus rhythms and dysrhythmias: sinus rhythm Ventricular dysrhythmias: ventricular premature com
[2018-09-15 10:56] LABS: Hematocrit 41.6 % (35.5-45.6); Hemoglobin 14.2 gm/dl (11.8-15.2); Mean Corpuscular HGB Conc 34 % (32-34); Mean Corpuscular Volume 90 fl (84-94); Platelet Count 204 K/mm3 (140-440); Red Blood Count 4.63 M/mm3 (3.65-5.03); Red Cell Distribution Width 13.6 % (13.2-15.2)
[2018-09-15 11:16] LABS: Creatine Kinase MB < 1.0 ng/mL (0.0-4.0)
[2018-09-15 11:17] LABS: BUN/Creatinine Ratio 17; Blood Urea Nitrogen 12 mg/dL (9-20); Calcium 8.6 mg/dL (8.4-10.2); Hemolysis Index 23
--- NOTE | 2018-09-15 11:42 | Progress Note ---
Assessment and Plan Assessment and plan: 48-year-old obese male patient with significant history of hypertension diabetes mellitus noncompliant with medications Was admitted through emergency room with chest pain and DKA, DKA resolved, cardiology evaluated the patient is scheduled for stress test tomorrow, Patient asks for more pain medications --Stress test tomorrow --Intermittent chest pain; rule out acute coronary syndrome cardiac enzymes negative, however patient has multiple risk factors EKG ventricular bigeminy, cardiology evaluated the patient Continue current management, if no improvement possible stress test tomorrow Patient had negative heart cath 2016, negative stress test 2017 --Abnormal EKG; ventricular bigeminy, cardiology following --Uncontrolled blood sugars/DKA; secondary to noncompliance with diet Nurse reports that patient is eating candy, Accu-Chek sliding scale coverage and ADA diet Insulin and oral hypoglycemics, check A1c 9.4, Diabetic education, nutrition education. --Hypertension; moderate control Continue current antihypertensives and when necessary medications --Morbid obesity; BMI 38.4 Advised weight reduction when medically stable --Medical noncompliance; strongly advised to comply with medications and diet follow-up visits and exercise --DVT prophylaxis; Lovenox Closely monitor the patient and adjust management as needed Discharge home tomorrow if stress test is negative and patient is stable History Interval history: Patient seen and examined medical records reviewed Patient continues to have intermittent chest pain and asked for more pain medications Cardiology evaluated possible stress test tomorrow Alert awake oriented 3 Vital signs reviewed Hospitalist Physical - Constitutional Vitals: Temp Pulse Resp BP Pulse Ox 98.0 F 50 L 20 128/71 93 09/15/18 11:07 09/15/18 11:07 09/15/18 11:07 09/15/18 11:07 09/15/18 11:07 General appearance: Present: no acute distress, well-nourished, obese - EENT Eyes: Present: PERRL, EOM intact - Neck Neck: Present: supple, normal ROM - Respiratory Respiratory effort: normal Respiratory: bilateral: diminished, negative: rales, rhonchi, wheezing - Cardiovascular Rhythm: regular Heart Sounds: Present: S1 & S2 - Extremities Extremities: no ischemia, No edema - Abdominal General gastrointestinal: soft, non-tender, non-distended, normal bowel sounds - Integumentary Integumentary: Present: clear, warm - Psychiatric Psychiatric: appropriate mood/affect, cooperative - Neurologic Neurologic: moves all extremities Results - Labs CBC & Chem 7: 09/15/18 10:27 09/15/18 10:27 Labs: Laboratory Last Values WBC 4.1 K/mm3 (4.5-11.0) L 09/15/18 10:27 RBC 4.63 M/mm3 (3.65-5.03) 09/15/18 10:27 Hgb 14.2 gm/dl (11.8-15.2) 09/15/18 10:27 Hct 41.6 % (35.5-45.6) 09/15/18 10:27 MCV 90 fl (84-94) 09/15/18 10:27 MCH 31 pg (28-32) 09/15/18 10:27 MCHC 34 % (32-34) 09/15/18 10:27 RDW 13.6 % (13.2-15.2) 09/15/18 10:27 Plt Count 204 K/mm3 (140-440) 09/15/18 10:27 Lymph % (Auto) 36.4 % (13.4-35.0) H 09/11/18 20:52 [place] % (Auto) 3.2 % (0.0-7.3) 09/11/18 20:52 Eos % (Auto) 0.1 % (0.0-4.3) 09/11/18 20:52 Baso % (Auto) 0.8 % (0.0-1.8) 09/11/18 20:52 Lymph # 2.7 K/mm3 (1.2-5.4) 09/11/18 20:52 [place] # 0.2 K/mm3 (0.0-0.8) 09/11/18 20:52 Eos # 0.0 K/mm3 (0.0-0.4) 09/11/18 20:52 Baso # 0.1 K/mm3 (0.0-0.1) 09/11/18 20:52 Seg Neutrophils % Shop Mechanic 09/15/18 10:27 Seg Neutrophils # 4.5 K/mm3 (1.8-7.7) 09/11/18 20:52 PT 13.4 Sec. (12.2-14.9) 09/11/18 20:52 INR 0.96 (0.87-1.13) 09/11/18 20:52 APTT 27.2 Sec. (24.2-36.6) 09/11/18 20:52 D-Dimer 169.30 ng/mlDDU (0-234) 09/15/18 10:27 VBG pH 7.447 (7.320-7.420) H 09/11/18 23:54 Sodium 135 mmol/L (137-145) L 09/15/18 10:27 Potassium 4.0 mmol/L (3.6-5.0) 09/15/18 10:27 Chloride 100.9 mmol/L (98-107) 09/15/18 10:27 Carbon Dioxide 23 mmol/L (22-30) 09/15/18 10:27 Anion Gap 15 mmol/L 09/15/18 10:27 BUN 12 mg/dL (9-20) 09/15/18 10:27 Creatinine 0.7 mg/dL (0.8-1.5) L D 09/15/18 10:27 Estimated GFR > 60 ml/min 09/15/18 10:27 BUN/Creatinine Ratio 17 % 09/15/18 10:27 Glucose 345 mg/dL (75-100) H 09/15/18 10:27 POC Glucose 276 (70-105) H 09/14/18 20:28 Hemoglobin A1c 9.4 % (4-6) H 09/12/18 02:46 Calcium 8.6 mg/dL (8.4-10.2) 09/15/18 10:27 Phosphorus 1.80 mg/dL (2.5-4.5) L 09/12/18 02:46 Magnesium 1.70 mg/dL (1.7-2.3) 09/15/18 10:27 Total Bilirubin 0.30 mg/dL (0.1-1.2) 09/11/18 20:52 AST 29 units/L (5-40) 09/11/18 20:52 ALT 24 units/L (7-56) 09/11/18 20:52 Alkaline Phosphatase 90 units/L (35-129) 09/11/18 20:52 Total Creatine Kinase 105 units/L (55-170) 09/15/18 10:27 CK-MB (CK-2) < 1.0 ng/mL (0.0-4.0) 09/15/18 10:27 CK-MB (CK-2) Rel Index 0.9 (0-4) 09/15/18 10:27 Troponin T < 0.010 ng/mL (0.00-0.029) 09/15/18 10:27 Total Protein 7.4 g/dL (6.3-8.2) 09/11/18 20:52 Albumin 4.4 g/dL (3.9-5) 09/11/18 20:52 Albumin/Globulin Ratio 1.5 % 09/11/18 20:52 Triglycerides 237 mg/dL (2-149) H 09/12/18 02:46 Cholesterol 178 mg/dL (50-199) 09/12/18 02:46 LDL Cholesterol Direct 120 mg/dL (50-130) 09/12/18 02:46 HDL Cholesterol 41 mg/dL (40-59) 09/12/18 02:46 Cholesterol/HDL Ratio 4.34 % 09/12/18 02:46 Urine Color Straw (Yellow) 09/11/18 22:40 Urine Turbidity Clear (Clear) 09/11/18 22:40 Urine pH 5.0 (5.0-7.0) 09/11/18 22:40 Ur Specific [place] 1.029 (1.003-1.030) 09/11/18 22:40 Urine Protein 30 mg/dl mg/dL (Negative) 09/11/18 22:40 Urine Glucose (UA) >=500 mg/dL (Negative) 09/11/18 22:40 Urine Ketones Tr mg/dL (Negative) 09/11/18 22:40 Urine Blood Neg (Negative) 09/11/18 22:40 Urine Nitrite Neg (Negative) 09/11/18 22:40 Urine Bilirubin Neg (Negative) 09/11/18 22:40 Urine Urobilinogen < 2.0 mg/dL (<2.0) 09/11/18 22:40 Ur Leukocyte Esterase Neg (Negative) 09/11/18 22:40 Urine WBC (Auto) 1.0 /HPF (0.0-6.0) 09/11/18 22:40 Urine RBC (Auto) 2.0 /HPF (0.0-6.0) 09/11/18 22:40 Urine Opiates Screen Presumptive negative 09/11/18 22:40 Urine Methadone Screen Presumptive negative 09/11/18 22:40 Ur Barbiturates Screen Presumptive negative 09/11/18 22:40 Ur Phencyclidine Scrn Presumptive negative 09/11/18 22:40 Ur Amphetamines Screen Presumptive negative 09/11/18 22:40 U Benzodiazepines Scrn Presumptive negative 09/11/18 22:40 Urine Cocaine Screen Presumptive negative 09/11/18 22:40 U Marijuana (THC) Screen Presumptive positive 09/11/18 22:40 Drugs of Abuse Note Disclamer 09/11/18 22:40 Nutrition/Malnutrition Assess - Dietary Evaluation Nutrition/Malnutrition Findings: Nutrition Notes Start: 09/13/18 14:40 Freq: Status: Active Protocol: Document 09/13/18 14:40 BARRERA (Rec: 09/13/18 14:42 BARRERA [email or web address] [email or web address]) Nutrition Notes Need for Assessment generated from: MD Order,Education Initial or Follow up Brief Note Current Diagnosis Diabetes,Hypertension Other Pertinent Diagnosis Unstable angina, DKA Current Diet Consistent CHO Labs/Tests A1C 9.4 Subjective/Other Information RD consulted for diet education. Pt does not want to be bothered today; seems upset. Nutrition Intervention Follow-Up By: 09/17/18 Additional Comments F/U: DM diet education needs
--- NOTE | 2018-09-15 11:43 | Progress Note ---
Hospitalist Physical - Constitutional Vitals: Temp Pulse Resp BP Pulse Ox 98.0 F 50 L 20 128/71 93 09/15/18 11:07 09/15/18 11:07 09/15/18 11:07 09/15/18 11:07 09/15/18 11:07 General appearance: Present: no acute distress, well-nourished, obese Results - Labs CBC & Chem 7: 09/15/18 10:27 09/15/18 10:27 Labs: Laboratory Last Values WBC 4.1 K/mm3 (4.5-11.0) L 09/15/18 10:27 RBC 4.63 M/mm3 (3.65-5.03) 09/15/18 10:27 Hgb 14.2 gm/dl (11.8-15.2) 09/15/18 10:27 Hct 41.6 % (35.5-45.6) 09/15/18 10:27 MCV 90 fl (84-94) 09/15/18 10:27 MCH 31 pg (28-32) 09/15/18 10:27 MCHC 34 % (32-34) 09/15/18 10:27 RDW 13.6 % (13.2-15.2) 09/15/18 10:27 Plt Count 204 K/mm3 (140-440) 09/15/18 10:27 Lymph % (Auto) 36.4 % (13.4-35.0) H 09/11/18 20:52 [place] % (Auto) 3.2 % (0.0-7.3) 09/11/18 20:52 Eos % (Auto) 0.1 % (0.0-4.3) 09/11/18 20:52 Baso % (Auto) 0.8 % (0.0-1.8) 09/11/18 20:52 Lymph # 2.7 K/mm3 (1.2-5.4) 09/11/18 20:52 [place] # 0.2 K/mm3 (0.0-0.8) 09/11/18 20:52 Eos # 0.0 K/mm3 (0.0-0.4) 09/11/18 20:52 Baso # 0.1 K/mm3 (0.0-0.1) 09/11/18 20:52 Seg Neutrophils % Boarding House Manager 09/15/18 10:27 Seg Neutrophils # 4.5 K/mm3 (1.8-7.7) 09/11/18 20:52 PT 13.4 Sec. (12.2-14.9) 09/11/18 20:52 INR 0.96 (0.87-1.13) 09/11/18 20:52 APTT 27.2 Sec. (24.2-36.6) 09/11/18 20:52 D-Dimer 169.30 ng/mlDDU (0-234) 09/15/18 10:27 VBG pH 7.447 (7.320-7.420) H 09/11/18 23:54 Sodium 135 mmol/L (137-145) L 09/15/18 10:27 Potassium 4.0 mmol/L (3.6-5.0) 09/15/18 10:27 Chloride 100.9 mmol/L (98-107) 09/15/18 10:27 Carbon Dioxide 23 mmol/L (22-30) 09/15/18 10:27 Anion Gap 15 mmol/L 09/15/18 10:27 BUN 12 mg/dL (9-20) 09/15/18 10:27 Creatinine 0.7 mg/dL (0.8-1.5) L D 09/15/18 10:27 Estimated GFR > 60 ml/min 09/15/18 10:27 BUN/Creatinine Ratio 17 % 09/15/18 10:27 Glucose 345 mg/dL (75-100) H 09/15/18 10:27 POC Glucose 276 (70-105) H 09/14/18 20:28 Hemoglobin A1c 9.4 % (4-6) H 09/12/18 02:46 Calcium 8.6 mg/dL (8.4-10.2) 09/15/18 10:27 Phosphorus 1.80 mg/dL (2.5-4.5) L 09/12/18 02:46 Magnesium 1.70 mg/dL (1.7-2.3) 09/15/18 10:27 Total Bilirubin 0.30 mg/dL (0.1-1.2) 09/11/18 20:52 AST 29 units/L (5-40) 09/11/18 20:52 ALT 24 units/L (7-56) 09/11/18 20:52 Alkaline Phosphatase 90 units/L (35-129) 09/11/18 20:52 Total Creatine Kinase 105 units/L (55-170) 09/15/18 10:27 CK-MB (CK-2) < 1.0 ng/mL (0.0-4.0) 09/15/18 10:27 CK-MB (CK-2) Rel Index 0.9 (0-4) 09/15/18 10:27 Troponin T < 0.010 ng/mL (0.00-0.029) 09/15/18 10:27 Total Protein 7.4 g/dL (6.3-8.2) 09/11/18 20:52 Albumin 4.4 g/dL (3.9-5) 09/11/18 20:52 Albumin/Globulin Ratio 1.5 % 09/11/18 20:52 Triglycerides 237 mg/dL (2-149) H 09/12/18 02:46 Cholesterol 178 mg/dL (50-199) 09/12/18 02:46 LDL Cholesterol Direct 120 mg/dL (50-130) 09/12/18 02:46 HDL Cholesterol 41 mg/dL (40-59) 09/12/18 02:46 Cholesterol/HDL Ratio 4.34 % 09/12/18 02:46 Urine Color Straw (Yellow) 09/11/18 22:40 Urine Turbidity Clear (Clear) 09/11/18 22:40 Urine pH 5.0 (5.0-7.0) 09/11/18 22:40 Ur Specific [place] 1.029 (1.003-1.030) 09/11/18 22:40 Urine Protein 30 mg/dl mg/dL (Negative) 09/11/18 22:40 Urine Glucose (UA) >=500 mg/dL (Negative) 09/11/18 22:40 Urine Ketones Tr mg/dL (Negative) 09/11/18 22:40 Urine Blood Neg (Negative) 09/11/18 22:40 Urine Nitrite Neg (Negative) 09/11/18 22:40 Urine Bilirubin Neg (Negative) 09/11/18 22:40 Urine Urobilinogen < 2.0 mg/dL (<2.0) 09/11/18 22:40 Ur Leukocyte Esterase Neg (Negative) 09/11/18 22:40 Urine WBC (Auto) 1.0 /HPF (0.0-6.0) 09/11/18 22:40 Urine RBC (Auto) 2.0 /HPF (0.0-6.0) 09/11/18 22:40 Urine Opiates Screen Presumptive negative 09/11/18 22:40 Urine Methadone Screen Presumptive negative 09/11/18 22:40 Ur Barbiturates Screen Presumptive negative 09/11/18 22:40 Ur Phencyclidine Scrn Presumptive negative 09/11/18 22:40 Ur Amphetamines Screen Presumptive negative 09/11/18 22:40 U Benzodiazepines Scrn Presumptive negative 09/11/18 22:40 Urine Cocaine Screen Presumptive negative 09/11/18 22:40 U Marijuana (THC) Screen Presumptive positive 09/11/18 22:40 Drugs of Abuse Note Disclamer 09/11/18 22:40 Nutrition/Malnutrition Assess - Dietary Evaluation Nutrition/Malnutrition Findings: Nutrition Notes Start: 09/13/18 14 :40 Freq: Status: Active Protocol: Document 09/13/18 14:40 BARRERA (Rec: 09/13/18 14:42 [email or web address] [email or web address]) Nutrition Notes Need for Assessment generated from: MD Order,Education Initial or Follow up Brief Note Current Diagnosis Diabetes,Hypertension Other Pertinent Diagnosis Unstable angina, DKA Current Diet Consistent CHO Labs/Tests A1C 9.4 Subjective/Other Information RD consulted for diet education. Pt does not want to be bothered today; seems upset. Nutrition Intervention Follow-Up By: 09/17/18 Additional Comments F/U: DM diet education needs
--- NOTE | 2018-09-15 12:10 | Progress Note ---
Assessment and Plan Chest pain, atypical. Possible costochondritis. Morbid obesity. Poorly controlled diabetes. Anxiety disorder. Depression. History of schizophrenia. Cardiomyopathy. Tobacco use disorder. Alcohol abuse. Medical noncompliance - will hold on further VTE work-up - prn analgesia for pain - continue DVT prophylaxis dooses of lovenos - ACS w/up per cardiology - weight loss counseled - continue glycemic control with accuchecks qac & qhs + SSI for target BG < 180 mg/dl - resume psych meds per attending - PT/OT - continue current antihypertensives and other chronic disease med's per attending - strongly advised to comply with medications - continue other care per attending / other consultants ... re-evaluate in am & prn Subjective Date of service: 09/15/18 Principal diagnosis: Chest pain; Poss. Costochondritis; Morbid obesity; DM II; Anxiety/Depressio Interval history: Patient is seen today for: Chest pain, atypical; Possible costochondritis; Morbid obesity; Poorly controlled diabetes; Anxiety disorder; Depression. Seen and examined at bedside; 24hour events reviewed; nursing and respiratory care staff consulted; no adverse overnight events reported to me; Objective Vital Signs - 12hr 09/15/18 09/15/18 09/15/18 03:00 04:39 07:19 Temperature 98.4 F 97.9 F Pulse Rate 82 55 L 38 L Respiratory 16 20 Rate Blood Pressure 84/47 95/54 O2 Sat by Pulse 90 95 Oximetry 09/15/18 11:07 Temperature 98.0 F Pulse Rate 50 L Respiratory 20 Rate Blood Pressure 128/71 O2 Sat by Pulse 93 Oximetry Constitutional: no acute distress, alert, other (Young Obese AAM, normocephalic and atraumatic with mildly increased respiratory effort at rest) Eyes: non-icteric ENT: oropharynx moist Neck: supple, no lymphadenopathy, no JVD, other (large neck circumference) Effort: mildly labored Ascultation: Bilateral: diminished breath sounds, rhonchi Percussion: Bilateral: not dull Cardiovascular: regular rate and rhythm Gastrointestinal: normoactive bowel sounds, soft, non-tender, non-distended Integumentary: normal Extremities: no cyanosis, no edema, pulses normal, no ischemia or petechiae Neurologic: normal mental status, non-focal exam, pupils equal and round, motor strength normal and Psychiatric: anxious CBC and BMP: 09/15/18 10:27 09/15/18 10:27 ABG, PT/INR, D-dimer: PT/INR, D-dimer PT 13.4 Sec. (12.2-14.9) 09/11/18 20:52 INR 0.96 (0.87-1.13) 09/11/18 20:52 D-Dimer 169.30 ng/mlDDU (0-234) 09/15/18 10:27 Abnormal lab findings: Abnormal Labs 09/11/18 09/11/18 09/11/18 20:52 20:52 23:54 WBC MCHC 35 H Lymph % (Auto) 36.4 H VBG pH 7.447 H Sodium Chloride Carbon Dioxide 18 L BUN Creatinine 0.6 L Glucose 350 H POC Glucose Hemoglobin A1c Calcium Phosphorus Magnesium Total Creatine Kinase Triglycerides 09/12/18 09/12/18 09/12/18 02:09 02:10 02:46 WBC MCHC Lymph % (Auto) VBG pH Sodium Chloride Carbon Dioxide BUN Creatinine Glucose POC Glucose 254 H Hemoglobin A1c Calcium Phosphorus 2.00 L 1.80 L Magnesium 1.60 L 1.60 L Total Creatine Kinase Triglycerides 09/12/18 09/12/18 09/12/18 02:46 02:46 03:36 WBC MCHC Lymph % (Auto) VBG pH Sodium Chloride Carbon Dioxide 21 L BUN Creatinine 0.6 L Glucose 292 H POC Glucose 285 H Hemoglobin A1c 9.4 H Calcium 8.2 L Phosphorus Magnesium Total Creatine Kinase Triglycerides 237 H 09/12/18 09/12/18 09/12/18 03:42 04:33 05:14 WBC MCHC Lymph % (Auto) VBG pH Sodium Chloride 107.3 H Carbon Dioxide BUN Creatinine 0.5 L 0.5 L Glucose 271 H 199 H POC Glucose 252 H Hemoglobin A1c Calcium 8.1 L 8.3 L Phosphorus Magnesium Total Creatine Kinase Triglycerides 09/12/18 09/12/18 09/12/18 05:41 05:55 06:42 WBC MCHC Lymph % (Auto) VBG pH Sodium Chloride Carbon Dioxide BUN Creatinine 0.5 L Glucose 147 H POC Glucose 145 H 145 H Hemoglobin A1c Calcium 8.2 L Phosphorus Magnesium Total Creatine Kinase Triglycerides 09/12/18 09/12/18 09/12/18 07:09 07:31 07:37 WBC MCHC Lymph % (Auto) VBG pH Sodium Chloride Carbon Dioxide BUN 8 L Creatinine 0.5 L 0.4 L Glucose 153 H 151 H POC Glucose 129 H Hemoglobin A1c Calcium 8.2 L Phosphorus Magnesium Total Creatine Kinase Triglycerides 09/12/18 09/12/18 09/12/18 08:30 08:30 17:03 WBC MCHC Lymph % (Auto) VBG pH Sodium Chloride Carbon Dioxide BUN 8 L Creatinine 0.4 L Glucose 166 H POC Glucose 177 H Hemoglobin A1c Calcium 8.3 L Phosphorus Magnesium Total Creatine Kinase 232 H Triglycerides 09/12/18 09/13/18 09/13/18 21:18 07:48 13:13 WBC MCHC Lymph % (Auto) VBG pH Sodium Chloride Carbon Dioxide BUN Creatinine Glucose POC Glucose 227 H 256 H 270 H Hemoglobin A1c Calcium Phosphorus Magnesium Total Creatine Kinase Triglycerides 09/13/18 09/13/18 09/14/18 17:34 20:47 08:20 WBC MCHC Lymph % (Auto) VBG pH Sodium Chloride Carbon Dioxide BUN Creatinine Glucose POC Glucose 308 H 270 H 286 H Hemoglobin A1c Calcium Phosphorus Magnesium Total Creatine Kinase Triglycerides 09/14/18 09/14/18 09/14/18 11:48 16:30 20:28 WBC MCHC Lymph % (Auto) VBG pH Sodium Chloride Carbon Dioxide BUN Creatinine Glucose POC Glucose 274 H 285 H 276 H Hemoglobin A1c Calcium Phosphorus Magnesium Total Creatine Kinase Triglycerides 09/15/18 09/15/18 10:27 10:27 WBC 4.1 L MCHC Lymph % (Auto) VBG pH Sodium 135 L Chloride Carbon Dioxide BUN Creatinine 0.7 L D Glucose 345 H POC Glucose Hemoglobin A1c Calcium Phosphorus Magnesium Total Creatine Kinase Triglycerides Allied health notes reviewed: nursing
[2018-09-15] MEDS: HumaLOG SUB-Q SCH ×4 (12:21→21:32)
[2018-09-15 13:09] LABS: Basophils % (Manual) 0 % (0.0-1.8); RBC Morphology Normal; Total Cells Counted 100
[2018-09-15 13:10] LABS: Large Platelets Rare; Platelet Estimate Consistent w Auto
--- NOTE | 2018-09-15 14:18 | Progress Note ---
Assessment and Plan Patient still complaining chest pain. No complaint of shortness of breath or cough.O2 saturation 92% on room air. Cardiology consulted for chest pain. - Patient Problems (1) Acute chest pain Current Visit: Yes Status: Acute Plan to address problem: Cardiology consulted. (2) Arrhythmia Current Visit: Yes Status: Acute Qualifiers: Arrhythmia type: unspecified cardiac arrhythmia Qualified Code(s): I49.9 - Cardiac arrhythmia, unspecified Plan to address problem: Cardiology consulted. (3) DKA (diabetic ketoacidoses) Current Visit: Yes Status: Acute Qualifiers: Diabetes mellitus type: type 2 Diabetes mellitus complication detail: without coma Qualified Code(s): E11.10 - Type 2 diabetes mellitus with ketoacidosis without coma Plan to address problem: Improved.Last PH 7.44. Anion gap 15. (4) Bipolar 1 disorder Current Visit: No Status: Chronic Plan to address problem: Management as per primary care. If needed consult Psychiatry. (5) EtOH dependence Current Visit: No Status: Chronic Qualifiers: Substance use status: uncomplicated Qualified Code(s): F10.20 - Alcohol dependence, uncomplicated Plan to address problem: Management as per primary care. (6) GERD (gastroesophageal reflux disease) Current Visit: No Status: Chronic Qualifiers: Esophagitis presence: with esophagitis Qualified Code(s): K21.0 - Gastro- esophageal reflux disease with esophagitis Plan to address problem: Patient is on Protonix. (7) HTN (hypertension) Current Visit: No Status: Chronic Qualifiers: Hypertension type: essential hypertension Qualified Code(s): I10 - Essential (primary) hypertension Plan to address problem: Management as per primary care. (8) T2DM (type 2 diabetes mellitus) Current Visit: No Status: Chronic Qualifiers: Diabetes mellitus complication status: without complication Plan to address problem: Management as per primary care. Subjective Date of service: 09/15/18 Principal diagnosis: Chest pain; Poss. Costochondritis; Morbid obesity; DM II; Anxiety/Depressio Interval history: Patient still complaining chest pain. No complaint of shortness of breath or cough.O2 saturation 92% on room air. Cardiology consulted for chest pain. Objective Vital Signs - 12hr 09/15/18 09/15/18 09/15/18 03:00 04:39 07:19 Temperature 98.4 F 97.9 F Pulse Rate 82 55 L 38 L Respiratory 16 20 Rate Blood Pressure 84/47 95/54 O2 Sat by Pulse 90 95 Oximetry 09/15/18 11:07 Temperature 98.0 F Pulse Rate 50 L Respiratory 20 Rate Blood Pressure 128/71 O2 Sat by Pulse 93 Oximetry Constitutional: no acute distress, alert, other (Young Obese AAM, normocephalic and atraumatic with mildly increased respiratory effort at rest) Eyes: non-icteric ENT: oropharynx moist Neck: supple, no lymphadenopathy, no JVD, other (large neck circumference) Effort: mildly labored Ascultation: Bilateral: diminished breath sounds, rhonchi Percussion: Bilateral: not dull Cardiovascular: regular rate and rhythm Gastrointestinal: normoactive bowel sounds, soft, non-tender, non-distended Integumentary: normal Extremities: no cyanosis, no edema, pulses normal, no ischemia or petechiae Neurologic: normal mental status, non-focal exam, pupils equal and round, motor strength normal and Psychiatric: anxious CBC and BMP: 09/15/18 10:27 09/15/18 10:27 ABG, PT/INR, D-dimer: PT/INR, D-dimer PT 13.4 Sec. (12.2-14.9) 09/11/18 20:52 INR 0.96 (0.87-1.13) 09/11/18 20:52 D-Dimer 169.30 ng/mlDDU (0-234) 09/15/18 10:27 Abnormal lab findings: Abnormal Labs 09/11/18 09/11/18 09/11/18 20:52 20:52 23:54 WBC MCHC 35 H Lymph % (Auto) 36.4 H Seg Neuts % (Manual) Lymphocytes % (Manual) Monocytes % (Manual) Seg Neutrophils # Man VBG pH 7.447 H Sodium Chloride Carbon Dioxide 18 L BUN Creatinine 0.6 L Glucose 350 H POC Glucose Hemoglobin A1c Calcium Phosphorus Magnesium Total Creatine Kinase Triglycerides 09/12/18 09/12/18 09/12/18 02:09 02:10 02:46 WBC MCHC Lymph % (Auto) Seg Neuts % (Manual) Lymphocytes % (Manual) Monocytes % (Manual) Seg Neutrophils # Man VBG pH Sodium Chloride Carbon Dioxide BUN Creatinine Glucose POC Glucose 254 H Hemoglobin A1c Calcium Phosphorus 2.00 L 1.80 L Magnesium 1.60 L 1.60 L Total Creatine Kinase Triglycerides 09/12/18 09/12/18 09/12/18 02:46 02:46 03:36 WBC MCHC Lymph % (Auto) Seg Neuts % (Manual) Lymphocytes % (Manual) Monocytes % (Manual) Seg Neutrophils # Man VBG pH Sodium Chloride Carbon Dioxide 21 L BUN Creatinine 0.6 L Glucose 292 H POC Glucose 285 H Hemoglobin A1c 9.4 H Calcium 8.2 L Phosphorus Magnesium Total Creatine Kinase Triglycerides 237 H 09/12/18 09/12/18 09/12/18 03:42 04:33 05:14 WBC MCHC Lymph % (Auto) Seg Neuts % (Manual) Lymphocytes % (Manual) Monocytes % (Manual) Seg Neutrophils # Man VBG pH Sodium Chloride 107.3 H Carbon Dioxide BUN Creatinine 0.5 L 0.5 L Glucose 271 H 199 H POC Glucose 252 H Hemoglobin A1c Calcium 8.1 L 8.3 L Phosphorus Magnesium Total Creatine Kinase Triglycerides 09/12/18 09/12/18 09/12/18 05:41 05:55 06:42 WBC MCHC Lymph % (Auto) Seg Neuts % (Manual) Lymphocytes % (Manual) Monocytes % (Manual) Seg Neutrophils # Man VBG pH Sodium Chloride Carbon Dioxide BUN Creatinine 0.5 L Glucose 147 H POC Glucose 145 H 145 H Hemoglobin A1c Calcium 8.2 L Phosphorus Magnesium Total Creatine Kinase Triglycerides 09/12/18 09/12/18 09/12/18 07:09 07:31 07:37 WBC MCHC Lymph % (Auto) Seg Neuts % (Manual) Lymphocytes % (Manual) Monocytes % (Manual) Seg Neutrophils # Man VBG pH Sodium Chloride Carbon Dioxide BUN 8 L Creatinine 0.5 L 0.4 L Glucose 153 H 151 H POC Glucose 129 H Hemoglobin A1c Calcium 8.2 L Phosphorus Magnesium Total Creatine Kinase Triglycerides 09/12/18 09/12/18 09/12/18 08:30 08:30 17:03 WBC MCHC Lymph % (Auto) Seg Neuts % (Manual) Lymphocytes % (Manual) Monocytes % (Manual) Seg Neutrophils # Man VBG pH Sodium Chloride Carbon Dioxide BUN 8 L Creatinine 0.4 L Glucose 166 H POC Glucose 177 H Hemoglobin A1c Calcium 8.3 L Phosphorus Magnesium Total Creatine Kinase 232 H Triglycerides 09/12/18 09/13/18 09/13/18 21:18 07:48 13:13 WBC MCHC Lymph % (Auto) Seg Neuts % (Manual) Lymphocytes % (Manual) Monocytes % (Manual) Seg Neutrophils # Man VBG pH Sodium Chloride Carbon Dioxide BUN Creatinine Glucose POC Glucose 227 H 256 H 270 H Hemoglobin A1c Calcium Phosphorus Magnesium Total Creatine Kinase Triglycerides 09/13/18 09/13/18 09/14/18 17:34 20:47 08:20 WBC MCHC Lymph % (Auto) Seg Neuts % (Manual) Lymphocytes % (Manual) Monocytes % (Manual) Seg Neutrophils # Man VBG pH Sodium Chloride Carbon Dioxide BUN Creatinine Glucose POC Glucose 308 H 270 H 286 H Hemoglobin A1c Calcium Phosphorus Magnesium Total Creatine Kinase Triglycerides 09/14/18 09/14/18 09/14/18 11:48 16:30 20:28 WBC MCHC Lymph % (Auto) Seg Neuts % (Manual) Lymphocytes % (Manual) Monocytes % (Manual) Seg Neutrophils # Man VBG pH Sodium Chloride Carbon Dioxide BUN Creatinine Glucose POC Glucose 274 H 285 H 276 H Hemoglobin A1c Calcium Phosphorus Magnesium Total Creatine Kinase Triglycerides 09/15/18 09/15/18 10:27 10:27 WBC 4.1 L MCHC Lymph % (Auto) Seg Neuts % (Manual) 39.0 L Lymphocytes % (Manual) 51.0 H Monocytes % (Manual) 9.0 H Seg Neutrophils # Man 1.6 L VBG pH Sodium 135 L Chloride Carbon Dioxide BUN Creatinine 0.7 L D Glucose 345 H POC Glucose Hemoglobin A1c Calcium Phosphorus Magnesium Total Creatine Kinase Triglycerides Allied health notes reviewed: nursing
[2018-09-15] MEDS: LOVENOX SUB-Q SCH (21:30)
[2018-09-16] MEDS: NITRO-BID 2% TP SCH (05:25)
[2018-09-16 07:42] VITALS: BP 105/59
[2018-09-16] MEDS: HumaLOG SUB-Q SCH (07:42)
[2018-09-16] MEDS: GLUCOTROL PO SCH (07:42)
--- NOTE | 2018-09-16 10:59 | Event Note ---
Date: 09/16/18 Patient left Against medical advice.
--- NOTE | 2018-09-16 11:00 | Discharge Summary ---
Providers - Providers Date of Admission: 09/12/18 03:57 Date of discharge: 09/16/18 Attending physician: RAVI PAN 09/12/18 02:03 Consult to Dietitian/Nutrition [CONS] Routine Physician Instructions: Reason For Exam: DKA Reason for Consult: Nutrition Recommendations Reason for Consult: Diet education 09/12/18 02:11 Consult to Physician [CONS] Routine Comment: Dr. Nava notified @ 0223 Consulting Provider: ELVIS NAVA Physician Instructions: Reason For Exam: icu admit 09/13/18 10:54 Consult to Physician [CONS] Routine Comment: Consulting Provider: VESTA JOY Physician Instructions: Reason For Exam: chest pain/risk factors [facility] Condition: Critical Hospital course: Patient is 48 yo with history of hypertension, diabetes mellitus,obesity. She presented to emergency department with chest pain but denies shortness of b reath. In the ED, initial Troponin was normal, blood glucose was 350, CO2 of 18 and anion gap 26. he was diagnosed with acute diabetic ketoacidosis. He was started on insulin infusion, IV fluids and admitted to intensive care unit. He was motivated by cardiology. Patient had a negative cardiac cath 2016 and negative stress test 2017. With Insulin drip, lucose normalized and he was taken off insulin drip and put on Novolin 70/30. However on morning of 09/16/2018 patient's signed out AGAINST MEDICAL ADVICE and left hospital. Total time spent on discharge, 32 mins Disposition: DC-07 LEFT AGAINST MED ADVICE - Discharge Diagnoses (1) DKA (diabetic ketoacidoses) Status: Acute (2) Acute chest pain Status: Acute (3) Alcohol abuse Status: Acute (4) HTN (hypertension) Status: Chronic Qualifiers: Hypertension type: essential hypertension Qualified Code(s): I10 - Essential (primary) hypertension (5) Hyperlipidemia Status: Chronic Qualifiers: Hyperlipidemia type: mixed hyperlipidemia Qualified Code(s): E78.2 - Mixed hyperlipidemia (6) T2DM (type 2 diabetes mellitus) Status: Chronic Qualifiers: Diabetes mellitus complication status: without complication Core Measure Documentation - Palliative Care Palliative Care/ Comfort Measures: Not Applicable - Core Measures Any of the following diagnoses?: none Exam - Constitutional Vitals: Temp Pulse Resp BP Pulse Ox 97.9 F 46 L 20 105/59 90 09/16/18 07:40 09/16/18 07:40 09/16/18 07:40 09/16/18 07:40 09/16/18 07:40 Plan [facility] [Primary Care Provider] - 3-5 Days Forms: AMA Form
== END 2018-09-16 09:20 | disposition left against medical advice (07) | DRG 638 ==
LOC: ED 20:35 → CC1 09-12 03:57 → 4A 09-12 10:26
PROVIDERS: ADMIT Internal Medicine; ATTEND Internal Medicine
DX: E11.10 Type 2 diabetes mellitus with ketoacidosis without coma (principal); I42.9 Cardiomyopathy, unspecified; F17.210 Nicotine dependence, cigarettes, uncomplicated; E66.01 Morbid (severe) obesity due to excess calories; Y90.0 Blood alcohol level of less than 20 mg/100 ml; F41.9 Anxiety disorder, unspecified; F10.20 Alcohol dependence, uncomplicated; K21.0 Gastro-esophageal reflux disease with esophagitis; F32.9 Major depressive disorder, single episode, unspecified; F12.90 Cannabis use, unspecified, uncomplicated; I10 Essential (primary) hypertension; R07.89 Other chest pain; Z53.21 Procedure and treatment not carried out due to patient leaving prior to being seen by health care provider; I49.3 Ventricular premature depolarization; Z79.84 Long term (current) use of oral hypoglycemic drugs; Z68.38 Body mass index [BMI] 38.0-38.9, adult; Z82.49 Family history of ischemic heart disease and other diseases of the circulatory system; Z83.3 Family history of diabetes mellitus; Z91.19 Patient's noncompliance with other medical treatment and regimen
CPT/HCPCS: 36415; 71046; 80048; 80053; 80061; 80307; 81001; 82550; 82553; 82805; 82962; 83036; 83735; 84100; 84484; 85007; 85025; 85379; 85610; 85730; 93005; 93010; G0378; J1650; J1815; J2270; J2405; J3475; J3480; J7030; J7040

== ENCOUNTER 2018-09-16 19:28 | Emergency (ER) | payer MEDICARE ==
--- NOTE | 2018-09-16 20:33 | Emergency Department Report ---
Blank Doc - Documentation Documentation: here for medical clearance for detox. no withdrawl symptoms
[2018-09-16 21:00] LABS: Hematocrit 42.9 % (35.5-45.6); Hemoglobin 14.9 gm/dl (11.8-15.2); Mean Corpuscular HGB Conc 35 % (32-34); Mean Corpuscular Volume 89 fl (84-94); Platelet Count 247 K/mm3 (140-440); Red Blood Count 4.81 M/mm3 (3.65-5.03); Red Cell Distribution Width 13.5 % (13.2-15.2)
[2018-09-16 21:15] LABS: Alanine Aminotransferase 21 units/L (7-56); Albumin 4.6 g/dL (3.9-5); BUN/Creatinine Ratio 16; Blood Urea Nitrogen 11 mg/dL (9-20); Calcium 9.4 mg/dL (8.4-10.2); Hemolysis Index 6
[2018-09-16 21:50] LABS: Basophils % (Manual) 0 % (0.0-1.8); Platelet Estimate Consistent w Auto; Total Cells Counted 100
--- NOTE | 2018-09-16 23:31 | XRay Report ---
PROCEDURE: XR CHEST ROUTINE 2V TECHNIQUE: PA and lateral chest radiographs were obtained. HISTORY: Medical Clearance Psych COMPARISONS: 09/11/2018. FINDINGS: This study is limited due to breathing artifacts. Heart: Normal. Mediastinum/Vessels: Normal. Lungs/Pleural space: Subsegmental atelectatic changes are noted in bilateral lower lobes. There are no confluent infiltrates or mass lesions. Pleural spaces are clear.. Bony thorax: No acute osseous abnormality. IMPRESSION: No acute pulmonary process. This document is electronically signed by Charlie Ruffin MD., September 16 2018 11:29:52 PM ET
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
[2018-09-17 06:30] LABS: Bilirubin,Urine NEG (Negative); Blood,Urine NEG (Negative); Color,Urine Yellow (Yellow); Protein,Urine <15 mg/dL mg/dL (Negative)
[2018-09-17 06:38] LABS: Amphetamine Screen,Urine PRESUMPTIVE NEGATIVE; Benzodiazepines Screen,Urine PRESUMPTIVE NEGATIVE; Cannabinoid Screen,Urine PRESUMPTIVE NEGATIVE; Cocaine Screen,Urine PRESUMPTIVE NEGATIVE; Methadone Screen,Urine PRESUMPTIVE NEGATIVE; Opiate Screen,Urine PRESUMPTIVE NEGATIVE
[2018-09-17 10:10] VITALS: BP 154/100
== END 2018-09-17 10:54 | disposition home or self-care (01) ==
LOC: ED 19:28
DX: F10.129 Alcohol abuse with intoxication, unspecified (principal); E11.65 Type 2 diabetes mellitus with hyperglycemia; I10 Essential (primary) hypertension; F31.9 Bipolar disorder, unspecified; F20.9 Schizophrenia, unspecified; F17.200 Nicotine dependence, unspecified, uncomplicated; Z90.49 Acquired absence of other specified parts of digestive tract; Z91.013 Allergy to seafood
CPT/HCPCS: 36415; 71046; 80053; 80307; 81001; 85007; 85025; 99284; G0480; 80320

== ENCOUNTER 2018-11-16 16:44 | Inpatient (IN) | payer MEDICARE ==
--- NOTE | 2018-11-16 16:54 | Emergency Department Report ---
Chief Complaint: Alcohol Stated Complaint: DETOX Time Seen by Provider: 11/16/18 16:49 - HPI History of Present Illness: pt presents for detox for alcohol pt states he drinks a fifth of liquor per day last drank this morning last went to a detox program 6 months ago no drug use +smoker, 1/2 PPD denies any SI/HI states he has also been having substernal CP that began today describes the pain as sharp has had it previously no SOB +N/V, states he had one episode of bright red blood in his emesis that just started today states he has had before PMHx HTN, bipolar, schizophrenia, depression states parents and sister from [place], dad was 73, mom was in her 60s, sister in 50s MSE screening note: Focused history and physical exam performed. Due to findings the following was ordered: CP protocol/medical clearance
[2018-11-16 17:33] LABS: Basophils # (Auto) 0.1 K/mm3 (0.0-0.1); Basophils % (Auto) 1.4 % (0.0-1.8); Eosinophils # (Auto) 0.1 K/mm3 (0.0-0.4); Eosinophils % (Auto) 1.7 % (0.0-4.3); Hematocrit 40.3 % (35.5-45.6); Hemoglobin 13.9 gm/dl (11.8-15.2); Lymphocytes # (Auto) 1.9 K/mm3 (1.2-5.4); Lymphocytes % (Auto) 39.6 % (13.4-35.0); Mean Corpuscular HGB Conc 35 % (32-34); Mean Corpuscular Volume 90 fl (84-94); Monocytes # (Auto) 0.4 K/mm3 (0.0-0.8); Monocytes % (Auto) 8.6 % (0.0-7.3); Platelet Count 224 K/mm3 (140-440); Red Cell Distribution Width 13.2 % (13.2-15.2)
[2018-11-16 17:44] LABS: INR 0.9 (0.87-1.13)
[2018-11-16 17:45] LABS: Partial Thromboplastin Time 29.4 Sec. (24.2-36.6)
[2018-11-16 17:59] LABS: Alanine Aminotransferase 25 units/L (7-56); Albumin 3.9 g/dL (3.9-5); BUN/Creatinine Ratio 10; Blood Urea Nitrogen 6 mg/dL (9-20); Calcium 8.6 mg/dL (8.4-10.2); Hemolysis Index 9
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
--- NOTE | 2018-11-16 18:24 | XRay Report ---
PROCEDURE: XR CHEST ROUTINE 2V TECHNIQUE: PA and lateral chest radiographs were obtained. HISTORY: Chest Pain COMPARISONS: None. FINDINGS: Heart: Normal. Mediastinum/Vessels: Normal. Lungs/Pleural space: Normal. Bony thorax: No acute osseous abnormality. IMPRESSION: No acute cardiopulmonary process. This document is electronically signed by Sekou Rouse MD., Nov 16 2018 06:22:04 PM ET
[2018-11-16] MEDS ORDERED: ATIVAN IV ONE (18:51)
[2018-11-16] MEDS ORDERED: ZOFRAN IV PRN (19:58)
[2018-11-16] MEDS ORDERED: TYLENOL PO PRN (19:58)
[2018-11-16] MEDS ORDERED: SODIUM CHLORIDE FLUSH SYRINGE 10 ML IV PRN (19:58)
[2018-11-16] MEDS ORDERED: ATIVAN IV PRN ×2 (19:59)
[2018-11-16] MEDS ORDERED: HALDOL IV PRN (19:59)
[2018-11-16] MEDS ORDERED: NACL 0.9% 1000 ML 1,000 ML IV SCH (20:00)
[2018-11-16] MEDS ORDERED: D50W (25GM) Syringe IV PRN (20:10)
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
[2018-11-16] MEDS: MORPHINE IV PRN (20:41)
[2018-11-16] MEDS ORDERED: APRESOLINE IV PRN (20:45)
[2018-11-16] MEDS ORDERED: NON-FORMULARY (Quetiapine Fumarate [Seroquel] 400 MG) PO SCH (22:00)
[2018-11-16] MEDS: ZESTRIL PO SCH (22:35)
[2018-11-16] MEDS: COLACE PO SCH (22:35)
[2018-11-16] MEDS: LANTUS SUB-Q SCH (22:35)
[2018-11-16] MEDS: SODIUM CHLORIDE FLUSH SYRINGE 10 ML IV SCH (22:36)
[2018-11-16] MEDS: PROTONIX 80 MG in NACL 0.9% 100 ML IV SCH (22:43)
[2018-11-16] MEDS: HumaLOG SUB-Q SCH (23:19)
[2018-11-17] MEDS: HumaLOG SUB-Q SCH ×3 (06:03→18:53)
[2018-11-17 07:23] LABS: Basophils % (Auto) 0.7 % (0.0-1.8); Eosinophils # (Auto) 0.1 K/mm3 (0.0-0.4); Eosinophils % (Auto) 2.4 % (0.0-4.3); Hematocrit 39.7 % (35.5-45.6); Hemoglobin 13.5 gm/dl (11.8-15.2); Lymphocytes # (Auto) 1.7 K/mm3 (1.2-5.4); Lymphocytes % (Auto) 48.7 % (13.4-35.0); Mean Corpuscular HGB Conc 34 % (32-34); Mean Corpuscular Volume 91 fl (84-94); Monocytes # (Auto) 0.3 K/mm3 (0.0-0.8); Monocytes % (Auto) 7.4 % (0.0-7.3); Platelet Count 206 K/mm3 (140-440); Red Blood Count 4.37 M/mm3 (3.65-5.03); Red Cell Distribution Width 13.2 % (13.2-15.2)
[2018-11-17 07:40] LABS: BUN/Creatinine Ratio 12; Blood Urea Nitrogen 6 mg/dL (9-20); Calcium 7.8 mg/dL (8.4-10.2); Hemolysis Index 10
[2018-11-17] MEDS: MORPHINE IV PRN ×5 (09:09→22:20)
[2018-11-17] MEDS: ZESTRIL PO SCH (09:14)
[2018-11-17] MEDS: COLACE PO SCH ×2 (09:19→22:21)
[2018-11-17] MEDS: SODIUM CHLORIDE FLUSH SYRINGE 10 ML IV SCH ×2 (09:19→22:21)
[2018-11-17] MEDS: PROTONIX 80 MG in NACL 0.9% 100 ML IV SCH (09:22)
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
[2018-11-17] MEDS ORDERED: NACL 0.9% 1000 ML 1,000 ML IV SCH ×2 (12:00→15:00)
[2018-11-17] MEDS ORDERED: MORPHINE ONE (14:19)
--- NOTE | 2018-11-17 14:24 | Anesthesia Consultation ---
Anesthesia Consult and Med Hx Date of service: 11/17/18 - Airway ROM Head & Neck: Adequate Mental/Hyoid Distance: Adequate Mallampati Class: Class III Intubation Access Assessment: Possibly Difficult - Pre-Operative Health Status ASA Pre-Surgery Classification: ASA3 Proposed Anesthetic Plan: MAC - Pulmonary Hx Smoking: Yes (current everyday smoker) Hx Asthma: No COPD: No Hx Pneumonia: No Hx Sleep Apnea: No - Cardiovascular System Hx Hypertension: Yes Hx Coronary Artery Disease: Yes Hx Angina: Yes Hx Peripheral Vascular Disease: Yes - Central Nervous System Hx Psychiatric Problems: Yes (schizophrenea, bipolar disorder) - Gastrointestinal Hx Gastroesophageal Reflux Disease: Yes - Endocrine Hx End Stage Renal Disease: No Hx Insulin Dependent Diabetes: Yes - Other Systems Hx Alcohol Use: Yes (Abuse) Hx Substance Use: Yes (MARIJUANA; +UDS cocaine) Hx Cancer: No Hx Obesity: Yes (BMI 38.2)
--- NOTE | 2018-11-17 14:25 | Anesthesia Day of Surgery ---
Anesthesia Day of Surgery - Day of Surgery Patient Examined: Yes Patient H&P Reviewed: Yes Patient is NPO: Yes
[2018-11-17] MEDS ORDERED: DIPRIVAN 10 MG/ML IV ONE (14:28)
--- NOTE | 2018-11-17 14:47 | Operative Report ---
Operative Report Operative Report: DATE OF SERVICE: 11/17/18 SURGEON: Danny Valenzuela MD EGD REPORT PREOPERATIVE DIAGNOSIS and POSTOPERATIVE DIAGNOSIS: hematemesis ESTIMATED BLOOD LOSS: none DESCRIPTION OF PROCEDURE: A high-resolution EGD scope was passed through the oropharynx, esophagus, stomach, and second portion of duodenum. The scope was carefully withdrawn. Retroflexion was performed in the stomach. At the end of the procedure, the scope was cleaned using normal technique. Vital signs monitored continuously throughout. SEDATION: Provided by Anesthesiology Services. COMPLICATIONS: None. FINDINGS: * Normal duodenum * Minimal gastritis, small amount of residual food in the gastric body * GE junction regular at 40cm from the incisors * Grossly normal esophagus RECOMMENDATIONS: * No source for hematemesis, unremarkable EGD, as long as N/V controlled and since no more overt bleeding may discharge home from GI standpoint with EtOh cessation education * Follow up as an outpatient, consider outpatient gastric emptying scan if N/V persists despite EtOh cessation
--- NOTE | 2018-11-17 16:11 | Discharge Summary ---
Providers - Providers Date of Admission: 11/16/18 19:33 Date of discharge: 11/17/18 Attending physician: RAVI PAN 11/16/18 19:50 Consult to Physician [CONS] Routine Comment: Consulting Provider: JENNIFER MONTALVO Physician Instructions: Reason For Exam: upper gi bleed, gastritis 11/16/18 20:00 Consult to Dietitian/Nutrition [CONS] Routine Physician Instructions: Reason For Exam: Reason for Consult: Diet education 11/16/18 20:04 Consult to Mental Health [CONS] Routine Reason For Exam: eval and detox Place consult to:: ed Notified:: mental health Phone number called:: [phone] Was contact made?: Yes If yes, spoke with:: Cee Time called:: 08:27 Primary care physician: ROBBIN LUIS Hospitalization Condition: Fair Disposition: DC-01 TO HOME OR SELFCARE Exam - Constitutional Vitals: Temp Pulse Resp BP Pulse Ox 98.3 F 66 15 147/86 99 11/17/18 14:45 11/17/18 15:15 11/17/18 15:15 11/17/18 15:15 11/17/18 15:15 Plan Activity: no restrictions Diet: low fat, low cholesterol, low salt Additional Instructions: 1.Follow uop with PCP or [facility] in 1 week. 2.Follow up with [facility] in 1 week Prescriptions: Pantoprazole [Protonix] 40 mg PO QDAY #30 tablet
--- NOTE | 2018-11-17 16:49 | Progress Note ---
Assessment and Plan Assessment and plan: Gastritis Hematemesis Acute chest pain-due to gastritis Hypertension DM 2- uncontrolled History of EtOH abuse Obesity EGD done today revealed minimal gastritis. GI recommended dc home but he complained of abdominal pain and still vomiting Hopefully dc home tomorrow Diabetes uncontrolled. Patient states he was on Metformin at home H/h stable Luikely dc home in morning. History Interval history: Still having Epigastric pains Still vomiting Hospitalist Physical - Physical exam Narrative exam: Gen: Not in acute distress, lying in bed,obese HEENT: Normocephalic, atraumatic Neck: supple, no JVD Heart: S1 and S2 reg, no murmurs, rubs or gallop Lungs: Clear to auscultation, no crackles Abd: soft, mild epigastric tenderness, non distended, normal BS Ext: No edema, no clubbing cyanosis, Neuro: Awake,alert, oriented x 3 - Constitutional Vitals: Temp Pulse Resp BP Pulse Ox 98.3 F 66 15 147/86 99 11/17/18 14:45 11/17/18 15:15 11/17/18 15:15 11/17/18 15:15 11/17/18 15:15 Results - Labs CBC & Chem 7: 11/17/18 06:45 11/17/18 06:45 Labs: Laboratory Last Values WBC 3.6 K/mm3 (4.5-11.0) L 11/17/18 06:45 RBC 4.37 M/mm3 (3.65-5.03) 11/17/18 06:45 Hgb 13.5 gm/dl (11.8-15.2) 11/17/18 06:45 Hct 39.7 % (35.5-45.6) 11/17/18 06:45 MCV 91 fl (84-94) 11/17/18 06:45 MCH 31 pg (28-32) 11/17/18 06:45 MCHC 34 % (32-34) 11/17/18 06:45 RDW 13.2 % (13.2-15.2) 11/17/18 06:45 Plt Count 206 K/mm3 (140-440) 11/17/18 06:45 Lymph % (Auto) 48.7 % (13.4-35.0) H 11/17/18 06:45 [place] % (Auto) 7.4 % (0.0-7.3) H 11/17/18 06:45 Eos % (Auto) 2.4 % (0.0-4.3) 11/17/18 06:45 Baso % (Auto) 0.7 % (0.0-1.8) 11/17/18 06:45 Lymph # 1.7 K/mm3 (1.2-5.4) 11/17/18 06:45 [place] # 0.3 K/mm3 (0.0-0.8) 11/17/18 06:45 Eos # 0.1 K/mm3 (0.0-0.4) 11/17/18 06:45 Baso # 0.0 K/mm3 (0.0-0.1) 11/17/18 06:45 Seg Neutrophils % 40.8 % (40.0-70.0) 11/17/18 06:45 Seg Neutrophils # 1.5 K/mm3 (1.8-7.7) L 11/17/18 06:45 PT 12.7 Sec. (12.2-14.9) 11/16/18 17:00 INR 0.90 (0.87-1.13) 11/16/18 17:00 APTT 29.4 Sec. (24.2-36.6) 11/16/18 17:00 Sodium 141 mmol/L (137-145) 11/17/18 06:45 Potassium 3.9 mmol/L (3.6-5.0) 11/17/18 06:45 Chloride 106.5 mmol/L (98-107) 11/17/18 06:45 Carbon Dioxide 24 mmol/L (22-30) 11/17/18 06:45 14 mmol/L 11/17/18 06:45 BUN 6 mg/dL (9-20) L 11/17/18 06:45 0.5 mg/dL (0.8-1.5) L 11/17/18 06:45 Estimated GFR > 60 ml/min 11/17/18 06:45 12 % 11/17/18 06:45 Glucose 267 mg/dL (75-100) H 11/17/18 06:45 POC Glucose 199 (70-105) H 11/17/18 10:51 10.8 % (4-6) H 11/16/18 17:00 Calcium 7.8 mg/dL (8.4-10.2) L 11/17/18 06:45 Phosphorus 2.90 mg/dL (2.5-4.5) 11/17/18 06:45 Magnesium 1.80 mg/dL (1.7-2.3) 11/17/18 06:45 0.50 mg/dL (0.1-1.2) 11/16/18 17:00 AST 24 units/L (5-40) 11/16/18 17:00 ALT 25 units/L (7-56) 11/16/18 17:00 87 units/L (35-129) 11/16/18 17:00 < 0.010 ng/mL (0.00-0.029) 11/16/18 19:41 6.7 g/dL (6.3-8.2) 11/16/18 17:00 3.9 g/dL (3.9-5) 11/16/18 17:00 1.4 % 11/16/18 17:00 46 units/L (13-60) 11/16/18 17:00 Salicylates 0.5 mg/dL (2.8-20.0) L 11/16/18 16:59 Acetaminophen < 5.0 ug/mL (10.0-30.0) L 11/16/18 16:59 Plasma/Serum Alcohol < 0.01 % (0-0.07) 11/16/18 17:00 Active Medications - Current Medications Current Medications: Generic Name Dose Route Start Last Admin Trade Name Tran PRN Reason Stop Dose Admin Acetaminophen 650 mg 11/16/18 19:58 Tylenol PO Q4H PRN Pain MILD(1-3)/Fever >100.5/DIGGS Dextrose 50 ml 11/16/18 20:10 D50w (25gm) Syringe IV PRN PRN Hypoglycemia Docusate Sodium 100 mg 11/16/18 22:00 11/17/18 09:19 Colace PO Not Given BID [facility] Haloperidol Lactate 5 mg 11/16/18 19:59 Haldol IV Q1H PRN Unrespon. to mult. doses BZD's Hydralazine HCl 10 mg 11/16/18 20:45 Apresoline IV Q4HR PRN Blood Pressure Pantoprazole Sodium 80 mg/ 100 mls @ 10 mls/hr 11/16/18 21:00 11/17/18 09:22 Sodium Chloride IV 8 mg/hr DIRECT [facility] 10 mls/hr Administration 8 MG/HR Sodium Chloride 1,000 mls @ 50 mls/hr 11/17/18 12:00 Nacl 0.9% 1000 Ml IV DIRECT [facility] Insulin Glargine 10 units 11/16/18 22:00 11/16/18 22:35 Lantus SUB-Q 10 units QHS [facility] Administration Insulin Human Lispro 0 unit 11/17/18 00:00 11/17/18 12:28 Humalog SUB-Q Not Given Q6HR [facility] Protocol Lisinopril 20 mg 11/16/18 20:45 11/17/18 09:14 Zestril PO 20 mg QDAY [facility] Administration Lorazepam 2 mg 11/16/18 19:59 Ativan IV Q1H PRN CIWA-Ar 8-15 Lorazepam 4 mg 11/16/18 19:59 Ativan IV Q1H PRN CIWA-Ar 16-25 Morphine Sulfate 2 mg 11/16/18 19:58 11/17/18 14:24 Morphine IV 11/17/18 23:59 2 mg Q4H PRN Administration Pain, Moderate (4-6) Ondansetron HCl 4 mg 11/16/18 19:58 Zofran IV Q8H PRN Nausea And Vomiting Quetiapine Fumarate 400 mg 11/16/18 22:00 11/16/18 22:35 Seroquel PO 400 mg QHS [facility] Administration Sodium Chloride 10 ml 11/16/18 22:00 11/17/18 09:19 Sodium Chloride Flush Syringe 10 Ml IV 10 ml BID [facility] Administration Sodium Chloride 10 ml 11/16/18 19:58 Sodium Chloride Flush Syringe 10 Ml IV PRN PRN LINE FLUSH Nutrition/Malnutrition Assess - Dietary Evaluation Nutrition/Malnutrition Findings: Nutrition Notes Start: 11/17/18 12:59 Freq: Status: Active Protocol: Document 11/17/18 12:59 OH (Rec: 11/17/18 13:12 OH [id number]) Nutrition Notes Need for Assessment generated from: MD Order Initial or Follow up Assessment Current Diagnosis Diabetes,Hypertension Other Pertinent Diagnosis gastritis; hx ETOH ABUSE; obesity;non compliance w/HTN med;depression; bipol Current Diet NPO Labs/Tests HGBA1C 10.8 K+ 3.9 GLUC 267 CA 7.8 P04 2.9 Pertinent Medications Haldol Lantus Humalog Height 5 ft 8 in Weight 114 kg [place] Body Weight (kg) 70.00 BMI 38.2 Weight Status Morbidly Obese Subjective/Other Information MD consult: Pt. lying in bed. Pt. verbalized he was in pain and didn't want to talk at this time. Pt. 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 Current % PO Negligible #2 Nutrition Diagnosis Limited adherence to nutrition -related recommendations Etiology inadequate understanding of DM recommendations/HTN goals As Evidenced by Signs and Symptoms [id number] 10.8/uncontrolled HTN #1 Nutrition Diagnosis Inadequate oral intake Etiology EGD test scheduled As Evidenced by Signs and Symptoms NPO Is patient on ventilator? No Kcal/Kg value to use for calculation 15 Approximate Energy Requirements Using 1710 kcal/Kg Calculation Used for Recommendations Kcal/kg Additional Notes PRO: 0.8-1.0 G/KG/IBW FLUID: 1 mL/kcal Nutrition Intervention Change Diet Order: Advance to consistent CHO per MD recommendation Teaching Recipient Patient Education Handouts Provided Pt refused education/ discussion secondary to wasn't feeling well. Pt. indicated he had no plans to manage DM/ HTN medical condition. RD to f /u at later time. Barriers to Learning Cognitive/Written,Motivation, Physical,Emotional,Financial, Environmental,Social Goal #1 Initiate consistent CHO DIET per MD recommendation upon EGD test completion Goal #2 Pt. open/available for DM/HTN education Anticipated Discharge Needs: DM/HTN education Follow-Up By: 11/18/18 Additional Comments Advancement of diet/po intake/ education needs
[2018-11-17] MEDS: LANTUS SUB-Q SCH (22:20)
[2018-11-18] MEDS: HumaLOG SUB-Q SCH ×4 (00:24→18:17)
[2018-11-18 07:35] VITALS: BP 129/79
[2018-11-18] MEDS: COLACE PO SCH (09:29)
[2018-11-18] MEDS: SODIUM CHLORIDE FLUSH SYRINGE 10 ML IV SCH (09:30)
[2018-11-18] MEDS: GLUCOPHAGE PO SCH ×2 (09:30→18:18)
[2018-11-18] MEDS: ZESTRIL PO SCH (09:30)
[2018-11-18 10:29] LABS: Hematocrit 41.9 % (35.5-45.6); Hemoglobin 14.4 gm/dl (11.8-15.2)
--- NOTE | 2018-11-18 10:29 | Discharge Summary ---
Providers - Providers Date of Admission: 11/16/18 19:33 Date of discharge: 11/18/18 Attending physician: DAVID DONALD 11/16/18 19:50 Consult to Physician [CONS] Routine Comment: Consulting Provider: JENNIFER MONTALVO Physician Instructions: Reason For Exam: upper gi bleed, gastritis 11/16/18 20:00 Consult to Dietitian/Nutrition [CONS] Routine Physician Instructions: Reason For Exam: Reason for Consult: Diet education 11/16/18 20:04 Consult to Mental Health [CONS] Routine Reason For Exam: eval and detox Place consult to:: ed Notified:: mental health Phone number called:: [phone] Was contact made?: Yes If yes, spoke with:: Cee Time called:: 08:27 Primary care physician: ROBBIN LUIS Hospitalization Reason for admission: epigastric/substernal pain Condition: Fair Hospital course: Patient is a 48 y/o male with PMH of HTN, DM (uncontrolled), cardiomyopathy (stress test 2016 negative; repeat stress scheduled 09/2018 but patient left AMA), obesity, substance abuse (ETOH and cocaine? per chart review), depression, schizophrenia, and bipolar disorder who presented to ED with c/o epigastric/substernal pain and hematemesis after drinking a fifth of vodka (stated was "clean" for 3 months prior) to which GI was consulted. Patient with multiple prior hospitalizations and previous EGDs for similar symptoms. Last EGD was on 03/07/2017 that revealed [place] esophagitis, gastritis, and duodenitis but no evidence of bleeding. On this hospitalization, GI performed an EGD that revealed normal duodenum, minimal gastritis, small amount of residual fluid in the gastric body, GE junction regular at 40cm from the incisors but grossly normal esophagus. GI felt that there was no source of hematemesis and unremarkable EGD. Patient was prepared for discharge within the morning of discharge complained of ? Bright red blood per rectum. Patient however did not show this evidence to staff. I discussed the case with GI who reported patient can have further follow-up as an outpatient with colonoscopy if H&H stable. No melena or hematochezia was reported prior to this episode. Therefore, patient will be discharged home and his follow-up with GI if H&H is stable. Patient also reported wanting detox for residential treatment program. Patient was seen by mental health and outpatient clinics arranged by case management. Dedicated discharge 34 minutes. Disposition: DC-01 TO HOME OR SELFCARE Time spent for discharge: 34 - Discharge Diagnoses (1) Hematochezia Status: Acute (2) Alcohol abuse Status: Acute (3) Anxiety Status: Acute (4) Epigastric abdominal pain Status: Acute (5) Gastritis Status: Acute Qualifiers: Gastritis type: alcoholic Chronicity: acute Gastritis bleeding: with bleeding Qualified Code(s): K29.21 - Alcoholic gastritis with bleeding (6) Hematemesis with nausea Status: Acute Core Measure Documentation - Palliative Care Palliative Care/ Comfort Measures: Not Applicable - Core Measures Any of the following diagnoses?: none Exam - Constitutional Vitals: Temp Pulse Resp BP Pulse Ox 97.9 F 82 18 129/79 93 11/18/18 07:33 11/18/18 04:36 11/18/18 07:33 11/18/18 07:33 11/18/18 04:18 General appearance: Present: no acute distress, well-nourished - EENT Eyes: Present: PERRL ENT: hearing intact, clear oral mucosa - Neck Neck: Present: supple, normal ROM - Respiratory Respiratory effort: normal Respiratory: bilateral: CTA - Cardiovascular Heart Sounds: Present: S1 & S2. Absent: rub, click - Extremities Extremities: pulses symmetrical, No edema Peripheral Pulses: within normal limits - Abdominal General gastrointestinal: Present: soft, non-tender, non-distended, normal bowel sounds Male genitourinary: Present: normal - Integumentary Integumentary: Present: clear, warm, dry - Musculoskeletal Musculoskeletal: gait normal, strength equal bilaterally - Psychiatric Psychiatric: appropriate mood/affect, intact judgment & insight - Neurologic Neurologic: CNII-XII intact, moves all extremities Plan Activity: no restrictions Weight Bearing Status: Full Weight Bearing Diet: regular Follow up with: ROBBIN LUIS MD [Primary Care Provider] - 7 Days SOUMYA MEDINA MD [Staff Physician] - 7 Days Prescriptions: Insulin Aspart Prot/Aspart(Nf) [Novolog Mix 70/30] 8 units SQ BID #1 vial Pantoprazole [Protonix] 40 mg PO QDAY #30 tablet
--- NOTE | 2018-11-18 10:49 | Consultation ---
History of Present Illness - Reason for Consult Consult date: 11/18/18 Reason for consult: Mental Health Evaluation Requesting physician: JASON ALAS - Chief Complaint Chief complaint: "I would like ocean transportation intermediary treatment" - History of Present Psychiatric Illness 48-year-old AA male who presented to the ER for chest pain and epigastric pain, Psychiatry was consulted to see the patient for detox. This patient is known to me. Today the patient is calm and cooperative during the assessment. Per the patient, he had not drink (etoh) in 3 months, but recently relapsed prior to coming to the ER. He stated that he is compliant with his Seroquel. He stated that he would like to try residential treatment. He stated that he attends AA as much as possible. He denies SI/HI's and AVH's. He stated that he don't feel depressed, but is struggling with his coping skills. He denies erratic sleep and a poor appetite. He denies recreational drug use. Medications and Allergies Allergies Allergy/AdvReac Type Severity Reaction Status Date / Time Fish Containing Products Allergy Rash Verified 06/12/17 17:33 Home Medications Medication Instructions Recorded Confirmed Last Taken Type Lisinopril [Zestril TAB] 20 mg PO QDAY 11/16/18 11/16/18 1 Day Ago History ~11/15/18 Quetiapine Fumarate [SEROquel] 400 mg PO HS 11/16/18 11/16/18 1 Day Ago History ~11/15/18 Insulin Aspart Prot/Aspart(Nf) 8 units SQ BID #1 vial 11/17/18 Unknown Rx [Novolog Mix 70/30] Pantoprazole [Protonix] 40 mg PO QDAY #30 tablet 11/17/18 Unknown Rx Active Meds: Active Medications Acetaminophen (Tylenol) 650 mg PO Q4H PRN PRN Reason: Pain MILD(1-3)/Fever >100.5/DIGGS Last Admin: 11/18/18 05:15 Dose: 650 mg Documented by: Dextrose (D50w (25gm) Syringe) 50 ml IV PRN PRN PRN Reason: Hypoglycemia Docusate Sodium (Colace) 100 mg PO BID [facility] Last Admin: 11/18/18 09:29 Dose: 100 mg Documented by: Haloperidol Lactate (Haldol) 5 mg IV Q1H PRN PRN Reason: Unrespon. to mult. doses BZD's Hydralazine HCl (Apresoline) 10 mg IV Q4HR PRN PRN Reason: Blood Pressure Pantoprazole Sodium 80 mg/ (Sodium Chloride) 100 mls @ 10 mls/hr IV DIRECT [facility] Last Admin: 11/17/18 09:22 Dose: 8 mg/hr, 10 mls/hr Documented by: Sodium Chloride (Nacl 0.9% 1000 Ml) 1,000 mls @ 50 mls/hr IV DIRECT [facility] Insulin Glargine (Lantus) 10 units SUB-Q QHS [facility] Last Admin: 11/17/18 22:20 Dose: 10 units Documented by: Insulin Human Lispro (Humalog) 0 unit SUB-Q Q6HR [facility]; Protocol Last Admin: 11/18/18 05:53 Dose: 3 unit Documented by: Lisinopril (Zestril) 20 mg PO QDAY [facility] Last Admin: 11/18/18 09:30 Dose: 20 mg Documented by: Lorazepam (Ativan) 2 mg IV Q1H PRN PRN Reason: CIWA-Ar 8-15 Lorazepam (Ativan) 4 mg IV Q1H PRN PRN Reason: CIWA-Ar 16-25 Metformin HCl (Glucophage) 500 mg PO BIDDIAB [facility] Last Admin: 11/18/18 09:30 Dose: 500 mg Documented by: Ondansetron HCl (Zofran) 4 mg IV Q8H PRN PRN Reason: Nausea And Vomiting Quetiapine Fumarate (Seroquel) 400 mg PO QHS [facility] Last Admin: 11/17/18 22:21 Dose: 400 mg Documented by: Sodium Chloride (Sodium Chloride Flush Syringe 10 Ml) 10 ml IV BID [facility] Last Admin: 11/18/18 09:30 Dose: 10 ml Documented by: Sodium Chloride (Sodium Chloride Flush Syringe 10 Ml) 10 ml IV PRN PRN PRN Reason: LINE FLUSH Past psychiatric history - Past Medical History Past Medical History: diabetes Past Surgical History: No surgical history - past Psychiatric treatment and history psychiatric treatment history: 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 Denies a fam psy hx. - Social History Social history: other (Possibly Homless) Mental Status Exam - Vital signs Last Vital Signs Temp 97.9 F 11/18/18 07:33 Pulse 82 11/18/18 04:36 Resp 18 11/18/18 07:33 BP 129/79 11/18/18 07:33 Pulse Ox 93 11/18/18 04:18 - Exam Narrative exam: MSE: Appearance: calm, cooperative Behavior: poor eye contact Speech: regular rate and tone Mood: "okay" Affect: congruent to mood Thought Process: linear Thought Content: denies SI/HI's and AVH's Motor Activity: ambulatory Cognition: A/O x 3 Insight: appropriate Judgment: appropriate Results Result Diagrams: 11/18/18 10:09 11/17/18 06:45 Abnormal lab results 11/17/18 11/17/18 11/17/18 Range/Units 10:51 18:42 23:51 POC Glucose 199 H 241 H 277 H (70-105) 11/18/18 Range/Units 05:36 POC Glucose 229 H (70-105) All other labs normal. Assessment and Plan Assessment and plan: Impression: Hx of Mood DO and Alcohol Abuse. Today the patient is calm and cooperative during the assessment. No acute withdrawals noted (etoh). DDx: MDD Recommendation/Plan: Continue home medication Seroquel 400 mg PO HS for mood. Discussed the possible metabolic side effects of Seroquel with the patient, he verbalized understanding. Discussed the importance to abstain from alcohol consumption with patient, he verbalized understanding. Dispo: The patient is pending acceptance to a residential treatment facility. Staffed with Dr Teri Bailon.
--- NOTE | 2018-11-18 15:13 | Gastroenterology Progress Note ---
<DANI YO - Last Filed: 11/18/18 15:13> Assessment and Plan 1.hematemesis 2.epigastric/substernal pain 3.ETOH abuse/detox -afebrile -WBC WNL -INR 0.90 -LFTs and lipase WNL -H/H WNL (14.4/41.9) -continue to monitor H/H and transfuse as needed -s/p EGD yesterday that showed minimal gastritis and small amount of residual food in the gastric body -clinically, patient is stable with abd pain improved. No further N/V and tole rating diet. Reports small amount of BRBPR following BM this am, however repeat H/H this am stable (trended up). -recommend colonoscopy as outpatient -continue PPI -avoid NSAIDs -optimize glycemic control -cessation of alcohol discussed/encouraged with patient -continue supportive care -patient is okay to be d/c per GI standpoint with f/u in clinic ~2 weeks to schedule colonoscopy as above -will sign off, please call if needed 4.HTN 5.DM-uncontrolled 6.obesity Subjective Date of service: 11/18/18 Principal diagnosis: UGIB Interval history: No acute distress. Abd pain and N/V improved. Tolerating diet. Reports scant amount of bright red blood following BM this am. No prior colonoscopy. Objective - Constitutional Vitals: Temp Pulse Resp BP Pulse Ox 97.9 F 82 18 129/79 93 11/18/18 07:33 11/18/18 04:36 11/18/18 07:33 11/18/18 07:33 11/18/18 04:18 General appearance: no acute distress - Respiratory Respiratory: bilateral: CTA - Cardiovascular Rhythm: regular - Gastrointestinal General gastrointestinal: Present: soft, non-tender, non-distended, normal bowel sounds - Neurologic Neurological: alert and oriented x3 - Labs CBC & Chem 7: 11/18/18 10:09 11/17/18 06:45 Labs: Laboratory Results - last 24 hr 11/17/18 11/17/18 11/18/18 18:42 23:51 05:36 Hgb Hct POC Glucose 241 H 277 H 229 H 11/18/18 11/18/18 10:09 11:43 Hgb 14.4 Hct 41.9 POC Glucose 225 H <JENNIFER MONTALVO - Last Filed: 11/18/18 22:54> Assessment and Plan Patient seen and examined. I have reviewed the advanced practitioner's evaluation, assessment, and plan, and agree with them. I note the following additions: Though patient reports some BRBPR, it is a small amount that he reports and Hgb stable; abd soft and benign; no more upper GI bleeding. Therefore patient may be discharged with out patient follow up for colonoscopy (rather than keep another 2+ days to prep for a colonoscopy and perform a colonoscopy which is not urgent and can safely wait for the outpatient setting) Objective - Constitutional Vitals: Temp Pulse Resp BP Pulse Ox 97.9 F 82 18 129/79 93 11/18/18 07:33 11/18/18 04:36 11/18/18 07:33 11/18/18 07:33 11/18/18 04:18 - Labs CBC & Chem 7: 11/18/18 10:09 11/17/18 06:45 Labs: Laboratory Results - last 24 hr 11/17/18 11/18/18 11/18/18 23:51 05:36 10:09 Hgb 14.4 Hct 41.9 POC Glucose 277 H 229 H 11/18/18 11/18/18 11:43 17:05 Hgb Hct POC Glucose 225 H 210 H
[2018-11-19] MEDS ORDERED: PROTONIX PO SCH (10:00)
== END 2018-11-18 19:12 | disposition home or self-care (01) | DRG 378 ==
LOC: ED 16:44 → 4A 19:33
PROVIDERS: ADMIT Internal Medicine; ATTEND Hospitalist
PROC: 0DJ08ZZ Inspection of Upper Intestinal Tract, Via Natural or Artificial Opening Endoscopic (ICD-10-PCS; principal; 2018-11-17)
DX: K29.21 Alcoholic gastritis with bleeding (principal); Z68.41 Body mass index [BMI] 40.0-44.9, adult; I42.9 Cardiomyopathy, unspecified; E66.9 Obesity, unspecified; F17.200 Nicotine dependence, unspecified, uncomplicated; I10 Essential (primary) hypertension; I25.10 Atherosclerotic heart disease of native coronary artery without angina pectoris; F20.9 Schizophrenia, unspecified; K21.9 Gastro-esophageal reflux disease without esophagitis; F12.90 Cannabis use, unspecified, uncomplicated; F41.9 Anxiety disorder, unspecified; F10.20 Alcohol dependence, uncomplicated; E11.51 Type 2 diabetes mellitus with diabetic peripheral angiopathy without gangrene; Z90.49 Acquired absence of other specified parts of digestive tract; Z79.899 Other long term (current) drug therapy; Z82.49 Family history of ischemic heart disease and other diseases of the circulatory system; Z83.3 Family history of diabetes mellitus; Z79.4 Long term (current) use of insulin
CPT/HCPCS: 36415; 71046; 80048; 80053; 80320; 82962; 83036; 83690; 83735; 84100; 84484; 85014; 85018; 85025; 85610; 85730; 93005; 93010; 99406; G0378; C9113; G0480; J0360; J1815; J2060; J2270; J2704; J7030

== ENCOUNTER 2018-12-18 19:43 | Emergency (ER) | payer MEDICARE | END 2018-12-18 21:52 | disposition left against medical advice (07) | LOC: ED 19:43 | DX: R10.9 Unspecified abdominal pain (principal); Z53.21 Procedure and treatment not carried out due to patient leaving prior to being seen by health care provider ==

== ENCOUNTER 2018-12-18 22:41 | Emergency (ER) | payer MEDICARE ==
[2018-12-18 23:40] LABS: Basophils # (Auto) 0.1 K/mm3 (0.0-0.1); Basophils % (Auto) 1.2 % (0.0-1.8); Eosinophils # (Auto) 0.1 K/mm3 (0.0-0.4); Eosinophils % (Auto) 1.3 % (0.0-4.3); Hemoglobin 15.4 gm/dl (11.8-15.2); Lymphocytes # (Auto) 2.5 K/mm3 (1.2-5.4); Lymphocytes % (Auto) 47.1 % (13.4-35.0); Mean Corpuscular HGB Conc 35 % (32-34); Mean Corpuscular Volume 89 fl (84-94); Monocytes # (Auto) 0.4 K/mm3 (0.0-0.8); Monocytes % (Auto) 7.5 % (0.0-7.3); Platelet Count 192 K/mm3 (140-440); Red Blood Count 4.96 M/mm3 (3.65-5.03); Red Cell Distribution Width 12.9 % (13.2-15.2)
[2018-12-18 23:56] LABS: Alanine Aminotransferase 18 units/L (7-56); Albumin 4.1 g/dL (3.9-5); BUN/Creatinine Ratio 12; Blood Urea Nitrogen 6 mg/dL (9-20); Calcium 9.2 mg/dL (8.4-10.2); Hemolysis Index 7
[2018-12-19] MEDS ORDERED: ZOFRAN IV ONE (01:10)
[2018-12-19] MEDS ORDERED: NACL 0.9% 1000 ML 1,000 ML IV ONE (01:10)
[2018-12-19] MEDS ORDERED: PROTONIX IV ONE (01:10)
[2018-12-19 01:30] LABS: Bilirubin,Urine NEG (Negative); Blood,Urine NEG (Negative); Color,Urine Yellow (Yellow); Protein,Urine <15 mg/dL mg/dL (Negative); RBC,Urine < 1.0 /HPF (0.0-6.0); Urobilinogen,Urine < 2.0 mg/dL (<2.0)
[2018-12-19 01:38] LABS: Amphetamine Screen,Urine PRESUMPTIVE NEGATIVE; Benzodiazepines Screen,Urine PRESUMPTIVE NEGATIVE; Cannabinoid Screen,Urine PRESUMPTIVE NEGATIVE; Cocaine Screen,Urine PRESUMPTIVE NEGATIVE; Methadone Screen,Urine PRESUMPTIVE NEGATIVE; Opiate Screen,Urine PRESUMPTIVE NEGATIVE
--- NOTE | 2018-12-19 02:48 | Cat Scan Report ---
PROCEDURE: CT ABDOMEN PELVIS W CON TECHNIQUE: Computerized axial tomography of the abdomen and pelvis was performed after the IV inject ion of iodinated nonionic contrast (Omnipaque 350, 100 mL). HISTORY: Upper abdominal pain with vomiting. COMPARISONS: None . FINDINGS: Visualized lower thorax: No acute abnormality. Liver: Normal size. Mild steatosis. Spleen: Normal size and attenuation. Incidental splenule. Gallbladder and biliary system: Gallbladder surgically absent. Pancreas: Normal. Adrenals: Normal. Kidneys: Unremarkable. There is no obstructive uropathy. GI tract: Scattered diverticuli, no adjacent inflammatory change. Appendix normal. Vasculature: Normal.. Ureter/bladder: Variable opacification of the ureter is unremarkable. There is mild thickening of the posterior inferior bladder wall which has a trabeculated morphology. The adjacent prostate is mildly enlarged. Suggested mild stranding adjacent to the urinary bladder. Peritoneum: No free fluid. Musculoskeletal structures: Transitional lumbosacral anatomy and thoracolumbar degenerative changes. IMPRESSION: Suggested mild stranding adjacent to the urinary bladder which may be secondary to cystitis. Consider correlation with urinalysis. Additional mild thickening of trabeculated appearance of the posterior inferior bladder wall likely secondary to adjacent mildly enlarged prostate gland, if hematuria consi bharath non-urgent urology referral for direct visualization. No evidence of bowel obstruction, appendicitis or obstructive uropathy. Mild hepatic steatosis. This document is electronically signed by Danny Alberts DO., December 19 2018 02:46:51 AM ET
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
[2018-12-19] MEDS ORDERED: D50W (25GM) Syringe IV PRN (03:01)
[2018-12-19] MEDS ORDERED: HumuLIN R SUB-Q SCH (07:30)
--- NOTE | 2018-12-19 12:37 | Consultation ---
History of Present Illness - Reason for Consult Consult date: 12/19/18 Reason for consult: Mental Health Evaluation Requesting physician: YINKA GARCIA - Chief Complaint Chief complaint: "I have to stop drinking:" - History of Present Psychiatric Illness 48-year-old AA male who presented to the ER for ETOH. This patients is known to me. Today the patient was calm during the assessment. He stated that he is looking for help for his "drinking problem." He stated that he last drink (etoh) was 2 days ago. He stated that he is willing to accept rehab services. He denies being depressed, SI/HI's and AVH's. He denies erratic sleep and a poor appetite. He denies recreational drug use. Medications and Allergies Allergies Allergy/AdvReac Type Severity Reaction Status Date / Time Fish Containing Products Allergy Rash Verified 06/12/17 17:33 Home Medications Medication Instructions Recorded Confirmed Last Taken Type Lisinopril [Zestril TAB] 20 mg PO QDAY 11/16/18 11/16/18 1 Day Ago History ~11/15/18 Quetiapine Fumarate [SEROquel] 400 mg PO HS 11/16/18 11/16/18 1 Day Ago History ~11/15/18 Insulin Aspart Prot/Aspart(Nf) 8 units SQ BID #1 vial 11/17/18 Unknown Rx [Novolog Mix 70/30] Pantoprazole [Protonix] 40 mg PO QDAY #30 tablet 11/17/18 Unknown Rx Active Meds: Active Medications Dextrose (D50w (25gm) Syringe) 50 ml IV PRN PRN PRN Reason: Hypoglycemia Insulin Human Regular (Humulin R) 0 units SUB-Q [facility]; Protocol Last Admin: 12/19/18 08:49 Dose: 2 units Documented by: Past psychiatric history - Past Medical History Past Medical History: diabetes Past Surgical History: No surgical history - past Psychiatric treatment and history psychiatric treatment history: Hx of Alcoholism. Denies a fam psy hx. - Social History Social history: lives with family Mental Status Exam - Vital signs Last Vital Signs Temp 98.2 F 12/19/18 01:15 Pulse 84 12/19/18 01:15 Resp 16 12/19/18 01:15 BP 149/94 12/19/18 01:15 Pulse Ox 99 12/19/18 01:15 - Exam Narrative exam: MSE: Appearance: calm Behavior: regular eye contact Speech: regular rate and tone Mood: "okay" Affect: congruent to mood Thought Process: circumstantial Thought Content: denies SI/HI's and AVH's Motor Activity: ambulatory Cognition: A/O x3 Insight:fair Judgment: fair Results Result Diagrams: 12/18/18 23:30 12/18/18 23:30 Abnormal lab results 12/18/18 12/18/18 12/18/18 Range/Units 23:30 23:30 23:30 Hgb 15.4 H (11.8-15.2) gm/dl MCHC 35 H (32-34) % RDW 12.9 L (13.2-15.2) % Lymph % (Auto) 47.1 H (13.4-35.0) % [place] % (Auto) 7.5 H (0.0-7.3) % Carbon Dioxide 20 L (22-30) mmol/L BUN 6 L (9-20) mg/dL Creatinine 0.5 L (0.8-1.5) mg/dL Glucose 266 H (75-100) mg/dL POC Glucose (70-105) Salicylates < 0.3 L (2.8-20.0) mg/dL Acetaminophen (10.0-30.0) ug/mL 12/18/18 12/19/18 Range/Units 23:30 08:25 Hgb (11.8-15.2) gm/dl MCHC (32-34) % RDW (13.2-15.2) % Lymph % (Auto) (13.4-35.0) % [place] % (Auto) (0.0-7.3) % Carbon Dioxide (22-30) mmol/L BUN (9-20) mg/dL Creatinine (0.8-1.5) mg/dL Glucose (75-100) mg/dL POC Glucose 218 H (70-105) Salicylates (2.8-20.0) mg/dL Acetaminophen < 5.0 L (10.0-30.0) ug/mL All other labs normal. Assessment and Plan Assessment and plan: Impression: Alcohol Use DO. Today the patient was calm during the assessment. Recommendation/Plan: Discussed the importance to abstain from alcohol consumption,(etoh), he verbalized understanding. Dispo: The patientcan follow up with [facility] for outpatient psy services. Will staff with Dr Teri Bailon.
[2018-12-19 13:07] VITALS: BP 160/101
--- NOTE | 2018-12-19 13:07 | Event Note ---
Date: 12/19/18 Chart seen and reviewed. Discussed with patient. Seen by psychiatry. Patient will be discharged with as needed and nausea medication, Librium, Pepcid, instructions to follow up with outpatient gastroenterology, urology, outpatient psychiatry. Counseled to abstain from alcohol. Vital Signs 12/18/18 12/19/18 23:49 01:15 Temperature 98 F 98.2 F Pulse Rate 78 84 Respiratory 18 16 Rate Blood Pressure 152/81 Blood Pressure 149/94 [Left] O2 Sat by Pulse 97 99 Oximetry Lab Results 12/18/18 12/18/18 12/18/18 Range/Units 23:30 23:30 23:30 WBC 5.2 (4.5-11.0) K/mm3 RBC 4.96 (3.65-5.03) M/mm3 Hgb 15.4 H (11.8-15.2) gm/dl Hct 44.0 (35.5-45.6) % MCV 89 (84-94) fl MCH 31 (28-32) pg MCHC 35 H (32-34) % RDW 12.9 L (13.2-15.2) % Plt Count 192 (140-440) K/mm3 Lymph % (Auto) 47.1 H (13.4-35.0) % [place] % (Auto) 7.5 H (0.0-7.3) % Eos % (Auto) 1.3 (0.0-4.3) % Baso % (Auto) 1.2 (0.0-1.8) % Lymph # 2.5 (1.2-5.4) K/mm3 [place] # 0.4 (0.0-0.8) K/mm3 Eos # 0.1 (0.0-0.4) K/mm3 Baso # 0.1 (0.0-0.1) K/mm3 Seg Neutrophils % 42.9 (40.0-70.0) % Seg Neutrophils # 2.2 (1.8-7.7) K/mm3 Sodium 140 (137-145) mmol/L Potassium 4.0 (3.6-5.0) mmol/L Chloride 104.0 (98-107) mmol/L Carbon Dioxide 20 L (22-30) mmol/L Anion Gap 20 mmol/L BUN 6 L (9-20) mg/dL Creatinine 0.5 L (0.8-1.5) mg/dL Estimated GFR > 60 ml/min BUN/Creatinine Ratio 12 % Glucose 266 H (75-100) mg/dL POC Glucose (70-105) Calcium 9.2 (8.4-10.2) mg/dL Total Bilirubin 0.80 (0.1-1.2) mg/dL AST 20 (5-40) units/L ALT 18 (7-56) units/L Alkaline Phosphatase 95 (35-129) units/L Total Protein 7.0 (6.3-8.2) g/dL Albumin 4.1 (3.9-5) g/dL Albumin/Globulin Ratio 1.4 % Lipase (13-60) units/L Urine Color (Yellow) Urine Turbidity (Clear) Urine pH (5.0-7.0) Ur Specific [place] (1.003-1.030) Urine Protein (Negative) mg/dL Urine Glucose (UA) (Negative) mg/dL Urine Ketones (Negative) mg/dL Urine Blood (Negative) Urine Nitrite (Negative) Urine Bilirubin (Negative) Urine Urobilinogen (<2.0) mg/dL Ur Leukocyte Esterase (Negative) Urine WBC (Auto) (0.0-6.0) /HPF Urine RBC (Auto) (0.0-6.0) /HPF Salicylates < 0.3 L (2.8-20.0) mg/dL Urine Opiates Screen Urine Methadone Screen Acetaminophen (10.0-30.0) ug/mL Ur Barbiturates Screen Ur Phencyclidine Scrn Ur Amphetamines Screen U Benzodiazepines Scrn Urine Cocaine Screen U Marijuana (THC) Screen Drugs of Abuse Note Plasma/Serum Alcohol (0-0.07) % 12/18/18 12/18/18 12/18/18 Range/Units 23:30 23:30 23:30 WBC (4.5-11.0) K/mm3 RBC (3.65-5.03) M/mm3 Hgb (11.8-15.2) gm/dl Hct (35.5-45.6) % MCV (84-94) fl MCH (28-32) pg MCHC (32-34) % RDW (13.2-15.2) % Plt Count (140-440) K/mm3 Lymph % (Auto) (13.4-35.0) % [place] % (Auto) (0.0-7.3) % Eos % (Auto) (0.0-4.3) % Baso % (Auto) (0.0-1.8) % Lymph # (1.2-5.4) K/mm3 [place] # (0.0-0.8) K/mm3 Eos # (0.0-0.4) K/mm3 Baso # (0.0-0.1) K/mm3 Seg Neutrophils % (40.0-70.0) % Seg Neutrophils # (1.8-7.7) K/mm3 Sodium (137-145) mmol/L Potassium (3.6-5.0) mmol/L Chloride (98-107) mmol/L Carbon Dioxide (22-30) mmol/L Anion Gap mmol/L BUN (9-20) mg/dL Creatinine (0.8-1.5) mg/dL Estimated GFR ml/min BUN/Creatinine Ratio % Glucose (75-100) mg/dL POC Glucose (70-105) Calcium (8.4-10.2) mg/dL Total Bilirubin (0.1-1.2) mg/dL AST (5-40) units/L ALT (7-56) units/L Alkaline Phosphatase (35-129) units/L Total Protein (6.3-8.2) g/dL Albumin (3.9-5) g/dL Albumin/Globulin Ratio % Lipase 38 (13-60) units/L Urine Color (Yellow) Urine Turbidity (Clear) Urine pH (5.0-7.0) Ur Specific [place] (1.003-1.030) Urine Protein (Negative) mg/dL Urine Glucose (UA) (Negative) mg/dL Urine Ketones (Negative) mg/dL Urine Blood (Negative) Urine Nitrite (Negative) Urine Bilirubin (Negative) Urine Urobilinogen (<2.0) mg/dL Ur Leukocyte Esterase (Negative) Urine WBC (Auto) (0.0-6.0) /HPF Urine RBC (Auto) (0.0-6.0) /HPF Salicylates (2.8-20.0) mg/dL Urine Opiates Screen Urine Methadone Screen Acetaminophen < 5.0 L (10.0-30.0) ug/mL Ur Barbiturates Screen Ur Phencyclidine Scrn Ur Amphetamines Screen U Benzodiazepines Scrn Urine Cocaine Screen U Marijuana (THC) Screen Drugs of Abuse Note Plasma/Serum Alcohol 0.02 (0-0.07) % 12/19/18 12/19/18 12/19/18 Range/Units 01:09 01:09 08:25 WBC (4.5-11.0) K/mm3 RBC (3.65-5.03) M/mm3 Hgb (11.8-15.2) gm/dl Hct (35.5-45.6) % MCV (84-94) fl MCH (28-32) pg MCHC (32-34) % RDW (13.2-15.2) % Plt Count (140-440) K/mm3 Lymph % (Auto) (13.4-35.0) % [place] % (Auto) (0.0-7.3) % Eos % (Auto) (0.0-4.3) % Baso % (Auto) (0.0-1.8) % Lymph # (1.2-5.4) K/mm3 [place] # (0.0-0.8) K/mm3 Eos # (0.0-0.4) K/mm3 Baso # (0.0-0.1) K/mm3 Seg Neutrophils % (40.0-70.0) % Seg Neutrophils # (1.8-7.7) K/mm3 Sodium (137-145) mmol/L Potassium (3.6-5.0) mmol/L Chloride (98-107) mmol/L Carbon Dioxide (22-30) mmol/L Anion Gap mmol/L BUN (9-20) mg/dL Creatinine (0.8-1.5) mg/dL Estimated GFR ml/min BUN/Creatinine Ratio % Glucose (75-100) mg/dL POC Glucose 218 H (70-105) Calcium (8.4-10.2) mg/dL Total Bilirubin (0.1-1.2) mg/dL AST (5-40) units/L ALT (7-56) units/L Alkaline Phosphatase (35-129) units/L Total Protein (6.3-8.2) g/dL Albumin (3.9-5) g/dL Albumin/Globulin Ratio % Lipase (13-60) units/L Urine Color Yellow (Yellow) Urine Turbidity Clear (Clear) Urine pH 5.0 (5.0-7.0) Ur Specific [place] 1.029 (1.003-1.030) Urine Protein <15 mg/dl (Negative) mg/dL Urine Glucose (UA) >=500 (Negative) mg/dL Urine Ketones Tr (Negative) mg/dL Urine Blood Neg (Negative) Urine Nitrite Neg (Negative) Urine Bilirubin Neg (Negative) Urine Urobilinogen < 2.0 (<2.0) mg/dL Ur Leukocyte Esterase Neg (Negative) Urine WBC (Auto) 1.0 (0.0-6.0) /HPF Urine RBC (Auto) < 1.0 (0.0-6.0) /HPF Salicylates (2.8-20.0) mg/dL Urine Opiates Screen Presumptive negative Urine Methadone Screen Presumptive negative Acetaminophen (10.0-30.0) ug/mL Ur Barbiturates Screen Presumptive negative Ur Phencyclidine Scrn Presumptive negative Ur Amphetamines Screen Presumptive negative U Benzodiazepines Scrn Presumptive negative Urine Cocaine Screen Presumptive negative U Marijuana (THC) Screen Presumptive negative Drugs of Abuse Note Disclamer Plasma/Serum Alcohol (0-0.07) %
== END 2018-12-19 13:15 | disposition home or self-care (01) ==
LOC: EEVIPCON 22:41 → ED 22:41
DX: K29.20 Alcoholic gastritis without bleeding (principal); E11.65 Type 2 diabetes mellitus with hyperglycemia; Z79.4 Long term (current) use of insulin; E11.9 Type 2 diabetes mellitus without complications; F20.9 Schizophrenia, unspecified; F31.9 Bipolar disorder, unspecified; F17.200 Nicotine dependence, unspecified, uncomplicated; Z90.49 Acquired absence of other specified parts of digestive tract; Z79.899 Other long term (current) drug therapy; Z91.013 Allergy to seafood
CPT/HCPCS: 36415; 74177; 80053; 80307; 81001; 82962; 83690; 85025; 96361; 96372; 96374; 96375; 99284; C9113; G0480; J2405; J7030; Q9967; 80320; J1815

== ENCOUNTER 2019-02-12 10:48 | Inpatient (IN) | payer MEDICARE ==
[2019-02-12 11:25] LABS: Basophils % (Auto) 0.8 % (0.0-1.8); Eosinophils # (Auto) 0.1 K/mm3 (0.0-0.4); Eosinophils % (Auto) 1.3 % (0.0-4.3); Hematocrit 42.3 % (35.5-45.6); Hemoglobin 14.3 gm/dl (11.8-15.2); Lymphocytes # (Auto) 1.7 K/mm3 (1.2-5.4); Lymphocytes % (Auto) 36.2 % (13.4-35.0); Mean Corpuscular HGB Conc 34 % (32-34); Mean Corpuscular Volume 91 fl (84-94); Monocytes # (Auto) 0.6 K/mm3 (0.0-0.8); Monocytes % (Auto) 12.8 % (0.0-7.3); Platelet Count 239 K/mm3 (140-440); Red Blood Count 4.64 M/mm3 (3.65-5.03); Red Cell Distribution Width 13.4 % (13.2-15.2)
[2019-02-12 11:42] LABS: BUN/Creatinine Ratio 21; Blood Urea Nitrogen 15 mg/dL (9-20); Calcium 9.2 mg/dL (8.4-10.2); Hemolysis Index 18
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
[2019-02-12] MEDS ORDERED: MAGNESIUM SULFATE 2GM/50ML 2 GM/50 ML BAG IV ONE (12:03)
--- NOTE | 2019-02-12 13:45 | Consultation ---
History of Present Illness Consult date: 02/12/19 Requesting physician: ELIZABETH KENNY Consult reason: chest pain History of present illness: The pt is a 49-year-old male with a past medical history of HTN, DM, normal coronaires, ETOH abuse. He has been seen by our practice on prior admissios but has been admittedly noncompliant with any OP follow up. He does not regularly take any prescription medications. He presented to ED requesting alcohol detox. Patient requesting placement at [facility]. Patient states he drinks approximately 12 beers daily. has already had 6 beers this morning. Patient states he drank a lot of liquor yesterday in celebration of his birthday. Following arrival to ED, pt was noted to have frequent PVCs and then reported the development of chest pain a few minutes ago and thus cardiology has been consulted. Pt states that prior to several minutes ago, he had no cardiac complaints. He describes his chest pain as an intermittent midsternal pain with no clear aggravating or alleviating factors. He denies any SOB, palpitations, n/v, diaphoresis, dizziness or syncope. He is requesting pain medication. Of note, pt was seen here at [facility] in 09/2018 with atypical chest pain and freq PVCs. He was recommended stress test, however, he signed out AMA. LHC done 12/2015 showed normal coronaries, EF 50%. Lexiscan MPI stress test done 02/2017 was negative for significant ischemia, EF 37%. Echo done 04/2018 showed EF 55-60%, mild LVH. Past History Past Medical History: diabetes, hypertension Social history: alcohol abuse. denies: smoking, prescription drug abuse Medications and Allergies Allergies Allergy/AdvReac Type Severity Reaction Status Date / Time Fish Containing Products Allergy Rash Verified 02/12/19 14:07 Home Medications Medication Instructions Recorded Confirmed Last Taken Type Lisinopril [Zestril TAB] 20 mg PO QDAY 11/16/18 11/16/18 1 Day Ago History ~11/15/18 Quetiapine Fumarate [SEROquel] 400 mg PO HS 11/16/18 11/16/18 1 Day Ago History ~11/15/18 Insulin Aspart Prot/Aspart(Nf) 8 units SQ BID #1 vial 11/17/18 Unknown Rx [Novolog Mix 70/30] Pantoprazole [Protonix] 40 mg PO QDAY #30 tablet 11/17/18 Unknown Rx Famotidine [Pepcid] 20 mg PO BID #60 tablet 12/19/18 Unknown Rx Ondansetron [Zofran Odt] 4 mg PO Q8HR PRN #20 tab.rapdis 12/19/18 Unknown Rx chlordiazePOXIDE [Librium] 25 mg PO Q6H PRN #25 capsule 12/19/18 Unknown Rx Review of Systems Constitutional: no weight loss, no weight gain, no fever, no chills, no sweats Ears, nose, mouth and throat: no ear pain, no nose pain, no sinus pressure, no sinus pain Cardiovascular: chest pain, no orthopnea, no palpitations, no rapid/irregular heart beat, no edema, no syncope, no lightheadedness, no shortness of breath, no dyspnea on exertion Respiratory: no cough, no shortness of breath, no dyspnea on exertion, no congestion, no wheezing, no pain on inspiration Gastrointestinal: no abdominal pain, no nausea, no vomiting, no diarrhea, no constipation, no change in bowel habits Genitourinary Male: no dysuria, no hematuria, no flank pain, no discharge, no urinary frequency, no urinary hesitancy Musculoskeletal: no neck stiffness, no neck pain, no shooting arm pain, no arm numbness/tingling, no low back pain, no shooting leg pain Integumentary: no rash, no pruritis, no redness, no sores, no wounds Neurological: no head injury, no paralysis, no weakness, no parathesias, no numbness, no tingling, no seizures, no syncope Psychiatric: no anxiety Endocrine: no cold intolerance, no heat intolerance Hematologic/Lymphatic: no easy bruising, no easy bleeding Allergic/Immunologic: no urticaria, no wheezing Physical Examination Vital Signs Temp Pulse Resp BP Pulse Ox 97 F L 38 L 16 130/58 98 02/12/19 10:56 02/12/19 10:56 02/12/19 10:56 02/12/19 10:56 02/12/19 10:56 General appearance: no acute distress HEENT: Positive: PERRL, Normocephaly, Mucus Membranes Moist Neck: Positive: neck supple, trachea midline Cardiac: Positive: Reg Rate and Rhythm, S1/S2 Lungs: Positive: Decreased Breath Sounds Neuro: Positive: Grossly Intact Abdomen: Negative: Tender Skin: Negative: Rash, Wound Musculoskeletal: No Pain Extremities: Absent: edema Results 02/12/19 11:06 02/12/19 11:06 CBC 02/12/19 Range/Units 11:06 WBC 4.7 (4.5-11.0) K/mm3 RBC 4.64 (3.65-5.03) M/mm3 Hgb 14.3 (11.8-15.2) gm/dl Hct 42.3 (35.5-45.6) % Plt Count 239 (140-440) K/mm3 Lymph # 1.7 (1.2-5.4) K/mm3 [place] # 0.6 (0.0-0.8) K/mm3 Eos # 0.1 (0.0-0.4) K/mm3 Baso # 0.0 (0.0-0.1) K/mm3 Comprehensive Metabolic Panel 02/12/19 Range/Units 11:06 Sodium 139 (137-145) mmol/L Potassium 4.0 (3.6-5.0) mmol/L Chloride 101.5 (98-107) mmol/L Carbon Dioxide 23 (22-30) mmol/L BUN 15 (9-20) mg/dL Creatinine 0.7 L (0.8-1.5) mg/dL Glucose 201 H (75-100) mg/dL Calcium 9.2 (8.4-10.2) mg/dL - Imaging and Cardiology Echo: report reviewed (04/2018 showed EF 55-60%, mild LVH. ) Cardiac cath: report reviewed ( 12/2015 showed normal coronaries, EF 50%. ) EKG: report reviewed, image reviewed EKG interpretations - Telemetry EKG Rhythm: Sinus Rhythm - EKG Sinus rhythms and dysrhythmias: sinus rhythm Ventricular dysrhythmias: ventricular premature com Assessment and Plan Atypical chest pain ECG with no acute ischemic changes, Denise negative for AMI. LHC done 12/2015 showed normal coronaries, EF 50%. Lexiscan MPI stress test done 02/2017 was negative for significant ischemia, EF 37%. Echo done 04/2018 showed EF 55-60%, mild LVH. Pt is requesting inpatient rehabilitation for ETOH abuse and thus may require medical clearance to enter into rehabilitation. Will plan for lexiscan MPI stress test in AM. NPO after MN. Frequent PVCs / NSVT Likely secondary to ETOH and hypomag. Replete Mg and initiate lopressor. Monitor electrolytes. HTN Initiate lopressor and titrate as necessary. DM with hyperglycemia Management per primary. Hypomagnesemia Replete PRN and repeat BMP and Mg in AM. ETOH abuse Pt is requesting inpatient rehabilitation. Noncompliance The patient has been seen in conjunction with Dr. Rivas who agrees with the assessment and plan of care.
[2019-02-12] MEDS ORDERED: ASPIRIN PO ONE (13:52)
[2019-02-12] MEDS ORDERED: ZOFRAN IV PRN (13:57)
[2019-02-12] MEDS ORDERED: NITROSTAT SL PRN (13:57)
[2019-02-12] MEDS ORDERED: TYLENOL PO PRN (13:57)
[2019-02-12] MEDS ORDERED: SODIUM CHLORIDE FLUSH SYRINGE 10 ML IV PRN ×2 (13:57)
[2019-02-12] MEDS ORDERED: BABY ASPIRIN PO STA (13:57)
[2019-02-12] MEDS ORDERED: PROVENTIL IH PRN (13:57)
[2019-02-12] MEDS ORDERED: LIBRIUM PO PRN (14:01)
[2019-02-12] MEDS ORDERED: ZOFRAN ODT PO PRN (14:01)
--- NOTE | 2019-02-12 14:04 | History and Physical Report ---
History of Present Illness Chief complaint: My chest keeps hurting, and i been drinking too History of present illness: 49 YO Male with Obesity, DM, ETOH Abuse, Nicotine Dependence, Depression, Schizophrenia, Bipolar disorder, Diastolic CHF presents to ED for evaluation. Pt states that he experienced an acute onset of pain in his chest. Pain states that pain is 5/10, midsternal, intermittent, not worsened with exertion, not relieved with rest. Pt acknowledges decreased exercise tolerance and dypsnea with exertion. Pt also reports of daily ETOH ingestion with his last drink on yesterday. Pt transported to [facility] via private vehicle. Pt seen and evaluated in ED and found to have Angina , Multiple PVC's, as well as symptoms consistent with Diastolic CHF. Pt denies fever, chills, palpitations, syncope, trauma, B RBPR, unintentional weight loss, night sweats, ulilateral leg swelling, productive cough, calf pain, prolonged travel/immobility, individual/family history of DVT/PE, or skin rash. Pt admitted to telemetry. Cardiology consulted in ED. Prior admission reviewed on 11/16/18. All listed medication reconciled at time of admission. Past History Past Medical History: diabetes, hypertension Social history: alcohol abuse. denies: smoking, prescription drug abuse Family history: diabetes, hypertension Medications and Allergies Allergies Allergy/AdvReac Type Severity Reaction Status Date / Time Fish Containing Products Allergy Rash Verified 02/12/19 14:07 Home Medications Medication Instructions Recorded Confirmed Last Taken Type Quetiapine Fumarate [SEROquel] 400 mg PO HS 11/16/18 02/12/19 02/10/19 History Bupropion HCl [Wellbutrin XL] 300 mg PO QDAY 02/12/19 02/12/19 02/10/19 History Active Meds: Active Medications Acetaminophen (Tylenol) 650 mg PO Q4H PRN PRN Reason: Pain MILD(1-3)/Fever >100.5/DIGGS Albuterol (Proventil) 2.5 mg IH Q4HRT PRN PRN Reason: Shortness Of Breath Aspirin (Baby Aspirin) 324 mg PO ONCE STA Stop: 02/12/19 13:58 Chlordiazepoxide HCl (Librium) 25 mg PO Q6H PRN PRN Reason: Alcohol Withdrawal Famotidine (Pepcid) 20 mg PO BID ALMA Lisinopril (Zestril) 20 mg PO QDAY ALMA Miscellaneous Medication (Quetiapine Fumarate [Seroquel]) 400 mg PO HS [facility] Morphine Sulfate (Morphine) 2 mg IV Q4H PRN PRN Reason: Pain, Moderate (4-6) Nitroglycerin (Nitrostat) 0.4 mg SL Q5M PRN PRN Reason: Chest Pain Ondansetron HCl (Zofran) 4 mg IV Q8H PRN PRN Reason: Nausea And Vomiting Ondansetron HCl (Zofran Odt) 4 mg PO Q8HR PRN PRN Reason: Nausea Sodium Chloride (Sodium Chloride Flush Syringe 10 Ml) 10 ml IV BID ALMA Sodium Chloride (Sodium Chloride Flush Syringe 10 Ml) 10 ml IV PRN PRN PRN Reason: LINE FLUSH Sodium Chloride (Sodium Chloride Flush Syringe 10 Ml) 10 ml IV PRN PRN PRN Reason: LINE FLUSH Review of Systems Constitutional: no weight loss, no weight gain, no fever, no chills Cardiovascular: chest pain, dyspnea on exertion, decreased exercise tolerance, no rapid/irregular heart beat, no syncope, no lightheadedness Respiratory: no cough, no cough with sputum, no excessive sputum, no shortness of breath Gastrointestinal: no abdominal pain, no nausea, no vomiting, no diarrhea, no constipation Genitourinary Male: no hematuria, no flank pain, no discharge, no urinary frequency, no urinary hesitancy Rectal: no pain, no incontinence, no bleeding Musculoskeletal: no neck stiffness, no neck pain, no shooting arm pain, no arm numbness/tingling, no low back pain Integumentary: no rash, no pruritis, no redness, no sores, no wounds Neurological: no transient paralysis, no paralysis, no weakness, no parathesias, no numbness, no tingling Psychiatric: no anxiety, no memory loss, no change in sleep habits, no sleep disturbances, no insomnia, no change in appetite, no change in libido, no suicidal ideation, no disorientation Endocrine: no cold intolerance, no heat intolerance, no polyphagia, no excessive thirst, no polydipsia, no polyuria, no nocturia, no excessive sweating Hematologic/Lymphatic: no easy bruising, no easy bleeding, no lymphadenopathy Allergic/Immunologic: no urticaria, no allergic rhinitis, no wheezing, no persistent infections, no anaphylaxis Exam - Constitutional Vitals: Temp Pulse Resp BP Pulse Ox 98.2 F 97 H 16 145/92 97 02/12/19 11:39 02/12/19 11:39 02/12/19 11:39 02/12/19 11:39 02/12/19 11:39 General appearance: Present: mild distress - EENT Eyes: Present: PERRL ENT: hearing intact, clear oral mucosa - Neck Neck: Present: supple, normal ROM - Respiratory Respiratory effort: normal Respiratory: bilateral: CTA - Cardiovascular Heart Sounds: Present: S1 & S2. Absent: rub, click - Extremities Extremities: pulses symmetrical, No edema Peripheral Pulses: within normal limits - Abdominal General gastrointestinal: Present: soft, non-tender, non-distended, normal bowel sounds Male genitourinary: Present: normal - Integumentary Integumentary: Present: clear, warm, dry - Musculoskeletal Musculoskeletal: gait normal, strength equal bilaterally - Psychiatric Psychiatric: appropriate mood/affect, intact judgment & insight - Neurologic Neurologic: CNII-XII intact, moves all extremities Results - Labs CBC & Chem 7: 02/12/19 11:06 02/12/19 11:06 Labs: Abnormal lab results 02/12/19 02/12/19 02/12/19 Range/Units 11:06 11:06 11:06 Lymph % (Auto) (13.4-35.0) % [place] % (Auto) (0.0-7.3) % Creatinine 0.7 L (0.8-1.5) mg/dL Glucose 201 H (75-100) mg/dL Magnesium (1.7-2.3) mg/dL Salicylates < 0.3 L (2.8-20.0) mg/dL Acetaminophen < 5.0 L (10.0-30.0) ug/mL 02/12/19 02/12/19 Range/Units 11:06 11:06 Lymph % (Auto) 36.2 H (13.4-35.0) % [place] % (Auto) 12.8 H (0.0-7.3) % Creatinine (0.8-1.5) mg/dL Glucose (75-100) mg/dL Magnesium 1.60 L (1.7-2.3) mg/dL Salicylates (2.8-20.0) mg/dL Acetaminophen (10.0-30.0) ug/mL Assessment and Plan - Patient Problems (1) Angina at rest Current Visit: Yes Status: Acute Plan to address problem: Admit to telemetry, serial cardiac enzymes, ekg, telemetry, morphine, supplemental oxygen, nitro, aspirin, Stress test is AM, cardiology consulted in ED. (2) CHF (congestive heart failure) Current Visit: Yes Status: Acute Qualifiers: Heart failure type: diastolic Heart failure chronicity: acute Qualified Code(s): I50.31 - Acute diastolic (congestive) heart failure Plan to address problem: Admit to telemetry, strict I/O, daily weight, monitor uop q shift, bnp, thyroid panel, magnesium level, Echo reviewed, cardiology consulted in ED. (3) Diabetes Current Visit: Yes Status: Acute Plan to address problem: ADA diet, insulin, accu check (4) Nicotine dependence Current Visit: Yes Status: Acute Plan to address problem: smoking cessation counseling, +15 minutes, (5) Alcohol abuse Current Visit: Yes Status: Acute Plan to address problem: ETOH cessation counseling, supportive care. CIWA protocol, Banana bag. (6) Frequent PVCs Current Visit: Yes Status: Acute Plan to address problem: cardiology consulted in ED, supportive care, (7) Hypomagnesemia Current Visit: Yes Status: Acute Plan to address problem: repleted in ED, supportive care. (8) DVT prophylaxis Current Visit: Yes Status: Acute Plan to address problem: SCD to BLE while in bed,
[2019-02-12] MEDS ORDERED: MAGNESIUM SULFATE 1 GM in WATER FOR INJ (PF) 23 ML IV ONE (14:07)
[2019-02-12] MEDS ORDERED: THERAGRAN Tab PO ONE ×2 (14:09→18:00)
[2019-02-12] MEDS ORDERED: VITAMIN B-1 PO ONE ×2 (14:09→18:00)
[2019-02-12] MEDS ORDERED: MORPHINE ONE (14:32)
[2019-02-12 14:33] LABS: Chol/HDL Ratio 3.45 %
[2019-02-12] MEDS: MORPHINE IV PRN ×3 (14:39→22:12)
[2019-02-12] MEDS ORDERED: MAGNESIUM SULFATE 1 GM in WATER FOR INJ (PF) 50 ML IV ONE (15:00)
[2019-02-12] MEDS: FOLVITE PO SCH (17:49)
[2019-02-12] MEDS: PEPCID PO SCH (21:32)
[2019-02-12] MEDS: LOPRESSOR PO SCH (21:32)
[2019-02-12] MEDS: SODIUM CHLORIDE FLUSH SYRINGE 10 ML IV SCH (22:12)
[2019-02-13 03:23] LABS: Alanine Aminotransferase 23 units/L (7-56); Albumin 3.5 g/dL (3.9-5); BUN/Creatinine Ratio 20; Blood Urea Nitrogen 12 mg/dL (9-20); Calcium 8.2 mg/dL (8.4-10.2); Hemolysis Index 0
[2019-02-13] MEDS ORDERED: LEXISCAN IV ONE ×2 (06:56→07:03)
[2019-02-13] MEDS ORDERED: ZESTRIL PO SCH (10:00)
[2019-02-13] MEDS: FOLVITE PO SCH (11:40)
[2019-02-13] MEDS: LOPRESSOR PO SCH ×2 (11:40→21:00)
[2019-02-13] MEDS: PEPCID PO SCH ×2 (11:40→21:00)
[2019-02-13] MEDS: SODIUM CHLORIDE FLUSH SYRINGE 10 ML IV SCH ×2 (11:41→21:01)
--- NOTE | 2019-02-13 12:01 | Progress Note ---
Assessment and Plan Atypical chest pain Stress test done 02/13/19 revealed moderate fixed inferior defect, no significant ischemia and EF of 35%. Will obtain echo to further evaluate reduced EF. ECG with no acute ischemic changes, Denise negative for AMI. LHC done 12/2015 showed normal coronaries, EF 50%. Lexiscan MPI stress test done 02/2017 was negative for significant ischemia, EF 37%. Echo done 04/2018 showed EF 55-60%, mild LVH. Frequent PVCs / NSVT Likely secondary to ETOH and hypomagnesemia, which is now resolved. Continue repletion as needed. Continue lopressor. HTN Continue lopressor and titrate as necessary. DM with hyperglycemia Management per primary. Hypomagnesemia/Hypokalemia Replete PRN. Will order dose of potassium today. ETOH abuse Pt is requesting inpatient rehabilitation. Noncompliance He is stable from a cardiac standpoint. Await echocardiogram prior to discharge. The patient has been seen in conjunction with Dr. Rivas, who agrees with the assessment and plan of care. Subjective Date of service: 02/13/19 Interval history: Patient lying in bed. C/O CP rated as 7/10. Stress test revealed moderate- sized fixed inferior defect, no significant ischemia and an EF of 35%. SR with PACs and PVCs on telemetry; 3-4 second sinus pause noted overnight, but a symptomatic. Objective Last Vital Signs Temp 98.2 F 02/13/19 07:50 Pulse 72 02/13/19 03:49 Resp 18 02/13/19 07:50 BP 131/76 02/13/19 09:07 Pulse Ox 98 02/13/19 03:49 - Physical Examination General: Appears Well, No Apparent Distress, Other (Disheveled appearance) HEENT: Positive: PERRL, Normocephaly, Mucus Membranes Moist Neck: Positive: neck supple, trachea midline Cardiac: Positive: Reg Rate and Rhythm Lungs: Positive: Normal Exam Neuro: Positive: Grossly Intact Abdomen: Positive: Unremarkable. Negative: Tender Skin: Negative: Rash, Wound Musculoskeletal: No Pain, Normal Range of Motion Extremities: Present: normal. Absent: edema - Labs and Meds Cardiac Enzymes 02/13/19 Range/Units 02:48 AST 35 (5-40) units/L Lipids 02/12/19 Range/Units 11:06 Triglycerides 119 (2-149) mg/dL Cholesterol 145 (50-199) mg/dL HDL Cholesterol 42 (40-59) mg/dL Cholesterol/HDL Ratio 3.45 % Comprehensive Metabolic Panel 02/13/19 Range/Units 02:48 Sodium 139 (137-145) mmol/L Potassium 3.4 L (3.6-5.0) mmol/L Chloride 100.3 (98-107) mmol/L Carbon Dioxide 26 (22-30) mmol/L BUN 12 (9-20) mg/dL Creatinine 0.6 L (0.8-1.5) mg/dL Glucose 237 H (75-100) mg/dL Calcium 8.2 L (8.4-10.2) mg/dL AST 35 (5-40) units/L ALT 23 (7-56) units/L Alkaline Phosphatase 70 (35-129) units/L Total Protein 6.5 (6.3-8.2) g/dL Albumin 3.5 L (3.9-5) g/dL - Imaging and Cardiology EKG: report reviewed, image reviewed Nuclear stress test: report reviewed (02/13/19: mod fixed inferior defect, negative for ischemia, EF 35%) Echo: report reviewed (04/2018 showed EF 55-60%, mild LVH. ) Cardiac cath: report reviewed ( 12/2015 showed normal coronaries, EF 50%. ) - Telemetry EKG Rhythm: Sinus Rhythm - EKG Sinus rhythms and dysrhythmias: sinus rhythm, sinus arrest or pause (3-4 seconds overnight ) Ventricular dysrhythmias: ventricular premature com
[2019-02-13] MEDS: MORPHINE IV PRN ×3 (12:08→20:57)
[2019-02-13] MEDS ORDERED: K-DUR PO NR (12:30)
--- NOTE | 2019-02-13 14:27 | Progress Note ---
Assessment and Plan Assessment and plan: Chest pain. EKG with no ischemic changes. Cardiac isoenzymes negative. LHC done 12/2015 showed normal coronaries, EF 50%. Lexiscan MPI stress test done 02/2017 was negative for significant ischemia, EF 37%. Echo done 04/2018 showed EF 55-60%, mild LVH. Stress test completed on this admission revealed reduced EF. Cardiology consulted Frequent PVCs/NSVT. Etiology secondary to EtOH and hypomagnesemia. Replete magnesium. Cardiology started Lopressor. Follow-up CMP. Hypertension. Continue antihypertensive medications. Diabetes mellitus type 2, uncontrolled. Continue Accu-Cheks and sliding scale insulin. Hypomagnesemia. Replete magnesium. EtOH abuse. Consider CIWA protocol. Medical noncompliance. History Interval history: No new issues overnight. Hospitalist Physical - Constitutional Vitals: Temp Pulse Resp BP Pulse Ox 98.2 F 72 16 131/76 98 02/13/19 07:50 02/13/19 03:49 02/13/19 12:08 02/13/19 09:07 02/13/19 03:49 General appearance: Present: no acute distress - EENT Eyes: Present: PERRL, EOM intact ENT: hearing intact, clear oral mucosa, dentition normal - Neck Neck: Present: supple, normal ROM - Respiratory Respiratory effort: normal Respiratory: bilateral: CTA - Cardiovascular Rhythm: regular Heart Sounds: Present: S1 & S2. Absent: gallop, rub - Extremities Extremities: no ischemia, No edema, Full ROM - Abdominal General gastrointestinal: soft, non-tender, non-distended, normal bowel sounds - Integumentary Integumentary: Present: clear, warm, dry - Neurologic Neurologic: CNII-XII intact, moves all extremities Results - Labs CBC & Chem 7: 02/12/19 11:06 02/13/19 02:48 Labs: Laboratory Last Values WBC 4.7 K/mm3 (4.5-11.0) 02/12/19 11:06 RBC 4.64 M/mm3 (3.65-5.03) 02/12/19 11:06 Hgb 14.3 gm/dl (11.8-15.2) 02/12/19 11:06 Hct 42.3 % (35.5-45.6) 02/12/19 11:06 MCV 91 fl (84-94) 02/12/19 11:06 MCH 31 pg (28-32) 02/12/19 11:06 MCHC 34 % (32-34) 02/12/19 11:06 RDW 13.4 % (13.2-15.2) 02/12/19 11:06 Plt Count 239 K/mm3 (140-440) 02/12/19 11:06 Lymph % (Auto) 36.2 % (13.4-35.0) H 02/12/19 11:06 [place] % (Auto) 12.8 % (0.0-7.3) H 02/12/19 11:06 Eos % (Auto) 1.3 % (0.0-4.3) 02/12/19 11:06 Baso % (Auto) 0.8 % (0.0-1.8) 02/12/19 11:06 Lymph # 1.7 K/mm3 (1.2-5.4) 02/12/19 11:06 [place] # 0.6 K/mm3 (0.0-0.8) 02/12/19 11:06 Eos # 0.1 K/mm3 (0.0-0.4) 02/12/19 11:06 Baso # 0.0 K/mm3 (0.0-0.1) 02/12/19 11:06 Seg Neutrophils % 48.9 % (40.0-70.0) 02/12/19 11:06 Seg Neutrophils # 2.3 K/mm3 (1.8-7.7) 02/12/19 11:06 282.30 ng/mlDDU (0-234) H 02/12/19 17:02 Sodium 139 mmol/L (137-145) 02/13/19 02:48 Potassium 3.4 mmol/L (3.6-5.0) L 02/13/19 02:48 Chloride 100.3 mmol/L (98-107) 02/13/19 02:48 Carbon Dioxide 26 mmol/L (22-30) 02/13/19 02:48 16 mmol/L 02/13/19 02:48 BUN 12 mg/dL (9-20) 02/13/19 02:48 0.6 mg/dL (0.8-1.5) L 02/13/19 02:48 Estimated GFR > 60 ml/min 02/13/19 02:48 20 % 02/13/19 02:48 Glucose 237 mg/dL (75-100) H 02/13/19 02:48 Calcium 8.2 mg/dL (8.4-10.2) L 02/13/19 02:48 Magnesium 2.00 mg/dL (1.7-2.3) 02/13/19 02:48 0.60 mg/dL (0.1-1.2) 02/13/19 02:48 AST 35 units/L (5-40) 02/13/19 02:48 ALT 23 units/L (7-56) 02/13/19 02:48 70 units/L (35-129) 02/13/19 02:48 < 0.010 ng/mL (0.00-0.029) 02/13/19 00:25 6.5 g/dL (6.3-8.2) 02/13/19 02:48 3.5 g/dL (3.9-5) L 02/13/19 02:48 1.2 % 02/13/19 02:48 Triglycerides 119 mg/dL (2-149) 02/12/19 11:06 Cholesterol 145 mg/dL (50-199) 02/12/19 11:06 93 mg/dL (50-130) 02/12/19 11:06 42 mg/dL (40-59) 02/12/19 11:06 3.45 % 02/12/19 11:06 TSH 1.650 mlU/mL (0.270-4.200) 02/12/19 11:06 Free T4 1.14 ng/dL (0.76-1.46) 02/12/19 11:06 Salicylates < 0.3 mg/dL (2.8-20.0) L 02/12/19 11:06 Acetaminophen < 5.0 ug/mL (10.0-30.0) L 02/12/19 11:06 Plasma/Serum Alcohol < 0.01 % (0-0.07) 02/12/19 11:06 Active Medications - Current Medications Current Medications: Generic Name Dose Route Start Last Admin Trade Name Freq PRN Reason Stop Dose Admin Acetaminophen 650 mg 02/12/19 13:57 Tylenol PO Q4H PRN Pain MILD(1-3)/Fever >100.5/DIGGS Albuterol 2.5 mg 02/12/19 13:57 Proventil IH Q4HRT PRN Shortness Of Breath Chlordiazepoxide HCl 25 mg 02/12/19 14:01 Librium PO Q6H PRN Alcohol Withdrawal Famotidine 20 mg 02/12/19 22:00 02/13/19 11:40 Pepcid PO 20 mg BID ALMA Administration Folic Acid 1 mg 02/12/19 14:09 02/13/19 11:40 Folvite PO 1 mg QDAY ALMA Administration Metoprolol Tartrate 25 mg 02/12/19 22:00 02/13/19 11:40 Lopressor PO 25 mg BID ALMA Administration Morphine Sulfate 2 mg 02/12/19 13:57 02/13/19 12:08 Morphine IV 2 mg Q4H PRN Administration Pain, Moderate (4-6) Nitroglycerin 0.4 mg 02/12/19 13:57 Nitrostat SL Q5M PRN Chest Pain Ondansetron HCl 4 mg 02/12/19 13:57 Zofran IV Q8H PRN Nausea And Vomiting Ondansetron HCl 4 mg 02/12/19 14:01 Zofran Odt PO Q8HR PRN Nausea Quetiapine Fumarate 200 mg 02/12/19 22:00 02/12/19 21:31 Seroquel PO 200 mg HS ALMA Administration Sodium Chloride 10 ml 02/12/19 22:00 02/13/19 11:41 Sodium Chloride Flush Syringe 10 Ml IV 10 ml BID ALMA Administration Sodium Chloride 10 ml 02/12/19 13:57 02/12/19 21:37 Sodium Chloride Flush Syringe 10 Ml IV 10 ml PRN PRN Administration LINE FLUSH Sodium Chloride 10 ml 02/12/19 13:57 Sodium Chloride Flush Syringe 10 Ml IV PRN PRN LINE FLUSH
--- NOTE | 2019-02-13 21:40 | Treadmill Report ---
REASON FOR TEST: Shortness of breath. IMAGING PROTOCOL: The patient received 10 mCi of Technetium 99m Tetrofosmin for resting image and 28 mCi of Technetium 99m Tetrofosmin for stress imaging. The imaging for the whole procedure was completed 30-90 minutes following the initial injection of Technetium 99m Tetrofosmin. The SPECT imaging in the 180 degree arc was performed in the right anterior oblique projection. Computerized reconstruction of the images was performed for analysis. IMAGING RESULTS: Normal cavity size from stress to rest. Technically limited study. Normal perfusion anterior apical, septal, lateral regions, but there is a moderate area of fixed defect in the inferior region seen both stress and rest with gated SPECT, EF 35% with moderate global hypokinesis. The patient infused Lexiscan with no EKG changes. SUMMARY: 1. Negative Lexiscan EKG. 2. No significant stress induced ischemia. 3. Moderate size moderate intensity fixed inferior defect with normal perfusion in the anterior, septal, lateral, and apical regions with gated SPECT, EF 35%, would suggest echocardiogram for quantification of LV function. This is a technically limited study. JOB# [id number] RAJESH/CRYSTAL
[2019-02-14 06:42] LABS: Hematocrit 41.2 % (35.5-45.6); Mean Corpuscular HGB Conc 34 % (32-34); Mean Corpuscular Volume 92 fl (84-94); Platelet Count 225 K/mm3 (140-440); Red Blood Count 4.49 M/mm3 (3.65-5.03); Red Cell Distribution Width 13.2 % (13.2-15.2)
[2019-02-14 07:02] LABS: BUN/Creatinine Ratio 14; Blood Urea Nitrogen 7 mg/dL (9-20); Calcium 8.4 mg/dL (8.4-10.2); Hemolysis Index 11
--- NOTE | 2019-02-14 09:10 | Progress Note ---
Assessment and Plan New onset cardiomyopathy echo ef 35-40%, add losartan and cont lopressor, probably non ischemic, Atypical chest pain possible GI Stress test done 02/13/19 revealed moderate fixed inferior defect, no significant ischemia and EF of 35%. Will obtain echo to further evaluate reduced EF. ECG with no acute ischemic changes, Denise negative for AMI. LHC done 12/2015 showed normal coronaries, EF 50%. Lexiscan MPI stress test done 02/2017 was negative for significant ischemia, EF 37%. Echo done 04/2018 showed EF 55-60%, mild LVH. Pain management with PPI and antiinflammatory for pain. Frequent PVCs / NSVT Likely secondary to ETOH and hypomagnesemia, which is now resolved. Continue repletion as needed. Continue lopressor. HTN Continue lopressor and titrate as necessary. DM with hyperglycemia Management per primary. Hypomagnesemia/Hypokalemia Replete PRN. Will order dose of potassium today. ETOH abuse Pt is requesting inpatient rehabilitation. Noncompliance Subjective Date of service: 02/14/19 Principal diagnosis: chest pain Interval history: pt states midsternal chest pain radiating to left arm is not reproducible patient says is hurting moved arms without issue Objective Vital Signs Temp Pulse Resp BP Pulse Ox 02/14/19 07:55 98.4 F 79 18 111/62 97 02/14/19 04:43 97.9 F 75 20 113/73 96 02/13/19 23:29 97.6 F 63 18 144/87 95 02/13/19 20:57 20 02/13/19 20:32 100 02/13/19 20:30 66 02/13/19 19:46 98.2 F 66 18 141/92 99 02/13/19 17:29 98.5 F 18 149/99 02/13/19 16:09 16 02/13/19 15:00 90 99 02/13/19 12:08 16 02/13/19 11:18 98.4 F 18 139/96 - Physical Examination General: Appears Well, No Apparent Distress, Other (Disheveled appearance) HEENT: Positive: PERRL, Normocephaly, Mucus Membranes Moist Neck: Positive: neck supple, trachea midline Cardiac: Positive: Reg Rate and Rhythm Lungs: Positive: clear to auscultation Neuro: Positive: Grossly Intact Abdomen: Positive: Unremarkable. Negative: Tender Skin: Negative: Rash, Wound Musculoskeletal: No Pain, Normal Range of Motion Extremities: Present: normal. Absent: edema - Labs and Meds CBC 02/14/19 Range/Units 06:12 WBC 3.2 L (4.5-11.0) K/mm3 RBC 4.49 (3.65-5.03) M/mm3 Hgb 14.0 (11.8-15.2) gm/dl Hct 41.2 (35.5-45.6) % Plt Count 225 (140-440) K/mm3 Comprehensive Metabolic Panel 02/14/19 Range/Units 06:12 Sodium 139 (137-145) mmol/L Potassium 4.1 D (3.6-5.0) mmol/L Chloride 104.3 (98-107) mmol/L Carbon Dioxide 23 (22-30) mmol/L BUN 7 L (9-20) mg/dL Creatinine 0.5 L (0.8-1.5) mg/dL Glucose 189 H (75-100) mg/dL Calcium 8.4 (8.4-10.2) mg/dL - Imaging and Cardiology EKG: report reviewed, image reviewed Pharmacologic stress test: report reviewed (02/13/2019 tds moderate inferior defect no ischemia EF 35%) Echo: report reviewed (04/2018 showed EF 55-60%, mild LVH. ), other (02/13/2019 moderate LV dysfunction he has 3540%) Cardiac cath: report reviewed ( 12/2015 showed normal coronaries, EF 50%. ) - Telemetry EKG Rhythm: Sinus Rhythm (no pvc) - EKG Sinus rhythms and dysrhythmias: sinus rhythm, sinus arrest or pause (3-4 seconds overnight ) Ventricular dysrhythmias: ventricular premature com
[2019-02-14] MEDS: FOLVITE PO SCH (10:26)
[2019-02-14] MEDS: COZAAR PO SCH (10:26)
[2019-02-14] MEDS: LOPRESSOR PO SCH ×2 (10:26→21:42)
[2019-02-14] MEDS: PEPCID PO SCH ×2 (10:26→21:42)
--- NOTE | 2019-02-14 10:36 | Progress Note ---
Assessment and Plan Assessment and plan: Chest pain. EKG with no ischemic changes. Cardiac isoenzymes negative. LHC done 12/2015 showed normal coronaries, EF 50%. Lexiscan MPI stress test done 02/2017 was negative for significant ischemia, EF 37%. Echo done 04/2018 showed EF 55-60%, mild LVH. Stress test completed on this admission revealed moderate fixed inferior defect, no significant ischemia and EF of 35%. Echocardiogram on this admission confirmed reduced EF. Cardiology following New onset cardiomyopathy. Etiology likely EtOH induced probably nonischemic. Continue Lopressor and cardiology added losartan. Follow-up VQ scan to rule out PE. Frequent PVCs/NSVT. Etiology secondary to EtOH and hypomagnesemia. Replete magnesium. Cardiology started Lopressor. Follow-up CMP. Hypertension. Continue antihypertensive medications. Diabetes mellitus type 2, uncontrolled. Continue Accu-Cheks and sliding scale insulin. Hypomagnesemia. Replete magnesium. EtOH abuse. Consider CIWA protocol. Medical noncompliance. History Interval history: No new issues overnight. Hospitalist Physical - Constitutional Vitals: Temp Pulse Resp BP Pulse Ox 98.4 F 63 18 122/70 95 02/14/19 07:55 02/14/19 10:26 02/14/19 07:55 02/14/19 10:26 02/14/19 09:21 General appearance: Present: no acute distress - EENT Eyes: Present: PERRL, EOM intact ENT: hearing intact, clear oral mucosa, dentition normal - Neck Neck: Present: supple, normal ROM - Respiratory Respiratory effort: normal Respiratory: bilateral: CTA - Cardiovascular Rhythm: regular Heart Sounds: Present: S1 & S2. Absent: gallop, rub - Extremities Extremities: no ischemia, No edema, Full ROM - Abdominal General gastrointestinal: soft, non-tender, non-distended, normal bowel sounds - Integumentary Integumentary: Present: clear, warm, dry - Neurologic Neurologic: CNII-XII intact, moves all extremities Results - Labs CBC & Chem 7: 02/14/19 06:12 02/14/19 06:12 Labs: Laboratory Last Values WBC 3.2 K/mm3 (4.5-11.0) L 02/14/19 06:12 RBC 4.49 M/mm3 (3.65-5.03) 02/14/19 06:12 Hgb 14.0 gm/dl (11.8-15.2) 02/14/19 06:12 Hct 41.2 % (35.5-45.6) 02/14/19 06:12 MCV 92 fl (84-94) 02/14/19 06:12 MCH 31 pg (28-32) 02/14/19 06:12 MCHC 34 % (32-34) 02/14/19 06:12 RDW 13.2 % (13.2-15.2) 02/14/19 06:12 Plt Count 225 K/mm3 (140-440) 02/14/19 06:12 Lymph % (Auto) Resaw Carriage Operator 02/14/19 06:12 [place] % (Auto) 12.8 % (0.0-7.3) H 02/12/19 11:06 Eos % (Auto) 1.3 % (0.0-4.3) 02/12/19 11:06 Baso % (Auto) 0.8 % (0.0-1.8) 02/12/19 11:06 Lymph # 1.7 K/mm3 (1.2-5.4) 02/12/19 11:06 [place] # 0.6 K/mm3 (0.0-0.8) 02/12/19 11:06 Eos # 0.1 K/mm3 (0.0-0.4) 02/12/19 11:06 Baso # 0.0 K/mm3 (0.0-0.1) 02/12/19 11:06 Seg Neutrophils % Resaw Carriage Operator 02/14/19 06:12 Seg Neutrophils # 2.3 K/mm3 (1.8-7.7) 02/12/19 11:06 282.30 ng/mlDDU (0-234) H 02/12/19 17:02 Sodium 139 mmol/L (137-145) 02/14/19 06:12 Potassium 4.1 mmol/L (3.6-5.0) D 02/14/19 06:12 Chloride 104.3 mmol/L (98-107) 02/14/19 06:12 Carbon Dioxide 23 mmol/L (22-30) 02/14/19 06:12 16 mmol/L 02/14/19 06:12 BUN 7 mg/dL (9-20) L 02/14/19 06:12 0.5 mg/dL (0.8-1.5) L 02/14/19 06:12 Estimated GFR > 60 ml/min 02/14/19 06:12 14 % 02/14/19 06:12 Glucose 189 mg/dL (75-100) H 02/14/19 06:12 Calcium 8.4 mg/dL (8.4-10.2) 02/14/19 06:12 Magnesium 2.00 mg/dL (1.7-2.3) 02/13/19 02:48 0.60 mg/dL (0.1-1.2) 02/13/19 02:48 AST 35 units/L (5-40) 02/13/19 02:48 ALT 23 units/L (7-56) 02/13/19 02:48 70 units/L (35-129) 02/13/19 02:48 < 0.010 ng/mL (0.00-0.029) 02/13/19 00:25 6.5 g/dL (6.3-8.2) 02/13/19 02:48 3.5 g/dL (3.9-5) L 02/13/19 02:48 1.2 % 02/13/19 02:48 Triglycerides 119 mg/dL (2-149) 02/12/19 11:06 Cholesterol 145 mg/dL (50-199) 02/12/19 11:06 93 mg/dL (50-130) 02/12/19 11:06 42 mg/dL (40-59) 02/12/19 11:06 3.45 % 02/12/19 11:06 TSH 1.650 mlU/mL (0.270-4.200) 02/12/19 11:06 Free T4 1.14 ng/dL (0.76-1.46) 02/12/19 11:06 Salicylates < 0.3 mg/dL (2.8-20.0) L 02/12/19 11:06 Acetaminophen < 5.0 ug/mL (10.0-30.0) L 02/12/19 11:06 Plasma/Serum Alcohol < 0.01 % (0-0.07) 02/12/19 11:06 Active Medications - Current Medications Current Medications: Generic Name Dose Route Start Last Admin Trade Name Freq PRN Reason Stop Dose Admin Acetaminophen 650 mg 02/12/19 13:57 Tylenol PO Q4H PRN Pain MILD(1-3)/Fever >100.5/DIGGS Albuterol 2.5 mg 02/12/19 13:57 Proventil IH Q4HRT PRN Shortness Of Breath Chlordiazepoxide HCl 25 mg 02/12/19 14:01 Librium PO Q6H PRN Alcohol Withdrawal Famotidine 20 mg 02/12/19 22:00 02/14/19 10:26 Pepcid PO 20 mg BID ALMA Administration Folic Acid 1 mg 02/12/19 14:09 02/14/19 10:26 Folvite PO 1 mg QDAY ALMA Administration Insulin Human Lispro 0 unit 02/14/19 11:30 Humalog SUB-Q ACHS [facility] Protocol Losartan Potassium 25 mg 02/14/19 10:00 02/14/19 10:26 Cozaar PO 25 mg QDAY ALMA Administration Metoprolol Tartrate 25 mg 02/12/19 22:00 02/14/19 10:26 Lopressor PO 25 mg BID ALMA Administration Morphine Sulfate 2 mg 02/12/19 13:57 02/13/19 20:57 Morphine IV 2 mg Q4H PRN Administration Pain, Moderate (4-6) Ondansetron HCl 4 mg 02/12/19 13:57 Zofran IV Q8H PRN Nausea And Vomiting Ondansetron HCl 4 mg 02/12/19 14:01 Zofran Odt PO Q8HR PRN Nausea Quetiapine Fumarate 200 mg 02/12/19 22:00 02/13/19 21:00 Seroquel PO 200 mg HS ALMA Administration Sodium Chloride 10 ml 02/12/19 22:00 02/13/19 21:01 Sodium Chloride Flush Syringe 10 Ml IV 10 ml BID ALMA Administration Sodium Chloride 10 ml 02/12/19 13:57 02/12/19 21:37 Sodium Chloride Flush Syringe 10 Ml IV 10 ml PRN PRN Administration LINE FLUSH
[2019-02-14] MEDS: SODIUM CHLORIDE FLUSH SYRINGE 10 ML IV SCH ×2 (11:11→21:43)
[2019-02-14] MEDS: MORPHINE IV PRN ×4 (11:11→23:16)
[2019-02-14] MEDS: HumaLOG SUB-Q SCH ×3 (13:11→21:43)
[2019-02-14 16:05] LABS: Basophils % (Manual) 0 % (0.0-1.8); Total Cells Counted 100
[2019-02-14 16:07] LABS: Anisocytosis Few; Large Platelets Few; Platelet Estimate Consistent w Auto; Poikilocytosis Few
[2019-02-15] MEDS: MORPHINE IV PRN (05:45)
[2019-02-15 05:54] LABS: BUN/Creatinine Ratio 14; Blood Urea Nitrogen 7 mg/dL (9-20); Calcium 8.5 mg/dL (8.4-10.2); Hemolysis Index 10
[2019-02-15 08:47] VITALS: BP 139/95
--- NOTE | 2019-02-15 08:50 | Nuclear Medicine Report ---
NUCLEAR MEDICINE VENTILATION/PERFUSION LUNG SCAN INDICATION / CLINICAL INFORMATION: elevated d-dimer. TECHNIQUE: 11.2 mCi of Xe-133 were given by inhalation. 5.2 mCi of Tc-99m MAA were given by IV. COMPARISON: Chest radiograph dated 11/16/18. FINDINGS: VENTILATION: - Wash-In: Normal. - Equilibrium: Normal. - Washout: Normal. - Air Trapping: None. PERFUSION: No significant perfusion defects. ADDITIONAL FINDINGS: None. IMPRESSION: 1. Low probability for pulmonary embolism. Signer Name: Jean Merino MD Signed: 02/15/2019 8:46 AM Workstation Name: [id number]
[2019-02-15] MEDS: HumaLOG SUB-Q SCH (08:55)
--- NOTE | 2019-02-15 08:57 | Discharge Summary ---
Providers - Providers Date of Admission: 02/12/19 13:57 Date of discharge: 02/15/19 Attending physician: DAVID DONALD 02/15/19 08:24 psychiatry consult [Consult to Mental Health] [CONS] Routine Reason For Exam: ETOH--rehab opportunities Place consult to:: Mental Health Notified:: Warren ESQUIVEL Phone number called:: Ext. 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 Patient requesting placement at [facility]. Patient stated that he drinks approximately 12 beers daily. Following arrival to ED, pt was noted to have frequent PVCs and then reported the development of chest pain and thus cardiolo gy was consulted. The patient was admitted with diagnosis of chest pain and a stress test done 02/13/19 revealed moderate fixed inferior defect, no significant ischemia and EF of 35%. Will obtain echo to further evaluate reduced EF. ECG with no acute ischemic changes, Denise negative for AMI. Cardiology felt that the frequent PVCs were likely secondary to ETOH and hypomagnesemia, which is now resolved. The patient was also treated with Lopressor. Follow-up echocardiogram was obtained and patient was noted to have EF 35-40%. This appeared to be a new onset cardiomyopathy likely EtOH induced. The patient was counseled on alcohol cessation and consultation with case management/psychiatry for outpatient rehabilitation. Losartan was also added to the regimen and patient will be discharged home. Dedicated discharge time 32 minutes. Disposition: [id number] TO HOME OR SELFCARE Time spent for discharge: 32 - Discharge Diagnoses (1) Alcoholic cardiomyopathy Status: Acute (2) Alcohol abuse Status: Acute (3) Chest pain Status: Acute Qualifiers: Chest pain type: unspecified Qualified Code(s): R07.9 - Chest pain, unspecified (4) Diabetes Status: Acute (5) Frequent PVCs Status: Acute (6) Hypomagnesemia Status: Acute (7) Nicotine dependence Status: Acute (8) HTN (hypertension) Status: Chronic Qualifiers: Hypertension type: essential hypertension Qualified Code(s): I10 - Essential (primary) hypertension Core Measure Documentation - Palliative Care Palliative Care/ Comfort Measures: Not Applicable - Core Measures Any of the following diagnoses?: none Exam - Constitutional Vitals: Temp Pulse Resp BP Pulse Ox 98.0 F 75 18 139/95 98 02/15/19 08:07 02/15/19 08:07 02/15/19 08:07 02/15/19 08:07 02/15/19 08:07 General appearance: Present: no acute distress, well-nourished - EENT Eyes: Present: PERRL ENT: hearing intact, clear oral mucosa - Neck Neck: Present: supple, normal ROM - Respiratory Respiratory effort: normal Respiratory: bilateral: CTA - Cardiovascular Heart Sounds: Present: S1 & S2. Absent: rub, click - Extremities Extremities: pulses symmetrical, No edema Peripheral Pulses: within normal limits - Abdominal General gastrointestinal: Present: soft, non-tender, non-distended, normal bowel sounds Male genitourinary: Present: normal - Integumentary Integumentary: Present: clear, warm, dry - Musculoskeletal Musculoskeletal: gait normal, strength equal bilaterally - Psychiatric Psychiatric: appropriate mood/affect, intact judgment & insight - Neurologic Neurologic: CNII-XII intact, moves all extremities Plan Activity: no restrictions Weight Bearing Status: Full Weight Bearing Diet: low fat, low cholesterol, low salt Follow up with: SOUMYA MEDINA MD [Staff Physician] - 7 Days PRIMARY CARE, [Primary Care Provider] - 3-5 Days BLANQUITA WILLIAM MD [Staff Physician] - 7 Days Prescriptions: Losartan [Cozaar] 25 mg PO QDAY #30 tablet Folic Acid [Folvite] 1 mg PO QDAY #30 tablet chlordiazePOXIDE [Librium] 25 mg PO Q6H PRN #30 capsule PRN Reason: Alcohol Withdrawal Metoprolol [Lopressor TAB] 25 mg PO BID #60 tablet Famotidine [Pepcid] 20 mg PO BID #60 tablet Bupropion HCl [Wellbutrin XL] 300 mg PO QDAY #30 tab.er.24h
[2019-02-15] MEDS: LOPRESSOR PO SCH (10:30)
[2019-02-15] MEDS: FOLVITE PO SCH (10:30)
[2019-02-15] MEDS: PEPCID PO SCH (10:30)
[2019-02-15] MEDS: COZAAR PO SCH (10:31)
[2019-02-15] MEDS: SODIUM CHLORIDE FLUSH SYRINGE 10 ML IV SCH (10:32)
--- NOTE | 2019-02-15 10:49 | Progress Note ---
Assessment and Plan New onset cardiomyopathy echo ef 35-40%, add losartan and cont lopressor, probably non ischemic, Atypical chest pain possible GI Stress test done 02/13/19 revealed moderate fixed inferior defect, no significant ischemia and EF of 35%. Will obtain echo to further evaluate reduced EF. ECG with no acute ischemic changes, Denise negative for AMI. LHC done 12/2015 showed normal coronaries, EF 50%. Lexiscan MPI stress test done 02/2017 was negative for significant ischemia, EF 37%. Echo done 04/2018 showed EF 55-60%, mild LVH. Pain management with PPI and antiinflammatory for pain. Frequent PVCs / NSVT Likely secondary to ETOH and hypomagnesemia, which is now resolved. Continue repletion as needed. Continue lopressor. HTN Continue lopressor and titrate as necessary. DM with hyperglycemia Management per primary. Hypomagnesemia/Hypokalemia Replete PRN. Will order dose of potassium today. ETOH abuse Pt is requesting inpatient rehabilitation. Noncompliance rec: Patient will continue current medications wants to go to [facility] for further treatment for detoxification. Patient is not bleeding from the mouth on examination and rinse mouth out with water without issue. Patient needs further psychiatric treatment Subjective Date of service: 02/15/19 Principal diagnosis: chest pain Interval history: pt states having blood in the mouth and atypical chest pain Objective Vital Signs Temp Pulse Pulse Resp BP Pulse Ox 02/15/19 10:31 75 139/95 02/15/19 10:30 75 139/95 02/15/19 08:07 98.0 F 75 18 139/95 98 02/15/19 07:00 68 02/15/19 05:45 20 02/15/19 03:48 97.8 F 02/15/19 03:46 77 18 116/71 98 02/14/19 23:42 97.5 F L 02/14/19 23:41 72 18 146/94 97 02/14/19 23:16 20 02/14/19 23:00 74 02/14/19 22:10 80 18 02/14/19 21:42 80 130/87 02/14/19 20:18 98.1 F 02/14/19 20:17 79 18 130/87 96 02/14/19 19:14 20 02/14/19 15:03 20 02/14/19 15:00 66 02/14/19 13:00 63 20 95 02/14/19 11:42 98.3 F 67 18 140/85 97 02/14/19 11:11 20 - Physical Examination General: Appears Well, No Apparent Distress, Other (Disheveled appearance) HEENT: Positive: PERRL, Normocephaly, Mucus Membranes Moist Neck: Positive: neck supple, trachea midline Cardiac: Positive: Reg Rate and Rhythm Lungs: Positive: clear to auscultation Neuro: Positive: Grossly Intact Abdomen: Positive: Unremarkable. Negative: Tender Skin: Negative: Rash, Wound Musculoskeletal: No Pain, Normal Range of Motion Extremities: Present: normal. Absent: edema - Labs and Meds Comprehensive Metabolic Panel 02/15/19 Range/Units 04:59 Sodium 138 (137-145) mmol/L Potassium 4.1 (3.6-5.0) mmol/L Chloride 102.9 (98-107) mmol/L Carbon Dioxide 25 (22-30) mmol/L BUN 7 L (9-20) mg/dL Creatinine 0.5 L (0.8-1.5) mg/dL Glucose 259 H (75-100) mg/dL Calcium 8.5 (8.4-10.2) mg/dL - Imaging and Cardiology EKG: report reviewed, image reviewed Echo: report reviewed (04/2018 showed EF 55-60%, mild LVH. ), other (02/13/2019 moderate LV dysfunction he has 3540%) Cardiac cath: report reviewed ( 12/2015 showed normal coronaries, EF 50%. ) - Telemetry EKG Rhythm: Sinus Rhythm - EKG Sinus rhythms and dysrhythmias: sinus rhythm, sinus arrest or pause (3-4 seconds overnight ) Ventricular dysrhythmias: ventricular premature com
[2019-02-15 12:09] LABS: Bacteria,Urine 1+ /HPF (Negative); Bilirubin,Urine NEG (Negative); Blood,Urine LG (Negative); Color,Urine Yellow (Yellow); Mucus,Urine FEW /HPF
[2019-02-15 12:10] LABS: RBC,Urine > 182.0 /HPF (0.0-6.0)
[2019-02-15 12:22] LABS: Amphetamine Screen,Urine PRESUMPTIVE NEGATIVE; Benzodiazepines Screen,Urine PRESUMPTIVE NEGATIVE; Cannabinoid Screen,Urine PRESUMPTIVE NEGATIVE; Cocaine Screen,Urine PRESUMPTIVE NEGATIVE; Methadone Screen,Urine PRESUMPTIVE NEGATIVE
[2019-02-15 12:38] LABS: Opiate Screen,Urine PRESUMPTIVE POSITIVE
== END 2019-02-15 16:46 | disposition home or self-care (01) | DRG 291 ==
LOC: ED 10:48 → 4A 13:57
PROVIDERS: ADMIT Internal Medicine; ATTEND Hospitalist
DX: I11.0 Hypertensive heart disease with heart failure (principal); I50.31 Acute diastolic (congestive) heart failure; I47.2 Ventricular tachycardia; I42.6 Alcoholic cardiomyopathy; E83.42 Hypomagnesemia; F10.20 Alcohol dependence, uncomplicated; F17.200 Nicotine dependence, unspecified, uncomplicated; I49.3 Ventricular premature depolarization; E66.9 Obesity, unspecified; F32.9 Major depressive disorder, single episode, unspecified; F20.9 Schizophrenia, unspecified; E87.6 Hypokalemia; Y90.9 Presence of alcohol in blood, level not specified; E11.65 Type 2 diabetes mellitus with hyperglycemia; Z68.37 Body mass index [BMI] 37.0-37.9, adult; Z83.3 Family history of diabetes mellitus; Z82.49 Family history of ischemic heart disease and other diseases of the circulatory system; Z91.013 Allergy to seafood; Z71.6 Tobacco abuse counseling; Z79.4 Long term (current) use of insulin; Z91.19 Patient's noncompliance with other medical treatment and regimen; Z71.41 Alcohol abuse counseling and surveillance of alcoholic
CPT/HCPCS: 36415; 78452; 78582; 80048; 80053; 80061; 80307; 80320; 81001; 82962; 83735; 84439; 84443; 84484; 85007; 85025; 85379; 87086; 93005; 93010; 93017; 93306; 94640; 96365; G0378; A9502; A9540; A9558; G0480; J1815; J2270; J2785; J3475

== ENCOUNTER 2019-06-10 14:41 | Inpatient (IN) | payer MEDICARE ==
--- NOTE | 2019-06-10 15:02 | Emergency Department Report ---
Blank Doc - Documentation Documentation: 49-year-old male that presents with chest pain and vomiting blood. HX of alco hol abuse. This initial assessment/diagnostic orders/clinical plan/treatment(s) is/are subject to change based on patient's health status, clinical progression and re- assessment by fellow clinical providers in the ED. Further treatment and workup at subsequent clinical providers discretion. Patient/guardians urged not to elope from the ED as their condition may be serious if not clinically assessed and managed. Initial orders include: 1- Patient sent to [facility] for further evaluation and treatment 2- labs 3- UA 4- EKG 5- CXR
--- NOTE | 2019-06-10 16:13 | XRay Report ---
CHEST 2 VIEWS INDICATION: Chest Pain. COMPARISON: 11/16/2018. FINDINGS: Support devices: None. Heart: Within normal limits. Lungs/Pleura: No acute air space or interstitial disease. No significant pleural effusion. IMPRESSION: No acute findings. Signer Name: Darin Decker MD Signed: 06/10/2019 4:09 PM Workstation Name: [id number]
[2019-06-10 16:17] LABS: Basophils % (Auto) 0.9 % (0.0-1.8); Eosinophils % (Auto) 0.4 % (0.0-4.3); Hematocrit 44.6 % (35.5-45.6); Hemoglobin 15.1 gm/dl (11.8-15.2); Lymphocytes # (Auto) 0.8 K/mm3 (1.2-5.4); Lymphocytes % (Auto) 23.8 % (13.4-35.0); Mean Corpuscular HGB Conc 34 % (32-34); Mean Corpuscular Volume 93 fl (84-94); Monocytes # (Auto) 0.2 K/mm3 (0.0-0.8); Monocytes % (Auto) 6.9 % (0.0-7.3); Platelet Count 213 K/mm3 (140-440); Red Blood Count 4.78 M/mm3 (3.65-5.03); Red Cell Distribution Width 13.6 % (13.2-15.2)
[2019-06-10 16:26] LABS: INR 1.29 (0.87-1.13)
[2019-06-10 16:28] LABS: Partial Thromboplastin Time 31.9 Sec. (24.2-36.6)
[2019-06-10 16:36] LABS: Albumin 4.3 g/dL (3.9-5); BUN/Creatinine Ratio 17; Blood Urea Nitrogen 10 mg/dL (9-20); Calcium 8.4 mg/dL (8.4-10.2); Hemolysis Index 7
[2019-06-10 16:51] LABS: Alanine Aminotransferase 908 units/L (7-56)
[2019-06-10] MEDS ORDERED: ONDANSETRON 4 MG/2 ML INJ IV ONE (20:34)
[2019-06-10] MEDS ORDERED: FAMOTIDINE 20 MG/2 ML INJ IV ONE (20:34)
[2019-06-10] MEDS ORDERED: LORazepam 2 MG/ML VIAL IV STA (20:34)
[2019-06-10] MEDS ORDERED: LORazepam 2 MG/ML VIAL IV PRN ×2 (20:35)
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
[2019-06-10] MEDS ORDERED: D5W/0.45% NACL 1,000 ML IV SCH (21:00)
[2019-06-10] MEDS ORDERED: PANTOPRAZOLE 40 MG INJ IV ONE (21:12)
[2019-06-10 21:45] LABS: Bilirubin,Direct 0.5 mg/dL (0-0.2)
[2019-06-10 21:52] LABS: Hepatitis B Surface Antigen Non-Reactive (Negative); Hepatitis C Virus Antibody Non-Reactive (NonReactive)
[2019-06-10] MEDS ORDERED: HALOPERIDOL LACTATE 5 MG/1 ML INJ IM PRN (22:08)
[2019-06-10] MEDS ORDERED: HALOPERIDOL LACTATE 5 MG/1 ML INJ ONE (22:11)
[2019-06-10] MEDS ORDERED: HALOPERIDOL LACTATE 5 MG/1 ML INJ IM ONE (22:18)
[2019-06-10 22:56] LABS: Bilirubin,Urine NEG (Negative); Blood,Urine SM (Negative); Color,Urine Yellow (Yellow); Mucus,Urine FEW /HPF; RBC,Urine < 1.0 /HPF (0.0-6.0)
[2019-06-10] MEDS: D5W/0.45% NACL 1,000 ML IV SCH (23:00)
[2019-06-10 23:03] LABS: Amphetamine Screen,Urine PRESUMPTIVE NEGATIVE; Benzodiazepines Screen,Urine PRESUMPTIVE NEGATIVE; Cannabinoid Screen,Urine PRESUMPTIVE NEGATIVE; Cocaine Screen,Urine PRESUMPTIVE NEGATIVE; Methadone Screen,Urine PRESUMPTIVE NEGATIVE; Opiate Screen,Urine PRESUMPTIVE NEGATIVE
--- NOTE | 2019-06-11 02:15 | Ultrasound Report ---
ULTRASOUND ABDOMEN, LIMITED (RIGHT UPPER QUADRANT) INDICATION: n/v transaminits. COMPARISON: None available. FINDINGS: Pancreas: Visualized portion shows no significant abnormality. Liver: Mildly enlarged at 19 cm craniocaudal.. Gallbladder: Cholelithiasis. Bile ducts: Normal. Common Bile Duct measures 8 mm. Free fluid: None. Additional Findings: None. IMPRESSION: Enlarged liver with cholelithiasis. No definite gallbladder wall thickening. Signer Name: Nehemias Toussaint MD Signed: 06/11/2019 2:10 AM Workstation Name: [id number]
[2019-06-11] MEDS ORDERED: DEXTROSE 50% IN WATER (25GM) 50 ML SYRINGE IV PRN (03:04)
[2019-06-11] MEDS ORDERED: IBUPROFEN 600 MG TAB PO PRN (03:04)
[2019-06-11] MEDS ORDERED: ONDANSETRON 4 MG/2 ML INJ IV PRN (03:04)
[2019-06-11] MEDS ORDERED: OCTREOTIDE 500 MCG in SODIUM CHLORIDE 0.9% 100 ML IV SCH (04:00)
[2019-06-11] MEDS ORDERED: PANTOPRAZOLE 80 MG in SODIUM CHLORIDE 0.9% 100 ML IV SCH (04:00)
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
[2019-06-11] MEDS: INSULIN REGULAR, HUMAN 100 UNITS/1 ML SUB-Q SCH ×3 (07:07→17:10)
[2019-06-11 07:33] LABS: Hematocrit 42.7 % (35.5-45.6); Hemoglobin 14.8 gm/dl (11.8-15.2)
[2019-06-11] MEDS: NICOTINE 14 MG/24 HR PATCH TD SCH (09:36)
[2019-06-11] MEDS: D5W/0.45% NACL 1,000 ML IV SCH (09:37)
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
[2019-06-11] MEDS: NITROGLYCERIN 0.4 MG TAB SUBL SL PRN ×2 (11:31→11:36)
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
[2019-06-11 12:17] LABS: Hemoglobin 14.8 gm/dl (11.8-15.2)
[2019-06-11] MEDS ORDERED: MAGNESIUM SULFATE 2 GM/50 ML BAG IV ONE (12:30)
[2019-06-11 15:00] LABS: Hematocrit 42.6 % (35.5-45.6); Hemoglobin 14.9 gm/dl (11.8-15.2)
--- NOTE | 2019-06-11 17:26 | Progress Note ---
Assessment and Plan Assessment and plan: Hematemesis. GI consulted. Continue to monitor H/H and transfuse as needed, no active signs of bleeding this am, previous EGD revealed mild candidiasis of esophagus, gastritis, and duodenitis/enlarged papilla GI reports no plan for repeat EGD unless overt bleeding develops or drop in H/H. Cont. protonix to BID GI started on empiric diflucan x 7 days and a trial of clear liquids-advance as tolerated Avoid NSAIDs Cessation of alcohol discussed/encouraged with patient, along with compliance of PPI upon discharge Epigastric/substernal pain Etiology sec to above ETOH abuse (no hx of cirrhosis or varices) [facility] protocol Elevated LFTS Abd U/S showed enlarged liver (liver normal on CT during prior hospitalization) Acute hepatitis panel negative Etiology-most likely alcoholic hepatitis Behavior Management Specialist on alcohol cessation Avoid hepatotoxic agents DM II. Accuchecks and SSRI HTN BP meds Cardiomyopathy per Cardiology History Interval history: No new issues overnight Hospitalist Physical - Constitutional Vitals: Temp Pulse Resp BP Pulse Ox 98.6 F 99 H 18 161/109 96 06/11/19 15:50 06/11/19 15:50 06/11/19 15:50 06/11/19 15:50 06/11/19 15:50 General appearance: Present: no acute distress - EENT Eyes: Present: PERRL, EOM intact ENT: hearing intact, clear oral mucosa, dentition normal - Neck Neck: Present: supple, normal ROM - Respiratory Respiratory effort: normal Respiratory: bilateral: CTA - Cardiovascular Rhythm: regular Heart Sounds: Present: S1 & S2. Absent: gallop, rub - Extremities Extremities: no ischemia, No edema, Full ROM - Abdominal General gastrointestinal: soft, non-tender, non-distended, normal bowel sounds - Integumentary Integumentary: Present: clear, warm, dry - Neurologic Neurologic: CNII-XII intact, moves all extremities Results - Labs CBC & Chem 7: 06/11/19 14:25 06/10/19 15:59 Labs: Laboratory Last Values WBC 3.5 K/mm3 (4.5-11.0) L 06/10/19 15:59 RBC 4.78 M/mm3 (3.65-5.03) 06/10/19 15:59 Hgb 14.9 gm/dl (11.8-15.2) 06/11/19 14:25 Hct 42.6 % (35.5-45.6) 06/11/19 14:25 MCV 93 fl (84-94) 06/10/19 15:59 MCH 32 pg (28-32) 06/10/19 15:59 MCHC 34 % (32-34) 06/10/19 15:59 RDW 13.6 % (13.2-15.2) 06/10/19 15:59 Plt Count 213 K/mm3 (140-440) 06/10/19 15:59 Lymph % (Auto) 23.8 % (13.4-35.0) 06/10/19 15:59 [place] % (Auto) 6.9 % (0.0-7.3) 06/10/19 15:59 Eos % (Auto) 0.4 % (0.0-4.3) 06/10/19 15:59 Baso % (Auto) 0.9 % (0.0-1.8) 06/10/19 15:59 Lymph # 0.8 K/mm3 (1.2-5.4) L 06/10/19 15:59 [place] # 0.2 K/mm3 (0.0-0.8) 06/10/19 15:59 Eos # 0.0 K/mm3 (0.0-0.4) 06/10/19 15:59 Baso # 0.0 K/mm3 (0.0-0.1) 06/10/19 15:59 Seg Neutrophils % 68.0 % (40.0-70.0) 06/10/19 15:59 Seg Neutrophils # 2.3 K/mm3 (1.8-7.7) 06/10/19 15:59 PT 15.9 Sec. (12.2-14.9) H 06/10/19 15:59 INR 1.29 (0.87-1.13) H 06/10/19 15:59 APTT 31.9 Sec. (24.2-36.6) 06/10/19 15:59 Sodium 138 mmol/L (137-145) 06/10/19 15:59 Potassium 3.9 mmol/L (3.6-5.0) 06/10/19 15:59 Chloride 101.6 mmol/L (98-107) 06/10/19 15:59 Carbon Dioxide 22 mmol/L (22-30) 06/10/19 15:59 Anion Gap 18 mmol/L 06/10/19 15:59 BUN 10 mg/dL (9-20) 06/10/19 15:59 Creatinine 0.6 mg/dL (0.8-1.5) L 06/10/19 15:59 Estimated GFR > 60 ml/min 06/10/19 15:59 BUN/Creatinine Ratio 17 % 06/10/19 15:59 Glucose 298 mg/dL (75-100) H 06/10/19 15:59 POC Glucose 220 (70-105) H 06/11/19 17:08 Hemoglobin A1c 7.1 % (4-6) H 06/11/19 05:31 Lactic Acid 3.70 mmol/L (0.7-2.0) H* 06/10/19 20:52 Calcium 8.4 mg/dL (8.4-10.2) 06/10/19 15:59 Magnesium 2.00 mg/dL (1.7-2.3) 06/10/19 22:47 Total Bilirubin 1.70 mg/dL (0.1-1.2) H 06/10/19 Unknown Direct Bilirubin 0.5 mg/dL (0-0.2) H 06/10/19 Unknown Indirect Bilirubin 1.2 mg/dL 06/10/19 Unknown AST 2175 units/L (5-40) H 06/10/19 15:59 ALT 908 units/L (7-56) H 06/10/19 15:59 Alkaline Phosphatase 102 units/L (35-129) 06/10/19 15:59 Ammonia 10.0 umol/L (25-60) L 06/10/19 20:52 Total Creatine Kinase 132 units/L (55-170) 06/10/19 22:47 Troponin T < 0.010 ng/mL (0.00-0.029) 06/11/19 05:31 Total Protein 6.9 g/dL (6.3-8.2) 06/10/19 15:59 Albumin 4.3 g/dL (3.9-5) 06/10/19 15:59 Albumin/Globulin Ratio 1.7 % 06/10/19 15:59 Lipase 40 units/L (13-60) 06/10/19 20:52 Urine Color Yellow (Yellow) 06/10/19 22:20 Urine Turbidity Clear (Clear) 06/10/19 22:20 Urine pH 5.0 (5.0-7.0) 06/10/19 22:20 Ur Specific [place] 1.025 (1.003-1.030) 06/10/19 22:20 Urine Protein 30 mg/dl mg/dL (Negative) 06/10/19 22:20 Urine Glucose (UA) >=500 mg/dL (Negative) 06/10/19 22:20 Urine Ketones Tr mg/dL (Negative) 06/10/19 22:20 Urine Blood Sm (Negative) 06/10/19 22:20 Urine Nitrite Neg (Negative) 06/10/19 22:20 Urine Bilirubin Neg (Negative) 06/10/19 22:20 Urine Urobilinogen 4.0 mg/dL (<2.0) 06/10/19 22:20 Ur Leukocyte Esterase Neg (Negative) 06/10/19 22:20 Urine WBC (Auto) 1.0 /HPF (0.0-6.0) 06/10/19 22:20 Urine RBC (Auto) < 1.0 /HPF (0.0-6.0) 06/10/19 22:20 U Epithel Cells (Auto) < 1.0 /HPF (0-13.0) 06/10/19 22:20 Urine Mucus Few /HPF 06/10/19 22:20 Salicylates < 0.3 mg/dL (2.8-20.0) L 06/10/19 20:52 Urine Opiates Screen Presumptive negative 06/10/19 22:20 Urine Methadone Screen Presumptive negative 06/10/19 22:20 Acetaminophen < 5.0 ug/mL (10.0-30.0) L 06/10/19 20:52 Ur Barbiturates Screen Presumptive negative 06/10/19 22:20 Ur Phencyclidine Scrn Presumptive negative 06/10/19 22:20 Ur Amphetamines Screen Presumptive negative 06/10/19 22:20 U Benzodiazepines Scrn Presumptive negative 06/10/19 22:20 Urine Cocaine Screen Presumptive negative 06/10/19 22:20 U Marijuana (THC) Screen Presumptive negative 06/10/19 22:20 Drugs of Abuse Note Disclamer 06/10/19 22:20 Plasma/Serum Alcohol 0.23 % (0-0.07) H 06/10/19 15:59 Hepatitis A IgM Ab Non-reactive (NonReactive) 06/10/19 Unknown Hep Bs Antigen Non-reactive (Negative) 06/10/19 Unknown Hep B Core IgM Ab Non-reactive (NonReactive) 06/10/19 Unknown Hepatitis C Antibody Non-reactive (NonReactive) 06/10/19 Unknown Active Medications - Current Medications Current Medications: Generic Name Dose Route Start Last Admin Trade Name Freq PRN Reason Stop Dose Admin Dextrose 0 ml 06/11/19 03:04 D50w (25gm) Syringe IV Q30MIN PRN Hypoglycemia Protocol Fluconazole 100 mg 06/11/19 15:00 Diflucan PO QDAY ALMA Dextrose/Sodium Chloride 1,000 mls @ 50 mls/hr 06/10/19 23:00 06/11/19 09:37 D5/0.45ns IV 50 mls/hr DIRECT ALMA Administration Insulin Human Regular 0 units 06/11/19 06:00 06/11/19 14:12 Humulin R SUB-Q 2 units Q6HR ALMA Administration Protocol Lorazepam 2 mg 06/10/19 20:35 Ativan IV Q1HR PRN CIWA-Ar 8-15 Losartan Potassium 25 mg 06/12/19 10:00 Cozaar PO QDAY ALMA Metoprolol Tartrate 25 mg 06/11/19 22:00 Metoprolol PO BID ALMA Nicotine 14 mg 06/11/19 10:00 06/11/19 09:36 Habitrol TD 14 mg QDAY ALMA Administration Nitroglycerin 0.4 mg 06/11/19 03:10 06/11/19 11:31 Nitrostat SL 0.4 mg Q5M PRN Administration Chest Pain Ondansetron HCl 4 mg 06/11/19 03:04 Zofran IV Q8H PRN Nausea And Vomiting Pantoprazole Sodium 40 mg 06/11/19 22:00 Protonix IV BID ALMA Sodium Chloride 10 ml 06/11/19 10:00 Sodium Chloride Flush Syringe 10 Ml IV BID ALMA Sodium Chloride 10 ml 06/11/19 03:04 Sodium Chloride Flush Syringe 10 Ml IV PRN PRN LINE FLUSH
[2019-06-11] MEDS: LORazepam 2 MG/ML VIAL IV PRN ×3 (17:39→23:12)
[2019-06-11] MEDS: MORPHINE 2 MG/1 ML INJ IV PRN (20:17)
[2019-06-11] MEDS: FLUCONAZOLE 100 MG TAB PO SCH (20:29)
[2019-06-11] MEDS: PANTOPRAZOLE 40 MG INJ IV SCH (23:12)
[2019-06-11] MEDS: METOPROLOL TARTRATE 25 MG TAB PO SCH (23:12)
[2019-06-12] MEDS: INSULIN REGULAR, HUMAN 100 UNITS/1 ML SUB-Q SCH ×3 (01:00→12:10)
[2019-06-12] MEDS: LORazepam 2 MG/ML VIAL IV PRN (02:27)
[2019-06-12] MEDS: MORPHINE 2 MG/1 ML INJ IV PRN ×2 (02:27→11:51)
[2019-06-12 08:04] VITALS: BP 135/87
[2019-06-12 08:16] LABS: Basophils # (Auto) 0.1 K/mm3 (0.0-0.1); Basophils % (Auto) 1.7 % (0.0-1.8); Eosinophils # (Auto) 0.2 K/mm3 (0.0-0.4); Eosinophils % (Auto) 5.2 % (0.0-4.3); Hematocrit 41.4 % (35.5-45.6); Hemoglobin 14.5 gm/dl (11.8-15.2); Lymphocytes # (Auto) 1.4 K/mm3 (1.2-5.4); Lymphocytes % (Auto) 44.6 % (13.4-35.0); Mean Corpuscular HGB Conc 35 % (32-34); Mean Corpuscular Volume 92 fl (84-94); Monocytes # (Auto) 0.2 K/mm3 (0.0-0.8); Monocytes % (Auto) 7.9 % (0.0-7.3); Platelet Count 153 K/mm3 (140-440); Red Blood Count 4.52 M/mm3 (3.65-5.03); Red Cell Distribution Width 13.3 % (13.2-15.2)
[2019-06-12 08:28] LABS: INR 1.04 (0.87-1.13)
[2019-06-12 08:39] LABS: Albumin 3.7 g/dL (3.9-5); BUN/Creatinine Ratio 5; Blood Urea Nitrogen 3 mg/dL (9-20); Calcium 8.3 mg/dL (8.4-10.2); Hemolysis Index 12
[2019-06-12 08:55] LABS: Alanine Aminotransferase 756 units/L (7-56)
[2019-06-12] MEDS ORDERED: LOSARTAN 25 MG TAB PO SCH (10:00)
--- NOTE | 2019-06-12 10:04 | Discharge Summary ---
Providers - Providers Date of Admission: 06/11/19 03:44 Date of discharge: 06/12/19 Attending physician: DAVID DONALD 06/10/19 21:04 Consult to Physician [CONS] Urgent Comment: Dr. Gramajo spoke with Dr. Bailon @ [phone] Consulting Provider: SOUMYA MEDINA Physician Instructions: Reason For Exam: ugib 06/11/19 03:08 Consult to Physician [CONS] Routine Comment: Consulting Provider: GEOVANI SARMIENTO Physician Instructions: Reason For Exam: chest pain, EF 35-40% Primary care physician: CLINICAL SAFETY MANAGER Hospitalization Reason for admission: epigastric pain Condition: Serious Hospital course: The pt is a 49-year-old male with a past medical history of HTN, DM, NICMP, normal coronaries, ETOH abuse, schizophrenia, bipolar, depression, gastritis and noncompliant with any OP follow up and does not regularly take any prescription medications presented with complaints of vomiting blood and chest pain. Pt reported vomiting blood and to having dark colored stools for the past couple of days [employer]. Upon arrival to [facility] pt was found to be clinically intoxicated. He admitted to excessive alcohol consumption but stated that he is drinking less than before. Pt complained of nontraumatic nonradiating generalized chest pain. Pt was initiated on protonix gtt. GI and cardiology consultations were o btained. AMI was ruled out. Cardiology felt that the pain was not cardiac in origin and likely epigastric/gastrointestinal in origin. Patient was resumed on home GDMT. Patient had no active signs of bleeding since admission. Patient with multiple prior hospitalizations undergoing multiple EGDs for similar symptoms. 3 EGDs so far this year with last in February (02/25/19; Dr. Merlos) at [facility] that showed mild candidiasis of esophagus, gastritis, and duodenitis/enlarged papilla. GI had no plans for repeat EGD. Charge nurse reported the patient was eating red colored candy and spitting in the sink reporting that it was hematemesis. Pt couseled on alcohol cessation, GI started on empiric diflucan x 7 days and a trial of clear liquids-advance as tolerated. Avoid NSAIDs. Also, compliance of PPI upon discharge. I will hold Seroquel for one week while patient on Diflucan due to potential QT prolongation. I discussed with patient and he voiced understanding. Disposition: DC-01 TO HOME OR SELFCARE Time spent for discharge: 32 - Discharge Diagnoses (1) Alcoholic cardiomyopathy Status: Acute (2) Chest pain Status: Acute Qualifiers: Chest pain type: unspecified Qualified Code(s): R07.9 - Chest pain, unspecified (3) Alcohol abuse Status: Chronic (4) Diabetes Status: Chronic (5) HTN (hypertension) Status: Chronic Qualifiers: Hypertension type: essential hypertension Qualified Code(s): I10 - Essential (primary) hypertension (6) NICM (nonischemic cardiomyopathy) Status: Chronic Core Measure Documentation - Palliative Care Palliative Care/ Comfort Measures: Not Applicable - Core Measures Any of the following diagnoses?: none Exam - Constitutional Vitals: Temp Pulse Resp BP Pulse Ox 97.9 F 89 18 135/87 100 06/12/19 08:02 06/12/19 08:02 06/12/19 08:02 06/12/19 08:02 06/12/19 08:02 General appearance: Present: no acute distress, well-nourished - EENT Eyes: Present: PERRL ENT: hearing intact, clear oral mucosa - Neck Neck: Present: supple, normal ROM - Respiratory Respiratory effort: normal Respiratory: bilateral: CTA - Cardiovascular Heart Sounds: Present: S1 & S2. Absent: rub, click - Extremities Extremities: pulses symmetrical, No edema Peripheral Pulses: within normal limits - Abdominal General gastrointestinal: Present: soft, non-tender, non-distended, normal bowel sounds Male genitourinary: Present: normal - Integumentary Integumentary: Present: clear, warm, dry - Musculoskeletal Musculoskeletal: gait normal, strength equal bilaterally - Psychiatric Psychiatric: appropriate mood/affect, intact judgment & insight - Neurologic Neurologic: CNII-XII intact, moves all extremities Plan Activity: advance as tolerated Weight Bearing Status: Weight Bear as Tolerated Diet: regular Follow up with: PRIMARY CARE, [Primary Care Provider] - 3-5 Days AFRICA CARR MD [Staff Physician] - 7 Days SOUMYA MEDINA MD [Staff Physician] - 7 Days Prescriptions: Losartan [Cozaar] 25 mg PO QDAY #30 tablet Fluconazole [Diflucan TAB] 100 mg PO QDAY #7 tablet Folic Acid [Folvite] 1 mg PO QDAY #30 tablet chlordiazePOXIDE [Librium] 25 mg PO Q6H PRN #30 capsule PRN Reason: Alcohol Withdrawal Metoprolol [Lopressor TAB] 25 mg PO BID #60 tablet Pantoprazole [Protonix] 40 mg PO QDAY #30 tablet Quetiapine Fumarate [SEROquel] 400 mg PO HS #30 Bupropion HCl [Wellbutrin XL] 300 mg PO QDAY #30 tab.er.24h
--- NOTE | 2019-06-12 10:58 | Gastroenterology Progress Note ---
<DANI YO - Last Filed: 06/12/19 10:58> Assessment and Plan 1.hematemesis 2.epigastric/substernal pain -H/H WNL (14.5/41.4) -continue to monitor H/H and transfuse as needed -no active signs of bleeding this am -etiology-patient with multiple prior hospitalizations undergoing multiple EGDs for similar symptoms (see HPI) -3 EGDs so far this year with last in February (02/25/19; Dr. Merlos) at [facility] that showed mild candidiasis of esophagus, gastritis, and duodenitis/enlarged papilla -no plan for repeat EGD unless overt bleeding develops or drop in H/H -continue PPI BID -continue empiric diflucan x 7 days -advance diet as tolerated -avoid NSAIDs -cessation of alcohol discussed/encouraged with patient, along with compliance of PPI upon discharge -continue supportive care 3.ETOH abuse (no hx of cirrhosis or varices) 4.elevated LFTs -plt WNL -INR now trended to WNL-preserved synthetic function -T.neil 2.10, AST 822, ALT 756, alk phos 131 -abd U/S showed enlarged liver (liver normal on CT during prior hospitalization) -acute hepatitis panel negative -etiology-2/2 alcoholic hepatitis -DF <32; no recommendation for steroids -alcohol cessation -avoid hepatotoxic agents -continue to trend labs and supportive care -no further recommendations per GI standpoint at this time -patient to f/u in clinic upon discharge for further management -will sign off, please call if needed 5.DM (uncontrolled) -optimize glycemic control 6.HTN 7.cardiomyopathy 8.noncompliance Subjective Date of service: 06/12/19 Principal diagnosis: UGIB Interval history: No acute distress or active signs of bleeding overnight or this am. Objective - Constitutional Vitals: Temp Pulse Resp BP Pulse Ox 97.9 F 89 18 135/87 100 06/12/19 08:02 06/12/19 08:02 06/12/19 08:02 06/12/19 08:02 06/12/19 08:02 General appearance: no acute distress - Respiratory Respiratory effort: normal - Cardiovascular Rhythm: regular - Gastrointestinal General gastrointestinal: Present: soft, tender (slight TTP), non-distended, normal bowel sounds - Neurologic Neurological: alert and oriented x3 - Labs CBC & Chem 7: 06/12/19 07:49 06/12/19 07:49 Labs: Laboratory Results - last 24 hr 06/11/19 06/11/19 06/11/19 11:50 11:59 14:25 WBC RBC Hgb 14.8 14.9 Hct 42.0 42.6 MCV MCH MCHC RDW Plt Count Lymph % (Auto) [place] % (Auto) Eos % (Auto) Baso % (Auto) Lymph # [place] # Eos # Baso # Seg Neutrophils % Seg Neutrophils # PT INR Sodium Potassium Chloride Carbon Dioxide Anion Gap BUN Creatinine Estimated GFR BUN/Creatinine Ratio Glucose POC Glucose 200 H Calcium Magnesium Total Bilirubin Direct Bilirubin Indirect Bilirubin AST ALT Alkaline Phosphatase Total Protein Albumin Albumin/Globulin Ratio 06/11/19 06/12/19 06/12/19 17:08 00:25 06:27 WBC RBC Hgb Hct MCV MCH MCHC RDW Plt Count Lymph % (Auto) [place] % (Auto) Eos % (Auto) Baso % (Auto) Lymph # [place] # Eos # Baso # Seg Neutrophils % Seg Neutrophils # PT INR Sodium Potassium Chloride Carbon Dioxide Anion Gap BUN Creatinine Estimated GFR BUN/Creatinine Ratio Glucose POC Glucose 220 H 250 H 274 H Calcium Magnesium Total Bilirubin Direct Bilirubin Indirect Bilirubin AST ALT Alkaline Phosphatase Total Protein Albumin Albumin/Globulin Ratio 06/12/19 06/12/19 06/12/19 07:49 07:49 07:49 WBC 3.1 L RBC 4.52 Hgb 14.5 Hct 41.4 MCV 92 MCH 32 MCHC 35 H RDW 13.3 Plt Count 153 Lymph % (Auto) 44.6 H [place] % (Auto) 7.9 H Eos % (Auto) 5.2 H Baso % (Auto) 1.7 Lymph # 1.4 [place] # 0.2 Eos # 0.2 Baso # 0.1 Seg Neutrophils % 40.6 Seg Neutrophils # 1.3 L PT 13.5 INR 1.04 Sodium 135 L Potassium 3.5 L Chloride 97.6 L Carbon Dioxide 24 Anion Gap 17 BUN 3 L Creatinine 0.6 L Estimated GFR > 60 BUN/Creatinine Ratio 5 Glucose 292 H POC Glucose Calcium 8.3 L Magnesium 1.90 Total Bilirubin 2.10 H Direct Bilirubin 1.0 H Indirect Bilirubin 1.1 AST 822 H ALT 756 H Alkaline Phosphatase 131 H Total Protein 6.4 Albumin 3.7 L Albumin/Globulin Ratio 1.4 <GALINA RUFFIN R - Last Filed: 06/12/19 12:32> Assessment and Plan Pt with acute EtOH intoxication, and alcoholic hepatitis. INR normal. Improving. Plan as noted. Will sign off. Thanks. Objective - Constitutional Vitals: Temp Pulse Resp BP Pulse Ox 97.9 F 89 18 135/87 100 06/12/19 08:02 06/12/19 08:02 06/12/19 08:02 06/12/19 08:02 06/12/19 08:02 - Labs CBC & Chem 7: 06/12/19 07:49 06/12/19 07:49 Labs: Laboratory Results - last 24 hr 06/11/19 06/11/19 06/12/19 14:25 17:08 00:25 WBC RBC Hgb 14.9 Hct 42.6 MCV MCH MCHC RDW Plt Count Lymph % (Auto) [place] % (Auto) Eos % (Auto) Baso % (Auto) Lymph # [place] # Eos # Baso # Seg Neutrophils % Seg Neutrophils # PT INR Sodium Potassium Chloride Carbon Dioxide Anion Gap BUN Creatinine Estimated GFR BUN/Creatinine Ratio Glucose POC Glucose 220 H 250 H Calcium Magnesium Total Bilirubin Direct Bilirubin Indirect Bilirubin AST ALT Alkaline Phosphatase Total Protein Albumin Albumin/Globulin Ratio 06/12/19 06/12/19 06/12/19 06:27 07:49 07:49 WBC 3.1 L RBC 4.52 Hgb 14.5 Hct 41.4 MCV 92 MCH 32 MCHC 35 H RDW 13.3 Plt Count 153 Lymph % (Auto) 44.6 H [place] % (Auto) 7.9 H Eos % (Auto) 5.2 H Baso % (Auto) 1.7 Lymph # 1.4 [place] # 0.2 Eos # 0.2 Baso # 0.1 Seg Neutrophils % 40.6 Seg Neutrophils # 1.3 L PT INR Sodium 135 L Potassium 3.5 L Chloride 97.6 L Carbon Dioxide 24 Anion Gap 17 BUN 3 L Creatinine 0.6 L Estimated GFR > 60 BUN/Creatinine Ratio 5 Glucose 292 H POC Glucose 274 H Calcium 8.3 L Magnesium 1.90 Total Bilirubin 2.10 H Direct Bilirubin 1.0 H Indirect Bilirubin 1.1 AST 822 H ALT 756 H Alkaline Phosphatase 131 H Total Protein 6.4 Albumin 3.7 L Albumin/Globulin Ratio 1.4 06/12/19 07:49 WBC RBC Hgb Hct MCV MCH MCHC RDW Plt Count Lymph % (Auto) [place] % (Auto) Eos % (Auto) Baso % (Auto) Lymph # [place] # Eos # Baso # Seg Neutrophils % Seg Neutrophils # PT 13.5 INR 1.04 Sodium Potassium Chloride Carbon Dioxide Anion Gap BUN Creatinine Estimated GFR BUN/Creatinine Ratio Glucose POC Glucose Calcium Magnesium Total Bilirubin Direct Bilirubin Indirect Bilirubin AST ALT Alkaline Phosphatase Total Protein Albumin Albumin/Globulin Ratio
[2019-06-12] MEDS: PANTOPRAZOLE 40 MG INJ IV SCH (11:30)
[2019-06-12] MEDS: FLUCONAZOLE 100 MG TAB PO SCH (11:30)
[2019-06-12] MEDS: NICOTINE 14 MG/24 HR PATCH TD SCH (11:30)
[2019-06-12] MEDS: METOPROLOL TARTRATE 25 MG TAB PO SCH (11:30)
--- NOTE | 2019-06-12 14:45 | Progress Note ---
Assessment and Plan Pt presented with GI bleed and chest pain. AMI ruled out. LHC done 12/2015 showed normal coronaries, EF 50%. Lexiscan MPI stress test done 02/13/19 revealed moderate fixed inferior defect, no significant ischemia and EF of 35%. Echo done 02/2019 showed EF 35-40%, LV mildly dilated, mild MR, mild TR, RVSP 30mmHg. No plans for additional cardiac w/u at this time. Suspect chest pain is gastrointestinal in origin. Per GI team - 3 EGDs so far this year with last in February (02/25/19; Dr. Merlos) at [facility] that showed mild candidias is of esophagus, gastritis, and duodenitis/enlarged papilla, no plan for repeat EGD unless overt bleeding develops or drop in H/H Currently stable cardiac status. Cont home cardiac regimen. Pt may discharge from cardiology standpoint. Recommend pt follow up in our office with Dr. Trish Cerda within 1-2 weeks ([phone]). Importance of ETOH cessation reiterated. The patient has been seen in conjunction with Dr. Trish Cerda who agrees with the assessment and plan of care. - Patient Problems (1) GI bleeding Current Visit: Yes Status: Acute Qualifiers: GI bleed type/associated pathology: unspecified gastrointestinal hemorrhage type Qualified Code(s): K92.2 - Gastrointestinal hemorrhage, unspecified (2) Alcohol abuse Current Visit: Yes Status: Chronic (3) Transaminitis Current Visit: Yes Status: Acute (4) Chest pain Current Visit: Yes Status: Acute Qualifiers: Chest pain type: unspecified Qualified Code(s): R07.9 - Chest pain, unspecified (5) NICM (nonischemic cardiomyopathy) Current Visit: Yes Status: Chronic (6) NSVT (nonsustained ventricular tachycardia) Current Visit: Yes Status: Acute (7) HTN (hypertension) Current Visit: Yes Status: Chronic Qualifiers: Hypertension type: essential hypertension Qualified Code(s): I10 - Essential (primary) hypertension (8) Diabetes Current Visit: Yes Status: Chronic (9) Noncompliance Current Visit: Yes Status: Chronic (10) Hypomagnesemia Current Visit: Yes Status: Acute Subjective Date of service: 06/12/19 Principal diagnosis: UGIB Interval history: pt resting in bed, no current complaints, feeling better. refusing to wear telemetry. Objective Last Vital Signs Temp 97.9 F 06/12/19 08:02 Pulse 89 06/12/19 08:02 Resp 18 06/12/19 08:02 BP 135/87 06/12/19 08:02 Pulse Ox 100 06/12/19 08:02 - Physical Examination General: No Apparent Distress HEENT: Positive: PERRL, Normocephaly, Mucus Membranes Moist Neck: Positive: neck supple, trachea midline Cardiac: Positive: Reg Rate and Rhythm, S1/S2 Lungs: Positive: Decreased Breath Sounds Neuro: Positive: Grossly Intact Abdomen: Negative: Tender Skin: Negative: Rash Musculoskeletal: No Pain Extremities: Absent: edema - Labs and Meds Cardiac Enzymes 06/12/19 Range/Units 07:49 AST 822 H (5-40) units/L Coagulation 06/12/19 Range/Units 07:49 PT 13.5 (12.2-14.9) Sec. INR 1.04 (0.87-1.13) CBC 06/11/19 06/12/19 Range/Units 14:25 07:49 WBC 3.1 L (4.5-11.0) K/mm3 RBC 4.52 (3.65-5.03) M/mm3 Hgb 14.9 14.5 (11.8-15.2) gm/dl Hct 42.6 41.4 (35.5-45.6) % Plt Count 153 (140-440) K/mm3 Lymph # 1.4 (1.2-5.4) K/mm3 [place] # 0.2 (0.0-0.8) K/mm3 Eos # 0.2 (0.0-0.4) K/mm3 Baso # 0.1 (0.0-0.1) K/mm3 Comprehensive Metabolic Panel 06/12/19 Range/Units 07:49 Sodium 135 L (137-145) mmol/L Potassium 3.5 L (3.6-5.0) mmol/L Chloride 97.6 L (98-107) mmol/L Carbon Dioxide 24 (22-30) mmol/L BUN 3 L (9-20) mg/dL Creatinine 0.6 L (0.8-1.5) mg/dL Glucose 292 H (75-100) mg/dL Calcium 8.3 L (8.4-10.2) mg/dL Direct Bilirubin 1.0 H (0-0.2) mg/dL Indirect Bilirubin 1.1 mg/dL AST 822 H (5-40) units/L ALT 756 H (7-56) units/L Alkaline Phosphatase 131 H (35-129) units/L Total Protein 6.4 (6.3-8.2) g/dL Albumin 3.7 L (3.9-5) g/dL - Imaging and Cardiology EKG: report reviewed, image reviewed Echo: report reviewed (02/2019 showed EF 35-40%, LV mildly dilated, mild MR, mild TR, RVSP 30mmHg. ) Cardiac cath: report reviewed (12/2015 showed normal coronaries, EF 50%. ) - EKG Sinus rhythms and dysrhythmias: sinus rhythm
== END 2019-06-12 16:28 | disposition home or self-care (01) | DRG 378 ==
LOC: ED 14:41 → 4A 06-11 03:44
PROVIDERS: ADMIT Internal Medicine; ATTEND Hospitalist
DX: K92.2 Gastrointestinal hemorrhage, unspecified (principal); E87.2 Acidosis; I42.8 Other cardiomyopathies; I47.1 Supraventricular tachycardia; I42.6 Alcoholic cardiomyopathy; K80.20 Calculus of gallbladder without cholecystitis without obstruction; F10.10 Alcohol abuse, uncomplicated; R07.89 Other chest pain; E83.42 Hypomagnesemia; E11.8 Type 2 diabetes mellitus with unspecified complications; R74.0 Nonspecific elevation of levels of transaminase and lactic acid dehydrogenase [LDH]; F32.9 Major depressive disorder, single episode, unspecified; I11.0 Hypertensive heart disease with heart failure; I50.9 Heart failure, unspecified; E66.9 Obesity, unspecified; F20.9 Schizophrenia, unspecified; F17.200 Nicotine dependence, unspecified, uncomplicated; Z82.49 Family history of ischemic heart disease and other diseases of the circulatory system; Z79.899 Other long term (current) drug therapy; Z90.49 Acquired absence of other specified parts of digestive tract; Z83.3 Family history of diabetes mellitus; Z71.41 Alcohol abuse counseling and surveillance of alcoholic; Z91.14 Patient's other noncompliance with medication regimen; Z68.35 Body mass index [BMI] 35.0-35.9, adult
CPT/HCPCS: 36415; 71046; 76705; 80048; 80053; 80074; 80076; 80307; 80320; 81001; 82140; 82247; 82248; 82271; 82550; 82962; 83036; 83690; 83735; 84484; 85014; 85018; 85025; 85610; 85730; 93005; 93010; 96374; G0378; C9113; G0480; J1630; J1815; J2060; J2270; J2354; J2405; J3475

== ENCOUNTER 2019-07-28 12:44 | Emergency (ER) | payer MEDICARE ==
--- NOTE | 2019-07-28 15:25 | Event Note ---
ED Screening Note Date of service: 07/28/19 Time: 15:19 ED Screening Note: 49 y o male with PMH of ETOH abuse 6 months sober presents [facility] last week od etoh abuse seeking detox program and was sent here for clearance This initial assessment/diagnostic orders/clinical plan/treatment(s) is/are s ubject to change based on patients health status, clinical progression and re- assessment by fellow clinical providers in the ED. Further treatment and workup at subsequent clinical providers discretion. Patient/guardian urged not to elope from the ED as their condition may be serious if not clinically assessed and managed. Initial orders include: labs main side eval
[2019-07-28] MEDS ORDERED: ONDANSETRON 4 MG ODT TAB PO ONE (16:28)
[2019-07-28 16:34] LABS: Hematocrit 44.6 % (35.5-45.6); Hemoglobin 15.4 gm/dl (11.8-15.2); Mean Corpuscular HGB Conc 35 % (32-34); Mean Corpuscular Volume 93 fl (84-94); Platelet Count 235 K/mm3 (140-440); Red Blood Count 4.81 M/mm3 (3.65-5.03); Red Cell Distribution Width 13.7 % (13.2-15.2)
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
[2019-07-28 16:53] LABS: BUN/Creatinine Ratio 13; Blood Urea Nitrogen 8 mg/dL (9-20); Calcium 9.5 mg/dL (8.4-10.2); Hemolysis Index 5
--- NOTE | 2019-07-28 16:54 | XRay Report ---
CHEST 2 VIEWS INDICATION: chf. COMPARISON: 06/10/2019 FINDINGS: Support devices: None. Heart: Within normal limits. Lungs/Pleura: No acute air space or interstitial disease. No significant pleural effusion. IMPRESSION: No acute findings. Signer Name: Darin Decker MD Signed: 07/28/2019 4:50 PM Workstation Name: [id number]
[2019-07-28 17:15] LABS: Basophils % (Manual) 0 % (0.0-1.8); Total Cells Counted 100
[2019-07-28 17:16] LABS: Anisocytosis 1+
[2019-07-28 18:29] LABS: Bilirubin,Urine NEG (Negative); Blood,Urine SM (Negative); Color,Urine Yellow (Yellow); Mucus,Urine FEW /HPF; Protein,Urine <15 mg/dL mg/dL (Negative); Urobilinogen,Urine < 2.0 mg/dL (<2.0)
[2019-07-28 18:39] LABS: Amphetamine Screen,Urine PRESUMPTIVE NEGATIVE; Benzodiazepines Screen,Urine PRESUMPTIVE NEGATIVE; Cannabinoid Screen,Urine PRESUMPTIVE NEGATIVE; Cocaine Screen,Urine PRESUMPTIVE NEGATIVE; Methadone Screen,Urine PRESUMPTIVE NEGATIVE; Opiate Screen,Urine PRESUMPTIVE NEGATIVE
[2019-07-28 19:35] VITALS: BP 138/81
== END 2019-07-28 19:35 | disposition home or self-care (01) ==
LOC: ED 12:44
DX: F10.99 Alcohol use, unspecified with unspecified alcohol-induced disorder (principal); I11.0 Hypertensive heart disease with heart failure; I50.9 Heart failure, unspecified; E11.9 Type 2 diabetes mellitus without complications; F12.10 Cannabis abuse, uncomplicated; Z90.49 Acquired absence of other specified parts of digestive tract; Z98.890 Other specified postprocedural states; Z04.6 Encounter for general psychiatric examination, requested by authority; Z79.899 Other long term (current) drug therapy; Z91.040 Latex allergy status; Z88.8 Allergy status to other drugs, medicaments and biological substances
CPT/HCPCS: 36415; 71046; 80048; 80307; 80320; 81001; 85007; 85025; G0480; Q0162

== ENCOUNTER 2019-07-28 20:35 | Inpatient (IN) | payer MEDICARE ==
[2019-07-28 21:57] LABS: Hematocrit 43.6 % (35.5-45.6); Hemoglobin 14.6 gm/dl (11.8-15.2); Mean Corpuscular HGB Conc 34 % (32-34); Mean Corpuscular Volume 93 fl (84-94); Platelet Count 242 K/mm3 (140-440); Red Blood Count 4.68 M/mm3 (3.65-5.03); Red Cell Distribution Width 13.2 % (13.2-15.2)
[2019-07-28 22:06] LABS: INR 0.96 (0.87-1.13)
[2019-07-28 22:07] LABS: Partial Thromboplastin Time 30.4 Sec. (24.2-36.6)
[2019-07-28 22:30] LABS: Alanine Aminotransferase 14 units/L (7-56); Albumin 4.3 g/dL (3.9-5); BUN/Creatinine Ratio 18; Basophils % (Manual) 0 % (0.0-1.8); Blood Urea Nitrogen 9 mg/dL (9-20); Hemolysis Index 11; Total Cells Counted 100
[2019-07-28 22:32] LABS: Anisocytosis 1+
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
[2019-07-28] MEDS ORDERED: PANTOPRAZOLE 80 MG in SODIUM CHLORIDE 0.9% 100 ML IV SCH (23:45)
[2019-07-28] MEDS ORDERED: LORazepam 2 MG/ML VIAL IV PRN ×3 (23:54)
[2019-07-28] MEDS ORDERED: LORazepam 2 MG TAB PO PRN ×2 (23:54)
[2019-07-29] MEDS ORDERED: ACETAMINOPHEN 325 MG TAB PO PRN (00:43)
[2019-07-29] MEDS ORDERED: ONDANSETRON 4 MG/2 ML INJ IV PRN ×2 (00:43→14:45)
[2019-07-29] MEDS: MORPHINE 2 MG/1 ML INJ IV PRN ×4 (00:55→20:43)
[2019-07-29 00:56] LABS: Bilirubin,Urine NEG (Negative); Blood,Urine NEG (Negative); Color,Urine Yellow (Yellow); Mucus,Urine FEW /HPF; WBC,Urine < 1.0 /HPF (0.0-6.0)
[2019-07-29] MEDS ORDERED: MORPHINE 2 MG/1 ML INJ ONE (00:56)
--- NOTE | 2019-07-29 01:20 | History and Physical Report ---
History of Present Illness Date of examination: 07/28/19 Date of admission: 07/28/2019 Chief complaint: Nausea and vomiting Hematemesis History of present illness: 49-year-old male with known history of alcohol abuse presenting to the emergency room today complaining of nausea and vomiting and associated abdominal pain. He has also been vomiting blood today and has had multiple episodes of hematemesis. Abdominal pain is said to be worse on vomiting and pain is said to be in the epigastric region. He drinks alcohol almost on a daily basis and last alcohol intake was in the afternoon today. Patient denies any fever or chills denies any headache or dizziness. He denies any diarrhea denies any bright red blood per rectum. He has been trying to go to a detox facility but was referred to the emergency room for further evaluation. Past History Past Medical History: No medical history, hypertension Past Surgical History: No surgical history Social history: alcohol abuse Family history: no significant family history Medications and Allergies Allergies Allergy/AdvReac Type Severity Reaction Status Date / Time Fish Containing Products Allergy Rash Verified 02/12/19 14:07 latex Allergy Itching Verified 07/28/19 20:38 Home Medications Medication Instructions Recorded Confirmed Last Taken Type Bupropion HCl [Wellbutrin XL] 300 mg PO QDAY #30 tab.er.24h 06/12/19 Unknown Rx Fluconazole [Diflucan TAB] 100 mg PO QDAY #7 tablet 06/12/19 Unknown Rx Folic Acid [Folvite] 1 mg PO QDAY #30 tablet 06/12/19 Unknown Rx Losartan [Cozaar] 25 mg PO QDAY #30 tablet 06/12/19 Unknown Rx Metoprolol [Lopressor TAB] 25 mg PO BID #60 tablet 06/12/19 Unknown Rx Pantoprazole [Protonix] 40 mg PO QDAY #30 tablet 06/12/19 Unknown Rx Quetiapine Fumarate [SEROquel] 400 mg PO HS #30 06/12/19 Unknown Rx chlordiazePOXIDE [Librium] 25 mg PO Q6H PRN #30 capsule 06/12/19 Unknown Rx Active Meds: Active Medications Acetaminophen (Tylenol) 650 mg PO Q4H PRN PRN Reason: Pain MILD(1-3)/Fever >100.5/DIGGS Pantoprazole Sodium 80 mg/ (Sodium Chloride) 100 mls @ 10 mls/hr IV DIRECT ALMA Last Admin: 07/29/19 01:00 Dose: 8 mg/hr, 10 mls/hr Documented by: Lorazepam (Ativan) 2 mg IV Q1HR PRN PRN Reason: CIWA-Ar 8-15 Lorazepam (Ativan) 2 mg PO Q1HR PRN PRN Reason: CIWA-Ar 8-15 Lorazepam (Ativan) 4 mg IV Q1HR PRN PRN Reason: CIWA-Ar 16-25 Lorazepam (Ativan) 4 mg PO Q1HR PRN PRN Reason: CIWA-Ar 16-25 Lorazepam (Ativan) 4 mg IV Q15MIN PRN PRN Reason: CIWA-Ar >25 Morphine Sulfate (Morphine) 2 mg IV Q4H PRN PRN Reason: Pain, Moderate (4-6) Last Admin: 07/29/19 00:55 Dose: 2 mg Documented by: Ondansetron HCl (Zofran) 4 mg IV Q8H PRN PRN Reason: Nausea And Vomiting Sodium Chloride (Sodium Chloride Flush Syringe 10 Ml) 10 ml IV BID [facility] Sodium Chloride (Sodium Chloride Flush Syringe 10 Ml) 10 ml IV PRN PRN PRN Reason: LINE FLUSH Review of Systems Constitutional: no fever, no chills, no weakness Ears, nose, mouth and throat: no nasal congestion Cardiovascular: no chest pain, no palpitations Respiratory: no cough, no congestion Gastrointestinal: abdominal pain, nausea, vomiting, hematemesis Genitourinary Male: no dysuria, no hematuria Musculoskeletal: no neck stiffness, no neck pain Integumentary: no rash, no pruritis Neurological: no syncope, no change in mentation Psychiatric: anxiety Exam - Constitutional Vitals: Temp Pulse Resp BP Pulse Ox 98.0 F 97 H 18 154/80 98 07/28/19 23:10 07/28/19 23:10 07/29/19 00:55 07/28/19 23:10 07/28/19 23:10 General appearance: Present: no acute distress, well-nourished - EENT Eyes: Present: PERRL, EOM intact ENT: hearing intact, clear oral mucosa, dentition normal - Neck Neck: Present: supple, normal ROM - Respiratory Respiratory effort: normal Respiratory: bilateral: CTA - Cardiovascular Rhythm: regular Heart Sounds: Present: S1 & S2 - Extremities Extremities: no ischemia, pulses intact, No edema, Full ROM Peripheral Pulses: within normal limits - Abdominal General gastrointestinal: Present: soft, non-tender, non-distended - Integumentary Integumentary: Present: clear, warm, dry - Musculoskeletal Musculoskeletal: strength equal bilaterally - Psychiatric Psychiatric: appropriate mood/affect, intact judgment & insight, cooperative - Neurologic Neurologic: CNII-XII intact, moves all extremities Results - Labs CBC & Chem 7: 07/28/19 20:54 07/28/19 20:54 Labs: Abnormal lab results 07/28/19 07/28/19 07/29/19 Range/Units 20:54 20:54 00:39 Seg Neuts % (Manual) 29.0 L (40.0-70.0) % Lymphocytes % (Manual) 63.0 H (13.4-35.0) % Seg Neutrophils # Man 1.3 L (1.8-7.7) K/mm3 Sodium 135 L (137-145) mmol/L Potassium 3.2 L (3.6-5.0) mmol/L Chloride 96.4 L (98-107) mmol/L Creatinine 0.5 L (0.8-1.5) mg/dL Glucose 315 H (75-100) mg/dL Ur Specific [place] 1.033 H (1.003-1.030) Assessment and Plan - Patient Problems (1) GI bleed Current Visit: Yes Status: Acute Qualifiers: GI bleed type/associated pathology: gastritis Gastritis type: acute gastritis Qualified Code(s): K29.01 - Acute gastritis with bleeding Plan to address problem: Patient admitted and placed on Protonix drip. We will also monitor H&H. Consult has been placed to the [facility] for further evaluation and recommendation. (2) Abdominal pain Current Visit: No Status: Acute Qualifiers: Abdominal location: upper abdomen, unspecified Qualified Code(s): R10.10 - Upper abdominal pain, unspecified Plan to address problem: Probably secondary to the nausea and vomiting. We will place on IV analgesic medication. (3) Alcohol use disorder Current Visit: No Status: Acute Plan to address problem: Will monitor for alcohol withdrawal symptoms. Will also be placed on CIWA protocol.. (4) DVT prophylaxis Current Visit: No Status: Acute Plan to address problem: Placed on sequential compression device. (5) Full code status Current Visit: Yes Status: Acute
[2019-07-29 01:44] LABS: Amphetamine Screen,Urine PRESUMPTIVE NEGATIVE; Benzodiazepines Screen,Urine PRESUMPTIVE NEGATIVE; Cannabinoid Screen,Urine PRESUMPTIVE NEGATIVE; Cocaine Screen,Urine PRESUMPTIVE NEGATIVE; Methadone Screen,Urine PRESUMPTIVE NEGATIVE; Opiate Screen,Urine PRESUMPTIVE NEGATIVE
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
[2019-07-29] MEDS: THIAMINE 100 MG TAB PO SCH (14:35)
[2019-07-29] MEDS: FOLIC ACID 1 MG TAB PO SCH (14:35)
[2019-07-29] MEDS: NACL 0.9%/KCL 20 MEQ 20 MEQ/1,000 ML BAG IV SCH (14:49)
[2019-07-29] MEDS ORDERED: DEXTROSE 50% IN WATER (25GM) 50 ML SYRINGE IV PRN (15:15)
--- NOTE | 2019-07-29 15:17 | Progress Note ---
Assessment and Plan Assessment and plan: 49-year-old man with previous history of alcohol abuse. States he has now cut back. He presents with 2 episodes of hematemesis.He states that he just started instantly vomiting blood. He also states that he has cut back on drinking and smoking severely. He has numerous near resolutions which he is taking to. Acute GI bleed Continue PPI, GI input appreciated, keep n.p.o. . Hemoglobin stable -History of candidiasis of esophagus, gastritis, duodenitis/enlarged papilla noted on 3 previous EGDs at [facility]. Most recent was in February of last year. -No plans for EGD at this time unless patient starts having overt bleeding or drop in H&H, ADat, still remains nauseous. Etoh dependence and withdrawal - ciwa protocol, thiamine and folate -preventative health counseling performed for 17 minutes Currently claims he drinks 2 beers a week and smokes about 2 cigarettes a week. Tobacco abuse/dependence Smoking cessation counseling performed for 10 minutes, nicotine patches when necessary Diabetes Consistent carbohydrate diet, sliding scale insulin, check A1c Hypokalemia Repleted DVT prophylaxis SCDs. History Interval history: Review of systems Constitutional: No fevers, no malaise, no joint pains CVS: No chest pain, no orthopnea, no pedal edema GI: He still is complaining of nausea. His last episode of hematemesis was at 7 AM this morning. Denies abdominal pain presently. Respiratory: , no wheezing, no coughing Hospitalist Physical - Physical exam Narrative exam: General.: Mild distress HEENT: Moist mucous membranes, extraocular muscles intact, no lymphadenopathy Neck: supple Cardiac: S1-S2 heard Lungs: clear to auscultation bilaterally Abdomen: soft , epigastric tenderness Extremities: no edema clubbing or cyanosis Skin: no rash or lesions Neurologic: no gross focal deficits Psych: calm, and cooperative - Constitutional Vitals: Temp Pulse Resp BP Pulse Ox 97.9 F 80 20 155/102 97 07/29/19 11:15 07/29/19 11:15 07/29/19 11:15 07/29/19 11:15 07/29/19 11:15 General appearance: Present: no acute distress, well-nourished ZACH score - Zach Score Age > 65: (0) No Aspirin use within the Past 7 Days: (0) No 3 or more CAD Risk Factors: (0) No 2 or more Angina events in past 24 hrs: (1) Yes Known CAD with more than 50% Stenosis: (0) No Elevated Cardiac Markers: (0) No ST Deviation Greater than 0.5mm: (0) No ZACH Score: 1 Results - Labs CBC & Chem 7: 07/28/19 20:54 07/28/19 20:54 Labs: Laboratory Last Values WBC 4.5 K/mm3 (4.5-11.0) 07/28/19 20:54 RBC 4.68 M/mm3 (3.65-5.03) 07/28/19 20:54 Hgb 14.6 gm/dl (11.8-15.2) 07/28/19 20:54 Hct 43.6 % (35.5-45.6) 07/28/19 20:54 MCV 93 fl (84-94) 07/28/19 20:54 MCH 31 pg (28-32) 07/28/19 20:54 MCHC 34 % (32-34) 07/28/19 20:54 RDW 13.2 % (13.2-15.2) 07/28/19 20:54 Plt Count 242 K/mm3 (140-440) 07/28/19 20:54 Lymph % (Auto) Facility Supervisor 07/28/19 20:54 Add Manual Diff Complete 07/28/19 20:54 Total Counted 100 07/28/19 20:54 Seg Neutrophils % Facility Supervisor 07/28/19 20:54 Seg Neuts % (Manual) 29.0 % (40.0-70.0) L 07/28/19 20:54 Band Neutrophils % 0 % 07/28/19 20:54 Lymphocytes % (Manual) 63.0 % (13.4-35.0) H 07/28/19 20:54 Reactive Lymphs % (Man) 0 % 07/28/19 20:54 Monocytes % (Manual) 6.0 % (0.0-7.3) 07/28/19 20:54 Eosinophils % (Manual) 2.0 % (0.0-4.3) 07/28/19 20:54 Basophils % (Manual) 0 % (0.0-1.8) 07/28/19 20:54 Metamyelocytes % 0 % 07/28/19 20:54 Myelocytes % 0 % 07/28/19 20:54 Promyelocytes % 0 % 07/28/19 20:54 Blast Cells % 0 % 07/28/19 20:54 Nucleated RBC % Not Reportable 07/28/19 20:54 Seg Neutrophils # Man 1.3 K/mm3 (1.8-7.7) L 07/28/19 20:54 Band Neutrophils # 0.0 K/mm3 07/28/19 20:54 Lymphocytes # (Manual) 2.8 K/mm3 (1.2-5.4) 07/28/19 20:54 Abs React Lymphs (Man) 0.0 K/mm3 07/28/19 20:54 Monocytes # (Manual) 0.3 K/mm3 (0.0-0.8) 07/28/19 20:54 Eosinophils # (Manual) 0.1 K/mm3 (0.0-0.4) 07/28/19 20:54 Basophils # (Manual) 0.0 K/mm3 (0.0-0.1) 07/28/19 20:54 Metamyelocytes # 0.0 K/mm3 07/28/19 20:54 Myelocytes # 0.0 K/mm3 07/28/19 20:54 Promyelocytes # 0.0 K/mm3 07/28/19 20:54 Blast Cells # 0.0 K/mm3 07/28/19 20:54 WBC Morphology Not Reportable 07/28/19 20:54 Hypersegmented Neuts Not Reportable 07/28/19 20:54 Hyposegmented Neuts Not Reportable 07/28/19 20:54 Hypogranular Neuts Not Reportable 07/28/19 20:54 Smudge Cells Not Reportable 07/28/19 20:54 Toxic Granulation Not Reportable 07/28/19 20:54 Toxic Vacuolation Not Reportable 07/28/19 20:54 Dohle Bodies Not Reportable 07/28/19 20:54 Pelger-Huet Anomaly Not Reportable 07/28/19 20:54 Janna Rods Not Reportable 07/28/19 20:54 Platelet Estimate Appears normal 07/28/19 20:54 Clumped Platelets Not Reportable 07/28/19 20:54 Plt Clumps, EDTA Not Reportable 07/28/19 20:54 Large Platelets Not Reportable 07/28/19 20:54 Giant Platelets Not Reportable 07/28/19 20:54 Platelet Satelliting Not Reportable 07/28/19 20:54 Plt Morphology Comment Not Reportable 07/28/19 20:54 RBC Morphology Not Reportable 07/28/19 20:54 Dimorphic RBCs Not Reportable 07/28/19 20:54 Polychromasia Not Reportable 07/28/19 20:54 Hypochromasia Not Reportable 07/28/19 20:54 Poikilocytosis Not Reportable 07/28/19 20:54 Anisocytosis 1+ 07/28/19 20:54 Microcytosis Not Reportable 07/28/19 20:54 Macrocytosis Not Reportable 07/28/19 20:54 Spherocytes Not Reportable 07/28/19 20:54 Pappenheimer Bodies Not Reportable 07/28/19 20:54 Sickle Cells Not Reportable 07/28/19 20:54 Target Cells Not Reportable 07/28/19 20:54 Tear Drop Cells Not Reportable 07/28/19 20:54 Ovalocytes Not Reportable 07/28/19 20:54 Helmet Cells Not Reportable 07/28/19 20:54 [place] Bodies Not Reportable 07/28/19 20:54 [place] Rings Not Reportable 07/28/19 20:54 [place] Cells Not Reportable 07/28/19 20:54 Bite Cells Not Reportable 07/28/19 20:54 Crenated Cell Not Reportable 07/28/19 20:54 Elliptocytes Not Reportable 07/28/19 20:54 Acanthocytes (Spur) Not Reportable 07/28/19 20:54 Rouleaux Not Reportable 07/28/19 20:54 Hemoglobin C Crystals Not Reportable 07/28/19 20:54 Schistocytes Not Reportable 07/28/19 20:54 Malaria parasites Not Reportable 07/28/19 20:54 Shankar Bodies Not Reportable 07/28/19 20:54 Hem Pathologist Commnt No 07/28/19 20:54 PT 12.9 Sec. (12.2-14.9) 07/28/19 20:54 INR 0.96 (0.87-1.13) 07/28/19 20:54 APTT 30.4 Sec. (24.2-36.6) 07/28/19 20:54 Sodium 135 mmol/L (137-145) L 07/28/19 20:54 Potassium 3.2 mmol/L (3.6-5.0) L 07/28/19 20:54 Chloride 96.4 mmol/L (98-107) L 07/28/19 20:54 Carbon Dioxide 23 mmol/L (22-30) 07/28/19 20:54 Anion Gap 19 mmol/L 07/28/19 20:54 BUN 9 mg/dL (9-20) 07/28/19 20:54 Creatinine 0.5 mg/dL (0.8-1.5) L 07/28/19 20:54 Estimated GFR > 60 ml/min 07/28/19 20:54 BUN/Creatinine Ratio 18 % 07/28/19 20:54 Glucose 315 mg/dL (75-100) H 07/28/19 20:54 POC Glucose 152 (70-105) H 07/29/19 07:00 Calcium 9.0 mg/dL (8.4-10.2) 07/28/19 20:54 Magnesium 2.00 mg/dL (1.7-2.3) 07/28/19 20:54 Total Bilirubin 0.30 mg/dL (0.1-1.2) 07/28/19 20:54 AST 13 units/L (5-40) 07/28/19 20:54 ALT 14 units/L (7-56) 07/28/19 20:54 Alkaline Phosphatase 91 units/L (35-129) 07/28/19 20:54 Troponin T < 0.010 ng/mL (0.00-0.029) 07/28/19 23:24 Total Protein 7.1 g/dL (6.3-8.2) 07/28/19 20:54 Albumin 4.3 g/dL (3.9-5) 07/28/19 20:54 Albumin/Globulin Ratio 1.5 % 07/28/19 20:54 Lipase 42 units/L (13-60) 07/28/19 20:54 Urine Color Yellow (Yellow) 07/29/19 00:39 Urine Turbidity Clear (Clear) 07/29/19 00:39 Urine pH 5.0 (5.0-7.0) 07/29/19 00:39 Ur Specific [place] 1.033 (1.003-1.030) H 07/29/19 00:39 Urine Protein 100 mg/dl mg/dL (Negative) 07/29/19 00:39 Urine Glucose (UA) >=500 mg/dL (Negative) 07/29/19 00:39 Urine Ketones Neg mg/dL (Negative) 07/29/19 00:39 Urine Blood Neg (Negative) 07/29/19 00:39 Urine Nitrite Neg (Negative) 07/29/19 00:39 Urine Bilirubin Neg (Negative) 07/29/19 00:39 Urine Urobilinogen 2.0 mg/dL (<2.0) 07/29/19 00:39 Ur Leukocyte Esterase Neg (Negative) 07/29/19 00:39 Urine WBC (Auto) < 1.0 /HPF (0.0-6.0) 07/29/19 00:39 Urine RBC (Auto) 1.0 /HPF (0.0-6.0) 07/29/19 00:39 Urine Mucus Few /HPF 07/29/19 00:39 Urine Opiates Screen Presumptive negative 07/29/19 00:39 Urine Methadone Screen Presumptive negative 07/29/19 00:39 Ur Barbiturates Screen Presumptive negative 07/29/19 00:39 Ur Phencyclidine Scrn Presumptive negative 07/29/19 00:39 Ur Amphetamines Screen Presumptive negative 07/29/19 00:39 U Benzodiazepines Scrn Presumptive negative 07/29/19 00:39 Urine Cocaine Screen Presumptive negative 07/29/19 00:39 U Marijuana (THC) Screen Presumptive negative 07/29/19 00:39 Drugs of Abuse Note Disclamer 07/29/19 00:39 Plasma/Serum Alcohol 0.03 % (0-0.07) 07/28/19 20:54 Active Medications - Current Medications Current Medications: Generic Name Dose Route Start Last Admin Trade Name Freq PRN Reason Stop Dose Admin Acetaminophen 650 mg 07/29/19 00:43 Tylenol PO Q4H PRN Pain MILD(1-3)/Fever >100.5/DIGGS Folic Acid 1 mg 07/29/19 13:00 07/29/19 14:35 Folvite PO 1 mg QDAY ALMA Administration Hydralazine HCl 10 mg 07/29/19 14:45 Apresoline IV Q4HR PRN BP >160/100 Potassium Chloride/Sodium Chloride 20 meq in 1,000 mls @ 125 mls/hr 07/29/19 13:30 07/29/19 14:49 Ns/Kcl 20meq IV 125 mls/hr DIRECT ALMA Administration Lorazepam 2 mg 07/28/19 23:54 Ativan IV Q1HR PRN CIWA-Ar 8-15 Lorazepam 2 mg 07/28/19 23:54 Ativan PO Q1HR PRN CIWA-Ar 8-15 Lorazepam 4 mg 07/28/19 23:54 Ativan IV Q1HR PRN CIWA-Ar 16-25 Lorazepam 4 mg 07/28/19 23:54 Ativan PO Q1HR PRN CIWA-Ar 16-25 Lorazepam 4 mg 07/28/19 23:54 Ativan IV Q15MIN PRN CIWA-Ar >25 Morphine Sulfate 2 mg 07/29/19 00:43 07/29/19 10:07 Morphine IV 2 mg Q4H PRN Administration Pain, Moderate (4-6) Ondansetron HCl 4 mg 07/29/19 14:45 Zofran IV Q4H PRN Nausea And Vomiting Pantoprazole Sodium 40 mg 07/29/19 22:00 Protonix IV BID ALMA Sodium Chloride 10 ml 07/29/19 10:00 07/29/19 10:11 Sodium Chloride Flush Syringe 10 Ml IV 10 ml BID ALMA Administration Sodium Chloride 10 ml 07/29/19 00:43 Sodium Chloride Flush Syringe 10 Ml IV PRN PRN LINE FLUSH Thiamine HCl 100 mg 07/29/19 13:00 07/29/19 14:35 Vitamin B-1 PO 100 mg QDAY ALMA Administration
[2019-07-29 15:46] LABS: Hematocrit 41.2 % (35.5-45.6); Hemoglobin 14.2 gm/dl (11.8-15.2); Mean Corpuscular HGB Conc 34 % (32-34); Mean Corpuscular Volume 93 fl (84-94); Platelet Count 204 K/mm3 (140-440); Red Blood Count 4.43 M/mm3 (3.65-5.03); Red Cell Distribution Width 13.6 % (13.2-15.2)
[2019-07-29 16:08] LABS: BUN/Creatinine Ratio 14; Blood Urea Nitrogen 7 mg/dL (9-20); Calcium 8.7 mg/dL (8.4-10.2); Hemolysis Index 5
[2019-07-29 16:17] LABS: Basophils % (Manual) 0 % (0.0-1.8); Total Cells Counted 100
[2019-07-29 16:18] LABS: Anisocytosis Few
[2019-07-29] MEDS: hydrALAZINE 20 MG/1 ML INJ IV PRN (18:43)
[2019-07-29] MEDS: INSULIN LISPRO 100 UNIT/ML SUB-Q SCH (18:45)
[2019-07-29] MEDS: PANTOPRAZOLE 40 MG INJ IV SCH (21:20)
[2019-07-30] MEDS: INSULIN LISPRO 100 UNIT/ML SUB-Q SCH ×4 (00:32→17:48)
[2019-07-30] MEDS ORDERED: POTASSIUM CHLORIDE ER 20 MEQ TAB PO ONE (01:06)
[2019-07-30] MEDS: MORPHINE 2 MG/1 ML INJ IV PRN ×5 (05:49→21:57)
[2019-07-30 08:23] LABS: Basophils % (Auto) 0.4 % (0.0-1.8); Eosinophils # (Auto) 0.1 K/mm3 (0.0-0.4); Eosinophils % (Auto) 1.5 % (0.0-4.3); Hematocrit 43.2 % (35.5-45.6); Hemoglobin 14.8 gm/dl (11.8-15.2); Lymphocytes # (Auto) 1.5 K/mm3 (1.2-5.4); Lymphocytes % (Auto) 43.4 % (13.4-35.0); Mean Corpuscular HGB Conc 34 % (32-34); Mean Corpuscular Volume 93 fl (84-94); Monocytes # (Auto) 0.3 K/mm3 (0.0-0.8); Monocytes % (Auto) 8.7 % (0.0-7.3); Platelet Count 212 K/mm3 (140-440); Red Blood Count 4.65 M/mm3 (3.65-5.03); Red Cell Distribution Width 13.7 % (13.2-15.2)
[2019-07-30 08:33] LABS: INR 0.95 (0.87-1.13)
[2019-07-30 08:34] LABS: Partial Thromboplastin Time 27.2 Sec. (24.2-36.6)
[2019-07-30 08:39] LABS: BUN/Creatinine Ratio 12; Blood Urea Nitrogen 6 mg/dL (9-20); Calcium 8.6 mg/dL (8.4-10.2); Hemolysis Index 13
[2019-07-30] MEDS: THIAMINE 100 MG TAB PO SCH (09:22)
[2019-07-30] MEDS: PANTOPRAZOLE 40 MG INJ IV SCH ×2 (09:22→21:44)
[2019-07-30] MEDS: FOLIC ACID 1 MG TAB PO SCH (09:26)
[2019-07-30] MEDS ORDERED: NON-FORMULARY EACH (Bupropion Hcl [Wellbutrin Xl] 300 MG) PO SCH (11:45)
[2019-07-30] MEDS ORDERED: VALSARTAN 40 MG TAB PO SCH (12:00)
[2019-07-30] MEDS: buPROPion XL 150 MG TAB PO SCH (12:56)
[2019-07-30] MEDS: VALSARTAN 160MG TAB PO SCH ×2 (12:56→21:43)
[2019-07-30] MEDS: hydroCHLOROthiazide 25 MG TAB PO SCH (12:56)
--- NOTE | 2019-07-30 14:18 | Progress Note ---
Assessment and Plan Assessment and plan: 49-year-old man with previous history of alcohol abuse. States he has now cut back. He presents with 2 episodes of hematemesis.He states that he just started instantly vomiting blood. He also states that he has cut back on drinking and smoking severely. He has numerous near resolutions which he is taking to. Acute GI bleed Esophageal candidiasis. Gastritis and duodenitis. Continue PPI, GI input appreciated, keep n.p.o. . Hemoglobin stable -History of candidiasis of esophagus, gastritis, duodenitis/enlarged papilla noted on 3 previous EGDs at [facility]. Most recent was in February of last year. -No plans for EGD at this time unless patient starts having overt bleeding or drop in H&H, ADat, still remains nauseous. -Start him on fluconazole, will need 21-day course. Etoh dependence and withdrawal - ciwa protocol, thiamine and folate -preventative health counseling performed for 17 minutes Currently claims he drinks 2 beers a week and smokes about 2 cigarettes a week. Tobacco abuse/dependence Smoking cessation counseling performed for 10 minutes, nicotine patches when necessary Diabetes Consistent carbohydrate diet, sliding scale insulin, check A1c Hypokalemia Repleted DVT prophylaxis SCDs. History Interval history: Review of systems Constitutional: No fevers, no malaise, no joint pains CVS: No chest pain, no orthopnea, no pedal edema GI: He still is complaining of nausea. He denies any further episodes of hematemesis. But he is having epigastric pain and continued nausea. Respiratory: , no wheezing, no coughing Hospitalist Physical - Physical exam Narrative exam: General.: Mild distress HEENT: Moist mucous membranes, extraocular muscles intact, no lymphadenopathy Neck: supple Cardiac: S1-S2 heard Lungs: clear to auscultation bilaterally Abdomen: soft , epigastric tenderness Extremities: no edema clubbing or cyanosis Skin: no rash or lesions Neurologic: no gross focal deficits Psych: calm, and cooperative - Constitutional Vitals: Temp Pulse Resp BP Pulse Ox 97.6 F 84 20 170/118 98 07/30/19 11:43 07/30/19 11:43 07/30/19 11:43 07/30/19 12:56 07/30/19 11:43 General appearance: Present: no acute distress, well-nourished ZACH score - Zach Score Age > 65: (0) No Aspirin use within the Past 7 Days: (0) No 3 or more CAD Risk Factors: (0) No 2 or more Angina events in past 24 hrs: (1) Yes Known CAD with more than 50% Stenosis: (0) No Elevated Cardiac Markers: (0) No ST Deviation Greater than 0.5mm: (0) No ZACH Score: 1 Results - Labs CBC & Chem 7: 07/30/19 07:15 07/30/19 07:15 Labs: Laboratory Last Values WBC 3.4 K/mm3 (4.5-11.0) L 07/30/19 07:15 RBC 4.65 M/mm3 (3.65-5.03) 07/30/19 07:15 Hgb 14.8 gm/dl (11.8-15.2) 07/30/19 07:15 Hct 43.2 % (35.5-45.6) 07/30/19 07:15 MCV 93 fl (84-94) 07/30/19 07:15 MCH 32 pg (28-32) 07/30/19 07:15 MCHC 34 % (32-34) 07/30/19 07:15 RDW 13.7 % (13.2-15.2) 07/30/19 07:15 Plt Count 212 K/mm3 (140-440) 07/30/19 07:15 Lymph % (Auto) 43.4 % (13.4-35.0) H 07/30/19 07:15 [place] % (Auto) 8.7 % (0.0-7.3) H 07/30/19 07:15 Eos % (Auto) 1.5 % (0.0-4.3) 07/30/19 07:15 Baso % (Auto) 0.4 % (0.0-1.8) 07/30/19 07:15 Lymph # 1.5 K/mm3 (1.2-5.4) 07/30/19 07:15 [place] # 0.3 K/mm3 (0.0-0.8) 07/30/19 07:15 Eos # 0.1 K/mm3 (0.0-0.4) 07/30/19 07:15 Baso # 0.0 K/mm3 (0.0-0.1) 07/30/19 07:15 Add Manual Diff Complete 07/29/19 15:12 Total Counted 100 07/29/19 15:12 Seg Neutrophils % 46.0 % (40.0-70.0) 07/30/19 07:15 Seg Neuts % (Manual) 37.0 % (40.0-70.0) L 07/29/19 15:12 Band Neutrophils % 0 % 07/29/19 15:12 Lymphocytes % (Manual) 55.0 % (13.4-35.0) H 07/29/19 15:12 Reactive Lymphs % (Man) 0 % 07/29/19 15:12 Monocytes % (Manual) 7.0 % (0.0-7.3) 07/29/19 15:12 Eosinophils % (Manual) 1.0 % (0.0-4.3) 07/29/19 15:12 Basophils % (Manual) 0 % (0.0-1.8) 07/29/19 15:12 Metamyelocytes % 0 % 07/29/19 15:12 Myelocytes % 0 % 07/29/19 15:12 Promyelocytes % 0 % 07/29/19 15:12 Blast Cells % 0 % 07/29/19 15:12 Nucleated RBC % Not Reportable 07/29/19 15:12 Seg Neutrophils # 1.6 K/mm3 (1.8-7.7) L 07/30/19 07:15 Seg Neutrophils # Man 1.6 K/mm3 (1.8-7.7) L 07/29/19 15:12 Band Neutrophils # 0.0 K/mm3 07/29/19 15:12 Lymphocytes # (Manual) 2.3 K/mm3 (1.2-5.4) 07/29/19 15:12 Abs React Lymphs (Man) 0.0 K/mm3 07/29/19 15:12 Monocytes # (Manual) 0.3 K/mm3 (0.0-0.8) 07/29/19 15:12 Eosinophils # (Manual) 0.0 K/mm3 (0.0-0.4) 07/29/19 15:12 Basophils # (Manual) 0.0 K/mm3 (0.0-0.1) 07/29/19 15:12 Metamyelocytes # 0.0 K/mm3 07/29/19 15:12 Myelocytes # 0.0 K/mm3 07/29/19 15:12 Promyelocytes # 0.0 K/mm3 07/29/19 15:12 Blast Cells # 0.0 K/mm3 07/29/19 15:12 WBC Morphology Not Reportable 07/29/19 15:12 Hypersegmented Neuts Not Reportable 07/29/19 15:12 Hyposegmented Neuts Not Reportable 07/29/19 15:12 Hypogranular Neuts Not Reportable 07/29/19 15:12 Smudge Cells Not Reportable 07/29/19 15:12 Toxic Granulation Not Reportable 07/29/19 15:12 Toxic Vacuolation Not Reportable 07/29/19 15:12 Dohle Bodies Not Reportable 07/29/19 15:12 Pelger-Huet Anomaly Not Reportable 07/29/19 15:12 Janna Rods Not Reportable 07/29/19 15:12 Platelet Estimate Appears normal 07/29/19 15:12 Clumped Platelets Not Reportable 07/29/19 15:12 Plt Clumps, EDTA Not Reportable 07/29/19 15:12 Large Platelets Not Reportable 07/29/19 15:12 Giant Platelets Not Reportable 07/29/19 15:12 Platelet Satelliting Not Reportable 07/29/19 15:12 Plt Morphology Comment Not Reportable 07/29/19 15:12 RBC Morphology Not Reportable 07/29/19 15:12 Dimorphic RBCs Not Reportable 07/29/19 15:12 Polychromasia Not Reportable 07/29/19 15:12 Hypochromasia Not Reportable 07/29/19 15:12 Poikilocytosis Not Reportable 07/29/19 15:12 Anisocytosis Few 07/29/19 15:12 Microcytosis Not Reportable 07/29/19 15:12 Macrocytosis Not Reportable 07/29/19 15:12 Spherocytes Not Reportable 07/29/19 15:12 Pappenheimer Bodies Not Reportable 07/29/19 15:12 Sickle Cells Not Reportable 07/29/19 15:12 Target Cells Not Reportable 07/29/19 15:12 Tear Drop Cells Not Reportable 07/29/19 15:12 Ovalocytes Not Reportable 07/29/19 15:12 Helmet Cells Not Reportable 07/29/19 15:12 [place] Bodies Not Reportable 07/29/19 15:12 [place] Rings Not Reportable 07/29/19 15:12 [place] Cells Not Reportable 07/29/19 15:12 Bite Cells Not Reportable 07/29/19 15:12 Crenated Cell Not Reportable 07/29/19 15:12 Elliptocytes Not Reportable 07/29/19 15:12 Acanthocytes (Spur) Not Reportable 07/29/19 15:12 Rouleaux Not Reportable 07/29/19 15:12 Hemoglobin C Crystals Not Reportable 07/29/19 15:12 Schistocytes Not Reportable 07/29/19 15:12 Malaria parasites Not Reportable 07/29/19 15:12 Shankar Bodies Not Reportable 07/29/19 15:12 Hem Pathologist Commnt No 07/29/19 15:12 PT 12.8 Sec. (12.2-14.9) 07/30/19 07:15 INR 0.95 (0.87-1.13) 07/30/19 07:15 APTT 27.2 Sec. (24.2-36.6) 07/30/19 07:15 Sodium 139 mmol/L (137-145) 07/30/19 07:15 Potassium 3.9 mmol/L (3.6-5.0) 07/30/19 07:15 Chloride 101.9 mmol/L (98-107) 07/30/19 07:15 Carbon Dioxide 23 mmol/L (22-30) 07/30/19 07:15 Anion Gap 18 mmol/L 07/30/19 07:15 BUN 6 mg/dL (9-20) L 07/30/19 07:15 Creatinine 0.5 mg/dL (0.8-1.5) L 07/30/19 07:15 Estimated GFR > 60 ml/min 07/30/19 07:15 BUN/Creatinine Ratio 12 % 07/30/19 07:15 Glucose 196 mg/dL (75-100) H 07/30/19 07:15 POC Glucose 160 (70-105) H 07/30/19 11:54 Hemoglobin A1c 7.1 % (4-6) H 07/30/19 07:15 Calcium 8.6 mg/dL (8.4-10.2) 07/30/19 07:15 Phosphorus 2.20 mg/dL (2.5-4.5) L 07/29/19 15:12 Magnesium 1.80 mg/dL (1.7-2.3) 07/29/19 15:12 Total Bilirubin 0.30 mg/dL (0.1-1.2) 07/28/19 20:54 AST 13 units/L (5-40) 07/28/19 20:54 ALT 14 units/L (7-56) 07/28/19 20:54 Alkaline Phosphatase 91 units/L (35-129) 07/28/19 20:54 Troponin T < 0.010 ng/mL (0.00-0.029) 07/28/19 23:24 Total Protein 7.1 g/dL (6.3-8.2) 07/28/19 20:54 Albumin 4.3 g/dL (3.9-5) 07/28/19 20:54 Albumin/Globulin Ratio 1.5 % 07/28/19 20:54 Lipase 42 units/L (13-60) 07/28/19 20:54 Urine Color Yellow (Yellow) 07/29/19 00:39 Urine Turbidity Clear (Clear) 07/29/19 00:39 Urine pH 5.0 (5.0-7.0) 07/29/19 00:39 Ur Specific [place] 1.033 (1.003-1.030) H 07/29/19 00:39 Urine Protein 100 mg/dl mg/dL (Negative) 07/29/19 00:39 Urine Glucose (UA) >=500 mg/dL (Negative) 07/29/19 00:39 Urine Ketones Neg mg/dL (Negative) 07/29/19 00:39 Urine Blood Neg (Negative) 07/29/19 00:39 Urine Nitrite Neg (Negative) 07/29/19 00:39 Urine Bilirubin Neg (Negative) 07/29/19 00:39 Urine Urobilinogen 2.0 mg/dL (<2.0) 07/29/19 00:39 Ur Leukocyte Esterase Neg (Negative) 07/29/19 00:39 Urine WBC (Auto) < 1.0 /HPF (0.0-6.0) 07/29/19 00:39 Urine RBC (Auto) 1.0 /HPF (0.0-6.0) 07/29/19 00:39 Urine Mucus Few /HPF 07/29/19 00:39 Urine Opiates Screen Presumptive negative 07/29/19 00:39 Urine Methadone Screen Presumptive negative 07/29/19 00:39 Ur Barbiturates Screen Presumptive negative 07/29/19 00:39 Ur Phencyclidine Scrn Presumptive negative 07/29/19 00:39 Ur Amphetamines Screen Presumptive negative 07/29/19 00:39 U Benzodiazepines Scrn Presumptive negative 07/29/19 00:39 Urine Cocaine Screen Presumptive negative 07/29/19 00:39 U Marijuana (THC) Screen Presumptive negative 07/29/19 00:39 Drugs of Abuse Note Disclamer 07/29/19 00:39 Plasma/Serum Alcohol 0.03 % (0-0.07) 07/28/19 20:54 Active Medications - Current Medications Current Medications: Generic Name Dose Route Start Last Admin Trade Name Freq PRN Reason Stop Dose Admin Acetaminophen 650 mg 07/29/19 00:43 Tylenol PO Q4H PRN Pain MILD(1-3)/Fever >100.5/DIGGS Bupropion HCl 300 mg 07/30/19 12:00 07/30/19 12:56 Wellbutrin Xl PO 300 mg DAILY ALMA Administration Dextrose 50 ml 07/29/19 15:15 D50w (25gm) Syringe IV Q30MIN PRN Hypoglycemia Protocol Folic Acid 1 mg 07/29/19 13:00 07/30/19 09:26 Folvite PO 1 mg QDAY ALMA Administration Hydralazine HCl 10 mg 07/29/19 14:45 07/29/19 18:43 Apresoline IV 10 mg Q4HR PRN Administration BP >160/100 Hydrochlorothiazide 25 mg 07/30/19 12:00 07/30/19 12:56 Hctz PO 25 mg QDAY ALMA Administration Potassium Chloride/Sodium Chloride 20 meq in 1,000 mls @ 125 mls/hr 07/29/19 13:30 07/29/19 14:49 Ns/Kcl 20meq IV 125 mls/hr DIRECT ALMA Administration Fluconazole 200 mls @ 100 mls/hr 07/30/19 15:00 Diflucan IV 07/30/19 16:59 ONCE ONE Protocol Fluconazole 200 mg in 100 mls @ 100 mls/hr 07/31/19 10:00 Diflucan IV Q24HR ALMA Protocol Insulin Human Lispro 0 unit 07/29/19 18:00 07/30/19 13:03 Humalog SUB-Q 1 unit Q6HR ALMA Administration Protocol Lorazepam 2 mg 07/28/19 23:54 Ativan IV Q1HR PRN CIWA-Ar 8-15 Lorazepam 2 mg 07/28/19 23:54 Ativan PO Q1HR PRN CIWA-Ar 8-15 Lorazepam 4 mg 07/28/19 23:54 Ativan IV Q1HR PRN CIWA-Ar 16-25 Lorazepam 4 mg 07/28/19 23:54 Ativan PO Q1HR PRN CIWA-Ar 16-25 Lorazepam 4 mg 07/28/19 23:54 Ativan IV Q15MIN PRN CIWA-Ar >25 Morphine Sulfate 2 mg 07/29/19 00:43 07/30/19 14:02 Morphine IV 2 mg Q4H PRN Administration Pain, Moderate (4-6) Ondansetron HCl 4 mg 07/29/19 14:45 Zofran IV Q4H PRN Nausea And Vomiting Pantoprazole Sodium 40 mg 07/29/19 22:00 07/30/19 09:22 Protonix IV 40 mg BID ALMA Administration Quetiapine Fumarate 400 mg 07/30/19 22:00 Seroquel PO QHS ALMA Sodium Chloride 10 ml 07/29/19 10:00 07/30/19 09:23 Sodium Chloride Flush Syringe 10 Ml IV 10 ml BID ALMA Administration Sodium Chloride 10 ml 07/29/19 00:43 Sodium Chloride Flush Syringe 10 Ml IV PRN PRN LINE FLUSH Thiamine HCl 100 mg 07/29/19 13:00 07/30/19 09:22 Vitamin B-1 PO 100 mg QDAY ALMA Administration Valsartan 80 mg 07/30/19 12:00 07/30/19 12:56 Diovan PO 80 mg BID ALMA Administration
[2019-07-30] MEDS ORDERED: FLUCONAZOLE 400 MG 200 ML IV ONE (15:00)
[2019-07-30] MEDS: NACL 0.9%/KCL 20 MEQ 20 MEQ/1,000 ML BAG IV SCH (16:44)
[2019-07-30] MEDS: QUEtiapine 200 MG TAB PO SCH (21:44)
[2019-07-30] MEDS ORDERED: QUETIAPINE FUMARATE 400 MG PO SCH (22:00)
[2019-07-31] MEDS: INSULIN LISPRO 100 UNIT/ML SUB-Q SCH ×4 (00:36→17:44)
[2019-07-31] MEDS: NACL 0.9%/KCL 20 MEQ 20 MEQ/1,000 ML BAG IV SCH (04:49)
[2019-07-31] MEDS: MORPHINE 2 MG/1 ML INJ IV PRN ×4 (06:48→20:04)
--- NOTE | 2019-07-31 08:13 | Progress Note ---
Assessment and Plan Assessment and plan: 49-year-old man with previous history of alcohol abuse. States he has now cut back. He presents with 2 episodes of hematemesis.He states that he just started instantly vomiting blood. He also states that he has cut back on drinking and smoking severely. He has numerous near resolutions which he is taking to. Acute GI bleed Esophageal candidiasis. Gastritis and duodenitis. Continue PPI, GI input appreciated, keep n.p.o. . Hemoglobin stable -History of candidiasis of esophagus, gastritis, duodenitis/enlarged papilla noted on 3 previous EGDs at [facility]. Most recent was in February of last year. -No plans for EGD at this time unless patient starts having overt bleeding or drop in H&H, ADat, still remains nauseous. -Start him on fluconazole, will need 21-day course. -Obtain nuclear medicine gastric emptying study Etoh dependence and withdrawal - ciwa protocol, thiamine and folate -preventative health counseling performed for 17 minutes Currently claims he drinks 2 beers a week and smokes about 2 cigarettes a week. Tobacco abuse/dependence Smoking cessation counseling performed for 10 minutes, nicotine patches when necessary Diabetes Consistent carbohydrate diet, sliding scale insulin, A1c 7.1 Hypokalemia Repleted DVT prophylaxis SCDs. History Interval history: Review of systems Constitutional: No fevers, no malaise, no joint pains CVS: No chest pain, no orthopnea, no pedal edema GI: He still is complaining of nausea. He vomited up after he tried to eat something, and it contained blood.. But he is having epigastric pain and continued nausea. Respiratory: , no wheezing, no coughing Hospitalist Physical - Physical exam Narrative exam: General.: Mild distress HEENT: Moist mucous membranes, extraocular muscles intact, no lymphadenopathy Neck: supple Cardiac: S1-S2 heard Lungs: clear to auscultation bilaterally Abdomen: soft , epigastric tenderness Extremities: no edema clubbing or cyanosis Skin: no rash or lesions Neurologic: no gross focal deficits Psych: calm, and cooperative - Constitutional Vitals: Temp Pulse Resp BP Pulse Ox 98.5 F 83 18 89/56 96 07/31/19 05:17 07/31/19 05:00 07/31/19 06:48 07/31/19 05:17 07/31/19 05:00 General appearance: Present: no acute distress, well-nourished ZACH score - Zach Score Age > 65: (0) No Aspirin use within the Past 7 Days: (0) No 3 or more CAD Risk Factors: (0) No 2 or more Angina events in past 24 hrs: (1) Yes Known CAD with more than 50% Stenosis: (0) No Elevated Cardiac Markers: (0) No ST Deviation Greater than 0.5mm: (0) No ZACH Score: 1 Results - Labs CBC & Chem 7: 07/30/19 07:15 07/30/19 07:15 Labs: Laboratory Last Values WBC 3.4 K/mm3 (4.5-11.0) L 07/30/19 07:15 RBC 4.65 M/mm3 (3.65-5.03) 07/30/19 07:15 Hgb 14.8 gm/dl (11.8-15.2) 07/30/19 07:15 Hct 43.2 % (35.5-45.6) 07/30/19 07:15 MCV 93 fl (84-94) 07/30/19 07:15 MCH 32 pg (28-32) 07/30/19 07:15 MCHC 34 % (32-34) 07/30/19 07:15 RDW 13.7 % (13.2-15.2) 07/30/19 07:15 Plt Count 212 K/mm3 (140-440) 07/30/19 07:15 Lymph % (Auto) 43.4 % (13.4-35.0) H 07/30/19 07:15 [place] % (Auto) 8.7 % (0.0-7.3) H 07/30/19 07:15 Eos % (Auto) 1.5 % (0.0-4.3) 07/30/19 07:15 Baso % (Auto) 0.4 % (0.0-1.8) 07/30/19 07:15 Lymph # 1.5 K/mm3 (1.2-5.4) 07/30/19 07:15 [place] # 0.3 K/mm3 (0.0-0.8) 07/30/19 07:15 Eos # 0.1 K/mm3 (0.0-0.4) 07/30/19 07:15 Baso # 0.0 K/mm3 (0.0-0.1) 07/30/19 07:15 Add Manual Diff Complete 07/29/19 15:12 Total Counted 100 07/29/19 15:12 Seg Neutrophils % 46.0 % (40.0-70.0) 07/30/19 07:15 Seg Neuts % (Manual) 37.0 % (40.0-70.0) L 07/29/19 15:12 Band Neutrophils % 0 % 07/29/19 15:12 Lymphocytes % (Manual) 55.0 % (13.4-35.0) H 07/29/19 15:12 Reactive Lymphs % (Man) 0 % 07/29/19 15:12 Monocytes % (Manual) 7.0 % (0.0-7.3) 07/29/19 15:12 Eosinophils % (Manual) 1.0 % (0.0-4.3) 07/29/19 15:12 Basophils % (Manual) 0 % (0.0-1.8) 07/29/19 15:12 Metamyelocytes % 0 % 07/29/19 15:12 Myelocytes % 0 % 07/29/19 15:12 Promyelocytes % 0 % 07/29/19 15:12 Blast Cells % 0 % 07/29/19 15:12 Nucleated RBC % Not Reportable 07/29/19 15:12 Seg Neutrophils # 1.6 K/mm3 (1.8-7.7) L 07/30/19 07:15 Seg Neutrophils # Man 1.6 K/mm3 (1.8-7.7) L 07/29/19 15:12 Band Neutrophils # 0.0 K/mm3 07/29/19 15:12 Lymphocytes # (Manual) 2.3 K/mm3 (1.2-5.4) 07/29/19 15:12 Abs React Lymphs (Man) 0.0 K/mm3 07/29/19 15:12 Monocytes # (Manual) 0.3 K/mm3 (0.0-0.8) 07/29/19 15:12 Eosinophils # (Manual) 0.0 K/mm3 (0.0-0.4) 07/29/19 15:12 Basophils # (Manual) 0.0 K/mm3 (0.0-0.1) 07/29/19 15:12 Metamyelocytes # 0.0 K/mm3 07/29/19 15:12 Myelocytes # 0.0 K/mm3 07/29/19 15:12 Promyelocytes # 0.0 K/mm3 07/29/19 15:12 Blast Cells # 0.0 K/mm3 07/29/19 15:12 WBC Morphology Not Reportable 07/29/19 15:12 Hypersegmented Neuts Not Reportable 07/29/19 15:12 Hyposegmented Neuts Not Reportable 07/29/19 15:12 Hypogranular Neuts Not Reportable 07/29/19 15:12 Smudge Cells Not Reportable 07/29/19 15:12 Toxic Granulation Not Reportable 07/29/19 15:12 Toxic Vacuolation Not Reportable 07/29/19 15:12 Dohle Bodies Not Reportable 07/29/19 15:12 Pelger-Huet Anomaly Not Reportable 07/29/19 15:12 Janna Rods Not Reportable 07/29/19 15:12 Platelet Estimate Appears normal 07/29/19 15:12 Clumped Platelets Not Reportable 07/29/19 15:12 Plt Clumps, EDTA Not Reportable 07/29/19 15:12 Large Platelets Not Reportable 07/29/19 15:12 Giant Platelets Not Reportable 07/29/19 15:12 Platelet Satelliting Not Reportable 07/29/19 15:12 Plt Morphology Comment Not Reportable 07/29/19 15:12 RBC Morphology Not Reportable 07/29/19 15:12 Dimorphic RBCs Not Reportable 07/29/19 15:12 Polychromasia Not Reportable 07/29/19 15:12 Hypochromasia Not Reportable 07/29/19 15:12 Poikilocytosis Not Reportable 07/29/19 15:12 Anisocytosis Few 07/29/19 15:12 Microcytosis Not Reportable 07/29/19 15:12 Macrocytosis Not Reportable 07/29/19 15:12 Spherocytes Not Reportable 07/29/19 15:12 Pappenheimer Bodies Not Reportable 07/29/19 15:12 Sickle Cells Not Reportable 07/29/19 15:12 Target Cells Not Reportable 07/29/19 15:12 Tear Drop Cells Not Reportable 07/29/19 15:12 Ovalocytes Not Reportable 07/29/19 15:12 Helmet Cells Not Reportable 07/29/19 15:12 [place] Bodies Not Reportable 07/29/19 15:12 [place] Rings Not Reportable 07/29/19 15:12 Felipe Cells Not Reportable 07/29/19 15:12 Bite Cells Not Reportable 07/29/19 15:12 Crenated Cell Not Reportable 07/29/19 15:12 Elliptocytes Not Reportable 07/29/19 15:12 Acanthocytes (Spur) Not Reportable 07/29/19 15:12 Rouleaux Not Reportable 07/29/19 15:12 Hemoglobin C Crystals Not Reportable 07/29/19 15:12 Schistocytes Not Reportable 07/29/19 15:12 Malaria parasites Not Reportable 07/29/19 15:12 Shankar Bodies Not Reportable 07/29/19 15:12 Hem Pathologist Commnt No 07/29/19 15:12 PT 12.8 Sec. (12.2-14.9) 07/30/19 07:15 INR 0.95 (0.87-1.13) 07/30/19 07:15 APTT 27.2 Sec. (24.2-36.6) 07/30/19 07:15 Sodium 139 mmol/L (137-145) 07/30/19 07:15 Potassium 3.9 mmol/L (3.6-5.0) 07/30/19 07:15 Chloride 101.9 mmol/L (98-107) 07/30/19 07:15 Carbon Dioxide 23 mmol/L (22-30) 07/30/19 07:15 Anion Gap 18 mmol/L 07/30/19 07:15 BUN 6 mg/dL (9-20) L 07/30/19 07:15 Creatinine 0.5 mg/dL (0.8-1.5) L 07/30/19 07:15 Estimated GFR > 60 ml/min 07/30/19 07:15 BUN/Creatinine Ratio 12 % 07/30/19 07:15 Glucose 196 mg/dL (75-100) H 07/30/19 07:15 POC Glucose 332 (70-105) H 07/31/19 05:58 Hemoglobin A1c 7.1 % (4-6) H 07/30/19 07:15 Calcium 8.6 mg/dL (8.4-10.2) 07/30/19 07:15 Phosphorus 2.20 mg/dL (2.5-4.5) L 07/29/19 15:12 Magnesium 1.80 mg/dL (1.7-2.3) 07/29/19 15:12 Total Bilirubin 0.30 mg/dL (0.1-1.2) 07/28/19 20:54 AST 13 units/L (5-40) 07/28/19 20:54 ALT 14 units/L (7-56) 07/28/19 20:54 Alkaline Phosphatase 91 units/L (35-129) 07/28/19 20:54 Troponin T < 0.010 ng/mL (0.00-0.029) 07/28/19 23:24 Total Protein 7.1 g/dL (6.3-8.2) 07/28/19 20:54 Albumin 4.3 g/dL (3.9-5) 07/28/19 20:54 Albumin/Globulin Ratio 1.5 % 07/28/19 20:54 Lipase 42 units/L (13-60) 07/28/19 20:54 Urine Color Yellow (Yellow) 07/29/19 00:39 Urine Turbidity Clear (Clear) 07/29/19 00:39 Urine pH 5.0 (5.0-7.0) 07/29/19 00:39 Ur Specific [place] 1.033 (1.003-1.030) H 07/29/19 00:39 Urine Protein 100 mg/dl mg/dL (Negative) 07/29/19 00:39 Urine Glucose (UA) >=500 mg/dL (Negative) 07/29/19 00:39 Urine Ketones Neg mg/dL (Negative) 07/29/19 00:39 Urine Blood Neg (Negative) 07/29/19 00:39 Urine Nitrite Neg (Negative) 07/29/19 00:39 Urine Bilirubin Neg (Negative) 07/29/19 00:39 Urine Urobilinogen 2.0 mg/dL (<2.0) 07/29/19 00:39 Ur Leukocyte Esterase Neg (Negative) 07/29/19 00:39 Urine WBC (Auto) < 1.0 /HPF (0.0-6.0) 07/29/19 00:39 Urine RBC (Auto) 1.0 /HPF (0.0-6.0) 07/29/19 00:39 Urine Mucus Few /HPF 07/29/19 00:39 Urine Opiates Screen Presumptive negative 07/29/19 00:39 Urine Methadone Screen Presumptive negative 07/29/19 00:39 Ur Barbiturates Screen Presumptive negative 07/29/19 00:39 Ur Phencyclidine Scrn Presumptive negative 07/29/19 00:39 Ur Amphetamines Screen Presumptive negative 07/29/19 00:39 U Benzodiazepines Scrn Presumptive negative 07/29/19 00:39 Urine Cocaine Screen Presumptive negative 07/29/19 00:39 U Marijuana (THC) Screen Presumptive negative 07/29/19 00:39 Drugs of Abuse Note Disclamer 07/29/19 00:39 Plasma/Serum Alcohol 0.03 % (0-0.07) 07/28/19 20:54 Active Medications - Current Medications Current Medications: Generic Name Dose Route Start Last Admin Trade Name Freq PRN Reason Stop Dose Admin Acetaminophen 650 mg 07/29/19 00:43 Tylenol PO Q4H PRN Pain MILD(1-3)/Fever >100.5/DIGGS Bupropion HCl 300 mg 07/30/19 12:00 07/30/19 12:56 Wellbutrin Xl PO 300 mg DAILY ALMA Administration Dextrose 50 ml 07/29/19 15:15 D50w (25gm) Syringe IV Q30MIN PRN Hypoglycemia Protocol Folic Acid 1 mg 07/29/19 13:00 07/30/19 09:26 Folvite PO 1 mg QDAY ALMA Administration Hydralazine HCl 10 mg 07/29/19 14:45 07/29/19 18:43 Apresoline IV 10 mg Q4HR PRN Administration BP >160/100 Hydrochlorothiazide 25 mg 07/30/19 12:00 07/30/19 12:56 Hctz PO 25 mg QDAY ALMA Administration Potassium Chloride/Sodium Chloride 20 meq in 1,000 mls @ 125 mls/hr 07/29/19 13:30 07/31/19 04:49 Ns/Kcl 20meq IV 125 mls/hr DIRECT ALMA Administration Fluconazole 200 mg in 100 mls @ 100 mls/hr 07/31/19 10:00 Diflucan IV Q24HR ALMA Protocol Insulin Human Lispro 0 unit 01/22/20 18:00 07/31/19 06:18 Humalog SUB-Q 4 unit Q6HR ALMA Administration Protocol Lorazepam 2 mg 07/28/19 23:54 Ativan IV Q1HR PRN CIWA-Ar 8-15 Lorazepam 2 mg 07/28/19 23:54 Ativan PO Q1HR PRN CIWA-Ar 8-15 Lorazepam 4 mg 07/28/19 23:54 Ativan IV Q1HR PRN CIWA-Ar 16-25 Lorazepam 4 mg 07/28/19 23:54 Ativan PO Q1HR PRN CIWA-Ar 16-25 Lorazepam 4 mg 07/28/19 23:54 Ativan IV Q15MIN PRN CIWA-Ar >25 Morphine Sulfate 2 mg 07/29/19 00:43 07/31/19 06:48 Morphine IV 2 mg Q4H PRN Administration Pain, Moderate (4-6) Ondansetron HCl 4 mg 07/29/19 14:45 Zofran IV Q4H PRN Nausea And Vomiting Pantoprazole Sodium 40 mg 07/29/19 22:00 07/30/19 21:44 Protonix IV 40 mg BID ALMA Administration Quetiapine Fumarate 400 mg 07/30/19 22:00 07/30/19 21:44 Seroquel PO 400 mg QHS ALMA Administration Sodium Chloride 10 ml 07/29/19 10:00 07/30/19 21:45 Sodium Chloride Flush Syringe 10 Ml IV 10 ml BID ALMA Administration Sodium Chloride 10 ml 07/29/19 00:43 Sodium Chloride Flush Syringe 10 Ml IV PRN PRN LINE FLUSH Thiamine HCl 100 mg 07/29/19 13:00 07/30/19 09:22 Vitamin B-1 PO 100 mg QDAY ALMA Administration Valsartan 80 mg 07/30/19 12:00 07/30/19 21:43 Diovan PO 80 mg BID ALMA Administration Nutrition/Malnutrition Assess - Dietary Evaluation Nutrition/Malnutrition Findings: Nutrition Notes Start: 07/30/19 14:22 Freq: Status: Active Protocol: Document 07/30/19 14:22 BIANKA (Rec: 07/30/19 14:35 BIANKA [id number]) Co-Sign 07/30/19 14:22 LP Nutrition Notes Need for Assessment generated from: MD Order,Education Initial or Follow up Assessment Current Diagnosis Diabetes Other Pertinent Diagnosis ETOH abuse, abdominal pain, hematemesis Current Diet GI soft Labs/Tests BG 285 Phos 2.20 Pertinent Medications Ns/Kcl 125 ml/hr Humalog Height 5 ft 8 in Weight 104.5 kg [place] Body Weight (kg) 70.00 BMI 35.0 Weight change and time frame Inaccurate wt. Going by pt UBW Weight Status Obese Subjective/Other Information MD consult for diet edu. Pt stated that he hasn't lost any wt. Pt stated that his appetite was poor and ate 0% of breakfast. 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 Offered pt diet edu. and he denied it. Due to pt poor appetite, offered an ONS pt denied it. Ask pt preferences and he said he had none. Burn Absent Trauma Absent GI Symptoms None Current % PO Negligible Minimum of two criteria No Energy Intake (non-severe) <75% Estimated Energy Requirement >7 days #1 Nutrition Diagnosis Inadequate oral intake Etiology ETOH abuse, N/V As Evidenced by Signs and Symptoms 0% of breakfast eaten Is patient on ventilator? No Is Patient Ambulatory and/or Out of Bed Yes REE-([facility]-ambulatory/OOB) [ 2449.850 [id number]] Kcal/Kg value to use for calculation 20 Approximate Energy Requirements Using 0 kcal/Kg Calculation Used for Recommendations Kcal/kg Additional Notes Protein: 70-87g (0.8-1g/kg AdjBW 87kg) Fluid: 1 ml/kcal Nutrition Intervention Change Diet Order: Continue current Goal #1 Meet at least 75% of energy and protein needs via PO intakes Anticipated Discharge Needs: Consistent CHO diet Follow-Up By: 08/04/19 Additional Comments F/U for PO and ONS intakes and further diet edu.
[2019-07-31] MEDS: hydroCHLOROthiazide 25 MG TAB PO SCH (09:23)
[2019-07-31] MEDS: buPROPion XL 150 MG TAB PO SCH (09:23)
[2019-07-31] MEDS: PANTOPRAZOLE 40 MG INJ IV SCH (09:23)
[2019-07-31] MEDS: FLUCONAZOLE 200 MG 200 MG/100 ML BAG IV SCH (09:24)
[2019-07-31] MEDS: THIAMINE 100 MG TAB PO SCH (09:24)
[2019-07-31] MEDS: VALSARTAN 160MG TAB PO SCH (09:24)
[2019-07-31] MEDS: FOLIC ACID 1 MG TAB PO SCH (09:25)
[2019-07-31] MEDS: SODIUM CHLORIDE 0.45% 1000 ML 1,000 ML IV SCH ×2 (14:05→22:26)
[2019-07-31] MEDS: METOCLOPRAMIDE 10 MG/2 ML INJ IV SCH ×2 (15:38→22:26)
[2019-07-31] MEDS ORDERED: INSULIN GLARGINE 100 UNITS/ML SUB-Q SCH (22:00)
[2019-07-31] MEDS: QUEtiapine 200 MG TAB PO SCH (22:25)
[2019-07-31] MEDS: PANTOPRAZOLE 40 MG TAB PO SCH (22:26)
[2019-08-01] MEDS: MORPHINE 2 MG/1 ML INJ IV PRN ×6 (00:07→22:13)
[2019-08-01] MEDS: INSULIN LISPRO 100 UNIT/ML SUB-Q SCH ×5 (00:15→22:15)
[2019-08-01] MEDS: SODIUM CHLORIDE 0.45% 1000 ML 1,000 ML IV SCH ×2 (05:24→18:19)
[2019-08-01 05:34] LABS: Hematocrit 39.4 % (35.5-45.6); Hemoglobin 13.5 gm/dl (11.8-15.2); Mean Corpuscular HGB Conc 34 % (32-34); Mean Corpuscular Volume 93 fl (84-94); Platelet Count 181 K/mm3 (140-440); Red Blood Count 4.22 M/mm3 (3.65-5.03); Red Cell Distribution Width 13.4 % (13.2-15.2)
[2019-08-01 05:43] LABS: BUN/Creatinine Ratio 16; Blood Urea Nitrogen 8 mg/dL (9-20); Calcium 8.4 mg/dL (8.4-10.2); Hemolysis Index 6
[2019-08-01 08:14] LABS: Basophils % (Manual) 0 % (0.0-1.8); RBC Morphology Normal; Total Cells Counted 100
[2019-08-01 08:15] LABS: Platelet Estimate Consistent w Auto
[2019-08-01] MEDS: METOCLOPRAMIDE 10 MG/2 ML INJ IV SCH ×4 (09:00→21:04)
[2019-08-01] MEDS: FLUCONAZOLE 200 MG 200 MG/100 ML BAG IV SCH (09:33)
[2019-08-01] MEDS: buPROPion XL 150 MG TAB PO SCH (09:34)
[2019-08-01] MEDS: hydroCHLOROthiazide 12.5 MG CAP PO SCH (09:34)
[2019-08-01] MEDS: FOLIC ACID 1 MG TAB PO SCH (09:34)
[2019-08-01] MEDS: THIAMINE 100 MG TAB PO SCH (09:35)
[2019-08-01] MEDS: PANTOPRAZOLE 40 MG TAB PO SCH ×2 (09:35→21:04)
[2019-08-01] MEDS: VALSARTAN 40 MG TAB PO SCH (09:36)
[2019-08-01] MEDS: hydrALAZINE 20 MG/1 ML INJ IV PRN (13:34)
--- NOTE | 2019-08-01 13:53 | Progress Note ---
Assessment and Plan Assessment and plan: 49-year-old man with previous history of alcohol abuse. States he has now cut back. He presents with 2 episodes of hematemesis.He states that he just started instantly vomiting blood. He also states that he has cut back on drinking and smoking severely. He has numerous near resolutions which he is taking to. Acute GI bleed Esophageal candidiasis. Gastritis and duodenitis. Continue PPI, GI input appreciated, keep n.p.o. . Hemoglobin stable -History of candidiasis of esophagus, gastritis, duodenitis/enlarged papilla noted on 3 previous EGDs at [facility]. Most recent was in February of last year. -No plans for EGD at this time unless patient starts having overt bleeding or drop in H&H, ADat, still remains nauseous. -Start him on fluconazole, will need 21-day course. -Obtain nuclear medicine gastric emptying study Suspected diabetic gastroparesis Antiemetics, nuclear medicine gastric emptying study pending. Etoh dependence and withdrawal - ciwa protocol, thiamine and folate -preventative health counseling performed for 17 minutes Currently claims he drinks 2 beers a week and smokes about 2 cigarettes a week. Tobacco abuse/dependence Smoking cessation counseling performed for 10 minutes, nicotine patches when necessary New onsets diabetes with persistent hyperglycemia Consistent carbohydrate diet, sliding scale insulin, A1c 7.1 Preventative health counseling performed for 17 minutes Hypokalemia Repleted DVT prophylaxis SCDs. History Interval history: Review of systems Constitutional: No fevers, no malaise, no joint pains CVS: No chest pain, no orthopnea, no pedal edema GI: He still is complaining of nausea. Respiratory: , no wheezing, no coughing Hospitalist Physical - Physical exam Narrative exam: General.: Mild distress HEENT: Moist mucous membranes, extraocular muscles intact, no lymphadenopathy Neck: supple Cardiac: S1-S2 heard Lungs: clear to auscultation bilaterally Abdomen: soft , epigastric tenderness Extremities: no edema clubbing or cyanosis Skin: no rash or lesions Neurologic: no gross focal deficits Psych: calm, and cooperative - Constitutional Vitals: Temp Pulse Resp BP Pulse Ox 98.2 F 73 22 181/125 95 08/01/19 12:00 08/01/19 13:34 08/01/19 12:00 08/01/19 13:34 08/01/19 12:22 General appearance: Present: no acute distress, well-nourished ZACH score - Zach Score Age > 65: (0) No Aspirin use within the Past 7 Days: (0) No 3 or more CAD Risk Factors: (0) No 2 or more Angina events in past 24 hrs: (1) Yes Known CAD with more than 50% Stenosis: (0) No Elevated Cardiac Markers: (0) No ST Deviation Greater than 0.5mm: (0) No ZACH Score: 1 Results - Labs CBC & Chem 7: 08/01/19 04:20 08/01/19 04:20 Labs: Laboratory Last Values WBC 3.0 K/mm3 (4.5-11.0) L 08/01/19 04:20 RBC 4.22 M/mm3 (3.65-5.03) 08/01/19 04:20 Hgb 13.5 gm/dl (11.8-15.2) 08/01/19 04:20 Hct 39.4 % (35.5-45.6) 08/01/19 04:20 MCV 93 fl (84-94) 08/01/19 04:20 MCH 32 pg (28-32) 08/01/19 04:20 MCHC 34 % (32-34) 08/01/19 04:20 RDW 13.4 % (13.2-15.2) 08/01/19 04:20 Plt Count 181 K/mm3 (140-440) 08/01/19 04:20 Lymph % (Auto) Stained Glass Artist 08/01/19 04:20 Nicholas % (Auto) 8.7 % (0.0-7.3) H 07/30/19 07:15 Eos % (Auto) 1.5 % (0.0-4.3) 07/30/19 07:15 Baso % (Auto) 0.4 % (0.0-1.8) 07/30/19 07:15 Lymph # 1.5 K/mm3 (1.2-5.4) 07/30/19 07:15 Nicholas # 0.3 K/mm3 (0.0-0.8) 07/30/19 07:15 Eos # 0.1 K/mm3 (0.0-0.4) 07/30/19 07:15 Baso # 0.0 K/mm3 (0.0-0.1) 07/30/19 07:15 Add Manual Diff Complete 08/01/19 04:20 Total Counted 100 08/01/19 04:20 Seg Neutrophils % Stained Glass Artist 08/01/19 04:20 Seg Neuts % (Manual) 25.0 % (40.0-70.0) L 08/01/19 04:20 Band Neutrophils % 0 % 08/01/19 04:20 Lymphocytes % (Manual) 63.0 % (13.4-35.0) H 08/01/19 04:20 Reactive Lymphs % (Man) 0 % 08/01/19 04:20 Monocytes % (Manual) 11.0 % (0.0-7.3) H 08/01/19 04:20 Eosinophils % (Manual) 1.0 % (0.0-4.3) 08/01/19 04:20 Basophils % (Manual) 0 % (0.0-1.8) 08/01/19 04:20 Metamyelocytes % 0 % 08/01/19 04:20 Myelocytes % 0 % 08/01/19 04:20 Promyelocytes % 0 % 08/01/19 04:20 Blast Cells % 0 % 08/01/19 04:20 Nucleated RBC % Not Reportable 08/01/19 04:20 Seg Neutrophils # 1.6 K/mm3 (1.8-7.7) L 07/30/19 07:15 Seg Neutrophils # Man 0.8 K/mm3 (1.8-7.7) L 08/01/19 04:20 Band Neutrophils # 0.0 K/mm3 08/01/19 04:20 Lymphocytes # (Manual) 1.9 K/mm3 (1.2-5.4) 08/01/19 04:20 Abs React Lymphs (Man) 0.0 K/mm3 08/01/19 04:20 Monocytes # (Manual) 0.3 K/mm3 (0.0-0.8) 08/01/19 04:20 Eosinophils # (Manual) 0.0 K/mm3 (0.0-0.4) 08/01/19 04:20 Basophils # (Manual) 0.0 K/mm3 (0.0-0.1) 08/01/19 04:20 Metamyelocytes # 0.0 K/mm3 08/01/19 04:20 Myelocytes # 0.0 K/mm3 08/01/19 04:20 Promyelocytes # 0.0 K/mm3 08/01/19 04:20 Blast Cells # 0.0 K/mm3 08/01/19 04:20 WBC Morphology Not Reportable 08/01/19 04:20 Hypersegmented Neuts Not Reportable 08/01/19 04:20 Hyposegmented Neuts Not Reportable 08/01/19 04:20 Hypogranular Neuts Not Reportable 08/01/19 04:20 Smudge Cells Not Reportable 08/01/19 04:20 Toxic Granulation Not Reportable 08/01/19 04:20 Toxic Vacuolation Not Reportable 08/01/19 04:20 Dohle Bodies Not Reportable 08/01/19 04:20 Pelger-Huet Anomaly Not Reportable 08/01/19 04:20 Janna Rods Not Reportable 08/01/19 04:20 Platelet Estimate Consistent w auto 08/01/19 04:20 Clumped Platelets Not Reportable 08/01/19 04:20 Plt Clumps, EDTA Not Reportable 08/01/19 04:20 Large Platelets Not Reportable 08/01/19 04:20 Giant Platelets Not Reportable 08/01/19 04:20 Platelet Satelliting Not Reportable 08/01/19 04:20 Plt Morphology Comment Not Reportable 08/01/19 04:20 RBC Morphology Normal 08/01/19 04:20 Dimorphic RBCs Not Reportable 08/01/19 04:20 Polychromasia Not Reportable 08/01/19 04:20 Hypochromasia Not Reportable 08/01/19 04:20 Poikilocytosis Not Reportable 08/01/19 04:20 Anisocytosis Not Reportable 08/01/19 04:20 Microcytosis Not Reportable 08/01/19 04:20 Macrocytosis Not Reportable 08/01/19 04:20 Spherocytes Not Reportable 08/01/19 04:20 Pappenheimer Bodies Not Reportable 08/01/19 04:20 Sickle Cells Not Reportable 08/01/19 04:20 Target Cells Not Reportable 08/01/19 04:20 Tear Drop Cells Not Reportable 08/01/19 04:20 Ovalocytes Not Reportable 08/01/19 04:20 Helmet Cells Not Reportable 08/01/19 04:20 Elder-Adona Bodies Not Reportable 08/01/19 04:20 Linn Rings Not Reportable 08/01/19 04:20 Lohn Cells Not Reportable 08/01/19 04:20 Bite Cells Not Reportable 08/01/19 04:20 Crenated Cell Not Reportable 08/01/19 04:20 Elliptocytes Not Reportable 08/01/19 04:20 Acanthocytes (Spur) Not Reportable 08/01/19 04:20 Rouleaux Not Reportable 08/01/19 04:20 Hemoglobin C Crystals Not Reportable 08/01/19 04:20 Schistocytes Not Reportable 08/01/19 04:20 Malaria parasites Not Reportable 08/01/19 04:20 Shankar Bodies Not Reportable 08/01/19 04:20 Hem Pathologist Commnt No 08/01/19 04:20 PT 12.8 Sec. (12.2-14.9) 07/30/19 07:15 INR 0.95 (0.87-1.13) 07/30/19 07:15 APTT 27.2 Sec. (24.2-36.6) 07/30/19 07:15 Sodium 140 mmol/L (137-145) 08/01/19 04:20 Potassium 3.5 mmol/L (3.6-5.0) L 08/01/19 04:20 Chloride 103.4 mmol/L (98-107) 08/01/19 04:20 Carbon Dioxide 24 mmol/L (22-30) 08/01/19 04:20 Anion Gap 16 mmol/L 08/01/19 04:20 BUN 8 mg/dL (9-20) L 08/01/19 04:20 Creatinine 0.5 mg/dL (0.8-1.5) L 08/01/19 04:20 Estimated GFR > 60 ml/min 08/01/19 04:20 BUN/Creatinine Ratio 16 % 08/01/19 04:20 Glucose 391 mg/dL (75-100) H 08/01/19 04:20 POC Glucose 174 (70-105) H 08/01/19 12:09 Hemoglobin A1c 7.1 % (4-6) H 07/30/19 07:15 Calcium 8.4 mg/dL (8.4-10.2) 08/01/19 04:20 Phosphorus 2.20 mg/dL (2.5-4.5) L 07/29/19 15:12 Magnesium 1.80 mg/dL (1.7-2.3) 07/29/19 15:12 Total Bilirubin 0.30 mg/dL (0.1-1.2) 07/28/19 20:54 AST 13 units/L (5-40) 07/28/19 20:54 ALT 14 units/L (7-56) 07/28/19 20:54 Alkaline Phosphatase 91 units/L (35-129) 07/28/19 20:54 Troponin T < 0.010 ng/mL (0.00-0.029) 07/28/19 23:24 Total Protein 7.1 g/dL (6.3-8.2) 07/28/19 20:54 Albumin 4.3 g/dL (3.9-5) 07/28/19 20:54 Albumin/Globulin Ratio 1.5 % 07/28/19 20:54 Lipase 42 units/L (13-60) 07/28/19 20:54 Urine Color Yellow (Yellow) 07/29/19 00:39 Urine Turbidity Clear (Clear) 07/29/19 00:39 Urine pH 5.0 (5.0-7.0) 07/29/19 00:[address] 1.033 (1.003-1.030) H 07/29/19 00:39 Urine Protein 100 mg/dl mg/dL (Negative) 07/29/19 00:39 Urine Glucose (UA) >=500 mg/dL (Negative) 07/29/19 00:39 Urine Ketones Neg mg/dL (Negative) 07/29/19 00:39 Urine Blood Neg (Negative) 07/29/19 00:39 Urine Nitrite Neg (Negative) 07/29/19 00:39 Urine Bilirubin Neg (Negative) 07/29/19 00:39 Urine Urobilinogen 2.0 mg/dL (<2.0) 07/29/19 00:39 Ur Leukocyte Esterase Neg (Negative) 07/29/19 00:39 Urine WBC (Auto) < 1.0 /HPF (0.0-6.0) 07/29/19 00:39 Urine RBC (Auto) 1.0 /HPF (0.0-6.0) 07/29/19 00:39 Urine Mucus Few /HPF 07/29/19 00:39 Urine Opiates Screen Presumptive negative 07/29/19 00:39 Urine Methadone Screen Presumptive negative 07/29/19 00:39 Ur Barbiturates Screen Presumptive negative 07/29/19 00:39 Ur Phencyclidine Scrn Presumptive negative 07/29/19 00:39 Ur Amphetamines Screen Presumptive negative 07/29/19 00:39 U Benzodiazepines Scrn Presumptive negative 07/29/19 00:39 Urine Cocaine Screen Presumptive negative 07/29/19 00:39 U Marijuana (THC) Screen Presumptive negative 07/29/19 00:39 Drugs of Abuse Note Disclamer 07/29/19 00:39 Plasma/Serum Alcohol 0.03 % (0-0.07) 07/28/19 20:54 Active Medications - Current Medications Current Medications: Generic Name Dose Route Start Last Admin Trade Name Freq PRN Reason Stop Dose Admin Acetaminophen 650 mg 07/29/19 00:43 Tylenol PO Q4H PRN Pain MILD(1-3)/Fever >100.5/DIGGS Bupropion HCl 300 mg 07/30/19 12:00 08/01/19 09:34 Wellbutrin Xl PO 300 mg DAILY ALMA Administration Dextrose 50 ml 07/29/19 15:15 D50w (25gm) Syringe IV Q30MIN PRN Hypoglycemia Protocol Folic Acid 1 mg 07/29/19 13:00 08/01/19 09:34 Folvite PO 1 mg QDAY ALMA Administration Hydralazine HCl 10 mg 07/29/19 14:45 08/01/19 13:34 Apresoline IV 10 mg Q4HR PRN Administration BP >160/100 Hydrochlorothiazide 12.5 mg 08/01/19 10:00 08/01/19 09:34 Hctz PO 12.5 mg QDAY ALMA Administration Fluconazole 200 mg in 100 mls @ 100 mls/hr 07/31/19 10:00 08/01/19 09:33 Diflucan IV 100 mls/hr Q24HR ALMA Administration Protocol Sodium Chloride 1,000 mls @ 125 mls/hr 07/31/19 14:00 08/01/19 05:24 Nacl 0.45% 1000 Ml IV 125 mls/hr DIRECT ALMA Administration Insulin Glargine 25 units 08/01/19 22:00 Lantus SUB-Q QHS ALMA Insulin Human Lispro 0 unit 08/01/19 11:30 08/01/19 12:54 Humalog SUB-Q 3 unit ACHS ALMA Administration Protocol Lorazepam 2 mg 07/28/19 23:54 Ativan IV Q1HR PRN CIWA-Ar 8-15 Lorazepam 2 mg 07/28/19 23:54 Ativan PO Q1HR PRN CIWA-Ar 8-15 Lorazepam 4 mg 07/28/19 23:54 Ativan IV Q1HR PRN CIWA-Ar 16-25 Lorazepam 4 mg 07/28/19 23:54 Ativan PO Q1HR PRN CIWA-Ar 16-25 Lorazepam 4 mg 07/28/19 23:54 Ativan IV Q15MIN PRN CIWA-Ar >25 Metoclopramide HCl 5 mg 07/31/19 16:30 08/01/19 12:56 Reglan IV 5 mg ACHS ALMA Administration Morphine Sulfate 2 mg 07/29/19 00:43 08/01/19 13:33 Morphine IV 2 mg Q4H PRN Administration Pain, Moderate (4-6) Ondansetron HCl 4 mg 07/29/19 14:45 Zofran IV Q4H PRN Nausea And Vomiting Pantoprazole Sodium 40 mg 07/31/19 22:00 08/01/19 09:35 Protonix PO 40 mg BID ALMA Administration Quetiapine Fumarate 400 mg 07/30/19 22:00 07/31/19 22:25 Seroquel PO 400 mg QHS ALMA Administration Sodium Chloride 10 ml 07/29/19 10:00 08/01/19 12:58 Sodium Chloride Flush Syringe 10 Ml IV 10 ml BID ALMA Administration Sodium Chloride 10 ml 07/29/19 00:43 Sodium Chloride Flush Syringe 10 Ml IV PRN PRN LINE FLUSH Thiamine HCl 100 mg 07/29/19 13:00 08/01/19 09:35 Vitamin B-1 PO 100 mg QDAY ALMA Administration Valsartan 80 mg 08/01/19 10:00 08/01/19 09:36 Diovan PO 80 mg QDAY ALMA Administration Nutrition/Malnutrition Assess - Dietary Evaluation Nutrition/Malnutrition Findings: Nutrition Notes Start: 07/30/19 14:22 Freq: Status: Active Protocol: Document 07/30/19 14:22 BIANKA (Rec: 07/30/19 14:35 BIANKA [id number]) Co-Sign 07/30/19 14:22 LP Nutrition Notes Need for Assessment generated from: MD Order,Education Initial or Follow up Assessment Current Diagnosis Diabetes Other Pertinent Diagnosis ETOH abuse, abdominal pain, hematemesis Current Diet GI soft Labs/Tests BG 285 Phos 2.20 Pertinent Medications Ns/Kcl 125 ml/hr Humalog Height 5 ft 8 in Weight 104.5 kg Tatum Body Weight (kg) 70.00 BMI 35.0 Weight change and time frame Inaccurate wt. Going by pt UBW Weight Status Obese Subjective/Other Information MD consult for diet edu. Pt stated that he hasn't lost any wt. Pt stated that his appetite was poor and ate 0% of breakfast. 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 Offered pt diet edu. and he denied it. Due to pt poor appetite, offered an ONS pt denied it. Ask pt preferences and he said he had none. Burn Absent Trauma Absent GI Symptoms None Current % PO Negligible Minimum of two criteria No Energy Intake (non-severe) <75% Estimated Energy Requirement >7 days #1 Nutrition Diagnosis Inadequate oral intake Etiology ETOH abuse, N/V As Evidenced by Signs and Symptoms 0% of breakfast eaten Is patient on ventilator? No Is Patient Ambulatory and/or Out of Bed Yes REE-([facility]-ambulatory/OOB) [ 3919.850 NUTR.[id number]] Kcal/Kg value to use for calculation 20 Approximate Energy Requirements Using 0 kcal/Kg Calculation Used for Recommendations Kcal/kg Additional Notes Protein: 70-87g (0.8-1g/kg AdjBW 87kg) Fluid: 1 ml/kcal Nutrition Intervention Change Diet Order: Continue current Goal #1 Meet at least 75% of energy and protein needs via PO intakes Anticipated Discharge Needs: Consistent CHO diet Follow-Up By: 08/04/19 Additional Comments F/U for PO and ONS intakes and further diet edu.
[2019-08-01] MEDS: QUEtiapine 200 MG TAB PO SCH (21:04)
[2019-08-01] MEDS ORDERED: INSULIN GLARGINE 100 UNITS/ML SUB-Q SCH (22:00)
[2019-08-02] MEDS: MORPHINE 2 MG/1 ML INJ IV PRN ×2 (05:25→09:44)
[2019-08-02] MEDS: SODIUM CHLORIDE 0.45% 1000 ML 1,000 ML IV SCH (05:32)
[2019-08-02] MEDS: INSULIN LISPRO 100 UNIT/ML SUB-Q SCH ×2 (08:24→13:26)
[2019-08-02] MEDS: VALSARTAN 40 MG TAB PO SCH (09:45)
[2019-08-02] MEDS: PANTOPRAZOLE 40 MG TAB PO SCH (09:46)
[2019-08-02] MEDS: FOLIC ACID 1 MG TAB PO SCH (09:46)
[2019-08-02] MEDS: buPROPion XL 150 MG TAB PO SCH (09:46)
[2019-08-02] MEDS: THIAMINE 100 MG TAB PO SCH (09:46)
[2019-08-02] MEDS: FLUCONAZOLE 200 MG 200 MG/100 ML BAG IV SCH (09:47)
[2019-08-02] MEDS: hydroCHLOROthiazide 12.5 MG CAP PO SCH (09:47)
[2019-08-02] MEDS: METOCLOPRAMIDE 10 MG/2 ML INJ IV SCH ×2 (09:48→13:31)
[2019-08-02 09:49] VITALS: BP 171/111
--- NOTE | 2019-08-02 13:09 | Discharge Summary ---
Providers - Providers Date of Admission: 07/30/19 09:56 Attending physician: RONDA ELLIS MD 07/28/19 23:28 Consult to Physician [CONS] Routine Comment: Consulting Provider: ELI LIM Physician Instructions: Reason For Exam: vomiting blood. 07/29/19 15:15 Consult to Dietitian/Nutrition [CONS] Routine Physician Instructions: Reason For Exam: Reason for Consult: Diet education Primary care physician: CHILD CARE PROVIDER Hospitalization Condition: Critical Hospital course: 49-year-old man with previous history of alcohol abuse. States he has now cut back. He presents with 2 episodes of hematemesis.He states that he just started instantly vomiting blood. He also states that he has cut back on drinking and smoking severely. He has numerous near resolutions which he is taking to. Acute GI bleed Esophageal candidiasis. Gastritis and duodenitis. Continue PPI, GI input appreciated, . Hemoglobin stable -History of candidiasis of esophagus, gastritis, duodenitis/enlarged papilla noted on 3 previous EGDs at [facility]. Most recent was in February of last year. -No plans for EGD at this time unless patient starts having overt bleeding or drop in H&H, ADat, still remains nauseous. Received fluconazole, to complete 21-day course. presumed diabetic gastroparesis Antiemetics, ADAT, recommended full liquid diet at time of dc Etoh dependence and withdrawal - ciwa protocol, thiamine and folate -preventative health counseling performed for 17 minutes Currently claims he drinks 2 beers a week and smokes about 2 cigarettes a week. Tobacco abuse/dependence Smoking cessation counseling performed for 10 minutes, nicotine patches when necessary New onsets diabetes with persistent hyperglycemia Consistent carbohydrate diet, insulins and meds optimized, A1c 7.1, Preventative health counseling performed for 17 minutes Hypokalemia/hypomagnesemia Repleted DVT prophylaxis SCDs. Disposition: DC-01 TO HOME OR SELFCARE Time spent for discharge: 33 mins Core Measure Documentation - Palliative Care Palliative Care/ Comfort Measures: Not Applicable - Core Measures Any of the following diagnoses?: none Exam - Constitutional Vitals: Temp Pulse Resp BP Pulse Ox 98.1 F 79 18 171/111 97 08/02/19 05:07 08/02/19 09:45 08/02/19 05:07 08/02/19 09:45 08/02/19 05:07 General appearance: Present: no acute distress, well-nourished - EENT Eyes: Present: PERRL ENT: hearing intact, clear oral mucosa - Neck Neck: Present: supple, normal ROM - Respiratory Respiratory effort: normal Respiratory: bilateral: CTA - Cardiovascular Heart Sounds: Present: S1 & S2. Absent: rub, click - Extremities Extremities: pulses symmetrical, No edema Peripheral Pulses: within normal limits - Abdominal General gastrointestinal: Present: soft, non-tender, non-distended, normal bowel sounds Male genitourinary: Present: normal - Integumentary Integumentary: Present: clear, warm, dry - Musculoskeletal Musculoskeletal: gait normal, strength equal bilaterally - Psychiatric Psychiatric: appropriate mood/affect, intact judgment & insight - Neurologic Neurologic: CNII-XII intact, moves all extremities Plan Follow up with: PRIMARY CARE,MD [Primary Care Provider] - 7 Days Prescriptions: Insulin Glargine [Lantus VIAL] 25 units SUB-Q QHS #1 vial Fluconazole [Diflucan TAB] 200 mg PO QDAY #17 tablet Valsartan [Diovan] 80 mg PO BID #60 tablet Folic Acid [Folvite] 1 mg PO QDAY #30 tablet hydroCHLOROthiazide [HCTZ] 25 mg PO QDAY #30 tablet Sitagliptin Phos/Metformin HCl [Janumet XR 50-500 mg] 1 tab PO QDAY #30 tbmp.24hr Pantoprazole [Protonix] 40 mg PO BID #180 tablet Thiamine [Vitamin B-1] 100 mg PO QDAY #30 tablet Ondansetron [Zofran ODT TAB] 8 mg PO Q8HR PRN #30 tab.rapdis PRN Reason: Nausea
== END 2019-08-02 14:20 | disposition home or self-care (01) | DRG 378 ==
LOC: ED 20:35 → 3A 23:29 → OBSVTOIN 07-30 09:56
PROVIDERS: ADMIT Internal Medicine Geriatric Medicine; ATTEND Internal Medicine
DX: K29.21 Alcoholic gastritis with bleeding (principal); I42.9 Cardiomyopathy, unspecified; F10.239 Alcohol dependence with withdrawal, unspecified; B37.81 Candidal esophagitis; K29.71 Gastritis, unspecified, with bleeding; K29.81 Duodenitis with bleeding; E87.6 Hypokalemia; I11.0 Hypertensive heart disease with heart failure; I50.9 Heart failure, unspecified; E66.9 Obesity, unspecified; F31.9 Bipolar disorder, unspecified; F17.210 Nicotine dependence, cigarettes, uncomplicated; E11.65 Type 2 diabetes mellitus with hyperglycemia; E11.43 Type 2 diabetes mellitus with diabetic autonomic (poly)neuropathy; K31.84 Gastroparesis; Z68.35 Body mass index [BMI] 35.0-35.9, adult; Z90.49 Acquired absence of other specified parts of digestive tract; Z91.19 Patient's noncompliance with other medical treatment and regimen
CPT/HCPCS: 36415; 80048; 80053; 80307; 80320; 81001; 82962; 83036; 83690; 83735; 84100; 84132; 84484; 85007; 85025; 85610; 85730; 93005; 93010; G0378; C9113; G0480; J0360; J1450; J1815; J2270; J2765; J7030

== ENCOUNTER 2019-09-03 17:36 | Emergency (ER) | payer MEDICARE ==
--- NOTE | 2019-09-03 18:09 | Event Note ---
ED Screening Note Date of service: 09/03/19 Time: 18:08 ED Screening Note: 49 yo with pmh of HTN presents cc of Chest pain x 1 hour ago non radiating This initial assessment/diagnostic orders/clinical plan/treatment(s) is/are subject to change based on patients health status, clinical progression and re- assessment by fellow clinical providers in the ED. Further treatment and workup at subsequent clinical providers discretion. Patient/guardian urged not to elope from the ED as their condition may be serious if not clinically assessed and managed. Initial orders include: labs ekg, cxr, main ashley eeval
[2019-09-03] MEDS ORDERED: ASPIRIN 325 MG TAB PO ONE (18:10)
[2019-09-03 19:00] VITALS: BP 152/77
--- NOTE | 2019-09-03 19:07 | XRay Report ---
CHEST 2 VIEWS INDICATION / CLINICAL INFORMATION: Chest Pain. COMPARISON: 07/28/2019 FINDINGS: SUPPORT DEVICES: None. HEART / MEDIASTINUM: No significant abnormality. LUNGS / PLEURA: No significant pulmonary or pleural abnormality. No pneumothorax. ADDITIONAL FINDINGS: No significant additional findings. IMPRESSION: 1. No acute findings. Signer Name: Geoffrey Rooney MD Signed: 09/03/2019 7:03 PM Workstation Name: [id number]
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
[2019-09-03 19:16] LABS: Basophils # (Auto) 0.1 K/mm3 (0.0-0.1); Eosinophils # (Auto) 0.1 K/mm3 (0.0-0.4); Eosinophils % (Auto) 1.1 % (0.0-4.3); Hematocrit 46.6 % (35.5-45.6); Hemoglobin 15.8 gm/dl (11.8-15.2); Lymphocytes # (Auto) 2.3 K/mm3 (1.2-5.4); Lymphocytes % (Auto) 44.3 % (13.4-35.0); Mean Corpuscular HGB Conc 34 % (32-34); Mean Corpuscular Volume 90 fl (84-94); Monocytes # (Auto) 0.3 K/mm3 (0.0-0.8); Monocytes % (Auto) 6.1 % (0.0-7.3); Platelet Count 186 K/mm3 (140-440); Red Blood Count 5.16 M/mm3 (3.65-5.03); Red Cell Distribution Width 12.8 % (13.2-15.2)
[2019-09-03 19:17] LABS: INR 0.92 (0.87-1.13); Partial Thromboplastin Time 26.7 Sec. (24.2-36.6)
[2019-09-03 19:22] LABS: Alanine Aminotransferase 20 units/L (7-56); Albumin 4.6 g/dL (3.9-5); Bilirubin,Direct < 0.2 mg/dL (0-0.2)
[2019-09-03 19:35] LABS: BUN/Creatinine Ratio 17; Blood Urea Nitrogen 12 mg/dL (9-20); Calcium 9.7 mg/dL (8.4-10.2); Hemolysis Index 26
[2019-09-03] MEDS ORDERED: SODIUM CHLORIDE 0.9% 1000 ML 1,000 ML IV ONE (19:53)
[2019-09-03] MEDS ORDERED: INSULIN REGULAR, HUMAN 100 UNITS/1 ML IV ONE (20:04)
== END 2019-09-03 20:14 | disposition left against medical advice (07) ==
LOC: ED 17:36
DX: R07.89 Other chest pain (principal); E11.65 Type 2 diabetes mellitus with hyperglycemia; R00.8 Other abnormalities of heart beat; F31.9 Bipolar disorder, unspecified; F20.9 Schizophrenia, unspecified; F17.200 Nicotine dependence, unspecified, uncomplicated
CPT/HCPCS: 36415; 71046; 80048; 80076; 84484; 85025; 85379; 85610; 85730; 93005; 93010; 99284; J7030; J1815

== ENCOUNTER 2020-01-12 22:05 | Emergency (ER) | payer MEDICARE ==
[2020-01-12 22:54] LABS: Basophils % (Auto) 0.4 % (0.0-1.8); Eosinophils # (Auto) 0.1 K/mm3 (0.0-0.4); Eosinophils % (Auto) 1.4 % (0.0-4.3); Hematocrit 42.1 % (35.5-45.6); Hemoglobin 14.4 gm/dl (11.8-15.2); Lymphocytes # (Auto) 2.8 K/mm3 (1.2-5.4); Lymphocytes % (Auto) 48.5 % (13.4-35.0); Mean Corpuscular HGB Conc 34 % (32-34); Mean Corpuscular Volume 91 fl (84-94); Monocytes # (Auto) 0.4 K/mm3 (0.0-0.8); Monocytes % (Auto) 7.7 % (0.0-7.3); Platelet Count 268 K/mm3 (140-440); Red Blood Count 4.66 M/mm3 (3.65-5.03); Red Cell Distribution Width 12.7 % (13.2-15.2)
[2020-01-12 22:57] LABS: Amphetamine Screen,Urine PRESUMPTIVE NEGATIVE; Benzodiazepines Screen,Urine PRESUMPTIVE NEGATIVE; Cannabinoid Screen,Urine PRESUMPTIVE NEGATIVE; Cocaine Screen,Urine PRESUMPTIVE NEGATIVE; Methadone Screen,Urine PRESUMPTIVE NEGATIVE; Opiate Screen,Urine PRESUMPTIVE NEGATIVE
[2020-01-12 23:01] LABS: Bilirubin,Urine NEG (Negative); Blood,Urine NEG (Negative); Color,Urine Yellow (Yellow); Mucus,Urine FEW /HPF; Protein,Urine <15 mg/dL mg/dL (Negative); Urobilinogen,Urine < 2.0 mg/dL (<2.0)
[2020-01-12 23:21] LABS: BUN/Creatinine Ratio 15; Blood Urea Nitrogen 12 mg/dL (9-20); Calcium 9.6 mg/dL (8.4-10.2); Hemolysis Index 20
[2020-01-13] MEDS ORDERED: INSULIN REGULAR, HUMAN 100 UNITS/1 ML SUB-Q ONE (00:22)
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
== END 2020-01-13 01:27 | disposition home or self-care (01) ==
LOC: ED 22:05
DX: F10.10 Alcohol abuse, uncomplicated (principal); I10 Essential (primary) hypertension; F20.9 Schizophrenia, unspecified; F17.200 Nicotine dependence, unspecified, uncomplicated; Z90.49 Acquired absence of other specified parts of digestive tract; Z98.890 Other specified postprocedural states; Z79.899 Other long term (current) drug therapy; Z91.013 Allergy to seafood; Z91.040 Latex allergy status
CPT/HCPCS: 36415; 80048; 80307; 80320; 81001; 85025; 99284; G0480; J1815

== ENCOUNTER 2020-04-12 19:33 | Emergency (ER) | payer MEDICARE ==
[2020-04-12] MEDS ORDERED: ASPIRIN 325 MG TAB PO ONE (19:50)
[2020-04-12 21:03] LABS: Hematocrit 37.4 % (35.5-45.6); Hemoglobin 13.4 gm/dl (11.8-15.2); Mean Corpuscular HGB Conc 36 % (32-34); Mean Corpuscular Volume 92 fl (84-94); Platelet Count 204 K/mm3 (140-440); Red Blood Count 4.05 M/mm3 (3.65-5.03); Red Cell Distribution Width 14.6 % (13.2-15.2)
[2020-04-12 21:26] LABS: Blood Urea Nitrogen 7 mg/dL (9-20); Calcium 9.1 mg/dL (8.4-10.2); Hemolysis Index 10
[2020-04-12 21:27] LABS: BUN/Creatinine Ratio 12
[2020-04-12 21:51] LABS: RBC Morphology Normal; Total Cells Counted 100
--- NOTE | 2020-04-12 22:07 | XRay Report ---
CHEST 2 VIEWS INDICATION / CLINICAL INFORMATION: Chest Pain. COMPARISON: 09/03/2019 FINDINGS: SUPPORT DEVICES: None. HEART / MEDIASTINUM: Stable. LUNGS / PLEURA: No significant pulmonary or pleural abnormality. No pneumothorax. ADDITIONAL FINDINGS: No significant additional findings. IMPRESSION: 1. No acute findings. Signer Name: Breezy Chavez MD Signed: 04/12/2020 10:02 PM Workstation Name: [id number]
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
[2020-04-13 01:39] LABS: INR 0.91 (0.87-1.13)
[2020-04-13 01:40] LABS: Partial Thromboplastin Time 28.9 Sec. (24.2-36.6)
[2020-04-13 02:10] VITALS: BP 114/81
== END 2020-04-13 02:00 | disposition home or self-care (01) ==
LOC: ED 19:33
DX: R07.89 Other chest pain (principal); I10 Essential (primary) hypertension; F31.9 Bipolar disorder, unspecified; Z79.4 Long term (current) use of insulin; Z79.899 Other long term (current) drug therapy; Z91.040 Latex allergy status; Z91.013 Allergy to seafood
CPT/HCPCS: 36415; 71046; 80048; 84484; 85007; 85025; 85379; 85610; 85730; 93005

== ENCOUNTER 2020-04-15 17:20 | Emergency (ER) | payer MEDICARE | END 2020-04-15 18:00 | disposition left against medical advice (07) | LOC: ED 17:20 | DX: M79.652 Pain in left thigh (principal); Z53.21 Procedure and treatment not carried out due to patient leaving prior to being seen by health care provider ==

== ENCOUNTER 2020-04-15 21:51 | Emergency (ER) | payer MEDICARE ==
[2020-04-15 23:44] VITALS: BP 111/79
== END 2020-04-16 03:07 | disposition left against medical advice (07) ==
LOC: ED 21:51
DX: R10.30 Lower abdominal pain, unspecified (principal); Z53.21 Procedure and treatment not carried out due to patient leaving prior to being seen by health care provider

== ENCOUNTER 2020-04-16 07:59 | Emergency (ER) | payer MEDICARE ==
[2020-04-16] MEDS ORDERED: HYDROcodone/ACETAMINOPHEN 5-325 MG TAB PO ONE (10:46)
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
[2020-04-16 12:45] LABS: Bilirubin,Urine NEG (Negative); Blood,Urine NEG (Negative); Color,Urine Colorless (Yellow); Protein,Urine <15 mg/dL mg/dL (Negative); Urobilinogen,Urine < 2.0 mg/dL (<2.0)
[2020-04-16 12:49] LABS: WBC,Urine < 1.0 /HPF (0.0-6.0)
--- NOTE | 2020-04-16 13:07 | Ultrasound Report ---
ULTRASOUND SCROTUM INDICATION / CLINICAL INFORMATION: bilateral testicular pain and swelling. COMPARISON: Scrotal ultrasound dated 05/27/2019. FINDINGS -- RIGHT TESTIS: Size = 3.7 x 2.5 x 3.8 cm. - Appearance: No significant abnormality. - Cyst or Mass: None. - Color Doppler Flow: No significant abnormality. EPIDIDYMIS: The right epididymal head measures 1 cm in length. There is a 3 mm anechoic right epidid ymal cyst. HYDROCELE: None. VARICOCELE: None demonstrated. FINDINGS -- LEFT TESTIS: Size = 4.5 x 2.1 x 3.2 cm. - Appearance: No significant abnormality. - Cyst or Mass: None. - Color Doppler Flow: No significant abnormality. EPIDIDYMIS: No significant abnormality. HYDROCELE: None. VARICOCELE: None demonstrated. ADDITIONAL FINDINGS: None. IMPRESSION: 1. No acute abnormality. No evidence of testicular torsion. 2. Tiny right epididymal cyst. Signer Name: Hao Herron MD Signed: 04/16/2020 1:02 PM Workstation Name: [id number]
[2020-04-16 13:44] VITALS: BP 140/99
== END 2020-04-16 13:44 | disposition home or self-care (01) ==
LOC: ED 07:59
DX: N50.3 Cyst of epididymis (principal); N50.819 Testicular pain, unspecified; I10 Essential (primary) hypertension; F20.9 Schizophrenia, unspecified; F17.200 Nicotine dependence, unspecified, uncomplicated; F12.10 Cannabis abuse, uncomplicated; Z90.49 Acquired absence of other specified parts of digestive tract; Z98.890 Other specified postprocedural states; Z79.4 Long term (current) use of insulin; Z79.899 Other long term (current) drug therapy; Z91.013 Allergy to seafood; Z91.040 Latex allergy status
CPT/HCPCS: 81001; 93975

== ENCOUNTER 2020-04-19 15:02 | Emergency (ER) | payer MEDICARE ==
[2020-04-19 16:26] VITALS: BP 108/68
[2020-04-19] MEDS ORDERED: ASPIRIN 325 MG TAB PO ONE (16:27)
== END 2020-04-19 19:40 | disposition left against medical advice (07) ==
LOC: ED 15:02
DX: R07.9 Chest pain, unspecified (principal); Z53.21 Procedure and treatment not carried out due to patient leaving prior to being seen by health care provider

== ENCOUNTER 2020-07-18 19:08 | Emergency (ER) | payer MEDICARE ==
[2020-07-18 23:16] LABS: Eosinophils % (Auto) 0.6 % (0.0-4.3); Hematocrit 48.9 % (35.5-45.6); Lymphocytes # (Auto) 1.8 K/mm3 (1.2-5.4); Lymphocytes % (Auto) 47.8 % (13.4-35.0); Mean Corpuscular HGB Conc 35 % (32-34); Mean Corpuscular Volume 97 fl (84-94); Monocytes # (Auto) 0.4 K/mm3 (0.0-0.8); Monocytes % (Auto) 11.8 % (0.0-7.3); Platelet Count 171 K/mm3 (140-440); Red Blood Count 5.05 M/mm3 (3.65-5.03); Red Cell Distribution Width 13.6 % (13.2-15.2)
[2020-07-18 23:26] LABS: Blood Urea Nitrogen 7 mg/dL (9-20); Calcium 9.2 mg/dL (8.4-10.2); Hemolysis Index 8
[2020-07-18 23:28] LABS: BUN/Creatinine Ratio 14
[2020-07-19] MEDS ORDERED: ONDANSETRON 4 MG ODT TAB PO ONE (00:59)
[2020-07-19] MEDS ORDERED: PANTOPRAZOLE 40 MG TAB PO ONE (01:00)
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
--- NOTE | 2020-07-19 01:24 | XRay Report ---
ABDOMEN 2 VIEW WITH PA CHEST INDICATION / CLINICAL INFORMATION: epigastric pain. COMPARISON: 04/12/2020 prior chest radiograph FINDINGS: PA view of the chest is unremarkable. Cardiac silhouette and pulmonary vascularity are normal. Both l ungs are well-expanded and are clear. Supine and erect views of the abdomen demonstrate a few slightly prominent loops of small bowel throu ghout the abdomen which are nonspecific. There is no visible free air. Surgical clips are present in the right upper quadrant most likely from prior cholecystectomy. IMPRESSION: 1. Nonspecific bowel gas pattern. There are a few slightly prominent loops of gas containing small jose antonio wel within the upper abdomen. 2. No acute pulmonary disease. Signer Name: Yamilka Levin MD Signed: 07/19/2020 1:19 AM Workstation Name: [id number]
--- NOTE | 2020-07-19 02:28 | Cat Scan Report ---
CT abdomen pelvis wo con INDICATION / CLINICAL INFORMATION: Pt complains of RIGHT flank pain with N/V and bloody stools.. TECHNIQUE: Axial CT imaging of abdomen and pelvis was obtained without contrast. Coronal and sagittal reformatte d imaging obtained and reviewed. All CT scans at this location are performed using CT dose reduction for ALARA by means of automated exposure control. COMPARISON: Prior CT, 12/19/2018 FINDINGS: CT abdomen without contrast demonstrates prominent hepatic steatosis. The liver, spleen, pancreas, ki dneys, and adrenal glands otherwise appear unremarkable for noncontrasted exam. Prior cholecystectomy . CT pelvis without contrast does not demonstrate any pelvic mass, free fluid, or focal inflammatory ch scotty. A normal appendix is visualized within the right lower quadrant. It is mild diverticulosis thro ughout the descending colon and sigmoid colon but no convincing evidence for acute diverticulitis or colitis. There are a few slightly prominent loops of fluid-filled small bowel within the upper and mi d abdomen which are nonspecific but more than likely related to enteritis. Prostate gland is mildly enlarged. Visualized lung bases are clear. No significant acute skeletal abnormality. IMPRESSION: 1. Probable enteritis. Please correlate with patient's symptoms. 2. Diverticulosis without evidence for diverticulitis or colitis. 3. Prominent hepatic steatosis. Signer Name: Yamilka Levin MD Signed: 07/19/2020 2:24 AM Workstation Name: [id number]
[2020-07-19 03:23] LABS: Bilirubin,Urine NEG (Negative); Blood,Urine NEG (Negative); Color,Urine Amber (Yellow); Mucus,Urine 3+ /HPF
[2020-07-19 03:26] LABS: Protein,Urine >500 mg/dL (Negative)
[2020-07-19 03:40] VITALS: BP 130/79
== END 2020-07-19 03:40 | disposition home or self-care (01) ==
LOC: ED 19:08
DX: R10.13 Epigastric pain (principal); R11.2 Nausea with vomiting, unspecified; I10 Essential (primary) hypertension; F20.9 Schizophrenia, unspecified; F17.200 Nicotine dependence, unspecified, uncomplicated; Z90.49 Acquired absence of other specified parts of digestive tract; Z98.890 Other specified postprocedural states; Z91.013 Allergy to seafood; Z91.040 Latex allergy status
CPT/HCPCS: 36415; 74022; 74176; 80048; 81001; 85025; Q0162